=== PATIENT | female | born 1955 | race Caucasian/White ===

== ENCOUNTER → 2018-01-30 16:40 | Outpatient (CLI) | payer OTHER, SELFPAY ==
[2018-01-30 18:18] LABS: Microalbumin,Random Urine 17.8 mg/L (NO RANGE EST.)
[2018-01-30 18:21] LABS: AST(SGOT) 37 U/L (15-37); Alanine Aminotransfer ALT/SGPT 41 U/L (13-56); Albumin, Serum 3.1 g/dL (3.2-5.0); Alkaline Phosphatase 103 U/L (45-117); Anion Gap 7 (5-15); BUN 12 mg/dL (7-18); BUN/Creat Ratio 16.9 RATIO (10-20); Bilirubin, Direct 0.15 mg/dL (0.00-0.30); Calcium,Total 8.7 mg/dL (8.5-10.1); Chloride 99 mmol/L (98-107); Cholesterol 147 mg/dL (200); Creatinine, Serum 0.71 mg/dL (0.55-1.02); EST Glomerular Filtration Rate 88 mL/min (>60); Est Glom Filt Rate - Afr Amer 107 mL/min (>60); Globulin 4.1 g/dL (2.2-4.2); Glucose 160 mg/dL (74-106); High Density Lipoprotein 37 mg/dL; Potassium 3.6 mmol/L (3.5-5.1); Protein, Total 7.2 g/dL (6.4-8.2); Sodium Level 138 mmol/L (136-145); Triglycerides 258 mg/dL; Very Low Density Lipoprotein 52 mg/dL (5-40)
== END ==
PROVIDERS: Family Provider Family Medicine; PCP Family Medicine; Visit Provider Family Medicine
DX: I10 Essential (primary) hypertension (principal); E11.9 Type 2 diabetes mellitus without complications
CPT/HCPCS: 36415; 80048; 80061; 80076; 82043; 82570

== ENCOUNTER → 2018-08-03 10:53 | Outpatient (CLI) | payer OTHER, SELFPAY ==
[2018-08-03 12:44] LABS: Anion Gap 9 (5-15); BUN 11 mg/dL (7-18); BUN/Creat Ratio 15.7 RATIO (10-20); Chloride 97 mmol/L (98-107); EST Glomerular Filtration Rate 89 mL/min (>60); Est Glom Filt Rate - Afr Amer 108 mL/min (>60); Glucose 403 mg/dL (74-106); Potassium 3.9 mmol/L (3.5-5.1); Sodium Level 135 mmol/L (136-145)
== END ==
PROVIDERS: Family Provider Family Medicine; PCP Family Medicine; Visit Provider Family Medicine
DX: E11.9 Type 2 diabetes mellitus without complications (principal)
CPT/HCPCS: 36415; 80048

== ENCOUNTER → 2018-08-16 14:14 | Outpatient (CLI) | payer OTHER, SELFPAY | PROVIDERS: Family Provider Family Medicine; PCP Family Medicine; Referring Provider Family Medicine; Visit Provider Family Medicine | DX: L03.811 Cellulitis of head [any part, except face] (principal); L02.811 Cutaneous abscess of head [any part, except face] | CPT/HCPCS: 87070; 87077; 87186; 87205 ==

== ENCOUNTER → 2018-11-26 | Outpatient (CLI) | payer OTHER, SELFPAY ==
[2018-11-26 12:40] LABS: ALB/GLOB Ratio 0.8 RATIO (0.9-2.4); AST(SGOT) 20 U/L (15-37); Alanine Aminotransfer ALT/SGPT 32 U/L (13-56); Alkaline Phosphatase 100 U/L (45-117); Anion Gap 9 (5-15); BUN 12 mg/dL (7-18); BUN/Creat Ratio 19.2 RATIO (10-20); Calcium,Total 8.8 mg/dL (8.5-10.1); Chloride 100 mmol/L (98-107); Creatinine, Serum 0.62 mg/dL (0.55-1.02); EST Glomerular Filtration Rate 102 mL/min (>60); Est Glom Filt Rate - Afr Amer 123 mL/min (>60); Glucose 156 mg/dL (74-106); Potassium 3.5 mmol/L (3.5-5.1); Sodium Level 140 mmol/L (136-145)
[2018-11-27 16:33] LABS: C-Peptide 1.6 ng/mL (1.1-4.4)
== END | disposition home or self-care (01) ==
LOC: MFPLAB 11:06
PROVIDERS: Family Provider Family Medicine; PCP Family Medicine; Visit Provider Internal Medicine Endocrinology, Diabetes & Metabolism
DX: E11.9 Type 2 diabetes mellitus without complications (principal)
CPT/HCPCS: 36415; 80053; 84681

== ENCOUNTER → 2019-02-15 09:15 | Outpatient (CLI) | payer MEDICARE, BC, SELFPAY ==
[2019-02-15 10:55] LABS: Hemoglobin A1c 9.3 % (4.2-6.3)
[2019-02-15 11:15] LABS: ALB/GLOB Ratio 0.7 RATIO (0.9-2.4); AST(SGOT) 17 U/L (15-37); Alanine Aminotransfer ALT/SGPT 30 U/L (13-56); Alkaline Phosphatase 104 U/L (45-117); Anion Gap 7 (5-15); BUN 12 mg/dL (7-18); BUN/Creat Ratio 20.8 RATIO (10-20); Calcium,Total 8.6 mg/dL (8.5-10.1); Chloride 98 mmol/L (98-107); Cholesterol 146 mg/dL (200); Creatinine, Serum 0.58 mg/dL (0.55-1.02); EST Glomerular Filtration Rate 112 mL/min (>60); Est Glom Filt Rate - Afr Amer 135 mL/min (>60); Globulin 4.1 g/dL (2.2-4.2); Glucose 224 mg/dL (74-106); High Density Lipoprotein 44 mg/dL; Potassium 3.5 mmol/L (3.5-5.1); Protein, Total 7.1 g/dL (6.4-8.2); Sodium Level 138 mmol/L (136-145); Thyroid Stim Hormone (TSH) 1.15 uIU/mL (0.358-3.74); Triglycerides 119 mg/dL; Very Low Density Lipoprotein 24 mg/dL (5-40)
[2019-02-15 13:14] LABS: Microalbumin,Random Urine 98.7 mg/L (NO RANGE EST.); Microalbumin:Creatinine Ratio 135.4 mg/g CRE (<30 mg/g CRE)
== END ==
PROVIDERS: Family Provider Family Medicine; PCP Family Medicine; Referring Provider Family Medicine; Visit Provider Internal Medicine Endocrinology, Diabetes & Metabolism
DX: E11.9 Type 2 diabetes mellitus without complications (principal)
CPT/HCPCS: 36415; 80053; 80061; 82043; 82570; 83036; 84443

== ENCOUNTER → 2019-06-20 10:52 | Outpatient (CLI) | payer MEDICARE, BC, SELFPAY ==
[2019-06-20 12:48] LABS: Microalbumin,Random Urine 55.7 mg/L (NO RANGE EST.); Microalbumin:Creatinine Ratio 34.2 mg/g CRE (<30 mg/g CRE); Vitamin D,25 Hydroxy 30.6 ng/mL (29.95-100.01)
[2019-06-20 13:31] LABS: ALB/GLOB Ratio 0.7 RATIO (0.9-2.4); AST(SGOT) 24 U/L (15-37); Alanine Aminotransfer ALT/SGPT 31 U/L (13-56); Alkaline Phosphatase 86 U/L (45-117); Anion Gap 10 (5-15); BUN 12 mg/dL (7-18); BUN/Creat Ratio 17.4 RATIO (10-20); Calcium,Total 8.4 mg/dL (8.5-10.1); Chloride 99 mmol/L (98-107); Cholesterol 152 mg/dL (200); Creatinine, Serum 0.69 mg/dL (0.55-1.02); EST Glomerular Filtration Rate 91 mL/min (>60); Est Glom Filt Rate - Afr Amer 110 mL/min (>60); Globulin 4.1 g/dL (2.2-4.2); Glucose 191 mg/dL (74-106); High Density Lipoprotein 43 mg/dL; Potassium 3.1 mmol/L (3.5-5.1); Protein, Total 7.1 g/dL (6.4-8.2); Sodium Level 138 mmol/L (136-145); Triglycerides 130 mg/dL; Very Low Density Lipoprotein 26 mg/dL (5-40)
== END ==
PROVIDERS: Family Provider Family Medicine; PCP Family Medicine; Visit Provider Internal Medicine Endocrinology, Diabetes & Metabolism
DX: E11.9 Type 2 diabetes mellitus without complications (principal); E55.9 Vitamin D deficiency, unspecified; E06.9 Thyroiditis, unspecified; E78.1 Pure hyperglyceridemia; E66.01 Morbid (severe) obesity due to excess calories; Z68.43 Body mass index [BMI] 50.0-59.9, adult; Z87.891 Personal history of nicotine dependence; Z79.4 Long term (current) use of insulin
CPT/HCPCS: 36415; 80053; 80061; 82043; 82306; 82570; 84443

== ENCOUNTER → 2019-11-14 12:13 | Outpatient (CLI) | payer MEDICARE, BC, SELFPAY ==
--- NOTE | 2019-11-14 12:16 | BI_ITS ---
MAMMOGRAPHY - BILATERAL SCREENING REASON FOR EXAM: Female, 64 years old. Routine annual screening examination. PERTINENT HISTORY: Non-contributory. TECHNIQUE: Digital bilateral breast maria del carmen (3D mammographic acquisition) in the CC and MLO projections. 2-D mediolateral oblique (MLO) and craniocaudad (CC) views of both breasts were obtained. CAD: Full Field Digital Mammography with Computer Added Detection was performed. COMPARISON: Comparison is made with prior examination dated September 19, 2016 and March 18, 2014. FINDINGS: Breast Composition: The breasts are almost entirely fatty. There are no dominant masses or suspicious calcifications. Stable densely calcified right retroareolar nodule. No other significant abnormalities are identified. There has been no significant change since the prior study. BI/SCREEN MAMM (CAD) W/MARIA DELC ARMEN BILAT IMPRESSION: Stable bilateral screening mammogram. Yearly follow-up mammogram recommended. (A) ASSESSMENT CATEGORY: BIRADS Category 2: Benign. A letter regarding these results will be sent to the patient by the facility within 30 days. Approximately 10% of breast cancers are not detected by mammography. A normal mammogram should not delay biopsy of a clinically suspicious abnormality. [id number] Electronically Signed: Bharat Rodriguez, at 15:03 EDT , Service support ,
--- NOTE | 2019-11-14 12:50 | BD_ITS ---
STUDY: DUAL ENERGY X-RAY ABSORPTIOMETRY / DXA REASON FOR EXAM: Female, 64 years old. 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 COMPARISON: None. FINDINGS: Lumbar Spine (L1-L4): g/cm2 (1.082) / T-score (-0.7) / Z-score (0.9) Findings are suggestive of normal bone density with a low fracture risk. Left Femur Total: g/cm2 (0.976) / T-score (-0.3) / Z-score (1.0) Left Femoral Neck: g/cm2 (0.878) / T-score (-1.1) / Z-score (0.3) Right Femur Total: g/cm2 (0.942) / T-score (-0.5) / Z-score (0.7) Right Femoral Neck: g/cm2 (0.848) / T-score (-1.4) / Z-score (0.1) BD/Dexa Bone Density Study IMPRESSION: The patient is considered osteopenic as outlined below according to World Jay Organization (WHO) criteria with a low fracture risk. Reference Information: The T-score is the number of standard deviations above or below the standard which is normal for young adults at their peak bone mineral density. The World Health Organization (WHO) interprets the T-scores as follows: Above -1 Normal bone density Between -1 and -2.5 Osteopenia Equal to / or below -2.5 Osteoporosis As a practical clinical guideline, osteopenia may be graded as follows: Mild -1 through -1.5 Moderate -1.6 through -2.0 Severe -2.1 through -2.4 The Z-score is the number of standard deviations above or below age-matched controls. A Z-score of less than -1.5 would be considered abnormal. References: 1. NIH Osteoporosis and Related Bone Diseases http://www.osteo.org 2. International Society for Clinical Densitometry http://www.iscd.org 3. National Osteoporosis Foundation http://www.nof.org Electronically Signed: Bharat Rodriguez, at 10:47 EDT , Service support ,
== END ==
PROVIDERS: PCP Family Medicine; Referring Provider Family Medicine; Visit Provider Family Medicine
DX: Z12.31 Encounter for screening mammogram for malignant neoplasm of breast (principal); N95.9 Unspecified menopausal and perimenopausal disorder
CPT/HCPCS: 77063; 77067; 77080

== ENCOUNTER → 2019-11-25 07:37 | Outpatient (CLI) | payer MEDICARE, BC, SELFPAY ==
[2019-11-25 11:10] LABS: ALB/GLOB Ratio 0.7 RATIO (0.9-2.4); AST(SGOT) 23 U/L (15-37); Alanine Aminotransfer ALT/SGPT 33 U/L (13-56); Albumin, Serum 3.2 g/dL (3.2-5.0); Alkaline Phosphatase 101 U/L (45-117); Anion Gap 9 (5-15); BUN 18 mg/dL (7-18); Calcium,Total 9.9 mg/dL (8.5-10.1); Chloride 99 mmol/L (98-107); Cholesterol 168 mg/dL (200); Creatinine, Serum 0.78 mg/dL (0.55-1.02); EST Glomerular Filtration Rate 78 mL/min (>60); Est Glom Filt Rate - Afr Amer 95 mL/min (>60); Globulin 4.3 g/dL (2.2-4.2); Glucose 233 mg/dL (74-106); High Density Lipoprotein 41 mg/dL; Potassium 3.5 mmol/L (3.5-5.1); Protein, Total 7.5 g/dL (6.4-8.2); Sodium Level 137 mmol/L (136-145); Triglycerides 212 mg/dL; Very Low Density Lipoprotein 42 mg/dL (5-40)
[2019-11-25 13:25] LABS: Hemoglobin A1c 8.6 % (3.8-5.6)
== END ==
PROVIDERS: PCP Family Medicine; Referring Provider Internal Medicine Endocrinology, Diabetes & Metabolism; Visit Provider Internal Medicine Endocrinology, Diabetes & Metabolism
DX: E11.9 Type 2 diabetes mellitus without complications (principal); E78.5 Hyperlipidemia, unspecified; Z79.4 Long term (current) use of insulin; E55.9 Vitamin D deficiency, unspecified; Z59.8 Other problems related to housing and economic circumstances
CPT/HCPCS: 36415; 80053; 80061; 83036

== ENCOUNTER → 2020-04-24 08:07 | Outpatient (CLI) | payer MEDICARE, BC, SELFPAY ==
[2020-04-24 10:18] LABS: ALB/GLOB Ratio 0.8 RATIO (0.9-2.4); AST(SGOT) 17 U/L (15-37); Alanine Aminotransfer ALT/SGPT 23 U/L (13-56); Albumin, Serum 3.3 g/dL (3.2-5.0); Alkaline Phosphatase 90 U/L (45-117); Anion Gap 6 (5-15); BUN 22 mg/dL (7-18); BUN/Creat Ratio 30.9 RATIO (10-20); Calcium,Total 9.5 mg/dL (8.5-10.1); Chloride 103 mmol/L (98-107); Cholesterol 162 mg/dL (200); Creatinine, Serum 0.71 mg/dL (0.55-1.02); EST Glomerular Filtration Rate 87 mL/min (>60); Est Glom Filt Rate - Afr Amer 106 mL/min (>60); Globulin 4.1 g/dL (2.2-4.2); Glucose 101 mg/dL (74-106); High Density Lipoprotein 56 mg/dL; Potassium 3.6 mmol/L (3.5-5.1); Protein, Total 7.4 g/dL (6.4-8.2); Sodium Level 140 mmol/L (136-145); Triglycerides 135 mg/dL; Very Low Density Lipoprotein 27 mg/dL (5-40)
[2020-04-24 10:21] LABS: Hemoglobin A1c 6.9 % (3.8-5.6)
[2020-04-24 10:23] LABS: Microalbumin,Random Urine 12.4 mg/L (NO RANGE EST.)
[2020-04-24 10:42] LABS: Vitamin D,25 Hydroxy 32.9 ng/mL
== END ==
PROVIDERS: PCP Family Medicine; Referring Provider Family Medicine; Visit Provider Internal Medicine Endocrinology, Diabetes & Metabolism
DX: E11.9 Type 2 diabetes mellitus without complications (principal); I10 Essential (primary) hypertension; Z79.4 Long term (current) use of insulin; Z91.19 Patient's noncompliance with other medical treatment and regimen
CPT/HCPCS: 36415; 80053; 80061; 82043; 82306; 83036

== ENCOUNTER → 2020-11-10 11:32 | Outpatient (CLI) | payer MEDICARE, BC, SELFPAY ==
[2020-11-10 16:02] LABS: AST(SGOT) 20 U/L (15-37); Alanine Aminotransfer ALT/SGPT 27 U/L (13-56); Anion Gap 5 (5-15); BUN 13 mg/dL (7-18); BUN/Creat Ratio 23.2 RATIO (10-20); Calcium,Total 9.2 mg/dL (8.5-10.1); Chloride 99 mmol/L (98-107); Cholesterol 176 mg/dL (200); Creatinine, Serum 0.56 mg/dL (0.55-1.02); EST Glomerular Filtration Rate 115 mL/min (>60); Est Glom Filt Rate - Afr Amer 139 mL/min (>60); Glucose 145 mg/dL (74-106); High Density Lipoprotein 55 mg/dL; Potassium 3.8 mmol/L (3.5-5.1); Sodium Level 137 mmol/L (136-145); Triglycerides 152 mg/dL; Very Low Density Lipoprotein 30 mg/dL (5-40)
[2020-11-10 16:13] LABS: Microalbumin:Creatinine Ratio 30.7 mg/g CRE (<30 mg/g CRE)
== END ==
PROVIDERS: PCP Family Medicine; Referring Provider Family Medicine; Visit Provider Family Medicine
DX: E11.59 Type 2 diabetes mellitus with other circulatory complications (principal); E11.69 Type 2 diabetes mellitus with other specified complication; E78.5 Hyperlipidemia, unspecified
CPT/HCPCS: 36415; 80048; 80061; 82043; 82570; 84450; 84460

== ENCOUNTER → 2021-05-28 16:48 | Outpatient (CLI) | payer MEDICARE, BC, SELFPAY ==
[2021-05-28 17:53] LABS: Hemoglobin A1c 6.9 % (3.8-5.6)
[2021-05-28 18:04] LABS: Anion Gap 7 (5-15); BUN 11 mg/dL (7-18); BUN/Creat Ratio 19.2 RATIO (10-20); Calcium,Total 9.2 mg/dL (8.5-10.1); Chloride 98 mmol/L (98-107); Creatinine, Serum 0.57 mg/dL (0.55-1.02); EST Glomerular Filtration Rate 112 mL/min (>60); Est Glom Filt Rate - Afr Amer 135 mL/min (>60); Glucose 117 mg/dL (74-106); Potassium 3.9 mmol/L (3.5-5.1); Sodium Level 137 mmol/L (136-145)
== END ==
PROVIDERS: PCP Family Medicine; Referring Provider Family Medicine; Visit Provider Family Medicine
DX: E11.9 Type 2 diabetes mellitus without complications (principal)
CPT/HCPCS: 36415; 80048; 83036

== ENCOUNTER 2021-07-01 15:42 | Outpatient (CLI) | payer MEDICARE, BC, SELFPAY | END 2021-07-01 23:59 | disposition short-term general hospital (02) | PROVIDERS: PCP Family Medicine; Visit Provider Family Medicine | DX: U07.1 COVID-19 (principal) | CPT/HCPCS: 87635; U0003; U0005 ==

== ENCOUNTER 2021-07-14 14:51 | Inpatient (IN) | payer MEDICARE, BC, SELFPAY ==
[2021-07-14 14:52] VITALS: BP 137/84; PULSE 80; RESP 16; TEMP 36.7; O2SAT 94; BMI 64.0
--- NOTE | 2021-07-14 16:44 | CT_ITS ---
EXAM: CT NECK WITH INTRAVENOUS CONTRAST CLINICAL INDICATION: Edema Technologist Notes pt arrives to ed with difficulty swallowing since yesterday. pt was able to swallow applesauce with pill, but states water just runs out of my mouth. positive covid 07/03/21 TECHNIQUE: Helically acquired images were obtained of the neck with intravenous contrast. This CT exam was performed using one or more of the following dose reduction techniques: automated exposure control, adjustment of the mA and/or kV according to patient size, and/or use of iterative reconstruction technique. This report was created using Synovex report Paxata technology. CONTRAST: IV 100mL Isovue-370 COMPARISON: None. FINDINGS: NASOPHARYNX: Unremarkable. SUPRAHYOID NECK: Unremarkable. Oropharynx, oral cavity, parapharyngeal space and retropharyngeal space are unremarkable. INFRAHYOID NECK: Unremarkable. The larynx, hypopharynx and supraglottis are unremarkable. SUBMANDIBULAR/PAROTID GLANDS: Unremarkable. Glands are normal in size. THYROID: Unremarkable. No enlarged or calcified nodules. BONES/JOINTS: There are degenerative findings of the cervical spine. No acute fracture. SOFT TISSUES: Unremarkable. VASCULATURE: There is mild atherosclerotic plaque formation of the origin of the right and left internal carotid artery with less than 50% cross sectional diameter stenosis. There are thoracic aortic calcifications consistent for atherosclerotic disease. There is no dissection or hematoma noted in the thoracic aorta. LYMPH NODES: Unremarkable. No lymphadenopathy. LUNG APICES: Unremarkable as visualized. CT/Soft Tissue Neck WITH Contrast IMPRESSION: No acute findings in the neck. Electronically Signed: Enrique Webb MD at 18:03 EST , Service support ,
--- NOTE | 2021-07-14 16:56 | ED.RN ---
COUNTED PILLS BASED ON WHEN HE HAD TEM FILLED AND IF HES BEEN TAKING TEM HE IS SUPPOSED TO AND THERE ARE 9 NOT ACCOUNTED FOR.
--- NOTE | 2021-07-14 17:12 | EDS_ITS ---
HPI History of Present Illness Chief Complaint: Sore Throat Informant: patient Onset/Context/Timing Onset: Yesterday Context: Sudden Onset Timing: Continuous Quality: Swelling Location: Jaw Worsened by: Nothing Relieved by: Nothing Narrative Narrative: Patient presents with swelling to her jaw and throat that began yesterday. Patient states it began rather suddenly. Patient states it has been constant. Patient states she has some pain with swallowing. Patient denies any shortness of breath or difficulty breathing. Patient admits to nausea but denies any vomiting. Patient noted some redness under her jaw. Patient is concerned that she may be developing an infection from a tooth. [facility] Medical History Diabetes Hypertension Morbid obesity Home Medications chlorthalidone 2 mg PO DAILY 07/14/21 [History Last Taken Unknown] fluoxetine 20 mg PO DAILY 07/14/21 [History Last Taken Unknown] lisinopril 80 mg PO DAILY 07/14/21 [History Last Taken Unknown] metformin 850 mg PO TID 07/14/21 [History Last Taken Unknown] metoprolol succinate 50 mg PO DAILY 07/14/21 [History Last Taken Unknown] pioglitazone 30 mg PO DAILY 07/14/21 [History Last Taken Unknown] Allergy/AdvReac Type Severity Reaction Status Date / Time Sulfa (Sulfonamide Allergy NEEDS Verified 07/14/21 14:52 Antibiotics) FOLLOW-UP Family History (Updated 07/14/21 @ 21:[address] Jung Payton MD) Other Diabetes Heart disease Surgical History History of hysterectomy Hx of cholecystectomy Hx of tonsillectomy Hx of total knee replacement Hx of tubal ligation Social History Smoking Status: Never smoker ROS ROS ED Constitutional Constitutional ED: Denies chills or fever(s) Eyes Eyes: Denies blurry vision or change in vision ENT ENT ED: Reports sore throat; Denies rhinorrhea Cardiovascular Cardiovascular: Denies chest pain or palpitations Respiratory/Chest Respiratory/Chest: Denies cough or dyspnea Gastrointestinal Gastrointestinal: Reports nausea; Denies vomiting Genitourinary Genitourinary ED: Denies dysuria or hematuria Musculoskeletal Musculoskeletal: Reports neck pain; Denies back pain Integumentary Denies abscess or rash Neurologic Neurologic: Denies headache(s) or weakness Allergic/Immunologic Allergic/Immunologic ED: Denies mouth swelling or urticaria EXAM Physical Exam Const Vital Signs: 07/14/21 14:52 07/14/21 19:28 07/14/21 20:05 Temperature 98.0 F Temperature Source Temporal Pulse Rate 80 71 Respiratory Rate 16 15 Respiratory Effort Normal Non-Labored Respiratory Pattern Normal Blood Pressure 137/84 H 142/63 H Blood Pressure Mean 101 89 Pulse Ox 94 96 Oxygen Delivery Method Room Air Room Air 07/14/21 20:35 Temperature Temperature Source Pulse Rate 82 Respiratory Rate 16 Respiratory Effort Respiratory Pattern Blood Pressure 145/67 H Blood Pressure Mean 93 Pulse Ox 95 Oxygen Delivery Method Room Air Positive well nourished, well developed and obese General Appearance ED: well developed Nutritional Appearance: obese HEENT Reports moist mucous membranes HEENT Narrative: Oropharynx is clear. Airway is patent. There are no exudates noted. Neck supple and no JVD Neck Narrative: There is some mild erythema and tenderness over the sublingual area. There are some mild induration. There is no fluctuance. Resp normal respiratory effort and clear to auscultation bilaterally Cardio regular rate and regular rhythm GI normal to inspection, nondistended, normoactive bowel sounds and non-tender Palpation: soft Neuro oriented x3, CN's II-XII intact bilaterally and no sensory deficits noted Sensorium / Orientation: alert Motor Exam: strength 5/5 throughout Psych mental status grossly normal MDM MDM MDM Narrative Medical decision making narrative: Patient was given a dose of Unasyn here. Patient was also given a dose of Decadron. CBC shows a leukocytosis of 24.6. Comprehensive metabolic profile was obtained and was essentially within normal limits. CT scan of the soft tissue neck was obtained. There is no evidence of any abscess. There is no acute finding noted. This was interpreted by the radiologist and reviewed by myself. Patient was given a dose of morphine here. Case was discussed with the hospitalist. He will admit the patient to his service. Patient understood and was agreeable with the plan. All questions were answered. Lab Data Attestation: I reviewed the patient's lab results. Labs: Laboratory Results - last 24 hr 07/14/21 07/14/21 17:11 17:11 WBC 24.6 H RBC 4.65 Hgb 13.4 Hct 41.8 MCV 89.9 MCH 28.8 MCHC 32.1 RDW Std Deviation 47.9 H RDW Coeff of Graciela 14.6 Plt Count 332 MPV 10.5 Immature Gran % (Auto) 0.800 Neut % (Auto) 81.9 H Lymph % (Auto) 9.2 L [place] % (Auto) 7.8 Eos % (Auto) 0.1 Baso % (Auto) 0.2 Absolute Neuts (auto) 20.2 H Absolute Lymphs (auto) 2.25 Nucleated RBC % 0 Differential Comment SCANNED Diff Path Review May foll Sodium 133 L Potassium 4.0 Chloride 92 L Carbon Dioxide 35.0 H Anion Gap 6 BUN 24 H Creatinine 0.66 Estim Creat Clear Calc 43.18 Est GFR (MDRD) Af Amer 115 Est GFR (MDRD) Non-Af 95 BUN/Creatinine Ratio 36.3 H Glucose 199 H Calcium 8.4 L Total Bilirubin 0.80 AST 46 H ALT 87 H Alkaline Phosphatase 88 Total Protein 6.4 Albumin 2.6 L Globulin 3.8 Albumin/Globulin Ratio 0.7 L Radiography Diagnostic Testing: Clinical Impression(s) from Imaging Studies Soft Tissue Neck CT 07/14/21 16:44 IMPRESSION: No acute findings in the neck. Electronically Signed: Enrique Webb MD at 18:03 EST , Service support , Treatment and Re-Evaluation Vital Sign Attestation:: Vital signs were reviewed prior to admission. They are stable. Discharge Plan Dx/Rx/DC Orders Clinical Impression: Ludwigs angina, Morbid obesity Disposition Disposition: Acute Care Hospital [facility] Discharge Date/Time: 07/14/21 22:22
[2021-07-14 17:19] LABS: Absolute Lymphocyte Count 2.25 X10^3/uL (0.83-4.51); Absolute Neutrophil Count 20.2 X10^3/uL (2.0-7.7); Basophil# 0.04 X10^3/uL; Basophil% 0.2 % (0-1); Eosinophil# 0.02 X10^3/uL; Eosinophils% 0.1 % (0-5); Hematocrit 41.8 % (37-47); Hemoglobin 13.4 g/dL (12.0-15.0); Lymphocyte # 2.25 X10^3/ul (0.83-4.51); Lymphocyte % 9.2 % (19-41); Mean Corp Hgb Conc 32.1 g/dL (32-36); Mean Corpuscular Hgb 28.8 pg (27.0-32.0); Mean Corpuscular Volume 89.9 fL (81-99); Mean Platelet Vol. 10.5 fl (6.2-12.0); Monocyte# 1.91 X10^3/uL; Monocyte% 7.8 % (0-10); NRBC Flagged by Analyzer 0 % (0-5); Neutrophil # 20.17 X10^3/uL (2.7-7.7); Neutrophil % 81.9 % (47-70); POSITIVE DIFFERENTIAL YES; Platelet Count 332 K/mm3 (150-450); RBC Distribution Width CV 14.6 % (11.6-14.6); RBC Distribution Width SD 47.9 fl (35.1-43.9); Red Blood Count 4.65 M/mm3 (4.2-5.4); White Blood Count 24.6 K/mm3 (4.4-11.0)
[2021-07-14 17:39] LABS: ALB/GLOB Ratio 0.7 RATIO (0.9-2.4); AST(SGOT) 46 U/L (15-37); Alanine Aminotransfer ALT/SGPT 87 U/L (13-56); Albumin, Serum 2.6 g/dL (3.2-5.0); Alkaline Phosphatase 88 U/L (45-117); Anion Gap 6 (5-15); BUN 24 mg/dL (7-18); BUN/Creat Ratio 36.3 RATIO (10-20); Calcium,Total 8.4 mg/dL (8.5-10.1); Chloride 92 mmol/L (98-107); Creatinine, Serum 0.66 mg/dL (0.55-1.02); EST Glomerular Filtration Rate 95 mL/min (>60); Est Glom Filt Rate - Afr Amer 115 mL/min (>60); Estimated Creatinine Clearance 43.18 ml/min; Globulin 3.8 g/dL (2.2-4.2); Glucose 199 mg/dL (74-106); Protein, Total 6.4 g/dL (6.4-8.2); Sodium Level 133 mmol/L (136-145)
[2021-07-14 18:03] LABS: Differential Indicated SCAN CRITERIA MET
[2021-07-14 18:32] LABS: Differential Comment SCANNED
[2021-07-14 20:05] VITALS: BP 142/63; PULSE 71; RESP 15; O2SAT 96
[2021-07-14 20:35] VITALS: BP 145/67; PULSE 82; RESP 16; O2SAT 95
[2021-07-14] MEDS: dexAMETHasone 10 MG/ML Vial IV (20:41)
[2021-07-14] MEDS: Morphine 4 MG/ML Syringe IV (20:41)
[2021-07-14 20:44] VITALS: BP 145/67; PULSE 82; RESP 16; TEMP 36.7; O2SAT 95
--- NOTE | 2021-07-14 20:44 | PCM.HP.STD ---
HPI - General General Date of Admission: 07/14/21 HPI Narrative JOANNA SARAH, is a 66 F with a significant history of hypertension; obstructive sleep apnea on home CPAP and diabetes mellitus and who was recently diagnosed with COVID-19 infection presents emergency department with a 2-day history of progressively worsening right jaw pain. Associated with her symptoms is odynophagia and nausea. Because of odynophagia she can only drink liquid. She is unable to take any solid food at this time. Reportedly on 23 June 2021 she had a COVID-19 vaccination booster. On Monday, 24 June 2021 she began to feel sick and her symptoms progressively worsened. She had a drive-through COVID test on 07/01/2021 and that was positive. She was started on steroids. She completed her course of steroids on 07/12/2021 and her current symptoms of jaw swelling started the next day. She reported that with her COVID-like symptoms she was started on Tessalon Perles as she had rhinorrhea and a productive cough. She thinks that the rhinorrhea and productive cough brought about her current symptoms. She reports that on 07/13/2021 she had a large greenish phlegm from her nose. [facility] Medical History Diabetes Hypertension Morbid obesity Allergy/AdvReac Type Severity Reaction Status Date / Time Sulfa (Sulfonamide Allergy NEEDS Verified 07/14/21 14:52 Antibiotics) FOLLOW-UP Family History (Updated 07/14/21 @ 21:[address] Jung Payton MD) Other Diabetes Heart disease Surgical History History of hysterectomy Hx of cholecystectomy Hx of tonsillectomy Hx of total knee replacement Hx of tubal ligation Social History Smoking Status: Never smoker ROS ROS Narrative Constitutional: Reports fatigue. Denies fever, chills, and change in weight Eyes: Denies blurry vision, change in eye color, change in vision, discharge from eye(s), double vision, erythema, eye pain, loss of vision or other HEENT: Denies abnormal hearing, dysphagia, ear pain, epistaxis, headache(s), hearing loss, nasal congestion, nasal discharge, post nasal drip, sinus pressure, sore throat or other Cardiovascular: Denies chest pain or palpitations. Denies dyspnea on exertion, orthopnea and paroxysmal nocturnal dyspnea Respiratory/Chest: Denies cough, excessive phlegm production, shortness of breath with exertion and wheezing Gastrointestinal: Reports nausea. Denies abdominal pain, coffee ground emesis, constipation, diarrhea, dyspepsia, hematemesis, hematochezia, loose stools, melena, vomiting or other Genitourinary: Denies burning urination, difficulty urinating, dysuria, hematuria, nocturia, urinary frequency, urinary hesitancy, urinary incontinence, urinary urgency or other Musculoskeletal: Denies arthralgias, back pain, joint pain, joint stiffness, joint swelling, myalgias, neck pain or other Neurologic: Denies abnormal gait, abnormal speech, confusion, disequilibrium, dizziness, focal weakness, headache(s), numbness, paresthesias, seizure-like activity, seizures, syncope, tingling, tremor(s) or other Psychiatric: Denies anxiety, depression, homicidal ideation, suicidal ideation or other Endocrinology: Denies change in body appearance, cold intolerance, excessive sweating, heat intolerance, polydipsia, polyuria or other Hematologic/Lymphatic: Denies anemia, easy bleeding, easy bruising, lymphadenopathy or other Integumentary: Denies rashes Allergic/Immunologic: Denies rhinitis, hives, eczema, asthma or other Vital Signs Vital Signs Vital Signs: 07/14/21 14:52 07/14/21 19:28 07/14/21 20:05 Temperature 98.0 F Temperature Source Temporal Pulse Rate 80 71 Respiratory Rate 16 15 Respiratory Effort Normal Non-Labored Respiratory Pattern Normal Blood Pressure 137/84 H 142/63 H Blood Pressure Mean 101 89 Pulse Ox 94 96 Oxygen Delivery Method Room Air Room Air 07/14/21 20:35 Temperature Temperature Source Pulse Rate 82 Respiratory Rate 16 Respiratory Effort Respiratory Pattern Blood Pressure 145/67 H Blood Pressure Mean 93 Pulse Ox 95 Oxygen Delivery Method Room Air Weight Weight: 158.757 kg Body Mass Index (BMI) 64.0 Physical Exam Narrative Physical exam: General: Well-nourished, well-developed. Head: Tender right jaw. Normocephalic, atraumatic, no tenderness Eyes: PERRLA, EOMI ENT, no trauma, swelling and tenderness of submandibular area. Neck: Nontender, full range of motion, no spinal tenderness, deformities, step-off CVS: Regular rate and rhythm. S1-S2 present. No murmur, gallop or rub. Respiratory : clear to auscultation bilaterally, chest wall nontender, no wheezing Abdomen: Soft, nontender, nondistended, normal bowel sounds, no masses : Deferred Back: Nontender, no CVA tenderness, no midline spinal tenderness, deformities, step-offs Extremities: Nontender full range of motion, no trauma Skin: Normal color, no trauma, abrasions Neuro: Alert, oriented, cranial nerves II through XII grossly intact. Psychiatry: Normal mood. Normal affect. Not depressed. Not anxious. Results Lab / Micro Data Result Diagrams: 07/14/21 17:11 07/14/21 17:11 Labs: Laboratory Results - last 24 hr 07/14/21 17:11: WBC 24.6 H, RBC 4.65, Hgb 13.4, Hct 41.8, MCV 89.9, MCH 28.8, MCHC 32.1, RDW Std Deviation 47.9 H, RDW Coeff of Graciela 14.6, Plt Count 332, MPV 10.5, Immature Gran % (Auto) 0.800, Neut % (Auto) 81.9 H, Lymph % (Auto) 9.2 L, Coffee % (Auto) 7.8, Eos % (Auto) 0.1, Baso % (Auto) 0.2, Absolute Neuts (auto) 20.2 H, Absolute Lymphs (auto) 2.25, Nucleated RBC % 0, Differential Comment SCANNED, Diff Path Review October foll 07/14/21 17:11: Sodium 133 L, Potassium 4.0, Chloride 92 L, Carbon Dioxide 35.0 H, Anion Gap 6, BUN 24 H, Creatinine 0.66, Estim Creat Clear Calc 43.18, Est GFR (MDRD) Af Amer 115, Est GFR (MDRD) Non-Af 95, BUN/Creatinine Ratio 36.3 H, Glucose 199 H, Calcium 8.4 L, Total Bilirubin 0.80, AST 46 H, ALT 87 H, Alkaline Phosphatase 88, Total Protein 6.4, Albumin 2.6 L, Globulin 3.8, Albumin/Globulin Ratio 0.7 L Radiology Impression Soft Tissue Neck CT 07/14/21 16:44 IMPRESSION: No acute findings in the neck. 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 With neutrophilia and lymphopenia. Of note patient was recently on steroids with her last dose of steroids 2 days before presentation. Will trend CBC. Soft tissue neck CT was independently interpreted and I agree with radiologist interpretation above. Given Decadron 10 mg IV push x1 at the emergency department. We will continue Decadron about IV. Started on Unasyn in the emergency department and continued. We will put patient on clear liquid diets. Advance diet as tolerated Diabetes mellitus Patient with hyperglycemia on presentation Adjust home basal insulin Reportedly she is on Trulicity but has not filled because of sickness. Accu-Chek QA CHS with correction scale insulin ordered. Psuedo-hyponatremia Sodium of 133 and chloride of 92. Corrected for glucose sodium is 135. Trend BMP Hypertension Blood pressure is stable in regard to her age. Blood pressure medications. Trend blood pressure and adjust blood pressure medications. Morbid Obesity: BMI:64. Complicates care. Lifestyle modification recommended. DVT prophylaxis: Subcutaneous Lovenox ordered. Charges/Coding Visit Charges Inpatient E&M: 68835 Init Hosp L3
--- NOTE | 2021-07-14 21:16 | CM.ED ---
RN CM Assessment Introduced role of RN CM to patient. Patient is alert, oriented and able to participate in RN CM Assessment. Care providers, pharmacy, and demographics verified. Admit Dx: odontogenic infection Re-Admit: No Barriers/Issues: None. has good support from her sons PCP: Radha Wetzel Specialists: Diabetic doctor in [place] Preferred Pharmacy: [facility] Insurance: [employer] A/B, [place] Rx Benefit: Yes LNOK: Sister Vera Clifton LW/HPOA: None, refused offered information or completion on this admission. Aware to notify staff if she changes her mind. Living Arrangements: Lives alone in basement apartment. No steps to enter home. ADL?s: Independent with ambulation and ADLs Transportation: Patient drives DME: Straight cane, [place], [place], CPAP-[employer] (states that her machine is the one that was recalled and needs to exchange), Glucometer. HHC: None SNF: Past when she has a knee replacement Goal: Home and does not think will have any needs, issues or concerns with going home. Aware RNCM will continue to follow should any needs arise. DC PLAN: Home and no anticipated needs identified at this time. BRO Urena
[2021-07-14 21:33] VITALS: BP 145/67; PULSE 82; RESP 16; TEMP 36.7; O2SAT 95
[2021-07-14 22:50] VITALS: BMI 65.2
[2021-07-14 23:35] VITALS: BP 155/47; PULSE 72; RESP 18; TEMP 36.7; O2SAT 93
[2021-07-15] VITALS (7 sets, daily range): BP systolic 140–155; BP diastolic 62–73; PULSE 69–94; RESP 18–20; TEMP 35.6–37.2; O2SAT 92–98
[2021-07-15] MEDS: dexAMETHasone 4 MG/ML Vial IV ×5 (00:33→23:24)
[2021-07-15] MEDS: 0.9% Saline Lock 10 ML Syringe IV ×3 (00:33→21:45)
[2021-07-15] MEDS: Enoxaparin 40 MG/0.4 ML Syringe SC ×3 (00:35→21:40)
[2021-07-15] MEDS: Insulin Lispro 100 UNIT/ML INSULN.PEN SC ×5 (00:37→21:38)
[2021-07-15 01:11] LABS: Bedside Glucose 264 mg/dL (70-110)
--- NOTE | 2021-07-15 03:14 | PCS.PANDOC ---
PANDEMIC DOCUMENTATION INITIATED: Date: 02/08/2021 Time: 190
[2021-07-15 05:53] LABS: Absolute Lymphocyte Count 0.94 X10^3/uL (0.83-4.51); Absolute Neutrophil Count 13.3 X10^3/uL (2.0-7.7); Basophil# 0.02 X10^3/uL; Basophil% 0.1 % (0-1); Hematocrit 42.1 % (37-47); Hemoglobin 13.3 g/dL (12.0-15.0); Lymphocyte # 0.94 X10^3/ul (0.83-4.51); Lymphocyte % 6.4 % (19-41); Mean Corp Hgb Conc 31.6 g/dL (32-36); Mean Corpuscular Hgb 28.2 pg (27.0-32.0); Mean Corpuscular Volume 89.4 fL (81-99); Mean Platelet Vol. 10.7 fl (6.2-12.0); Monocyte# 0.24 X10^3/uL; Monocyte% 1.6 % (0-10); NRBC Flagged by Analyzer 0 % (0-5); Neutrophil # 13.25 X10^3/uL (2.7-7.7); Neutrophil % 90.7 % (47-70); Platelet Count 253 K/mm3 (150-450); RBC Distribution Width CV 14.4 % (11.6-14.6); RBC Distribution Width SD 46.9 fl (35.1-43.9); Red Blood Count 4.71 M/mm3 (4.2-5.4); White Blood Count 14.6 K/mm3 (4.4-11.0)
[2021-07-15 06:15] LABS: Anion Gap 5 (5-15); BUN 19 mg/dL (7-18); BUN/Creat Ratio 32.3 RATIO (10-20); Calcium,Total 8.3 mg/dL (8.5-10.1); Chloride 93 mmol/L (98-107); Creatinine, Serum 0.59 mg/dL (0.55-1.02); EST Glomerular Filtration Rate 108 mL/min (>60); Est Glom Filt Rate - Afr Amer 131 mL/min (>60); Estimated Creatinine Clearance 41.19 ml/min; Glucose 289 mg/dL (74-106); Potassium 3.8 mmol/L (3.5-5.1); Sodium Level 131 mmol/L (136-145)
--- NOTE | 2021-07-15 07:32 | PCS.PANDOC ---
PANDEMIC DOCUMENTATION INITIATED: Date: 02/08/2021 Time: 190
--- NOTE | 2021-07-15 12:42 | PCM.PN.HOSP ---
Subjective Subjective Able to drink warm liquids. Difficulty with cold liquids. Objective Data Objective Data Vital Signs: Vital Signs Temp Pulse Resp BP Pulse Ox 36.1 C L 69 18 155/62 H 95 07/15/21 09:19 07/15/21 09:19 07/15/21 09:19 07/15/21 09:19 07/15/21 09:19 Oxygen Flow Rate (L/min) 2 Oxygen Delivery Method Room Air Weight: 160.1 kg Body Mass Index (BMI) 65.2 Intake & Output: Intake and Output for Last 24 Hours 07/13/21 07/14/21 07/15/21 23:59 23:59 23:59 Intake Total 112 / 112 112 / 112 Balance 112 / 112 112 / 112 Lab / Micro Data Result Diagrams: 07/15/21 05:02 07/15/21 05:02 Labs: Laboratory Results - last 24 hr 07/14/21 17:11: WBC 24.6 H, RBC 4.65, Hgb 13.4, Hct 41.8, MCV 89.9, MCH 28.8, MCHC 32.1, RDW Std Deviation 47.9 H, RDW Coeff of Graciela 14.6, Plt Count 332, MPV 10.5, Immature Gran % (Auto) 0.800, Neut % (Auto) 81.9 H, Lymph % (Auto) 9.2 L, [place] % (Auto) 7.8, Eos % (Auto) 0.1, Baso % (Auto) 0.2, Absolute Neuts (auto) 20.2 H, Absolute Lymphs (auto) 2.25, Nucleated RBC % 0, Differential Comment SCANNED, Diff Path Review October07/14/21 17:11: Sodium 133 L, Potassium 4.0, Chloride 92 L, Carbon Dioxide 35.0 H, Anion Gap 6, BUN 24 H, Creatinine 0.66, Estim Creat Clear Calc 43.18, Est GFR (MDRD) Af Amer 115, Est GFR (MDRD) Non-Af 95, BUN/Creatinine Ratio 36.3 H, Glucose 199 H, Calcium 8.4 L, Total Bilirubin 0.80, AST 46 H, ALT 87 H, Alkaline Phosphatase 88, Total Protein 6.4, Albumin 2.6 L, Globulin 3.8, Albumin/Globulin Ratio 0.7 L 07/15/21 00:27: POC Glucose 264 H 07/15/21 05:02: WBC 14.6 H, RBC 4.71, Hgb 13.3, Hct 42.1, MCV 89.4, MCH 28.2, MCHC 31.6 L, RDW Std Deviation 46.9 H, RDW Coeff of Graciela 14.4, Plt Count 253, MPV 10.7, Immature Gran % (Auto) 1.200 H, Neut % (Auto) 90.7 H, Lymph % (Auto) 6.4 L, [place] % (Auto) 1.6, Eos % (Auto) 0.0, Baso % (Auto) 0.1, Absolute Neuts (auto) 13.3 H, Absolute Lymphs (auto) 0.94, Nucleated RBC % 0 07/15/21 05:02: Sodium 131 L, Potassium 3.8, Chloride 93 L, Carbon Dioxide 33.0 H, Anion Gap 5, BUN 19 H, Creatinine 0.59, Estim Creat Clear Calc 41.19, Est GFR (MDRD) Af Amer 131, Est GFR (MDRD) Non-Af 108, BUN/Creatinine Ratio 32.3 H, Glucose 289 H, Calcium 8.3 L Radiography Diagnostic Testing: Radiology Impression Soft Tissue Neck CT 07/14/21 16:44 IMPRESSION: No acute findings in the neck. Electronically Signed: Enrique Webb MD at 18:03 EST , Service support , Physical Exam Const alert Neck Neck Narrative: edema under jaw without rigidity Resp normal respiratory effort, no retractions, no use of accessory muscles and clear to auscultation bilaterally Cardio regular rate, regular rhythm, S1 normal heart sound and S2 normal heart sound GI normal to inspection, nondistended, normoactive bowel sounds, soft to palpation, non-tender and non-distended Assessment & Plan Assessment/Plan (1) Ludwigs angina: (2) Morbid obesity: (3) Diabetes: QUALIFIERS: Diabetes mellitus type: type 2 Diabetes mellitus [facility] insulin use: with ocean transportation intermediary use Diabetes mellitus complication status: without complication Qualified Code(s): E11.9 - Type 2 diabetes mellitus without complications; Z79.4 - [facility] (current) use of insulin PLAN: 1. Mendez's angina improving continue amp/SB and dexamethasone will need to follow up with DDS as outpt. 2. Diabetes mellitus on basal and SSI 3. hyponatremia mild monitor 4. DVT prophylaxis: Subcutaneous Lovenox ordered. Disposition: overall improved. Monitor another day with IV abx and steroids and reevaluate on 07/16 Charges/Coding Visit Charges Inpatient E&M: 45131 Subs Hosp L2
[2021-07-15] MEDS: Nystatin Powder 15gm Bottle 1 APPLIC TOPICAL ×2 (13:29→21:40)
[2021-07-15 13:30] LABS: Bedside Glucose 311 mg/dL (70-110)
[2021-07-15 13:56] LABS: Bedside Glucose 308 mg/dL (70-110)
--- NOTE | 2021-07-15 15:30 | CHAPLAIN ---
Type of Pastoral Visit _x__ Initial Visit ___ Follow-up Visit ___ On-call Visit ___ General Patient Visit ___ Spiritual Assessment ___ Family Conference ___ Bereavement ___ Rapid Response ___ Code Blue ___ Other (describe below) Pastoral Care Referral From _x__ Patient ___ Family ___ Nurse ___ Physician ___ Counseling Aide ___ Criminal Profiler ___ Other (describe below) Sacrament/Intervention _x__ Active listening ___ Anointing ___ Hinduism ___ Bereavement ___ Communion _x__ Marian[place] exploration ___ _x__ Life review _x__ Prayer ___ Reconciliation ___ Sacrament of Sick _x__ Supportive presence ___ Wedding ___ Other (describe below) Pastoral Comments
[2021-07-15 16:41] LABS: Bedside Glucose 284 mg/dL (70-110)
[2021-07-15 21:55] LABS: Bedside Glucose 361 mg/dL (70-110)
[2021-07-16] MEDS: 0.9% Saline Lock 10 ML Syringe IV (00:04)
[2021-07-16 00:33] VITALS: PULSE 74; O2SAT 98
[2021-07-16] MEDS: dexAMETHasone 4 MG/ML Vial IV (05:35)
[2021-07-16 05:40] VITALS: BP 174/70; PULSE 77; RESP 18; TEMP 36.6; O2SAT 96
[2021-07-16 07:48] LABS: Absolute Lymphocyte Count 1.16 X10^3/uL (0.83-4.51); Absolute Neutrophil Count 10.1 X10^3/uL (2.0-7.7); Basophil# 0.02 X10^3/uL; Basophil% 0.2 % (0-1); Hematocrit 40.6 % (37-47); Lymphocyte # 1.16 X10^3/ul (0.83-4.51); Lymphocyte % 9.7 % (19-41); Mean Corpuscular Hgb 28.5 pg (27.0-32.0); Mean Platelet Vol. 10.5 fl (6.2-12.0); Monocyte# 0.62 X10^3/uL; Monocyte% 5.2 % (0-10); NRBC Flagged by Analyzer 0 % (0-5); Neutrophil # 10.09 X10^3/uL (2.7-7.7); Neutrophil % 83.8 % (47-70); Platelet Count 258 K/mm3 (150-450); RBC Distribution Width CV 14.2 % (11.6-14.6); RBC Distribution Width SD 45.8 fl (35.1-43.9); Red Blood Count 4.56 M/mm3 (4.2-5.4)
[2021-07-16 08:15] LABS: Bedside Glucose 280 mg/dL (70-110)
--- NOTE | 2021-07-16 08:18 | PCM.DC ---
Discharge Instructions Diet Discharge Diet: 2000 Calorie Control Diet (mechanical soft diet, advance as tolerated. ) Activity Discharge Activity: Return to Normal Activity Dressing / Incision Call your doctor if you observe: Fever of 101 or Higher, Shortness of breath and - (worsening difficulty swallowing. ) Follow Up Care Please Follow Up With: Your Dentist When: 1 week Test Results: Test results from this visit will be discussed in further detail at your follow-up appointment, if applicable. Discharge Plan Admission Admit Date/Time: 07/14/21 20:36 Primary Reason for Your Visit: Lugwig's Angina (submandibular infection) Attending Provider: Shahram Chavez Primary Care Provider: Radha Wetzel Discharge Orders/Prescriptions Prescriptions: New acetaminophen [Tylenol] 325 mg Tablet 500 mg PO Q6H PRN PRN (Reason: Pain Score 1-10/Temp > 100.7 F) Qty: 0 RF: 0 amoxicillin-pot clavulanate 875-125 mg tablet 1 tab PO BID Qty: 25 RF: 0 prednisone 20 mg tablet 40 mg PO DAILY 4 Days Qty: 8 RF: 0 Continued metoprolol succinate 50 mg tablet extended release 24 hr 50 mg PO DAILY RF: 0 chlorthalidone 25 mg tablet 25 mg PO DAILY RF: 0 pioglitazone 30 mg tablet 30 mg PO DAILY RF: 0 lisinopril 40 mg tablet 80 mg PO DAILY RF: 0 fluoxetine 20 mg capsule 20 mg PO DAILY RF: 0 atorvastatin 10 mg tablet 10 mg PO QHS RF: 0 albuterol sulfate 90 mcg/actuation HFA aerosol inhaler 2 puff INHALATION Q6H PRN PRN (Reason: Dyspnea) RF: 0 Lantus U-100 Insulin 100 unit/mL Solution 40 unit SUBCUT QHS Qty: 0 RF: 0 Changed insulin lispro 100 unit/mL Insulin Pen 40 unit SUBCUT TIDCM Qty: 0 RF: 0 Held metformin 850 mg tablet 850 mg PO TID RF: 0 Hold Instructions: Resume on 07/18/21. Referrals / Follow Up: Radha Wetzle MD [Primary Care Provider] - Within 1 Week Disposition Disposition (needs filled in before D/C Order can be placed): Home, Self Care
[2021-07-16 08:25] VITALS: BP 162/103; PULSE 82; RESP 18; TEMP 36.6; O2SAT 93
[2021-07-16 08:25] LABS: Anion Gap 5 (5-15); BUN 24 mg/dL (7-18); BUN/Creat Ratio 43.9 RATIO (10-20); Calcium,Total 8.3 mg/dL (8.5-10.1); Chloride 97 mmol/L (98-107); Creatinine, Serum 0.55 mg/dL (0.55-1.02); EST Glomerular Filtration Rate 118 mL/min (>60); Est Glom Filt Rate - Afr Amer 143 mL/min (>60); Estimated Creatinine Clearance 41.19 ml/min; Glucose 281 mg/dL (74-106); Potassium 3.7 mmol/L (3.5-5.1); Sodium Level 134 mmol/L (136-145)
[2021-07-16] MEDS: Insulin Lispro 100 UNIT/ML INSULN.PEN SC (08:27)
[2021-07-16] MEDS: Enoxaparin 40 MG/0.4 ML Syringe SC (08:28)
[2021-07-16] MEDS: Nystatin Powder 15gm Bottle 1 APPLIC TOPICAL (08:32)
--- NOTE | 2021-07-16 08:33 | PCM.DC.SUM ---
Providers Date of Admission: 07/14/21 Primary Care Physician: Dr. Radha Wetzel MD Reason For Visit: ODONTOGENIC INFECTION Diagnosis Discharge Diagnosis (1) Ludwigs angina: Status: Acute Code(s): K12.2 - Cellulitis and abscess of mouth (2) Morbid obesity: Status: Acute Code(s): E66.01 - Morbid (severe) obesity due to excess calories (3) Diabetes: Status: Inactive Code(s): E11.9 - Type 2 diabetes mellitus without complications Qualifiers: Diabetes mellitus type: type 2 Diabetes mellitus manager long term care insulin use: with half-way use Diabetes mellitus complication status: without complication Qualified Code(s): E11.9 - Type 2 diabetes mellitus without complications; 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.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) use of insulin Medications at Discharge Home Medications albuterol sulfate 2 puff INHALATION Q6H PRN PRN 07/14/21 atorvastatin 10 mg PO QHS 07/14/21 chlorthalidone 25 mg PO DAILY 07/14/21 fluoxetine 20 mg PO DAILY 07/14/21 lisinopril 80 mg PO DAILY 07/14/21 metformin 850 mg PO TID 07/14/21 metoprolol succinate 50 mg PO DAILY 07/14/21 pioglitazone 30 mg PO DAILY 07/14/21 Lantus U-100 Insulin 40 unit SUBCUT QHS #0 ml 07/16/21 acetaminophen [Tylenol] 500 mg PO Q6H PRN PRN #0 tab 07/16/21 amoxicillin-pot clavulanate 1 tab PO BID #25 tab 07/16/21 insulin lispro 40 unit SUBCUT TIDCM #0 ml 07/16/21 prednisone 40 mg PO DAILY 4 Days #8 tab 07/16/21 Hospital Course Operations None Procedures None Summary of Care Provided Minutes Spent on Discharge: 32 Hospital Course: 66 year old female presents with submandibular swelling and trismus. CT did not show any abscess, but exam was consistent with Mendez's Angina. She was started on ampicillin/sulbactam and dexamethasone. Since then, her swallowing improved, but not at baseline. Pt has a bad molar that was likely the source of the infection. She will continue with steroids for 4 more days and 2 weeks more of antibiotics with Augmentin. Pt advised to return if she develops worsening of her swallowing or any dyspnea. Pt advised to increase her Lantus from 40 to 50 while on prednisone. Pt utilizes a sliding scale with her Humalog at home. Pt instructed to follow up with her dentist for evaluation of the culprit tooth. Physical Exam Const alert and no apparent distress Constitutional Narrative: slightly gravely voice. HEENT HEENT Narrative: still with submandibular edema, but less indurated today. Weight / BMI Weight Weight: 158.9 kg Body Mass Index (BMI) 65.2 ABG / Lab / Microbiology Data Result Diagrams: 07/16/21 07:35 07/16/21 07:35 Laboratory: Laboratory Results - last 24 hr 07/15/21 09:15: POC Glucose 311 H 07/15/21 13:33: POC Glucose 308 H 07/15/21 16:36: POC Glucose 284 H 07/15/21 21:22: POC Glucose 361 H 07/16/21 07:35: WBC 12.0 H, RBC 4.56, Hgb 13.0, Hct 40.6, MCV 89.0, MCH 28.5, MCHC 32.0, RDW Std Deviation 45.8 H, RDW Coeff of Graciela 14.2, Plt Count 258, MPV 10.5, Immature Gran % (Auto) 1.100 H, Neut % (Auto) 83.8 H, Lymph % (Auto) 9.7 L, [place] % (Auto) 5.2, Eos % (Auto) 0.0, Baso % (Auto) 0.2, Absolute Neuts (auto) 10.1 H, Absolute Lymphs (auto) 1.16, Nucleated RBC % 0 07/16/21 07:35: Sodium 134 L, Potassium 3.7, Chloride 97 L, Carbon Dioxide 32.0, Anion Gap 5, BUN 24 H, Creatinine 0.55, Estim Creat Clear Calc 41.19, Est GFR (MDRD) Af Amer 143, Est GFR (MDRD) Non-Af 118, BUN/Creatinine Ratio 43.9 H, Glucose 281 H, Calcium 8.3 L 07/16/21 08:09: POC Glucose 280 H D/C Instructions Discharge Diet: 2000 Calorie Control Diet (mechanical soft diet, advance as tolerated. ) Call your doctor if you observe: Fever of 101 or Higher, Shortness of breath and - (worsening difficulty swallowing. ) Please Follow Up With: Your Dentist When: 1 week Meaningful Use Info Meaningful Use Diagnoses (Choose all that apply): None applicable Discharge Plan Admission Admit Date/Time: 07/14/21 20:36 Primary Reason for Your Visit: Lugwig's Angina (submandibular infection) Attending Provider: Shahram Chavez Primary Care Provider: Radha Wetzel Discharge Orders/Prescriptions Prescriptions: New acetaminophen [Tylenol] 325 mg Tablet 500 mg PO Q6H PRN PRN (Reason: Pain Score 1-10/Temp > 100.7 F) Qty: 0 RF: 0 amoxicillin-pot clavulanate 875-125 mg tablet 1 tab PO BID Qty: 25 RF: 0 prednisone 20 mg tablet 40 mg PO DAILY 4 Days Qty: 8 RF: 0 Continued metoprolol succinate 50 mg tablet extended release 24 hr 50 mg PO DAILY RF: 0 chlorthalidone 25 mg tablet 25 mg PO DAILY RF: 0 pioglitazone 30 mg tablet 30 mg PO DAILY RF: 0 lisinopril 40 mg tablet 80 mg PO DAILY RF: 0 fluoxetine 20 mg capsule 20 mg PO DAILY RF: 0 atorvastatin 10 mg tablet 10 mg PO QHS RF: 0 albuterol sulfate 90 mcg/actuation HFA aerosol inhaler 2 puff INHALATION Q6H PRN PRN (Reason: Dyspnea) RF: 0 Lantus U-100 Insulin 100 unit/mL Solution 40 unit SUBCUT QHS Qty: 0 RF: 0 Changed insulin lispro 100 unit/mL Insulin Pen 40 unit SUBCUT TIDCM Qty: 0 RF: 0 Held metformin 850 mg tablet 850 mg PO TID RF: 0 Hold Instructions: Resume on 07/18/21. Referrals / Follow Up: Radha Wetzel MD [Primary Care Provider] - Within 1 Week Disposition Disposition (needs filled in before D/C Order can be placed): Home, Self Care Charges/Coding Visit Charges Inpatient E&M: 57575 Disch Hosp
[2021-07-16 11:15] VITALS: BP 150/70
[2021-07-19 09:10] LABS: Pathologist Review Reviewed
== END 2021-07-16 11:44 | disposition home or self-care (01) | DRG 158 ==
LOC: ED 20:32 → MS3 21:43
PROVIDERS: Admitting Provider Hospitalist; Emergency Provider Emergency Medicine; PCP Family Medicine
DX: K12.2 Cellulitis and abscess of mouth (principal); Z68.44 Body mass index [BMI] 60.0-69.9, adult; E87.1 Hypo-osmolality and hyponatremia; E11.65 Type 2 diabetes mellitus with hyperglycemia; E66.01 Morbid (severe) obesity due to excess calories; Z79.4 Long term (current) use of insulin; I10 Essential (primary) hypertension; G47.33 Obstructive sleep apnea (adult) (pediatric); Z79.899 Other long term (current) drug therapy; Z86.16 Personal history of COVID-19
CPT/HCPCS: 36415; 70491; 80048; 80053; 82962; 85025; 87040; 97802; 99285; J7050; Q9967; A4216; J0295

== ENCOUNTER → 2021-11-25 | Outpatient (CLI) | payer MEDICARE, BC, SELFPAY ==
[2021-11-25 13:03] LABS: Microalbumin,Random Urine 33.7 mg/L (NO RANGE EST.); Microalbumin:Creatinine Ratio 27.9 mg/g CRE (<30 mg/g CRE)
[2021-11-25 13:06] LABS: ALB/GLOB Ratio 0.7 RATIO (0.9-2.4); AST(SGOT) 22 U/L (15-37); Alanine Aminotransfer ALT/SGPT 32 U/L (13-56); Albumin, Serum 3.2 g/dL (3.2-5.0); Alkaline Phosphatase 93 U/L (45-117); Anion Gap 4 (5-15); BUN 13 mg/dL (7-18); BUN/Creat Ratio 21.5 RATIO (10-20); Calcium,Total 9.7 mg/dL (8.5-10.1); Chloride 100 mmol/L (98-107); Cholesterol 169 mg/dL (200); EST Glomerular Filtration Rate 105 mL/min (>60); Est Glom Filt Rate - Afr Amer 127 mL/min (>60); Globulin 4.5 g/dL (2.2-4.2); Glucose 128 mg/dL (74-106); High Density Lipoprotein 48 mg/dL; Potassium 3.7 mmol/L (3.5-5.1); Protein, Total 7.7 g/dL (6.4-8.2); Sodium Level 139 mmol/L (136-145); T4 Free Direct 1.01 ng/dL (0.76-1.46); Thyroid Stim Hormone (TSH) 1.18 uIU/mL (0.358-3.74); Triglycerides 141 mg/dL; Very Low Density Lipoprotein 28 mg/dL (5-40)
[2021-11-25 13:27] LABS: Vitamin B12 373 pg/mL (211-911); Vitamin D,25 Hydroxy 45.3 ng/mL
[2021-11-25 15:15] LABS: Hematocrit 42.3 % (37-47); Hemoglobin 13.1 g/dL (12.0-15.0); Mean Corpuscular Hgb 28.6 pg (27.0-32.0); Mean Corpuscular Volume 92.4 fL (81-99); Mean Platelet Vol. 10.5 fl (6.2-12.0); Platelet Count 389 K/mm3 (150-450); RBC Distribution Width CV 14.5 % (11.6-14.6); RBC Distribution Width SD 48.8 fl (35.1-43.9); Red Blood Count 4.58 M/mm3 (4.2-5.4); White Blood Count 13.5 K/mm3 (4.4-11.0)
== END | disposition home or self-care (01) ==
LOC: MFPLAB 10:37
PROVIDERS: PCP Family Medicine; Visit Provider Internal Medicine Endocrinology, Diabetes & Metabolism
DX: E11.9 Type 2 diabetes mellitus without complications (principal); E78.1 Pure hyperglyceridemia; E55.9 Vitamin D deficiency, unspecified; I10 Essential (primary) hypertension; Z59.89 Other problems related to housing and economic circumstances
CPT/HCPCS: 36415; 80053; 80061; 82043; 82306; 82570; 82607; 84439; 84443; 85027

== ENCOUNTER → 2021-12-13 | Outpatient (CLI) | payer MEDICARE, BC, SELFPAY ==
--- NOTE | 2021-12-13 13:37 | BI_ITS ---
MAMMOGRAPHY - BILATERAL SCREENING REASON FOR EXAM: Female, 66 years old. Routine annual screening examination. PERTINENT HISTORY: Non-contributory. TECHNIQUE: Digital bilateral breast [place] (3D mammographic acquisition) in the CC and MLO projections. 2-D mediolateral oblique (MLO) and craniocaudad (CC) views of both breasts were obtained. CAD: Full Field Digital Mammography with Computer Added Detection was performed. COMPARISON: 11/14/2019, 09/19/2016, 03/18/2014, 01/22/2013. FINDINGS: Breast Composition: There are scattered areas of fibroglandular density. There are no dominant masses or suspicious calcifications. Stable calcified right retroareolar nodule. No other significant abnormalities are identified. There has been no significant change since the prior study. BI/SCRN MAMM (CAD)W/[place] BILAT IMPRESSION: Stable bilateral screening mammogram. Yearly follow-up mammogram recommended. (A) ASSESSMENT CATEGORY: BIRADS Category 2: Benign. A letter regarding these results will be sent to the patient by the facility within 30 days. Approximately 10% of breast cancers are not detected by mammography. A normal mammogram should not delay biopsy of a clinically suspicious abnormality. [id number] Electronically Signed: Sai Mena, at 15:32 EDT ,
== END | disposition home or self-care (01) ==
LOC: OPBI 13:35
PROVIDERS: PCP Family Medicine; Visit Provider Family Medicine
DX: Z12.31 Encounter for screening mammogram for malignant neoplasm of breast (principal)
CPT/HCPCS: 77063; 77067

== ENCOUNTER → 2022-01-05 | Outpatient (CLI) | payer MEDICARE, BC, SELFPAY | END | disposition home or self-care (01) | PROVIDERS: PCP Family Medicine; Visit Provider Family Medicine | DX: Z20.822 Contact with and (suspected) exposure to COVID-19 (principal) | CPT/HCPCS: 87635; U0003; U0005 ==

== ENCOUNTER → 2022-05-13 | Outpatient (CLI) | payer MEDICARE, BC, SELFPAY ==
--- NOTE | 2022-05-13 17:00 | RAD_ITS ---
INDICATION: sob EXAMINATION/TECHNIQUE: X-RAY - XR Chest 2 Views COMPARISON: None. FINDINGS: Slight increase in interstitial markings. Tortuous and calcified thoracic aorta. The heart is not enlarged. No pleural effusion or pneumothorax. Degenerative changes of the thoracic spine. RAD/Chest PA and Lateral IMPRESSION: Slight increase in interstitial markings may represent edema and/or infection. Electronically Signed: Bruno Alvarado MD at 17:25 EST ,
[2022-05-13 17:48] LABS: Absolute Lymphocyte Count 2.19 X10^3/uL (0.83-4.51); Absolute Neutrophil Count 6.5 X10^3/uL (2.0-7.7); Basophil# 0.04 X10^3/uL; Basophil% 0.4 % (0-1); Eosinophil# 0.09 X10^3/uL; Eosinophils% 0.9 % (0-5); Hematocrit 37.7 % (37-47); Hemoglobin 11.7 g/dL (12.0-15.0); Lymphocyte # 2.19 X10^3/ul (0.83-4.51); Lymphocyte % 22.9 % (19-41); Mean Corpuscular Hgb 28.8 pg (27.0-32.0); Mean Corpuscular Volume 92.9 fL (81-99); Mean Platelet Vol. 10.9 fl (6.2-12.0); Monocyte# 0.67 X10^3/uL; NRBC Flagged by Analyzer 0 % (0-5); Neutrophil # 6.49 X10^3/uL (2.7-7.7); Neutrophil % 68.1 % (47-70); Platelet Count 343 K/mm3 (150-450); RBC Distribution Width CV 14.5 % (11.6-14.6); RBC Distribution Width SD 48.9 fl (35.1-43.9); Red Blood Count 4.06 M/mm3 (4.2-5.4); White Blood Count 9.6 K/mm3 (4.4-11.0)
[2022-05-13 18:12] LABS: BNP,B-Type NATRIURETIC PEPTIDE 82.9 pg/mL (0-100)
[2022-05-13 18:14] LABS: Vitamin B12 1873 pg/mL (211-911)
[2022-05-13 18:29] LABS: ALB/GLOB Ratio 0.7 RATIO (0.9-2.4); AST(SGOT) 19 U/L (15-37); Alanine Aminotransfer ALT/SGPT 26 U/L (13-56); Albumin, Serum 2.9 g/dL (3.2-5.0); Alkaline Phosphatase 97 U/L (45-117); Anion Gap 9 (5-15); BUN 15 mg/dL (7-18); BUN/Creat Ratio 21.2 RATIO (10-20); Calcium,Total 9.2 mg/dL (8.5-10.1); Chloride 99 mmol/L (98-107); Cholesterol 172 mg/dL (200); Creatinine, Serum 0.71 mg/dL (0.55-1.02); EST Glomerular Filtration Rate 87 mL/min (>60); Est Glom Filt Rate - Afr Amer 106 mL/min (>60); Glucose 226 mg/dL (74-106); High Density Lipoprotein 57 mg/dL; Potassium 3.8 mmol/L (3.5-5.1); Protein, Total 6.9 g/dL (6.4-8.2); Sodium Level 139 mmol/L (136-145); Triglycerides 184 mg/dL; Very Low Density Lipoprotein 37 mg/dL (5-40)
[2022-05-13 18:45] LABS: Hemoglobin A1c 7.2 % (3.8-5.6)
== END | disposition home or self-care (01) ==
LOC: MTLAB 17:00
PROVIDERS: PCP Family Medicine; Referring Provider Nurse Practitioner Family; Visit Provider Nurse Practitioner Family
DX: E11.69 Type 2 diabetes mellitus with other specified complication (principal); E11.42 Type 2 diabetes mellitus with diabetic polyneuropathy; R60.9 Edema, unspecified; R06.02 Shortness of breath
CPT/HCPCS: 71046; 80053; 80061; 82607; 83036; 83880; 85025

== ENCOUNTER → 2022-05-17 | Outpatient (CLI) | payer MEDICARE, BC, SELFPAY ==
--- NOTE | 2022-05-17 10:21 | ECHOD_ITS ---
Reason For Study: SOB Procedure This was a 2D Doppler, Color Flow transthoracic echocardiogram. The study was technically difficult. Exam performed in department. Left Ventricle Normal LV size. Left ventricular systolic function is normal. The estimated ejection fraction is 65 %. No regional wall motion abnormalities noted. Right Ventricle Normal RV size. Normal systolic function. Atria Normal left atrium. Normal right atrium. Mitral Valve Normal mitral valve. Tricuspid Valve Normal tricuspid valve. Aortic Valve Severe focal aortic valve calcification. Peak aortic valve gradient 90 mmHg. Mean aortic valve gradient 49 mmHg. Severe aortic stenosis. Pulmonic Valve Normal pulmonic valve. Great Vessels Normal aortic root. The pulmonary artery is normal size. Normal inferior vena cava. Pericardium/Pleural No pericardial effusion. MMode/2D Measurements & Calculations LVIDd: 5.2 cm IVSd: 1.1 cm LVOT diam: 2.0 cm LVIDs: 3.6 cm LVPWd: 1.0 cm LVOT area: 3.2 cm2 RVDd: 3.9 cm FS: 29.8 % ACS: 0.59 cm LAV(MOD-sp2): 75.4 ml LA dimension: 4.6 cm Time Measurements MV dec time: 0.23 sec Doppler Measurements & Calculations MV E max aki: 157.6 cm/sec Lat Peak E' Aki: 7.0 cm/sec Med Peak E' Aki: 7.0 cm/sec MV A max aki: 116.7 cm/sec E/E' lat: 22.4 E/E' med: 22.4 MV E/A: 1.4 MV V2 max: 172.2 cm/sec MV P1/2t max aki: 169.6 cm/sec Ao V2 max: 475.6 cm/sec MV max P.9 mmHg MV P1/2t: 77.7 msec Ao max P.5 mmHg MV V2 mean: 94.0 cm/sec Ao V2 mean: 326.5 cm/sec MV mean P.2 mmHg MV dec slope: 639.1 cm/sec2 Ao mean P.4 mmHg MV V2 VTI: 53.5 cm MVA(P1/2t): 2.8 cm2 Ao V2 VTI: 107.8 cm MVA(VTI): 2.0 cm2 NICO(I,D): 1.0 cm2 NICO(V,D): 0.93 cm2 LV V1 max: 137.6 cm/sec SV(LVOT): 109.2 ml PA V2 max: 91.9 cm/sec LV V1 max P.6 mmHg LV V1 mean P.6 mmHg LV V1 mean: 102.7 cm/sec LV V1 VTI: 34.1 cm ECHO/Echo Complete Interpretation Summary Normal LV size. Left ventricular systolic function is normal. The estimated ejection fraction is 65 %. Mean aortic valve gradient 49 mmHg. Severe aortic stenosis. Ordering Physician: Allyson Sharma Referring Physician: Radha Wetzel M.D. Performed By: Jesus Mcleod RCS
== END | disposition home or self-care (01) ==
LOC: CVS 10:21
PROVIDERS: PCP Family Medicine; Referring Provider Nurse Practitioner Family; Visit Provider Nurse Practitioner Family
DX: R06.02 Shortness of breath (principal)
CPT/HCPCS: 93306

== ENCOUNTER 2022-05-30 07:49 | Day surgery (SDC) | payer MEDICARE, BC, SELFPAY ==
[2022-05-27 08:09] VITALS: BMI 66.5
--- NOTE | 2022-05-30 10:04 | CL.D_ITS ---
Patient Name: JOANNA SARAH Study Date: 05/30/2022 Performing: Óscar Andre MD Ht: 62 inches 157.48 cm : 1955 Wt: 364.01 lbs 165.11 kg Age: 67 Gender: female BSA: 2.47 PROCEDURE(S) PERFORMED DC01-([id number])LHC/COR/LV CLINICAL PROFILE AND INDICATIONS Indications: Valvular Disease Heart Failure: None CONCLUSIONS Non obstructive coronary arteries Aortic Valve Stenosis- Moderate to Severe RECOMMENDATIONS ANGE then consider TAVR DESCRIPTION OF PROCEDURE The patient arrived to the procedure lab. The risks and benefits of the procedure as well as a full description of our services here and current unavailability of surgical backup were fully explained to the patient and/or their significant other prior to the catheterization. The Timeout was completed, verifying the correct patient and procedure. The patient's procedural site was prepped and draped in the usual fashion. Local anesthetic was given subcutaneously to right radial region with Lidocaine 2%. Using a modified Seldinger technique, arterial access was obtained via the right radial artery, a 6Fr sheath was inserted. Left Coronary Artery selective angiography was performed in multiple views using a 5 Fr. 4.0 Gilbert catheter. Right Coronary Artery selective angiography was then performed in multiple views using a 5 Fr. 4.0 Gilbert catheter. Right Coronary Artery selective angiography was then performed in multiple views using a 5 Fr. 3DRC (Elliot) catheter. LV to AO pullback pressures were then recorded.The arterial sheath was pulled and a TR Band was applied for hemostasis. 10cc of air CORONARY ANGIOGRAPHY DOMINANCE: Right Dominant LEFT HEART ASSESSMENT Left Ventricular Ejection Fraction: by LV Gram 65 % Normal LV wall motion Normal Left Ventricular systolic function LEFT MAIN: Angiographically normal LEFT ANTERIOR DESCENDING ARTERY: No significant disease noted CIRCUMFLEX ARTERY: No significant disease noted RIGHT CORONARY ARTERY: Mild luminal irregularities PROX RCA: Moderate calcification, Mild calcification VALVE FINDINGS: Aortic Valve Calcification - moderate peak to peak gradient of 40 mmhg COMPLICATIONS No Complications PROCEDURE MEDICATIONS Fentanyl 50 mcg IV Versed 1 mg IV Versed 1 mg IV Oxygen: 2 L/min via nasal cannula Heparin given IA 05/30/2022 09:25:50 SUMMARY OF HEMODYNAMIC DATA Time AIR REST ECG 08:08:07 ECG 08:56:41 Art 140/59 (88) 09:22:13 AO 134/53 (84) SA 09:37:29 LV 164/5, 19 09:54:18 LV 165/7, 17 09:54:47 LV 163/6, 17 09:54:57 LV 166/9, 19 09:55:35 LVp 174/10, 26 09:55:42 AOp 132/63 (89) 09:55:49 Signed By Óscar Andre MD On 05/30/2022 10:04:07 Óscar Andre MD
== END 2022-05-30 12:00 | disposition home or self-care (01) ==
LOC: CLSP 07:50
PROVIDERS: PCP Family Medicine; Visit Provider Internal Medicine Cardiovascular Disease
DX: I35.0 Nonrheumatic aortic (valve) stenosis (principal); Z79.4 Long term (current) use of insulin; E11.9 Type 2 diabetes mellitus without complications; I10 Essential (primary) hypertension; E78.5 Hyperlipidemia, unspecified; G47.33 Obstructive sleep apnea (adult) (pediatric); Z79.899 Other long term (current) drug therapy; Z87.891 Personal history of nicotine dependence
CPT/HCPCS: 93458; 99152; 99153; C1769; C1894; Q9967

== ENCOUNTER 2022-06-06 09:19 | Outpatient (CLI) | payer MEDICARE, BC, SELFPAY ==
--- NOTE | 2022-06-06 09:32 | ECHOTEE_ITS ---
Reason For Study: Valve Replacement Eval Medication ANGE probe 6VT-D (SN [id number]) passed without difficulty. No complications were noted. Cetacaine Topical [place] given X3 orally. Versed 2 mg given slow IVP. Fentanyl 75 mcg given slow IVP. Performed a rapid injection of agitated mix of 9 cc saline and 1cc air to assess for atrial septal defect. Left Ventricle Normal LV size. Left ventricular systolic function is normal. The estimated ejection fraction is 60 %. No regional wall motion abnormalities noted. Right Ventricle Normal RV size. Normal systolic function. Atria Bubble contrast study negative for right to left interatrial shunt. Normal left atrium. No thrombus is detected in the left atrial appendage. Normal right atrium. Mitral Valve There is mild mitral annular calcification. Mild (1+) eccentric mitral valve insufficiency. Tricuspid Valve Normal tricuspid valve. Aortic Valve Trisinus/trileaflet aortic valve. Moderate focal aortic valve calcification. Moderate restriction of the aortic valve. Pulmonic Valve Normal pulmonic valve. Vessels Normal aortic root. Pericardium No pericardial effusion. ECHO/Echo Transesophageal (ANGE) Interpretation Summary Normal LV size. Left ventricular systolic function is normal. The estimated ejection fraction is 60 %. Moderate focal aortic valve calcification. Moderate restriction of the aortic valve. From the above the aortic valve appears to be trileaflet and NOT severely steno tic. Ordering Physician: Óscar Andre Referring Physician: Radha Wetzel Performed By: Lalitha Julio, RDJANELL, RVT
== END 2022-06-06 13:09 | disposition home or self-care (01) ==
PROVIDERS: PCP Family Medicine; Visit Provider Internal Medicine Cardiovascular Disease
DX: I35.0 Nonrheumatic aortic (valve) stenosis (principal); Z20.822 Contact with and (suspected) exposure to COVID-19
CPT/HCPCS: 87426; 93312; 93320; 93325; C9803; J7040; A4216

== ENCOUNTER → 2022-08-29 | Outpatient (CLI) | payer MEDICARE, BC, SELFPAY ==
[2022-08-29 13:46] LABS: Anion Gap 6 (5-15); BUN 18 mg/dL (7-18); BUN/Creat Ratio 29.7 RATIO (10-20); Calcium,Total 9.3 mg/dL (8.5-10.1); Chloride 100 mmol/L (98-107); Creatinine, Serum 0.61 mg/dL (0.55-1.02); EST Glomerular Filtration Rate 104 mL/min (>60); Est Glom Filt Rate - Afr Amer 126 mL/min (>60); Glucose 133 mg/dL (74-106); Potassium 3.9 mmol/L (3.5-5.1); Sodium Level 137 mmol/L (136-145)
== END | disposition home or self-care (01) ==
PROVIDERS: PCP Family Medicine; Referring Provider Nurse Practitioner Adult Health; Visit Provider Nurse Practitioner Adult Health
DX: I35.0 Nonrheumatic aortic (valve) stenosis (principal)
CPT/HCPCS: 36415; 80048

== ENCOUNTER 2022-09-17 13:45 | Emergency (ER) | payer MEDICARE, BC, SELFPAY ==
[2022-09-17 13:46] VITALS: BP 132/77; PULSE 68; RESP 16; TEMP 36.6; O2SAT 96; BMI 62.0
--- NOTE | 2022-09-17 14:03 | CT_ITS ---
INDICATION: dizziness EXAMINATION: CT BRAIN - CT Head or Brain W/O Contrast Injection TECHNIQUE: Multiple axial images were obtained of the head without intravenous contrast. A radiation dose optimization technique was used for this scan. IV Contrast dosage and agent: None. COMPARISON: FINDINGS: BRAIN PARENCHYMA: No intra- or extra-axial hemorrhage. No evidence of acute infarct. No intracranial mass or mass effect. There is preservation of the fagan/white matter interface. Posterior fossa structures are unremarkable. CSF SPACES: Appropriate for age. No hydrocephalus. Basal cisterns are patent. CALVARIUM, SKULL BASE, PARANASAL SINUSES AND MASTOID AIR CELLS: Clear. No discrete lytic or blastic abnormalities. ORBITS: Both globes, extraocular muscles, optic nerves and retrobulbar fat appear unremarkable. ASPECTS Score for Acute Strokes: 10 CT/Brain/Head without Contrast IMPRESSION: Negative Brain CT without contrast. Electronically Signed: Marquis Taylor MD, ANMOL at 14:44 EDT ,
--- NOTE | 2022-09-17 14:05 | EX.ED.DYSGE1 ---
HPI <MADI Quan - Last Filed: 09/17/22 18:41> History of Present Illness Chief Complaint: Dizziness Narrative Narrative: Patient presenting today with dizziness that she first noted this morning upon getting out of bed. She states that it feels like the room is spinning around her. She did go to urgent care this morning for the dizziness and when she arrived she was feeling short of breath on exertion which she states is normal for her, but because of this they sent her to the emergency department. She denies a history of vertigo and states that her symptoms are worse when she moves her head from side to side. She denies a history of any strokes, shortness of breath at rest, and chest pain. Patient is currently on blood thinners. PMH includes diabetes mellitus, asthma, hypertension, and aortic valve replacement. PFSH <MADI Quan - Last Filed: 09/17/22 18:41> PFSH Medical History Asthma CPAP (continuous positive airway pressure) dependence Essential hypertension Former smoker History of transcatheter aortic valve replacement (TAVR) (07/11/22) Hyperlipidemia Morbid obesity Nonrheumatic aortic (valve) stenosis LINWOOD on CPAP Type 2 diabetes mellitus Home Medications atorvastatin 10 mg tablet 10 mg PO QHS cholesterol 07/14/21 [History Last Taken Unknown] chlorthalidone 25 mg tablet 25 mg PO DAILY diuretic 07/14/21 [History Last Taken 06/06/22] fluoxetine 20 mg capsule 20 mg PO DAILY anxiety 07/14/21 [History Last Taken 06/06/22] metoprolol succinate 50 mg tablet,extended release 24 hr 50 mg PO DAILY . 07/14/21 [History Last Taken 06/06/22] pioglitazone 30 mg tablet 30 mg PO DAILY diabetic 07/14/21 [History Last Taken 06/06/22] insulin lispro 100 unit/mL subcutaneous pen 40 unit (0.4 mL) subcut TIDCM diabetes #0 mL 07/16/21 [Rx Last Taken 06/06/22] albuterol sulfate 90 mcg/actuation aerosol inhaler 2 puff inhalation Q4H PRN Dyspnea 05/25/22 [History Last Taken 06/06/22] albuterol sulfate 2.5 mg/3 mL (0.083 %) solution for nebulization 2.5 mg inhalation Q4H PRN sob 05/26/22 [History Last Taken 06/06/22] amoxicillin 500 mg capsule 2,000 mg PO ONCE PRN 05/26/22 [History Last Taken Unknown] cholecalciferol (vitamin D3) 125 mcg (5,000 unit) tablet 125 mcg PO DAILY 05/26/22 [History Last Taken 06/06/22] insulin glargine 100 unit/mL subcutaneous solution (Lantus U-100 Insulin) 25 unit subcut QHS diabetes 05/26/22 [History Last Taken Unknown] loratadine 10 mg tablet (Allergy Relief (loratadine)) 10 mg PO DAILY 05/26/22 [History Last Taken 06/06/22] metformin 850 mg tablet 850 mg PO DAILY dibetic 05/26/22 [History Last Taken 06/06/22] aspirin 81 mg tablet,delayed release (Adult Low Dose Aspirin) 81 mg PO DAILY 08/26/22 [History Last Taken Unknown] lisinopril 40 mg tablet 40 mg PO DAILY htn 08/26/22 [History Last Taken Unknown] multivitamin 1 tab PO DAILY 08/26/22 [History Last Taken Unknown] meclizine 25 mg tablet 25 mg PO TID #15 tabs 09/17/22 [Rx Last Taken Unknown] Allergy/AdvReac Type Severity Reaction Status Date / Time glimepiride Allergy Unknown pruritus Verified 09/17/22 13:48 rosiglitazone [From Avandia] Allergy Unknown Rash Verified 09/17/22 13:48 sitagliptin [From Januvia] Allergy Unknown Rash Verified 09/17/22 13:48 Sulfa (Sulfonamide Allergy NEEDS Verified 09/17/22 13:48 Antibiotics) FOLLOW-UP acetaminophen [From Tylenol] AdvReac Unknown Enlarged Verified 09/17/22 13:48 liver pravastatin AdvReac Unknown elevated Verified 09/17/22 13:48 liver enzymes Family History Other Diabetes Heart disease Surgical History History of hysterectomy History of left heart catheterization (05/30/22) History of rhinoplasty Hx of cholecystectomy Hx of tonsillectomy Hx of total knee replacement Hx of tubal ligation Social History Smoking Status: Former smoker how long ago did patient quit smokin years ago alcohol intake: current alcohol intake frequency: holidays/special occasions only substance use type: does not use caffeine: Yes Type: coffee Number of servings: 1 ROS <MADI Quan - Last Filed: 09/17/22 18:41> ROS ED Constitutional Constitutional ED: Denies chills, fever(s) or sweats Eyes Eyes: Denies blurry vision or diplopia Cardiovascular Cardiovascular: Denies chest pain or palpitations Respiratory/Chest Respiratory/Chest: Denies cough, dyspnea, tachypnea or wheezing Gastrointestinal Gastrointestinal: Denies abdominal pain, constipation, diarrhea, nausea or vomiting Musculoskeletal Musculoskeletal: Denies arthralgias, back pain, myalgias or neck pain Integumentary Denies abscess, Abrasions or rash Neurologic Neurologic: Reports dizziness; Denies confusion, paresthesias or weakness Psychiatric Psychiatric: Denies anxiety, depression, suicidal ideation or suicidal thoughts EXAM <MADI Quan - Last Filed: 09/17/22 18:41> Physical Exam Const Vital Signs: 09/17/22 13:46 09/17/22 13:49 09/17/22 16:25 Temperature 98 F Temperature Source Temporal Pulse Rate 68 Respiratory Rate 16 Respiratory Effort Normal Non-Labored Respiratory Pattern Normal Blood Pressure 132/77 H Blood Pressure Mean 95 Pulse Ox 96 97 Oxygen Delivery Method Room Air Room Air Positive well nourished, well developed and no apparent distress General Appearance ED: well developed HEENT Reports normocephalic, head/scalp atraumatic and TM's clear Tympanic Membrane ED: Yes TM's clear Mouth ED: Yes moist mucous membranes normal Eyes PERRL and EOMs intact bilaterally Neck full ROM and supple Chest Wall inspection of chest normal Resp normal respiratory effort and clear to auscultation bilaterally Cardio regular rate and regular rhythm GI soft to palpation, non-tender, non-distended and no masses Back/Spine normal ROM and normal to inspection Extremity normal to inspection and full ROM Neuro oriented x3, CN's II-XII intact bilaterally, moves all extremities, no focal motor deficits and no sensory deficits noted Sensorium / Orientation: awake and alert Motor Exam: strength 5/5 throughout Psych mental status grossly normal and thought process normal Skin no rashes or lesions noted and no wounds <Dr. Jovany Dai MD - Last Filed: 09/17/22 14:16> Physical Exam Const Vital Signs: 09/17/22 13:46 09/17/22 13:49 09/17/22 16:25 Temperature 98 F Temperature Source Temporal Pulse Rate 68 Respiratory Rate 16 Respiratory Effort Normal Non-Labored Respiratory Pattern Normal Blood Pressure 132/77 H Blood Pressure Mean 95 Pulse Ox 96 97 Oxygen Delivery Method Room Air Room Air MDM <MADI Quan - Last Filed: 09/17/22 18:41> [facility] Narrative Medical decision making narrative: Patient presenting today with dizziness that is worsened with positional changes that started this morning when she tried to get out of bed. She was sent in by the urgent care clinic this morning because when she arrived she was short of breath which she states is normal when she exerts herself. She is not short of breath here. She is well-appearing and in no acute distress. Patient's dizziness is triggered by positional changes on examination. Head CT will be obtained to rule out any intracranial abnormality, labs will be obtained. Head CT negative for any intracranial abnormality. Patient was given Antivert here and on reexamination she stated that her symptoms have improved but not completely resolved. Symptoms consistent with BPPV. She has been given a prescription for Antivert and was told to follow-up with her PCP early next week. She will be discharged home in stable condition and is comfortable with plan. She will be given return instructions. I have personally performed a face to face assessment of the patient and have reviewed the SANDRA Note. I performed a substantive portion of the visit including all aspects of the following. My carver findings include: History is [67-year-old female extensive past medical history on the blood thinner EliQinging Weekly Flower Deliveryis for prior blood clots and mechanical aortic valve. States she started having room spinning dizziness last night. No headache. No chest pain. No vomiting or diarrhea. Otherwise has not been ill. Evaluated the patient with our PA.] Exam is [59-year-old female no acute distress. Vital signs stable afebrile. H EENT exam unremarkable. Pupils round reactive light. Extra motions are intact. No facial droop. Normal speech. No trauma. Nontender. Lungs clear to auscultation bilaterally. Heart regular rhythm rate about 70 no murmur. Chest wall nontender. Abdomen soft nontender. Moving all 4 extremities. 5-5 platform loader strength. Dorsi plantarflexion intact. Neurologically she is awake and alert with no focal motor deficits. Hallpike does not show any significant changes in her dizziness. NIH score 0. TMs are visualized bilaterally no wax impaction.] Medical Decision Making [67-year-old with dizziness. Consider vertigo versus other etiologies. CAT scan and labs pending. Treated with Antivert p.o.] Other additions or changes: [None] Lab Data Lab results narrative: H&H 11.9 and 36.1, and iron gap 4, BUN 21, glucose 131 Labs: Laboratory Results - last 24 hr 09/17/22 09/17/22 14:20 14:20 WBC 9.1 RBC 3.92 L Hgb 11.9 L Hct 36.1 L MCV 92.1 MCH 30.4 MCHC 33.0 RDW Std Deviation 48.4 H RDW Coeff of Graciela 14.5 Plt Count 279 MPV 11.0 Immature Gran % (Auto) 0.500 Neut % (Auto) 69.5 Lymph % (Auto) 19.6 Greer % (Auto) 9.1 Eos % (Auto) 0.9 Baso % (Auto) 0.4 Absolute Neuts (auto) 6.4 Absolute Lymphs (auto) 1.79 Nucleated RBC % 0 Sodium 137 Potassium 4.0 Chloride 103 Carbon Dioxide 30.0 Anion Gap 4 L BUN 21 H Creatinine 0.60 Estim Creat Clear Calc 42.59 Est GFR (MDRD) Af Amer 127 Est GFR (MDRD) Non-Af 105 BUN/Creatinine Ratio 34.9 H Glucose 131 H Calcium 9.2 Radiography Diagnostic Testing: Clinical Impression(s) from Imaging Studies Brain CT 09/17/22 14:03 IMPRESSION: Negative Brain CT without contrast. Electronically Signed: Marquis Taylor MD, ANMOL at 14:44 EDT , Head CT also reviewed and interpreted by attending ED physician. <Dr. Jovany Dai MD - Last Filed: 09/17/22 14:16> [facility] Narrative Medical decision making narrative: Patient presenting today with dizziness that is worsened with positional changes that started this morning when she tried to get out of bed. She was sent in by the urgent care clinic this morning because when she arrived she was short of breath which she states is normal when she exerts herself. She is well-appearing and in no acute distress. Head CT will be obtained to rule out any intracranial abnormality, labs will be obtained. I have personally performed a face to face assessment of the patient and have reviewed the SANDRA Note. I performed a substantive portion of the visit including all aspects of the following. My carver findings include: History is [67-year-old female extensive past medical history on the blood thinner Eliquis for prior blood clots and mechanical aortic valve. States she started having room spinning dizziness last night. No headache. No chest pain. No vomiting or diarrhea. Otherwise has not been ill. Evaluated the patient with our PA.] Exam is [59-year-old female no acute distress. Vital signs stable afebrile. H EENT exam unremarkable. Pupils round reactive light. Extra motions are intact. No facial droop. Normal speech. No trauma. Nontender. Lungs clear to auscultation bilaterally. Heart regular rhythm rate about 70 no murmur. Chest wall nontender. Abdomen soft nontender. Moving all 4 extremities. 5-5 platform loader strength. Dorsi plantarflexion intact. Neurologically she is awake and alert with no focal motor deficits. Hallpike does not show any significant changes in her dizziness. NIH score 0. TMs are visualized bilaterally no wax impaction.] Medical Decision Making [67-year-old with dizziness. Consider vertigo versus other etiologies. CAT scan and labs pending. Treated with Antivert p.o.] Other additions or changes: [None] Lab Data Attestation: I reviewed the patient's lab results. Labs: Laboratory Results - last 24 hr 09/17/22 09/17/22 14:20 14:20 WBC 9.1 RBC 3.92 L Hgb 11.9 L Hct 36.1 L MCV 92.1 MCH 30.4 MCHC 33.0 RDW Std Deviation 48.4 H RDW Coeff of Graciela 14.5 Plt Count 279 MPV 11.0 Immature Gran % (Auto) 0.500 Neut % (Auto) 69.5 Lymph % (Auto) 19.6 Greer % (Auto) 9.1 Eos % (Auto) 0.9 Baso % (Auto) 0.4 Absolute Neuts (auto) 6.4 Absolute Lymphs (auto) 1.79 Nucleated RBC % 0 Sodium 137 Potassium 4.0 Chloride 103 Carbon Dioxide 30.0 Anion Gap 4 L BUN 21 H Creatinine 0.60 Estim Creat Clear Calc 42.59 Est GFR (MDRD) Af Amer 127 Est GFR (MDRD) Non-Af 105 BUN/Creatinine Ratio 34.9 H Glucose 131 H Calcium 9.2 Radiography Diagnostic Testing: Clinical Impression(s) from Imaging Studies Brain CT 09/17/22 14:03 IMPRESSION: Negative Brain CT without contrast. Electronically Signed: Marquis Taylor MD, ANMOL at 14:44 EDT , Discharge Plan Triage Chief Complaint: Dizziness ED Midlevel Provider: Lizzie Pa ED Provider: Jovany Dai Dx/Rx/DC Orders Clinical Impression: Benign paroxysmal positional vertigo Instructions: ED BPV Vertigo Prescriptions: New meclizine 25 mg tablet 25 mg PO TID Qty: 15 0RF No Action cholecalciferol (vitamin D3) 125 mcg (5,000 unit) tablet 125 mcg PO DAILY loratadine [Allergy Relief (loratadine)] 10 mg tablet 10 mg PO DAILY Lantus U-100 Insulin 100 unit/mL solution 25 unit SUBCUT QHS amoxicillin 500 mg capsule 2,000 mg PO ONCE PRN Rx Instructions: take 1 hour prior to dental visit albuterol sulfate 2.5 mg /3 mL (0.083 %) solution for nebulization 2.5 mg inhalation Q4H PRN (Reason: sob) aspirin [Adult Low Dose Aspirin] 81 mg tablet,delayed release (DR/EC) 81 mg PO DAILY multivitamin Tablet 1 tab PO DAILY metoprolol succinate 50 mg tablet extended release 24 hr 50 mg PO DAILY chlorthalidone 25 mg tablet 25 mg PO DAILY pioglitazone 30 mg tablet 30 mg PO DAILY fluoxetine 20 mg capsule 20 mg PO DAILY atorvastatin 10 mg tablet 10 mg PO QHS insulin lispro 100 unit/mL Insulin Pen 40 unit SUBCUT TIDCM Qty: 0 0RF Rx Instructions: use your previously prescribed insulin sliding scale albuterol sulfate 90 mcg/actuation HFA aerosol inhaler 2 puff INHALATION Q4H PRN (Reason: Dyspnea) metformin 850 mg tablet 850 mg PO DAILY Hold Instructions: Resume on 07/18/21. lisinopril 40 mg tablet 40 mg PO DAILY Primary Care Provider: Radha Wetzel Referrals: Radha Wetzel MD [Primary Care Provider] - 3-5 Days Activity Restrictions/Additional Instructions: Please follow-up with your PCP. Return for any worsening of symptoms. Disposition Disposition: Home, Self Care Discharge Date/Time: 09/17/22 16:26
[2022-09-17 14:28] LABS: Absolute Lymphocyte Count 1.79 X10^3/uL (0.83-4.51); Absolute Neutrophil Count 6.4 X10^3/uL (2.0-7.7); Basophil# 0.04 X10^3/uL; Basophil% 0.4 % (0-1); Eosinophil# 0.08 X10^3/uL; Eosinophils% 0.9 % (0-5); Hematocrit 36.1 % (37-47); Hemoglobin 11.9 g/dL (12.0-15.0); Lymphocyte # 1.79 X10^3/ul (0.83-4.51); Lymphocyte % 19.6 % (19-41); Mean Corpuscular Hgb 30.4 pg (27.0-32.0); Mean Corpuscular Volume 92.1 fL (81-99); Monocyte# 0.83 X10^3/uL; Monocyte% 9.1 % (0-10); NRBC Flagged by Analyzer 0 % (0-5); Neutrophil # 6.35 X10^3/uL (2.7-7.7); Neutrophil % 69.5 % (47-70); Platelet Count 279 K/mm3 (150-450); RBC Distribution Width CV 14.5 % (11.6-14.6); RBC Distribution Width SD 48.4 fl (35.1-43.9); Red Blood Count 3.92 M/mm3 (4.2-5.4); White Blood Count 9.1 K/mm3 (4.4-11.0)
[2022-09-17] MEDS: Meclizine HCl 25 MG Tablet PO (14:42)
[2022-09-17 15:03] LABS: Anion Gap 4 (5-15); BUN 21 mg/dL (7-18); BUN/Creat Ratio 34.9 RATIO (10-20); Calcium,Total 9.2 mg/dL (8.5-10.1); Chloride 103 mmol/L (98-107); EST Glomerular Filtration Rate 105 mL/min (>60); Est Glom Filt Rate - Afr Amer 127 mL/min (>60); Estimated Creatinine Clearance 42.59 ml/min; Glucose 131 mg/dL (74-106); Sodium Level 137 mmol/L (136-145)
[2022-09-17 16:25] VITALS: O2SAT 97
== END 2022-09-17 16:26 | disposition home or self-care (01) ==
PROVIDERS: Physician Assistant; Emergency Provider Emergency Medicine; PCP Family Medicine; Visit Provider Emergency Medicine
DX: H81.10 Benign paroxysmal vertigo, unspecified ear (principal); E66.01 Morbid (severe) obesity due to excess calories; Z68.44 Body mass index [BMI] 60.0-69.9, adult; E11.9 Type 2 diabetes mellitus without complications; Z79.4 Long term (current) use of insulin; E78.5 Hyperlipidemia, unspecified; I10 Essential (primary) hypertension; Z95.2 Presence of prosthetic heart valve; Z79.01 Long term (current) use of anticoagulants; Z79.82 Long term (current) use of aspirin; Z79.84 Long term (current) use of oral hypoglycemic drugs; Z79.899 Other long term (current) drug therapy; Z87.891 Personal history of nicotine dependence
CPT/HCPCS: 70450; 80048; 85025; 99285; A4216

== ENCOUNTER 2022-09-20 18:03 | Emergency (ER) | payer MEDICARE, BC, SELFPAY ==
[2022-09-20 18:05] VITALS: BP 129/64; PULSE 69; RESP 20; TEMP 37.1; O2SAT 96
--- NOTE | 2022-09-20 18:32 | RAD_ITS ---
EXAM: XR RIGHT ANKLE COMPLETE, 3 OR MORE VIEWS CLINICAL INDICATION: INJURY TECHNIQUE: Frontal, lateral and oblique views of the right ankle. This report was created using [employer] report generation technology. COMPARISON: None. FINDINGS: BONES/JOINTS: Unremarkable. No acute fracture. No subluxation. Normal alignment. Preservation of the joint space. No sclerotic or destructive changes observed. SOFT TISSUES: There is soft tissue swelling over the medial and lateral malleoli. No radiopaque foreign body. RAD/Ankle min 3 Views IMPRESSION: Soft tissue swelling with no osseous abnormality. Electronically Signed: Dhiraj Jasso MD at 19:26 EDT ,
[2022-09-20 20:00] VITALS: RESP 15
--- NOTE | 2022-09-20 20:30 | ED.VIS.LOWEX ---
HPI History of Present Illness Chief Complaint: Lower Extremity Injury Detail of Chief Complaint: Right ankle pain Onset/Context/Timing Onset: Days Context: Gradual Onset Current Severity: Mild Maximum Severity: Moderate Worsened by: Weightbearing Narrative Narrative: Patient presents secondary to right ankle pain. She was recently seen for vertigo and states when she was stumbling around with her vertigo she believes she rolled her right ankle. She is complaining of pain primarily to the medial right ankle. [facility] Medical History Asthma CPAP (continuous positive airway pressure) dependence Essential hypertension Former smoker History of transcatheter aortic valve replacement (TAVR) (07/11/22) Hyperlipidemia Morbid obesity Nonrheumatic aortic (valve) stenosis LINWOOD on CPAP Type 2 diabetes mellitus Home Medications atorvastatin 10 mg tablet 10 mg PO QHS cholesterol 07/14/21 [History Last Taken Unknown] chlorthalidone 25 mg tablet 25 mg PO DAILY diuretic 07/14/21 [History Last Taken 06/06/22] fluoxetine 20 mg capsule 20 mg PO DAILY anxiety 07/14/21 [History Last Taken 06/06/22] metoprolol succinate 50 mg tablet,extended release 24 hr 50 mg PO DAILY . 07/14/21 [History Last Taken 06/06/22] pioglitazone 30 mg tablet 30 mg PO DAILY diabetic 07/14/21 [History Last Taken 06/06/22] insulin lispro 100 unit/mL subcutaneous pen 40 unit (0.4 mL) subcut TIDCM diabetes #0 mL 07/16/21 [Rx Last Taken 06/06/22] albuterol sulfate 90 mcg/actuation aerosol inhaler 2 puff inhalation Q4H PRN Dyspnea 05/25/22 [History Last Taken 06/06/22] albuterol sulfate 2.5 mg/3 mL (0.083 %) solution for nebulization 2.5 mg inhalation Q4H PRN sob 05/26/22 [History Last Taken 06/06/22] amoxicillin 500 mg capsule 2,000 mg PO ONCE PRN 05/26/22 [History Last Taken Unknown] cholecalciferol (vitamin D3) 125 mcg (5,000 unit) tablet 125 mcg PO DAILY 05/26/22 [History Last Taken 06/06/22] insulin glargine 100 unit/mL subcutaneous solution (Lantus U-100 Insulin) 25 unit subcut QHS diabetes 05/26/22 [History Last Taken Unknown] loratadine 10 mg tablet (Allergy Relief (loratadine)) 10 mg PO DAILY 05/26/22 [History Last Taken 06/06/22] metformin 850 mg tablet 850 mg PO DAILY dibetic 05/26/22 [History Last Taken 06/06/22] aspirin 81 mg tablet,delayed release (Adult Low Dose Aspirin) 81 mg PO DAILY 08/26/22 [History Last Taken Unknown] lisinopril 40 mg tablet 40 mg PO DAILY htn 08/26/22 [History Last Taken Unknown] multivitamin 1 tab PO DAILY 08/26/22 [History Last Taken Unknown] meclizine 25 mg tablet 25 mg PO TID #15 tabs 09/17/22 [Rx Last Taken Unknown] Allergy/AdvReac Type Severity Reaction Status Date / Time glimepiride Allergy Unknown pruritus Verified 09/20/22 18:07 rosiglitazone [From Avandia] Allergy Unknown Rash Verified 09/20/22 18:07 sitagliptin [From Januvia] Allergy Unknown Rash Verified 09/20/22 18:07 Sulfa (Sulfonamide Allergy NEEDS Verified 09/20/22 18:07 Antibiotics) FOLLOW-UP acetaminophen [From Tylenol] AdvReac Unknown Enlarged Verified 09/20/22 18:07 liver pravastatin AdvReac Unknown elevated Verified 09/20/22 18:07 liver enzymes Family History Other Diabetes Heart disease Surgical History History of hysterectomy History of left heart catheterization (05/30/22) History of rhinoplasty Hx of cholecystectomy Hx of tonsillectomy Hx of total knee replacement Hx of tubal ligation Social History Smoking Status: Former smoker how long ago did patient quit smokin years ago alcohol intake: current alcohol intake frequency: holidays/special occasions only substance use type: does not use caffeine: Yes Type: coffee Number of servings: 1 ROS ROS ED Constitutional Constitutional ED: Denies chills or fever(s) Eyes Eyes: Denies discharge from eye(s) ENT ENT ED: Denies discharge from eye(s), rhinorrhea or sore throat Cardiovascular Cardiovascular: Denies chest pain Respiratory/Chest Respiratory/Chest: Denies dyspnea Gastrointestinal Gastrointestinal: Denies abdominal pain, nausea or vomiting Genitourinary Genitourinary ED: Denies dysuria Musculoskeletal Musculoskeletal: Reports extremity pain; Denies back pain Integumentary Denies Abrasions or rash Neurologic Neurologic: Reports other Details: Some remaining vertigo when she lies flat. ; Denies headache(s) or weakness Psychiatric Psychiatric: Denies anxiety or depression Allergic/Immunologic Allergic/Immunologic ED: Denies lip swelling or urticaria EXAM Physical Exam Const Vital Signs: 09/20/22 18:05 09/20/22 20:54 09/20/22 20:00 Temperature 98.8 F Temperature Source Temporal Pulse Rate 69 64 Respiratory Rate 20 H 15 15 Blood Pressure 129/64 H 129/64 H Blood Pressure Mean 85 Pulse Ox 96 Oxygen Delivery Method Room Air Room Air Positive well nourished and well developed General Appearance ED: well developed HEENT Reports moist mucous membranes normocephalic Eyes PERRL Neck full ROM Chest Wall inspection of chest normal and palpation of chest normal Resp normal respiratory effort and clear to auscultation bilaterally Cardio regular rate and regular rhythm GI non-tender Extremity Extremity Narrative: Mild tenderness all patient along the medial malleolus of the right ankle. No significant edema. No tenderness at the proximal fibula. Good distal pulses. Neuro oriented x3 and moves all extremities Psych mental status grossly normal MDM MDM MDM Narrative Medical decision making narrative: Right ankle x-rays obtained per nursing protocol. Per my interpretation there is no evidence of acute fracture. Radiology interpretation is reviewed and agrees. Test results discussed with patient and water ski assembler at bedside. She will be given an air stirrup splint and will continue supportive care at home. Radiography Diagnostic Testing: Clinical Impression(s) from Imaging Studies Ankle X-Ray 09/20/22 18:32 IMPRESSION: Soft tissue swelling with no osseous abnormality. Electronically Signed: Dhiraj Jasso MD at 19:26 EDT , Discharge Plan Triage Chief Complaint: Lower Extremity Injury ED Provider: Pura Cavanaugh Dx/Rx/DC Orders Clinical Impression: Ankle sprain Instructions: ED Ankle Sprain (Adult) Prescriptions: No Action cholecalciferol (vitamin D3) 125 mcg (5,000 unit) tablet 125 mcg PO DAILY loratadine [Allergy Relief (loratadine)] 10 mg tablet 10 mg PO DAILY Lantus U-100 Insulin 100 unit/mL solution 25 unit SUBCUT QHS amoxicillin 500 mg capsule 2,000 mg PO ONCE PRN Rx Instructions: take 1 hour prior to dental visit albuterol sulfate 2.5 mg /3 mL (0.083 %) solution for nebulization 2.5 mg inhalation Q4H PRN (Reason: sob) aspirin [Adult Low Dose Aspirin] 81 mg tablet,delayed release (DR/EC) 81 mg PO DAILY multivitamin Tablet 1 tab PO DAILY metoprolol succinate 50 mg tablet extended release 24 hr 50 mg PO DAILY chlorthalidone 25 mg tablet 25 mg PO DAILY pioglitazone 30 mg tablet 30 mg PO DAILY fluoxetine 20 mg capsule 20 mg PO DAILY atorvastatin 10 mg tablet 10 mg PO QHS insulin lispro 100 unit/mL Insulin Pen 40 unit SUBCUT TIDCM Qty: 0 0RF Rx Instructions: use your previously prescribed insulin sliding scale albuterol sulfate 90 mcg/actuation HFA aerosol inhaler 2 puff INHALATION Q4H PRN (Reason: Dyspnea) metformin 850 mg tablet 850 mg PO DAILY Hold Instructions: Resume on 07/18/21. lisinopril 40 mg tablet 40 mg PO DAILY meclizine 25 mg tablet 25 mg PO TID Qty: 15 0RF Primary Care Provider: Radha Wetzel Referrals: Radha Wetzel MD [Primary Care Provider] - 10-14 Days if not better Disposition Disposition: Home, Self Care Discharge Date/Time: 09/20/22 20:57
[2022-09-20 20:54] VITALS: BP 129/64; PULSE 64; RESP 15
== END 2022-09-20 20:57 | disposition home or self-care (01) ==
PROVIDERS: Emergency Provider Emergency Medicine; PCP Family Medicine; Visit Provider Emergency Medicine
DX: S93.401A Sprain of unspecified ligament of right ankle, initial encounter (principal); G47.33 Obstructive sleep apnea (adult) (pediatric); X58.XXXA Exposure to other specified factors, initial encounter; Z87.891 Personal history of nicotine dependence
CPT/HCPCS: 73610; 99282

== ENCOUNTER 2022-12-29 04:45 | Emergency (ER) | payer MEDICARE, BC, SELFPAY ==
[2022-12-29 04:46] VITALS: BP 184/62; PULSE 74; RESP 20; TEMP 36.8; O2SAT 93; BMI 63.8
--- NOTE | 2022-12-29 04:58 | RAD_ITS ---
INDICATION: Fall with right shoulder pain EXAMINATION/TECHNIQUE: X-RAY - RIGHT XR Shoulder Min 2 Views: AP neutral, internal rotation, external rotation and scapular Y views COMPARISON: None. FINDINGS: SOFT TISSUES: No significant soft tissue swelling. No radiopaque foreign body detected. BONES/JOINTS: No acute fracture or subluxation. Adequate alignment. Preservation of the joint space(s). Mild degenerative osteophytes at right shoulder. RAD/Shoulder min 2 Views IMPRESSION: Mild degenerative changes with no acute osseous injury Electronically Signed: Marquis Lyons MD at 6:06 EDT ,
--- NOTE | 2022-12-29 04:58 | RAD_ITS ---
INDICATION: Fall with right shoulder and clavicle pain EXAMINATION/TECHNIQUE: X-RAY - RIGHT XR Clavicle Unilateral: 2 views COMPARISON: None. FINDINGS: SOFT TISSUES: No significant soft tissue swelling. No radiopaque foreign body detected. BONES/JOINTS: No acute fracture or subluxation. Adequate alignment. Preservation of the joint space(s). Mild degenerative osteophytosis at right shoulder. RAD/Clavicle IMPRESSION: No acute injury Electronically Signed: Marquis Lyons MD at 6:05 EDT ,
[2022-12-29] MEDS: Ketorolac 15 MG/ML Vial IM (05:08)
--- NOTE | 2022-12-29 05:09 | ED.VIS.FALL ---
HPI HPI - Fall History of Present Illness Chief Complaint: Fall Narrative Narrative: Female presenting with right shoulder pain. Patient had mechanical fall at home a couple of hours ago but was unable to get up. She states that typically she would have trouble getting up but today she injured her shoulder and she could not use it to help get herself off the ground. She states she was going from her bedroom to the living room to get her cane when this occurred. She states on her way back she slipped on something on the tile floor and fell to her right. She states she did not hit her head but did grazed her nose on the ground. Patient is not on any blood thinners anymore. Patient denies dizziness, lightheadedness, shortness of breath. She denies chest pain. She states she was otherwise well prior to the fall. She does not have any hip or back pain. [facility] Medical History Asthma CPAP (continuous positive airway pressure) dependence Essential hypertension Former smoker History of transcatheter aortic valve replacement (TAVR) (07/11/22) Hyperlipidemia Morbid obesity Nonrheumatic aortic (valve) stenosis [place] on CPAP Type 2 diabetes mellitus Home Medications atorvastatin 10 mg tablet 10 mg PO QHS cholesterol 07/14/21 [History Last Taken Unknown] chlorthalidone 25 mg tablet 25 mg PO DAILY diuretic 07/14/21 [History Last Taken 06/06/22] fluoxetine 20 mg capsule 20 mg PO DAILY anxiety 07/14/21 [History Last Taken 06/06/22] metoprolol succinate 50 mg tablet,extended release 24 hr 50 mg PO DAILY . 07/14/21 [History Last Taken 06/06/22] pioglitazone 30 mg tablet 30 mg PO DAILY diabetic 07/14/21 [History Last Taken 06/06/22] albuterol sulfate 90 mcg/actuation aerosol inhaler 2 puff inhalation Q4H PRN Dyspnea 05/25/22 [History Last Taken 06/06/22] albuterol sulfate 2.5 mg/3 mL (0.083 %) solution for nebulization 2.5 mg inhalation Q4H PRN sob 05/26/22 [History Last Taken 06/06/22] amoxicillin 500 mg capsule 2,000 mg PO ONCE PRN 05/26/22 [History Last Taken Unknown] cholecalciferol (vitamin D3) 125 mcg (5,000 unit) tablet 125 mcg PO DAILY 05/26/22 [History Last Taken 06/06/22] loratadine 10 mg tablet (Allergy Relief (loratadine)) 10 mg PO DAILY 05/26/22 [History Last Taken 06/06/22] lisinopril 40 mg tablet 40 mg PO DAILY htn 08/26/22 [History Last Taken Unknown] multivitamin 1 tab PO DAILY 08/26/22 [History Last Taken Unknown] apixaban 5 mg tablet (Eliquis) 5 mg PO BID 10/14/22 [History Last Taken Unknown] dulaglutide 4.5 mg/0.5 mL subcutaneous pen injector (Trulicity) 4.5 mg subcut QWEEK 10/14/22 [History Last Taken Unknown] insulin lispro protamine-lispro 100 unit/mL (75-25) subcutaneous susp (Humalog Mix 75-25(U-100)Insuln) 40 unit subcut QAM 10/14/22 [History Last Taken Unknown] metformin 850 mg tablet 750 mg PO DAILY dibetic 10/14/22 [History Last Taken Unknown] Allergy/AdvReac Type Severity Reaction Status Date / Time glimepiride Allergy Unknown pruritus Verified 12/29/22 04:50 rosiglitazone [From Avandia] Allergy Unknown Rash Verified 12/29/22 04:50 sitagliptin [From Januvia] Allergy Unknown Rash Verified 12/29/22 04:50 Sulfa (Sulfonamide Allergy NEEDS Verified 12/29/22 04:50 Antibiotics) FOLLOW-UP acetaminophen [From Tylenol] AdvReac Unknown Enlarged Verified 12/29/22 04:50 liver pravastatin AdvReac Unknown elevated Verified 12/29/22 04:50 liver enzymes Family History Other Diabetes Heart disease Surgical History History of hysterectomy History of left heart catheterization (05/30/22) History of rhinoplasty Hx of cholecystectomy Hx of tonsillectomy Hx of total knee replacement Hx of tubal ligation Social History Smoking Status: Former smoker how long ago did patient quit smokin years ago alcohol intake: current alcohol intake frequency: holidays/special occasions only substance use type: does not use caffeine: Yes Type: coffee Number of servings: 1 ROS ROS ED Constitutional Constitutional ED: Denies chills, fever(s) or sweats Eyes Eyes: Denies blurry vision or change in vision ENT ENT ED: Denies ear pain or sore throat Cardiovascular Cardiovascular: Denies chest pain, palpitations or racing heartbeat Respiratory/Chest Respiratory/Chest: Denies cough, dyspnea or sputum Gastrointestinal Gastrointestinal: Denies abdominal pain, constipation, diarrhea, nausea or vomiting Genitourinary Genitourinary ED: Denies dysuria, hematuria or urinary frequency Musculoskeletal Musculoskeletal: Reports other Details: Right shoulder pain ; Denies arthralgias, myalgias or neck pain Integumentary Denies abscess, Abrasions or rash Neurologic Neurologic: Denies headache(s), paresthesias or weakness Psychiatric Psychiatric: Denies anxiety, depression, suicidal ideation or suicidal thoughts Endocrine Endocrinology: Denies polydipsia or polyuria EXAM Physical Exam Const Vital Signs: 12/29/22 04:46 Temperature 98.3 F Temperature Source Temporal Pulse Rate 74 Respiratory Rate 20 H Blood Pressure 184/62 H Blood Pressure Mean 102 Pulse Ox 93 Oxygen Delivery Method Room Air Positive well nourished and obese General Appearance ED: NAD Nutritional Appearance: obese HEENT Reports normocephalic atraumatic Eyes PERRL and EOMs intact bilaterally Neck full ROM Chest Wall inspection of chest normal Resp normal respiratory effort and no retractions Auscultation: Negative for rales, rhonchi or wheezes Cardio regular rate and regular rhythm GI non-tender Back/Spine Cervical Spine: Negative for cervical spine tenderness Lumbar Spine / Lower Back: Negative for lumbar spinal tenderness Extremity Extremity Narrative: Tenderness to palpation right shoulder. There is limited range of motion in any direction. There is no obvious deformity. There is tenderness over the right clavicle as well. No obvious deformity or bruising. No skin tenting Neuro oriented x3 and CN's II-XII intact bilaterally Teague Coma Scale: document GCS findings Spontaneous Obeys Commands Oriented 15 Sensorium / Orientation: alert Psych mental status grossly normal and thought process normal MDM MDM MDM Narrative Medical decision making narrative: Patient presenting with right shoulder and clavicle pain. Had a mechanical fall and has been able to get up and on her own. She was able to call EMS. On exam she does have some tenderness of the right shoulder and right clavicle region. No obvious deformities. Patient declined anything more than anti-inflammatory so she was given a shot of Toradol. She does states she is no longer on anticoagulation and denies hitting her head significantly. She has no neurologic symptoms. X-rays of the right clavicle and right shoulder on my interpretation show no acute fracture or subluxation. The radiologist interprets this and agrees. The patient has been up and ambulated to the bedside commode and also was able to ambulate and x-ray. This point I feel she stable for discharge. I recommend she use her cane at home when ambulating. Return precautions discussed. Impression: 1. Mechanical fall 2. Right shoulder contusion Lab Data Attestation: I reviewed the patient's lab results. Radiography Diagnostic Testing: Clinical Impression(s) from Imaging Studies Clavicle X-Ray 12/29/22 04:58 IMPRESSION: No acute injury Electronically Signed: Marquis Lyons MD at 6:05 EDT , Shoulder X-Ray 12/29/22 04:58 IMPRESSION: Mild degenerative changes with no acute osseous injury Electronically Signed: Marquis Lyons MD at 6:06 EDT , Discharge Plan Triage Chief Complaint: Fall ED Provider: Buddy Cavazos Dx/Rx/DC Orders Instructions: ED Contusion, Upper Extremity, ED Fall Prevention Prescriptions: No Action cholecalciferol (vitamin D3) 125 mcg (5,000 unit) tablet 125 mcg PO DAILY loratadine [Allergy Relief (loratadine)] 10 mg tablet 10 mg PO DAILY amoxicillin 500 mg capsule 2,000 mg PO ONCE PRN Rx Instructions: take 1 hour prior to dental visit albuterol sulfate 2.5 mg /3 mL (0.083 %) solution for nebulization 2.5 mg inhalation Q4H PRN (Reason: sob) Eliquis 5 mg tablet 5 mg PO BID Humalog Mix 75-25(U-100)Insuln 100 unit/mL (75-25) suspension 40 unit subcut QAM Rx Instructions: 20 units qpm Trulicity 4.5 mg/0.5 mL pen injector 4.5 mg subcut QWEEK multivitamin Tablet 1 tab PO DAILY metoprolol succinate 50 mg tablet extended release 24 hr 50 mg PO DAILY chlorthalidone 25 mg tablet 25 mg PO DAILY pioglitazone 30 mg tablet 30 mg PO DAILY fluoxetine 20 mg capsule 20 mg PO DAILY atorvastatin 10 mg tablet 10 mg PO QHS albuterol sulfate 90 mcg/actuation HFA aerosol inhaler 2 puff INHALATION Q4H PRN (Reason: Dyspnea) lisinopril 40 mg tablet 40 mg PO DAILY metformin 850 mg tablet 750 mg PO DAILY Hold Instructions: Resume on 07/18/21. Primary Care Provider: Radha Wetzel Referrals: Radha Wetzel MD [Primary Care Provider] - Disposition Disposition: Home, Self Care
[2022-12-29 07:20] VITALS: BP 145/71; PULSE 76; RESP 18; O2SAT 94
== END 2022-12-29 07:21 | disposition home or self-care (01) ==
PROVIDERS: Emergency Provider Student in an Organized Health Care Education/Training Program; PCP Family Medicine; Visit Provider Student in an Organized Health Care Education/Training Program
DX: S40.011A Contusion of right shoulder, initial encounter (principal); E66.01 Morbid (severe) obesity due to excess calories; G47.33 Obstructive sleep apnea (adult) (pediatric); Z87.891 Personal history of nicotine dependence; W19.XXXA Unspecified fall, initial encounter
CPT/HCPCS: 73000; 73030; 96372; 99283

== ENCOUNTER → 2023-01-23 | Outpatient (CLI) | payer MEDICARE, BC, SELFPAY ==
--- NOTE | 2023-01-23 16:45 | RAD_ITS ---
EXAM: XR RIGHT SHOULDER COMPLETE, 2 OR MORE VIEWS CLINICAL INDICATION: pain, injury TECHNIQUE: Two or more views of the right shoulder. COMPARISON: No relevant prior studies available. FINDINGS: BONES/JOINTS: There is questionable irregularity of the humeral head that may represent a nondisplaced fracture. Preservation of the joint space. No sclerotic or destructive changes observed. SOFT TISSUES: Unremarkable. No soft tissue swelling or gas. No radiopaque foreign body. RAD/Shoulder min 2 Views IMPRESSION: Questionable nondisplaced fracture of the humeral head. Further evaluation with CT scan may be beneficial. Electronically Signed: Dhiraj Jasso MD at 20:03 EDT ,
== END | disposition home or self-care (01) ==
PROVIDERS: PCP Family Medicine; Referring Provider Family Medicine; Visit Provider Family Medicine
DX: M25.511 Pain in right shoulder (principal)
CPT/HCPCS: 73030

== ENCOUNTER → 2023-02-01 | Outpatient (CLI) | payer MEDICARE, BC, SELFPAY ==
--- NOTE | 2023-02-01 08:30 | MRI_ITS ---
STUDY: MRI RIGHT SHOULDER REASON FOR EXAM: Female, 68 years old. Shoulder fracture. Evaluate for rotator cuff tear. TECHNIQUE: Standardized fat and water weighted pulse sequences were obtained in all 3 orthogonal planes. Patient''s size compromises the study. COMPARISON: Right shoulder images dated January 23, 2023 showing comminuted impacted fracture of the proximal humerus. FINDINGS: Full thickness full width retracted supraspinatus and infraspinatus tendon tears with the supraspinatus tendon retracted 4.1 cm from its insertion site and the infraspinatus tendon retracted approximately 4 cm from its insertion site (coronal series 6 images 10-18). Full thickness full width retracted subscapularis tendon tear with tendon retracted approximately 2.3 cm from its insertion site (axial series 3 images 13-17). Normal teres minor tendon. Moderate atrophy of the supraspinatus and infraspinatus muscles (sagittal series 8 images 16-25). Mild atrophy of the subscapularis muscle (sagittal series 8 image 17). Normal teres minor muscle. Moderate thinning of the articular cartilage of the glenohumeral joint with a moderate to large glenohumeral joint effusion (axial series 3 images 9-17). Bone marrow edema in the area of the impacted humeral head fracture (coronal series 6 images 8-15). Normal biceps labral complex. Torn, retracted long head of the biceps tendon (axial series 3 images 8-17). Normal labrum. Normal capsulo- ligamentous complex. Normal rotator interval. AC joint hypertrophy with narrowing of the subacromial space (coronal series 5 images 9-15). There is a Type II morphology (curved), with a neutral orientation. Fluid in the subacromial-subdeltoid bursa (coronal series 6 image 15). Normal visualized coracohumeral and coracoacromial ligaments. Normal quadrilateral space. Normal axillary space. Normal deltoid muscle. Normal trapezius muscle. MRI/Upper Ext Joint Only(Routine) IMPRESSION: Full-thickness full width retracted supraspinatus and infraspinatus tendon tears as described. Moderate atrophy of the supraspinatus and infraspinatus muscles. Full thickness full width retracted subscapularis tendon tear with mild atrophy of the subscapularis muscle. Moderate thinning of the articular cartilage of the glenohumeral joint. Proximal humeral fracture with bone marrow edema. Torn, retracted long head of the biceps tendon. AC joint hypertrophy with narrowing of the subacromial space. Moderate to large glenohumeral joint effusion with fluid in the subacromial-subdeltoid bursa. Electronically Signed: Ryan Ulloa MD at 15:23 EDT ,
== END | disposition home or self-care (01) ==
LOC: MRI 07:36
PROVIDERS: PCP Family Medicine; Referring Provider Orthopaedic Surgery Sports Medicine; Visit Provider Orthopaedic Surgery Sports Medicine
DX: S49.91XA Unspecified injury of right shoulder and upper arm, initial encounter (principal); X58.XXXA Exposure to other specified factors, initial encounter
CPT/HCPCS: 73221

== ENCOUNTER 2023-04-04 12:30 | Outpatient (RCR) | payer MEDICARE, BC, SELFPAY ==
--- NOTE | 2023-01-31 10:40 | HP.PTEVAL_ITS ---
Patient's Visit Information Visit Information Visit Information: JOANNA SARAH is a 68 year old F referred to Physical Therapy by Dr. Glenn Corrales MD with a diagnosis of R fx proximal humerus. Date of Evaluation: 01/31/23 Physical Therapist: DEBBIE Ulloa Visit Plan Frequency: 2x /Week Duration: 2 Months Plan: 2-3X/ week for 8 weeks for R shoulder PROM, AAROM, postural strength, and then pt will get her MRI tomm. October due some strengthening but will be determined by MRI results given on Monday HEP: supine and seated AAROM wand flexion Subjective Subjective: She fell and fell face forward and hit her head and R shoulder. She laid there for 3 hours before they got anyone to come and they called the squad and they got her up and went to the hospital. In the hospital they said it was not broken. After 3 weeks she still was hurting and went back to the Dr and she still can not drive cause she can not turn the carver. It is her R arm. Her granddaughter. They x-rayed it again and it was broken. Her MRI of the R shoulder is tom morning. She is R handed. She is using her cane in the L hand mostly but can sometimes can use it in her R arm. She is SOB walking back to the treatment room. She has been trying to walk the shoulder up the wall but it just shoots pain. The pain does wake her up at night especially if she rolls over on it. Pain R shoulder: Pain Intensity (Out of 10): 6 Objective Objective: R handed [employer] strength R 40# and L 50# AROM: R shoulder AROM: R flex 35 degrees, R abd 70#, R ER 10, IR Greater trochanter L Flex 155, ABD 157, ER 30, IR L1 MMT: R flex 4, abd 1, ER 4.6 and IR 7.6 L flex 11.6, abd 7, ER 11.3 and IR 12.4 R shoulder PROM: scaption with pain to approx 100 degrees, ER to approx 20 degrees Balance/Special Test Scores Quick DASH Score: 84.0900 Goals Goal 1:: I HEP Goal Time Frame: 6-8 Weeks Goal 2:: Increase R shoulder AROM (at time of the eval: AROM: R shoulder AROM: R flex 35 degrees, R abd 70#, R ER 10, IR Greater trochanter L Flex 155, ABD 157, ER 30, IR L1) Goal Time Frame: 6-8 Weeks Goal 3:: Increase R shoulder strength (at time of the eval: MMT: R flex 4, abd 1, ER 4.6 and IR 7.6 L flex 11.6, abd 7, ER 11.3 and IR 12.4). Rehabilitation Potential Rehabilitation Potential: Good Anticipated Interventions Patient/Client Instruction: Educate patient on: Condition and Plan of Care For the Purpose of:: To decrease pain, To increase ROM, To improve nutrient delivery to tissue, To improve muscle performance and motor function, To improve ability to perform ADL's, To increase tolerance to activity/condition/position, To improve performance and independence with ADL's, To decrease level of supervision to perform tasks, To improve ability of physical actions for home/community/work/leisure, To improve health of tissue, To decrease soft tissue restriction and To increase flexibility/ROM Therapeutic Exercise to Include: Strength training, Postural training, Flexibilty training, Passive ROM, Active ROM and Scapular Strength/Stabilization For the Purpose of:: To decrease pain, To increase ROM, To improve nutrient delivery to tissue, To improve muscle performance and motor function, To improve ability to perform ADL's, To increase tolerance to activity/condition/position, To improve performance and independence with ADL's, To decrease level of supervision to perform tasks, To improve ability of physical actions for home/community/work/leisure, To improve health of tissue, To decrease soft tissue restriction and To increase flexibility/ROM Manual Therapy Techniques to Include: Passive ROM For the Purpose of:: To increase ROM and To improve nutrient delivery to tissue Text: Thank you for the opportunity to evaluate your patient. For Medicare and Medicare HMO plans, please review the plan of care and approve it. It will need to be FAXED BACK to us at [phone] for Medicare purposes. For Medicare only, by signing this I certify the plan of care. Please let me know if there are questions or concerns regarding this plan of care. Physician Signature: Date:
--- NOTE | 2023-03-07 12:07 | HP.PTREVAL ---
Re-Evaluation Intro: Dr. Glenn Corrales MD, It has been my pleasure to treat JOANNA SARAH over the last 8 visits for R fx proximal humerus. Please see the progress note below for an update on the physical therapy plan of care! Subjective Subjective: Pt reports that she still can not use her R arm to wipe her butt. She can now get her socks on now with no difficulty. She still can lift heavy roaster or anything heavy. They carry her groceries in and out for her. When she gets pain it goes up into the R side of her neck. She notices that her vertigo is stirred up again. She still feels that she has weakness.. She does have a HEP. She still can not do somethings at home. Objective Objective/Function: R shoulder AROM: R flex 142 degrees, R abd 140#, R ER 60, IR Greater trochanter MMT: R flex 6.2, abd 5.8, ER 5.7 and IR 9.5 Plan Plan Plan: Add IR stretching per pain tolerance and ie wand/ towel stretch etc. continue with strengthening 2-3X/ week for 8 weeks for R shoulder PROM, AAROM, postural strength. May do some strengthening but will be determined by MRI. Balance/Gait/Functional tests Balance/Special Test Scores Quick DASH Score: 50.0000 Goals Goals Goal 1:: I HEP Goal Time Frame: 6-8 Weeks Goal Progress: Goal Met Goal 2:: Increase R shoulder AROM (at time of the eval: AROM: R shoulder AROM: R flex 35 degrees, R abd 70#, R ER 10, IR Greater trochanter L Flex 155, ABD 157, ER 30, IR L1) Goal Time Frame: 6-8 Weeks Goal 3:: Increase R shoulder strength (at time of the eval: MMT: R flex 4, abd 1, ER 4.6 and IR 7.6 L flex 11.6, abd 7, ER 11.3 and IR 12.4). Anticipated Interventions Anticipated Interventions Patient/Client Instruction: Educate patient on: Condition and Plan of Care For the Purpose of:: To decrease pain, To increase ROM, To improve nutrient delivery to tissue, To improve muscle performance and motor function, To improve ability to perform ADL's, To increase tolerance to activity/condition/position, To improve performance and independence with ADL's, To decrease level of supervision to perform tasks, To improve ability of physical actions for home/community/work/leisure, To improve health of tissue, To decrease soft tissue restriction and To increase flexibility/ROM Therapeutic Exercise to Include: Strength training, Postural training, Flexibilty training, Passive ROM, Active ROM and Scapular Strength/Stabilization For the Purpose of:: To decrease pain, To increase ROM, To improve nutrient delivery to tissue, To improve muscle performance and motor function, To improve ability to perform ADL's, To increase tolerance to activity/condition/position, To improve performance and independence with ADL's, To decrease level of supervision to perform tasks, To improve ability of physical actions for home/community/work/leisure, To improve health of tissue, To decrease soft tissue restriction and To increase flexibility/ROM Manual Therapy Techniques to Include: Passive ROM For the Purpose of:: To increase ROM and To improve nutrient delivery to tissue Re-Evaluation Ending Re-evaluation ending: Please do not hesitate to contact me at [phone] by phone or if you have questions or concerns regarding this new plan of care! Sincerely, Melissa Thomas, MPT
--- NOTE | 2023-04-04 12:55 | HP.PTDCSUM ---
Discharge Summary D/C summary: It has been my pleasure to treat JOANNA SARAH referred by Dr. lGenn Corrales MD, with the diagnosis of R fx proximal humerus for a total of 14 visit(s). Discharge Date: 04/04/23 Please see the following information for a summary of their discharge status. Subjective Subjective: Pt reports that she is not having pain. She reports that she has not done her HEP much since she has been really busy lately. She can not lift her 40 bottle water but she has her grandkids help. Pain R shoulder: Pain Intensity (Out of 10): 0 Overall Improvement % Improvement: 90 Objective Objective/Function: MMT: R flex 8.5, abd 7.9, ER 10.2 and IR 12.5 L flex 11.6, abd 7, ER 11.3 and IR 12.4). R shoulder AROM: R flex 165 degrees, R abd 165, R ER 49, IR L4 Goals Goal 1:: I HEP Goal Progress: Goal Met Goal 2:: Increase R shoulder AROM (at time of the eval: AROM: R shoulder AROM: R flex 35 degrees, R abd 70#, R ER 10, IR Greater trochanter L Flex 155, ABD 157, ER 30, IR L1) Goal Progress: Goal Met Goal 3:: Increase R shoulder strength (at time of the eval: MMT: R flex 4, abd 1, ER 4.6 and IR 7.6 L flex 11.6, abd 7, ER 11.3 and IR 12.4). Goal Progress: Goal Met Plan Plan: DC PT to HEP D/C Information Discharge Comments: DC PT to HEP d/c sentence: If there are questions or concerns regarding this patient's physical therapy, please feel free to call me at [phone]. Thank you for the referral of this patient. Sincerely, Melissa Thomas, MPT Balance/Gait/Functional tests Balance/Special Test Scores Quick DASH Score: 13.6350 Improvement % Improvement: 90
== END 2023-04-04 19:00 | disposition home or self-care (01) ==
LOC: PT 12:30
PROVIDERS: PCP Family Medicine; Referring Provider Orthopaedic Surgery Sports Medicine; Visit Provider Orthopaedic Surgery Sports Medicine
DX: S42.201D Unspecified fracture of upper end of right humerus, subsequent encounter for fracture with routine healing (principal)
CPT/HCPCS: 97110; 97161; 97530

== ENCOUNTER → 2023-04-17 | Outpatient (CLI) | payer MEDICARE, BC, SELFPAY ==
[2023-04-17 11:31] LABS: AST(SGOT) 25 U/L (15-37); Alanine Aminotransfer ALT/SGPT 25 U/L (13-56); Albumin, Serum 3.3 g/dL (3.2-5.0); Alkaline Phosphatase 101 U/L (45-117); Bilirubin, Direct 0.21 mg/dL (0.00-0.30); Cholesterol 187 mg/dL (200); Globulin 4.2 g/dL (2.2-4.2); High Density Lipoprotein 56 mg/dL; Protein, Total 7.5 g/dL (6.4-8.2); Triglycerides 187 mg/dL; Very Low Density Lipoprotein 37 mg/dL (5-40)
== END | disposition home or self-care (01) ==
PROVIDERS: PCP Family Medicine; Referring Provider Nurse Practitioner Gerontology; Visit Provider Nurse Practitioner Gerontology
DX: E78.5 Hyperlipidemia, unspecified (principal)
CPT/HCPCS: 36415; 80061; 80076

== ENCOUNTER → 2023-07-05 | Outpatient (CLI) | payer MEDICARE, BC, SELFPAY ==
--- NOTE | 2023-07-05 08:24 | BI_ITS ---
MAMMOGRAPHY - BILATERAL SCREENING REASON FOR EXAM: Female, 68 years old. Routine annual screening examination. PERTINENT HISTORY: Non-contributory. TECHNIQUE: Digital bilateral breast maria [place] carmen (3D mammographic acquisition) in the CC and MLO projections. 2-D mediolateral oblique (MLO) and craniocaudad (CC) views of both breasts were obtained. CAD: Full Field Digital Mammography with Computer Added Detection was performed. COMPARISON: Comparison is made with prior study dated December 13, 2021 and November 14, 2019. FINDINGS: Breast Composition: There are scattered areas of fibroglandular density. There are no dominant masses or suspicious calcifications. Stable calcified right retroareolar nodular density. No other significant abnormalities are identified. There has been no significant change since the prior study. BI/SCRN MAMM (CAD)W/[place] BILAT IMPRESSION: Stable bilateral screening mammogram. Yearly follow-up mammogram recommended. (A) ASSESSMENT CATEGORY: BIRADS Category 2: Benign. A letter regarding these results will be sent to the patient by the facility within 30 days. Approximately 10% of breast cancers are not detected by mammography. A normal mammogram should not delay biopsy of a clinically suspicious abnormality. [id number] Electronically Signed: Bharat Rodriguez MD at 9:44 EST ,
== END | disposition home or self-care (01) ==
LOC: OPBI 08:24
PROVIDERS: PCP Family Medicine; Referring Provider Family Medicine; Visit Provider Family Medicine
DX: Z12.31 Encounter for screening mammogram for malignant neoplasm of breast (principal)
CPT/HCPCS: 77063; 77067

== ENCOUNTER → 2023-07-10 | Outpatient (CLI) | payer MEDICARE, BC, SELFPAY ==
--- NOTE | 2023-07-10 13:57 | US_ITS ---
STUDY: ULTRASOUND BREAST - RIGHT REASON FOR EXAM: Female, 68 years old. Abnormal screening mammogram. TECHNIQUE: Axial and longitudinal images of the RIGHT breast were performed with a high resolution ultrasound transducer. # OF IMAGES: 58 COMPARISON: Comparison is made with prior mammogram dated July 05, 2023. FINDINGS: RIGHT Breast: The upper-outer quadrant of the right breast was examined with ultrasound. The mammographic abnormality corresponds to 1.5 cm x 1.4 cm x 0.8 cm hypoechoic solid nodule at the 10:00 position of the breast at 6 cm from the nipple. Biopsy is recommended. Incidental note is made of a calcified right retroareolar breast nodule US/Breast Limited Unilateral IMPRESSION: 1.5 cm x 1.4 cm x 0.8 cm hypoechoic solid nodule at the 10:00 position of the breast at 6 cm from nipple. Biopsy recommended. ASSESSMENT CATEGORY: BIRADS Category 4: Suspicious - Biopsy Should Be Considered. A letter regarding these results will be sent to the patient by the facility within 30 days. Electronically Signed: Bharat Rodriguez MD at 9:35 EST ,
--- OUTSIDE RECORDS SUMMARY | 2023-07-10 14:54 | XMS RPT_ITS | CCD ---
Author Name Unknown Address [address] [place] [address] Organization [facility] Care Team Providers Care Outcomes Analyst Name Role Phone Radha Briseno Primary Care Provider FINN PARR, DR DUMONT Primary Care Physician Radha Briseno Primary Care Provider KYLE LUA MD Attending Trent BRISENO MD, DR DUMONT Primary Care Unavailable KYLE LUA MD Attending Unavaillaura BRISENO MD, DR DUMONT Primary Care Unavailable MARIAM ROTHMAN Attending Unavailable MORENO ROTHMANGAN Referring Unavailable RADHA BRISENO Primary Care Unavailable MARIAM ROTHMAN Attending Unavailable STEPHAN, MARIAM Referring Unavailable RADHA BRISENO Primary Care Unavailable ANTOLIN AGUIRRE Admitting Unavailable ANTOLIN AGUIRRE Attending Unavailable NIKOLE, JEREMY Referring Unavailable MARIAM ROTHMAN Attending Unavailable RADHA BRISENO Primary Care Unavailable ANGIE ROCHE Attending Unavailable RADHA BRISENO Primary Care Unavailable STEPHAN MARIAM Attending Unavailable STEPHAN MARIAM Referring Unavailable RADHA BRISENO Primary Care Unavailable Allergies Allergy Classification Reported Allergen(s) Allergy Type Date of Onset Reaction(s) Facility (4 sources) Acetaminophen Drug Allergy 2 [facility] (4 sources) glimepiride Drug Allergy 2 Itching [facility] (7 sources) Pravastatin; Translations: [pravastatin] Drug Allergy 2 [facility] (7 sources) rosiglitazone; Translations: [rosiglitazone] Drug Allergy 2 Rash [facility] (7 sources) SITagliptin; Translations: [sitagliptin] Drug Allergy 2 Rash [facility] (7 sources) Sulfonamides (Antibiotic); Translations: [sulfa drugs] Propensity to adverse reactions 2 [facility] (3 sources) Acetaminophen; Translations: [acetaminophen] Drug Allergy [facility] (3 sources) glimepiride; Translations: [glimepiride] Drug Allergy [facility] Medications Current Medications Medication Drug Class(es) Dates Sig (Normalized) Sig (Original) albuterol 0.83 mg/ml inhalation solution (8 sources) beta2-Adrenergic Agonist albuterol (2.5 MG/3M L) 0.083% nebulizer solution Take 2.5 mg by nebulization every 4 hours as needed for wheezing. 0 Active Problems Problem Classification Problem Date Documented Da te Episodic/Chronic Administrative/social admission (3 sources) Financial problem 09-05-2019 Episodic Asthma (3 sources) Asthma 08-07-2017 Chronic Diabetes mellitus without complication (7 sources) Diabetes mellitus; Translations: [Type 2 diabetes mellitus without complications] 07-21-2022 Chronic Disorders of lipid metabolism (7 sources) Hyperlipidemia; Translations: [Hyperlipidemia, unspecified] Chronic Essential hypertension (10 sources) Essential hypertension; Translations: [Essential (primary) hypertension] Onset: 07-21-2022 07-21-2022 Chronic Heart valve disorders (8 sources) Aortic stenosis, non-rheumatic ; Translations: [Nonrheumatic aortic (valve) stenosis] Onset: 06-16-2022 Chronic Nutritional deficiencies (4 sources) Vitamin D deficiency; Translations: [Vitamin D deficiency, unspecified] Chronic Other and unspecified benign neoplasm (3 sources) Polyp of colon 08-04-2017 Episodic Results Test Name Value Interpretation Reference Range Facil ity Vital Signs Date Time Vital Sign Value Performing Clinician Sarahi tessie 12-12-2022 09:49-0400 Body height 157.5 cm Mariam Tompkins PEDIATRIC PHYSICAL THERAPIST Work Phone: [employer] 12-12-2022 09:49-0400 Body mass index (BMI) [Ratio] 62.55 kg/m2 Mariam Rothman APRN - [employer] Work Phone: [facility] 12-12-2022 09:49-0400 Body weight 155.13 kg Mariam Rothman CRIMINAL JUSTICE INSTRUCTOR - C PEDIATRIC PHYSICAL THERAPIST Work Phone: [facility] Encounters Encounter Date Encounter Type Care Provider Facility Start: 02-16-2023 End: 02-16-2023 Patient encounter procedure KYLE LUA MD [facility] Start: 12-21-2022 Telephone encounter Mariam [email or web address] CRIMINAL JUSTICE INSTRUCTOR - [employer] Work Phone: [facility] Cardiology Procedures Date Procedure Procedure Detail Performing Clinician Start: 12-12-2022 Echo tthrc r-t 2d w/wom-mode compl spec&colr d Mariam Rothman CRIMINAL JUSTICE INSTRUCTOR - [employer] Work Phone: Start: 05-13-2022 Lipid 1996 panel - S inessa or Plasma Mariam Rothman CRIMINAL JUSTICE INSTRUCTOR - [employer] Work Phone: Start: 12-13-2021 Mammography Mariam [email or web address] CRIMINAL JUSTICE INSTRUCTOR - [employer] Work Phone: Abdominal hysterectomy LANDY LUA MD Ambulatory surgery KYLE KC MD Plan of Treatment Date Care Activity Detail Author Start: 05-13-2023 Lipid panel Lipid Panel [facility] Start: 02-24-2023 Influenza vaccination Influenza Vaccine (Season Ended) [facility] Start: 12-13-2022 Screening for malignant neoplasm of breast Mammogram [facility] Start: 12-12-2022 End: 12-12-2022 Patient encounter procedure 12/12/2022 Appointment Cardiology [facility] [address] [facility]-Invasive [facility] Start: 02-24-2022 Influenza vaccination Influenza Vaccine (#1) [facility] Start: 08-18-2021 COVID-19 Vaccine (4 - Booster for Moderna series) COVID-19 Vaccine (4 - Booster for Moderna series) [facility] Start: 01-21-2004 Zoster Vaccines (1 of 2) Zoster Vaccines (1 of 2) [facility] Start: 1973 DTaP/Tdap/Td Vaccines (1 - Tdap) DTaP/Tdap/Td Vaccines (1 - Tdap) [facility] Start: 1973 Urine screening for protein Diabetes: Urine Protein Screening [facility] Start: 01-21-1972 Hepatitis C screening Hepatitis C Screening [facility] Start: 1966 Depression Screening Depression Screening [facility] Start: 01-21-1964 Diabetic foot examination Diabetes: Foot Exam [facility] Start: 01-21-1964 Glaucoma screening Diabetes: Retinopathy Screening [facility] Start: 01-21-1964 Preventive dental service Diabetes: Dental Exam [facility] Start: 01-21-1960 Pneumococcal Vaccine: 65+ Years (1 - PCV) Pneumococcal Vaccine: 65+ Years (1 - PCV) [facility] Start: 1954 Hemoglobin A1c measurement Diabetes: Hemoglobin A1C [facility] Start: 1954 Hepatitis B Vaccines (1 of 3 - 3-dose series) Hepatitis B Vaccines (1 of 3 - 3-dose series) [facility] Start: 1955 Medicare Annual Wellness (AWV) Medicare Annual Wellness (AWV) [facility] Start: 1954 Screening for malignant neoplasm of colon [facility] Start: 1954 Screening for osteoporosis Bone Density Scan [facility] Immunizations Immunization Date Immunization Notes Care Provider Maye michelle 05-28-2021 influenza virus vacc ine, unspecified formulation Mariam Rothman CRIMINAL JUSTICE INSTRUCTOR - [employer] Work Phone: [facility] Payers Date Payer Category Payer Unknown [employer] S [employer] MEDICARE SUPPLEMENT [id number] 2021-Present [address] [place] [address] Supplement [id number] 2021 Unknown [id number] 2018 Medicare MEDICARE MEDICAR E PART A AND B [id number] 2018-Present [address] [place] [address] Medicare [id number] 2018 Medicare [id number] 1955 Unknown [id number] 1955 Unknown [id number] Social History Date Type Detail Facility Start: 06-16-2022 Tobacco smoking status NHIS Ex-smoke r [facility] End: 06-26-1991 History of tobacco use Current smoker [facility] End: 06-26-1991 History of tobacco use Cigarette Smoker [facility] Start: 06-16-2022 Tobacco use and exposure Smoke less tobacco non-user [facility] Start: 06-21-2022 End: 08-25-2022 Alcohol intake Current drinker of alcohol (finding) [facility] Start: 07-11-2022 History SDOH Alcohol Frequency 1 [facility] Start: 07-11-2022 History SDOH Alcohol Std Drinks 0 [facility] Start: 06-16-2022 Alcohol Comment holidays [facility] Start: 1955 Sex Assigned At Not on file S [facility] Start: 08-15-2022 End: 12-12-2022 Exposure to SARS-CoV-2 (event) Not sure [facility] Start: 09-05-2019 Tobacco smoking status Never s moked tobacco (finding) [facility] Sex Assigned At Female [facility] Start: 07-11-2022 End: 08-25-2022 History of Social function [facility] Start: 07-11-2022 End: 08-25-2022 Alcohol Use Disorder Identification Test - Consumption [AUDIT-C] [facility] How often to you hav e a drink containing alcohol? Never [facility] How many standard dr inks containing alcohol do you have on a typical day? Patient does not drink [facility] Medical Equipment Procedure Code Equipment Code Equipment Origin al Text Equipment Identifier Dates Valve Aor 26mm S apien 3 Comm - [id number] Start: 07-11-2022 See Instructions , ONE TOUCH ULTRA TEST STRIPS 1 STRIP 3 TIMES DAILY AND NEEDED #100 FOR 30 DAYS AND 12 REFILLS., # 1 EA, 0 Refill(s), Pharmacy: [id number], Uncontrolled type 2 diabetes mellitus, 157.5, cm, 12/30/21 9:19:00 EDT, Height, 159,... Start: 05-23-2022 USE 1 NEEDLE 3 T IMES A DAY Start: 12-05-2019 See Instructions , ONE TOUCH ULTRA TEST STRIPS 1 STRIP 3 TIMES DAILY AND NEEDED #100 FOR 30 DAYS AND 12 REFILLS., # 1 EA, 0 Refill(s), [id number], Uncontrolled type 2 diabetes mellitus, 157.5, cm, 12/30/21 9:19:00 EDT, Height, 159,... Start: 05-23-2022 USE 1 NEEDLE 3 T IMES A DAY Start: 12-05-2019 See Instructions , ONE TOUCH ULTRA TEST STRIPS 1 STRIP 3 TIMES DAILY AND NEEDED #100 FOR 30 DAYS AND 12 REFILLS., # 1 EA, 0 Refill(s), [id number], Uncontrolled type 2 diabetes mellitus, 157.5, cm, 12/30/21 9:19:00 EDT, Height, 159, kg, 12/30/21 9:19:00 EDT, Dosing Weight Start: 05-23-2022 USE 1 NEEDLE 3 T IMES A DAY Start: 12-05-2019 Clinical Notes 07-11-2022 to 12-23-2022 Telephone Encounter - MARLYS Burkett CNP - 12/23/2022 1:59 PM EDTTelephone Encounter - MARLYS Burkett CNP - 12/23/2022 1:59 PM EDTTelephone Encounter - Jazzmine Foreman - 12/21/2022 3:48 PM EDT Note Date & Type Note Facility 12-23-2022 Telephone encount er Note Reviewed echo with Dr. Aguirre. Plan to continue ASA 81 mg daily. [facility] 12-23-2022 Miscellaneous Notes Formattin g of this note might be different from the original. Reviewed echo with Dr. Aguirre. Plan to continue ASA 81 mg daily. PC to patient. Advised her that I will review echo with Dr. Aguirre and call her back. She is feeling well with no concerns. She ran out of Eliquis ~2 weeks ago and resumed her ASA 81 mg daily. Patient was calling and was asking about her results from tests patient had on the patient had not heard anything yet and just wanted to make sure everything was fine please advise documented in this encounter [facility] 12-22-2022 Telephone encount er Note PC to patient. Advised her that I will review echo with Dr. Aguirre and call her back. She is feeling well with no concerns. She ran out of Eliquis ~2 weeks ago and resumed her ASA 81 mg daily. [facility] 12-21-2022 Telephone encount er Note Patient was calling and was asking about her results from tests patient had on the patient had not heard anything yet and just wanted to make sure everything was fine please advise [facility] 11-25-2022 Telephone encount er Note ALBERTINA Rothman [employer] 08/25/22. CBC ordered but not completed. Last echo results discussed with Dr. Aguirre to start Eliquis for 3 months. Pt had repeat echo scheduled for 12/12 and will have CBC done same day. [facility] 11-25-2022 Miscellaneous Notes Formattin g of this note might be different from the original. ALBERTINA Rothman [employer] 08/25/22. CBC ordered but not completed. Last echo results discussed with Dr. Aguirre to start Eliquis for 3 months. Pt had repeat echo scheduled for 12/12 and will have CBC done same day. documented in this encounter [facility] 07-12-2022 Note Received referral an d reviewed chart. Phase II Cardiac Rehab Referral discussed with Syeda Lassiter. Patient prefers cardiac rehab at [facility]. Given information on cardiac rehab at preferred location. [facility] 07-12-2022 Note Attestation signed by Antolin Aguirre MD at 07/16/2022 9:06 PM I, Dr. Aguirre, saw and evaluated the patient on 07/12/2022. I personally obtained the carver and critical portions of the history and physical exam. I reviewed the chart and discussed the patient with the Nurse Practitioner. I agree with the Nurse Practitioner's medical decision making. Hospital Summary: Patient was admitted for elective transcatheter aortic valve replacement. she did well with this procedure. she is now POD1 s/p TF TAVR. she is back to her baseline activity with no symptoms. she will be discharged today on her current medication list. she will follow up in valve clinic in 1-2 weeks. Name: Syeda Lassiter Date of : 1955 Date of Admission: 07/11/2022 Date of Discharge: 07/12/2022 Admitting physician: Antolin Aguirre MD Discharge Attending: MARLYS Burkett CNP Primary Care Physician: RADHA BRISENO Reason for Admission: Severe Symptomatic Aortic Stenosis Consultants: HOSPITAL ADMISSION PROBLEM LIST: Patient Active Problem List Diagnosis Nonrheumatic aortic valve stenosis Review of Systems Review of Systems Constitutional: Negative for chills and fever. Eyes: Negative for visual disturbance. Respiratory: Negative for cough and shortness of breath. Cardiovascular: Negative for chest pain, palpitations and leg swelling. Gastrointestinal: Negative for abdominal pain, blood in stool and vomiting. Genitourinary: Negative for difficulty urinating and hematuria. Musculoskeletal: Positive for gait problem (walks with cane). Neurological: Negative for dizziness and syncope. Psychiatric/Behavioral: Positive for confusion. Physical Exam Physical Exam Constitutional: Appearance: Normal appearance. HENT: Head: Normocephalic. Eyes: General: No scleral icterus. Right eye: No discharge. Left eye: No discharge. Cardiovascular: Rate and Rhythm: Normal rate and regular rhythm. Pulses: Normal pulses. Radial pulses are 2+ on the right side and 2+ on the left side. Dorsalis pedis pulses are 2+ on the right side and 2+ on the left side. Posterior tibial pulses are 2+ on the right side and 2+ on the left side. Heart sounds: Normal heart sounds. No murmur heard. Comments: R radial cath site without hematoma, ecchymosis or oozing. R hand with brisk capillary refill Left femoral cath site without hematoma, ecchymosis, oozing or bruit Pulmonary: Effort: Pulmonary effort is normal. Breath sounds: Normal breath sounds. Abdominal: General: Abdomen is flat. Palpations: Abdomen is soft. Musculoskeletal: General: Normal range of motion. Cervical back: Normal range of motion. Right lower leg: Edema present. Left lower leg: Edema present. Skin: General: Skin is warm and dry. Capillary Refill: Capillary refill takes less than 2 seconds. Neurological: Mental Status: She is alert and oriented to person, place, and time. Psychiatric: Mood and Affect: Mood normal. Procedures: Transfemoral transcatheter AVR with 26 mm Ana S3 valve under moderate sedation Transthoracic echocardiogram HOSPITAL COURSE : The patient was admitted to the hospital for elective TAVR on 07/11/22 . A 26 Ana S3 valve was implanted. The patient returned to [facility] for recovery. Vital signs and labs were stable. There were no groin complications. The patient was ambulatory the evening of the procedure. Post procedure echocardiogram demonstrated : Left Ventricle: Left ventricle size is normal. Normal wall thickness. Normal left ventricular systolic function. EF by 2D Simpsons Biplane is 60%. Normal wall motion. Right Ventricle: Not well visualized. Right ventricle size is normal. Normal systolic function. Aortic Valve: Guzman Ana 3 Ultra [id number] transcatheter bioprosthetic aortic valve with a size of 26 mm. Trace paravalvular regurgitation. No stenosis. AV mean gradient is 16 mmHg. AV peak velocity is 2.8 m/s. LVOT:AV VTI Index is 0.50. Mitral Valve: MV mean gradient is 4 mmHg. Mildly calcified leaflets. Moderate annular calcification. Mild (1+) regurgitation. Mild stenosis noted. MV mean gradient is 4 mmHg. Left Atrium: Left atrium is moderately dilated. LA Vol Index A/L is 59 mL/m2. Technically difficult study. Patient education including SBE prophylaxis, activity, access site care, follow up appointments, and medications was provided. The patient verbalized understanding, questions were answered. The patient was discharged home in good condition. Referral to cardiac rehabilitation has been recommended and discussed with the patient prior to discharge. Referral has been made to the [facility] Outpatient Cardiac Rehabilitation Program. Last Labs: Lab Results Component V (more content not included)... [facility] 07-11-2022 Note Patient: Syeda zepeda Procedure Summary Date: 07/11/22 Room / Location: [facility] Operating Room Anesthesia Start: 0734 Anesthesia Stop: 939 Procedures: Transcatheter aortic valve replacement (TAVR) TRANSCATHETER AORTIC VALVE REPLACEMENT (TAVR) - OR (Chest) Diagnosis: Nonrheumatic aortic valve stenosis (Nonrheumatic aortic valve stenosis [I35.0]) Surgeons: Antolin Aguirre MD; Vinh Richardson MD Responsible Provider: Jeff Sanchez DO Anesthesia Type: TIVA ASA Status: 4 Anesthesia Type: TIVA Vitals Value Taken Time BP 94/65 07/11/22 0943 Temp 36.7 ?C (98 ?F) 07/11/22 0943 Pulse 62 07/11/22 0943 Resp 20 07/11/22 0943 SpO2 95 % 07/11/22 0943 Anesthesia Post Evaluation Patient location during evaluation: ICU Patient participation: complete - patient participated Level of consciousness: awake and alert Pain management: satisfactory to patient Airway patency: patent Dental Injury: no Cardiovascular status: acceptable and hemodynamically stable Respiratory status: acceptable, room air and spontaneous ventilation Hydration status: acceptable Nausea/Vomiting: controlled No notable events documented. Patient can be discharged once all PACU criteria has been met. [facility] 07-11-2022 Note Patient: Syeda zepeda Procedure Summary Date: 07/11/22 Room / Location: [facility] Operating Room Anesthesia Start: 34 Anesthesia Stop: 939 Procedures: Transcatheter aortic valve replacement (TAVR) TRANSCATHETER AORTIC VALVE REPLACEMENT (TAVR) - OR (Chest) Diagnosis: Nonrheumatic aortic valve stenosis (Nonrheumatic aortic valve stenosis [I35.0]) Surgeons: Antolin Aguirre MD; Vinh Richardson MD Responsible Provider: Jeff Sanchez DO Anesthesia Type: TIVA ASA Status: 4 Anesthesia Type: TIVA Vitals Value Taken Time BP 94/65 07/11/22 0943 Temp 36.7 ?C (98 ?F) 07/11/22 0943 Pulse 62 07/11/22 0943 Resp 20 07/11/22 0943 SpO2 95 % 07/11/22 0943 Anesthesia Post Evaluation Patient participation: complete - patient participated Level of consciousness: awake and alert (sedated/intubated) Pain score: 0 Pain management: adequate There was medical reason for not using a multimodal analgesia pain management approach.Airway patency: patent Two or more strategies used to mitigate risk of obstructive sleep apnea Cardiovascular status: hemodynamically stable Respiratory status: acceptable, room air and spontaneous ventilation Hydration status: acceptable No notable events documented. MIPS #[id number] PONV Patient did not receive an inhalational anesthetic ([id number] MIPS # 424 Perioperative Temperature Management Anesthesia time was 60 minutes or longer (4255F) Anesthesai administered was Genearl (inhalational or TIVA) or Neuraxial block Patient received MAC At least one body temperature greater than 95.8F/35.5C achieved within the 30 mins immediately prior to or the 15 minutes immediately following anesthesia end time ([id number]) MIPS #477 Multimodal Pain Management Not emergent case Patient was not administered multimodal pain management Patient reports no pain in PACU MIPS #404 Anesthesiology Smoking Abstinence The patient is not a current smoker (e.g. cigarette, cigar, pipe, e-cigarette/vaping/marijuana) I completed my handoff to the receiving clinician during which we: 1. Identified the patient 2. Identified the responsible provider 3. Reviewed the pertinent medical history 4. Discussed the surgical course 5. Reviewed intra-op anesthesia management and issues during anesthesia 6. Set expectations for post-procedure period 7. Allowed opportunity for questions and acknowledgement of understanding. [facility] Evaluation + Plan note Future Appointments Appointment Date:11/17/2022 10:15:00 AM Scheduled Provider:KYLE LUA MD Location:[facility] Appointment Type:ENDO OV [facility] Evaluation + Plan note Future Appointments Appointment Date:02/21/2023 09:45:00 AM Scheduled Provider:KYLE LUA MD Location:[facility] Appointment Type:ENDO OV Future Scheduled TestsThyroid Stimulating Hormone 02/17/23A1C Hemoglobin 02/17/23Lipid Profile 02/17/23Albumin/Creatinine Ratio, Random Urine 02/17/23Vitamin D Level 02/17/23Complete Metabolic Panel 02/17/23 [facility] Evaluation + Plan note Future Appointments Appointment Date:02/23/2023 02:00:00 PM Scheduled Provider:KYLE LUA MD Location:[facility] Appointment Type:ENDO OV Future Scheduled TestsAlbumin/Creatinine Ratio, Random Urine 02/17/23 [facility] documented [facility] Diagnosis Nonrheumatic aortic valve stenosis documented in this encounter [facility] course Narrative No data available for this section [facility] Hospital Discharge instructions No data available for this section [facility] Progress note No data available for this section [facility] Reason for Referral Specialty Diagnoses / Procedures Referred By Contac t Referred To Contact Cardiology Diagnoses Nonrheumatic aortic (valve) stenosis Procedures Transthoracic echocardiogram (TTE) complete with contrast, bubble, strain, and 3D PRN MI ECHO TTHRC R-T 2D W/WOM-MODE COMPL SPEC&COLR D MI TTE W OR WO FOL WCON,DOPPLER Mariam Rothman, CRIMINAL JUSTICE INSTRUCTOR - [employer]EMAN [address] [place] [address] [facility] [address] Non-Invasive Cardiology [address] [place] [address] Referral ID Status Reason Start Date Expiration Date V isits Requested Visits Authorized [id number] Closed Perform Procedure 06/23/2022 12/20/2022 1 1 Specialty Diagnoses / Procedures Referred By Contac t Referred To Contact Cardiology Diagnoses Nonrheumatic aortic valve stenosis Procedures Transthoracic echocardiogram (TTE) complete with contrast, bubble, strain, and 3D PRN MI ECHO TTHRC R-T 2D W/WOM-MODE COMPL SPEC&COLR D MI TTE W OR WO FOL WCON,DOPPLER Mariam Rothman, CRIMINAL JUSTICE INSTRUCTOR - BROODMARE FOREMAN [address] [place] [address] Referral ID Status Reason Start Date Expiration Date V isits Requested Visits Authorized [id number] Closed Perform Procedure 09/05/2022 03/04/2023 1 1 Advance Directives No Advanced Directives Records FoundLatest Code Status on File Code Status Date Activated Date Inactivated Comments Full Code 07/11/2022 5:52 AM 07/12/2022 5:25 PM Latest Code Status on File Code Status Date Activated Date Inactivated Comments Full Code 07/11/2022 5:52 AM 07/12/2022 5:25 PM Summary Purpose Family History No Family History Records Found No data available for this section No Family History Records Found Additional Source Comments Care Teams (unrecognized sec tion and content) Outcomes Analyst Relationship Specialty Start Date End Date Radha Briseno [address] [facility] [address] [place] [phone] PCP - General Family Medicine 06/21/22 Outcomes Analyst Relationship Specialty Start Date End Date Radha Briseno [address] [facility] [address] [place] [phone] PCP - General Family Medicine 06/21/22 Outcomes Analyst Relationship Specialty Start Date End Date Radha Briseno [address] [place] [address] PCP - General Family Medicine 06/21/22 Reason for Visit (unrecogniz ed section and content) Specialty Diagnoses / Procedures Referred By Contac t Referred To Contact Cardiology Diagnoses Nonrheumatic aortic valve stenosis Procedures Transthoracic echocardiogram (TTE) complete with contrast, bubble, strain, and 3D PRN MI ECHO TTHRC R-T 2D W/WOM-MODE COMPL SPEC&COLR D MI TTE W OR WO FOL WCON,DOPPLER Mariam Rothman, CRIMINAL JUSTICE INSTRUCTOR - BROODMARE FOREMAN [address] [place] [address] Referral ID Status Reason Start Date Expiration Date V isits Requested Visits Authorized [id number] Closed Perform Procedure 09/05/2022 03/04/2023 1 1 Reason Onset Date Comments OTHER 12/21/2022 INFORMATION SOURCE (unrecogn ized section and content) DATE CREATED AUTHOR AUTHOR'S ORGANIZ ATION 07/09/2023 [facility] FOR RECORDS PERTAINING TO PATIENTS WHO ARE OR HAVE BEEN ENROLLED IN A CHEMICAL DEPENDENCY/SUBSTANCEABUSE PROGRAM, SOME INFORMATION MAY BE OMITTED. This clinical summary was aggregated from multiple sources. Caution should be exercised in using it in the provision of clinical care. This summary normalizes information from multiple sources, and as a consequence, information in this document may materially change the coding, format and clinical context of patient data. In addition, data may be omitted in some cases. CLINICAL DECISIONS SHOULD BE BASED ON THE PRIMARY CLINICAL RECORDS. [email or web address] provides no warranty or guarantee of the accuracy or completeness of information in this document.
== END | disposition home or self-care (01) ==
LOC: OPUS 13:55
PROVIDERS: PCP Family Medicine; Referring Provider Family Medicine; Visit Provider Family Medicine
DX: N63.10 Unspecified lump in the right breast, unspecified quadrant (principal); R92.8 Other abnormal and inconclusive findings on diagnostic imaging of breast
CPT/HCPCS: 76642

== ENCOUNTER 2023-07-19 15:32 | Outpatient (CLI) | payer MEDICARE, BC, SELFPAY ==
--- NOTE | 2023-07-19 | BRBX_PTH ---
PATHOLOGY RESULTS PATIENT: JOANNA SARAH LOC: [facility] U#:[id number] AGE/SX: 68/F ROOM: RE07/19/[address]: Dr. Cris Faustin MD : 1955 BED: DIS: 07/19/2023 SPEC #: [id number] RECD: 07/19/23 15:28 STATUS: SARA REIris #: [id number] NIKOS: 07/19/23 00:[address]: Cris Faustin DEPT: SURGICAL PATHOLOGY RECD BY: Rony Moser ENTERED: 07/20/23 08:44 SP TYPE: BREAST BX OTHR DR: Dr. Radha Wetzel MD Tissues: Right breast, NOS Procedures: Surgery Specimen Level IV HEADER OPERATION: Biopsy of right breast nodule PRE-OP DIAGNOSIS: Right breast nodule TISSUE SUBMITTED: Right breast nodule 10 o'clock 6.0 cm from nipple MICROSCOPIC DIAGNOSIS Right breast nodule, core biopsy: Atypical intraductal hyperplasia with focal calcifications. Negative for malignancy. See comment. SJ:bernabe 07/21/2023 COMMENT Focal vascular calcification is also noted. Immunohistochemistry ([id number]) supports the above diagnosis. Solid papillary intraductal carcinoma (variant of DCIS) cannot be entirely excluded. Complete excision of lesion is necessary for definite classification. Correlation with clinical, radiologic findings and appropriate follow up are necessary. Case has been reviewed in consultation with Dr. Hartman who concurs with the above diagnosis. IDC:AM MICROSCOPIC DESCRIPTION Slides are reviewed. GROSS DESCRIPTION Received in fixative is one container labeled with the patient's name and designated right breast. The specimen consists of multiple elongated fragments of milian-yellow fibroadipose tissue that in aggregate measure 1.0 x 0.3 x 0.1 cm. The entire specimen is submitted in one cassette. / SJ:bernabe 07/20/2023 TC:5 Ischemic Time: 1 minute Fixation Time: 28 hours CPT: 44826
--- NOTE | 2023-07-19 | IMM_PTH ---
PATHOLOGY RESULTS PATIENT: JOANNA SARAH LOC: [facility] U#:[id number] AGE/SX: 68/F ROOM: RE07/19/[address]: Dr. Cris Faustin MD : 1955 BED: DIS: 07/19/2023 SPEC #: [id number] RECD: 07/21/23 12:08 STATUS: SARA REQ #: [id number] NIKOS: 07/19/23 00:[address]: Cris Faustin DEPT: IMMUNOHISTOCHEMISTRY RECD BY: Ashlie Fonseca ENTERED: 07/21/23 12:09 SP TYPE: IMMUNO OTHR DR: Dr. Radha Wetzel MD Tissues: Right breast, NOS Procedures: E-CAD (initial) CALPONIN-1 (add) CK8 (add) P40 (add) PHYSICIAN & INSTITUTION [place] [id number] SPECIMEN INFORMATION: Tissue Source: Right breast nodule Clinical Info: Right breast nodule Specimen Number: [id number] CPT code: 16790, 92661 x3 METHODOLOGY: Deparaffinized sections of prefer/formalin-fixed tissue or PAP/DQ stained slides are incubated with monoclonal/polyclonal antibodies/oligonucleotide probes. Localization is made via biotin free immunoperoxidase method. Appropriate controls are performed and reacted as expected. Results on target cell population are indicated in the following table: RESULTS: ANTIBODY / CLONE RESULT E-Cad (ECH-6) positive CK8 (68kdvdN27) positive Calponin-1 (TI027K) positive, focal P40 (BC28) negative, focal These tests were developed and their performance characteristics determined by [facility]. They may not have been cleared or approved by the U.S. Food and Drug Administration. The FDA has determined that such clearance or approval is not necessary. The above immunohistochemical/dualISH markers are ordered and reviewed by the Pathologist. INTERPRETATION: Right breast nodule, core biopsy: Atypical intraductal hyperplasia. See comment. Comment: Solid papillary intraductal carcinoma (variant of DCIS) cannot be entirely excluded Case has been reviewed in consultation with Dr. Hartman who concurs with the above diagnosis. IDC:[email or web address] SJ:bernabe 07/24/2023
--- OUTSIDE RECORDS SUMMARY | 2023-07-19 17:03 | XMS RPT_ITS | CCD ---
Author Name Unknown Address [address] [place] [address] Organization [facility] Care Team Providers Care Deputy Sheriff Generalist/Bailiff Name Role Phone Radha Briseno Primary Care Provider FINN PARR, DR DUMONT Primary Care Physician [phone] Radha Briseno Primary Care Provider [phone] KYLE LUA MD Attending Trent BRISENO MD, [...] Facility (4 sources) Acetaminophen Drug Allergy 2 [facility] (4 sources) glimepiride Drug Allergy 2 Itching [facility] (7 sources) Pravastatin; Translations: [pravastatin] Drug Allergy 2 [facility] (7 sources) rosiglitazone; Translations: [rosiglitazone] Drug Allergy 2 Rash [facility] (7 sources) SITagliptin; Translations: [sitagliptin] Drug Allergy 2 Rash [facility] (7 sources) Sulfonamides (Antibiotic); Translations: [sulfa drugs] Propensity to adverse reactions 2 [facility] (3 sources) Acetaminophen; Translations: [acetaminophen] Drug Allergy [place] (3 sources) glimepiride; Translations: [glimepiride] Drug Allergy [place] Medications Current Medications Medication Drug Class(es) Dates [...] 09:49-0400 Body height 157.5 cm Mariam Tompkins SUPERVISOR FURNACE ROOM Work Phone: [employer] 12-12-2022 09:49-0400 Body mass index (BMI) [Ratio] 62.55 kg/m2 Mariam Rothman APRN - WEIGHT CALCULATOR Work Phone: [facility] 12-12-2022 09:49-0400 Body weight 155.13 kg Mariam Rothman CLINICAL NURSE SPECIALIST - C SUPERVISOR FURNACE ROOM Work Phone: [facility] Encounters Encounter Date Encounter Type Care Provider Facility Start: 02-16-2023 End: 02-16-2023 Patient encounter procedure KYLE LUA MD [facility] Start: 12-21-2022 Telephone encounter Mariam [email or web address] CLINICAL NURSE SPECIALIST - WEIGHT CALCULATOR Work Phone: [facility] Cardiology Procedures Date Procedure Procedure Detail Performing Clinician Start: 12-12-2022 Echo tthrc r-t 2d w/wom-mode compl spec&colr d Mariam Rothman CLINICAL NURSE SPECIALIST - WEIGHT CALCULATOR Work Phone: Start: 05-13-2022 Lipid 1996 panel - S inessa or Plasma Mariam Rothman CLINICAL NURSE SPECIALIST - WEIGHT CALCULATOR Work Phone: Start: 12-13-2021 Mammography Mariam mcwilliams CLINICAL NURSE SPECIALIST - WEIGHT CALCULATOR Work Phone: Abdominal hysterectomy LANDY LUA MD Ambulatory surgery KYLE KC MD Plan of Treatment Date Care Activity Detail Author Start: 05-13-2023 Lipid panel Lipid Panel [facility] Start: 02-24-2023 Influenza vaccination Influenza Vaccine (Season Ended) [facility] Start: 12-13-2022 Screening for malignant neoplasm of breast Mammogram [facility] Start: 12-12-2022 End: 12-12-2022 Patient encounter procedure 12/12/2022 Appointment Cardiology [facility] [address] Non-Invasive Cardiology Start: 02-24-2022 Influenza vaccination Influenza Vaccine (#1) [facility] Start: 08-18-2021 COVID-19 Vaccine (4 - Booster for Moderna series) COVID-19 Vaccine (4 - Booster for Moderna series) [facility] Start: 01-21-2004 Zoster Vaccines (1 of 2) Zoster Vaccines (1 of 2) [facility] Start: 1973 DTaP/Tdap/Td Vaccines (1 - Tdap) DTaP/Tdap/Td Vaccines (1 - Tdap) [facility] Start: 1973 Urine screening for protein Diabetes: Urine Protein Screening [facility] Start: 01-21-1972 Hepatitis C screening Hepatitis C Screening [facility] Start: 1966 Depression Screening Depression Screening [facility] Start: 01-21-1964 Diabetic foot examination Diabetes: Foot Exam [facility] Start: 01-21-1964 Glaucoma screening Diabetes: Retinopathy Screening [facility] Start: 01-21-1964 Preventive dental service Diabetes: Dental Exam [facility] Start: 01-21-1960 Pneumococcal Vaccine: 65+ Years (1 - PCV) Pneumococcal Vaccine: 65+ Years (1 - PCV) [facility] Start: 1955 Hemoglobin A1c measurement Diabetes: Hemoglobin A1C [facility] Start: 1955 Hepatitis B Vaccines (1 of 3 - 3-dose series) Hepatitis B Vaccines (1 of 3 - 3-dose series) [facility] Start: 1955 Medicare Annual Wellness (AWV) Medicare Annual Wellness (AWV) [facility] Start: 1955 Screening for malignant neoplasm of colon [facility] Start: 1955 Screening for osteoporosis Bone Density Scan [facility] Immunizations Immunization Date Immunization Notes Care Provider Maye michelle 05-28-2021 influenza virus vacc ine, unspecified formulation Mariam Rothman CLINICAL NURSE SPECIALIST - WEIGHT CALCULATOR Work Phone: [facility] Payers Date Payer Category Payer Unknown [employer] MEDICARE SUPPLEMENT [id number] 2021-Present [address] [place] [address] Supplement [id number] 2021 Unknown [id number] 2018 Medicare MEDICARE MEDICAR E PART A AND B [id number] 2018-Present [address] [place] [address] Medicare [id number] 2018 Medicare [id number] 1955 Unknown [id number] 1955 Unknown [id number] Social History Date Type Detail Facility Start: 06-16-2022 Tobacco smoking status NHIS Ex-smoke r [facility] End: 06-26-1991 History of tobacco use Current smoker [facility] End: 06-26-1991 History of tobacco use Cigarette Smoker [facility] Start: 06-16-2022 Tobacco use and exposure Smoke less tobacco non-user [facility] Start: 06-21-2022 End: 08-25-2022 Alcohol intake Current drinker of alcohol (finding) [facility] Start: 07-11-2022 History SDOH Alcohol Frequency 1 [facility] Start: 07-11-2022 History SDOH Alcohol Std Drinks 0 [facility] Start: 06-16-2022 Alcohol Comment holidays [facility] Start: 1955 Sex Assigned At Not on file S [facility] Start: 08-15-2022 End: 12-12-2022 Exposure to SARS-CoV-2 (event) Not sure [facility] Start: 09-05-2019 Tobacco smoking status Never s moked tobacco (finding) [facility] Sex Assigned At Female [facility] Start: 07-11-2022 End: 08-25-2022 History of Social function [facility] Start: 07-11-2022 End: 08-25-2022 Alcohol Use Disorder Identification Test - Consumption [AUDIT-C] [facility] How often to you hav e a drink containing alcohol? Never [facility] How many standard dr inks containing alcohol do you have on a typical day? Patient does not drink [facility] Medical Equipment Procedure Code Equipment Code Equipment Origin al Text Equipment Identifier Dates Valve Aor 26mm S apien 3 Comm - [id number] Start: 07-11-2022 See Instructions , ONE TOUCH ULTRA TEST STRIPS 1 STRIP 3 TIMES DAILY AND NEEDED #100 FOR 30 DAYS AND 12 REFILLS., # 1 EA, 0 Refill(s), Pharmacy: [id number], Uncontrolled type 2 diabetes mellitus, 157.5, cm, 12/30/21 9:19:00 EDT, Height, 159,... Start: 05-23-2022 USE 1 NEEDLE 3 T IMES A DAY Start: 12-05-2019 See Instructions , ONE TOUCH ULTRA TEST STRIPS 1 STRIP 3 TIMES DAILY AND NEEDED #100 FOR 30 DAYS AND 12 REFILLS., # 1 EA, 0 Refill(s), [id number], Uncontrolled type 2 diabetes mellitus, 157.5, cm, 12/30/21 9:19:00 EDT, Height, 159,... Start: 05-23-2022 USE 1 NEEDLE 3 T IMES A DAY Start: 12-05-2019 See Instructions , ONE TOUCH ULTRA TEST STRIPS 1 STRIP 3 TIMES DAILY AND NEEDED #100 FOR 30 DAYS AND 12 REFILLS., # 1 EA, 0 Refill(s), [id number], Uncontrolled type 2 diabetes mellitus, [...] Plan to continue ASA 81 mg daily. [facility] 12-23-2022 Miscellaneous Notes Formattin g of this [...] fine please advise documented in this encounter [facility] 12-22-2022 Telephone encount er Note PC to patient. Advised her that I will review echo with Dr. Aguirre and call her back. She is feeling well with no concerns. She ran out of Eliquis ~2 weeks ago and resumed her ASA 81 mg daily. [facility] 12-21-2022 Telephone encount er Note Patient was calling and was asking about her results from tests patient had on the patient had not heard anything yet and just wanted to make sure everything was fine please advise [facility] 11-25-2022 Telephone encount er Note ALBERTINA Rothman WEIGHT CALCULATOR 08/25/22. CBC ordered but not completed. Last echo results discussed with Dr. Aguirre to start Eliquis for 3 months. Pt had repeat echo scheduled for 12/12 and will have CBC done same day. [facility] 11-25-2022 Miscellaneous Notes Formattin g of this note might be different from the original. ALBERTINA Rothman WEIGHT CALCULATOR 08/25/22. CBC ordered but not completed. Last echo results discussed with Dr. Aguirre to start Eliquis for 3 months. Pt had repeat echo scheduled for 12/12 and will have CBC done same day. documented in this encounter [facility] 07-12-2022 Note Received referral an d reviewed chart. Phase II Cardiac Rehab Referral discussed with Syeda Lassiter. Patient prefers cardiac rehab at [facility]. Given information on cardiac rehab at preferred location. [facility] 07-12-2022 Note Attestation signed by Antolin Agurire MD at 07/16/2022 9:06 PM I, Dr. [...] function. Aortic Valve: Guzman Ana 3 Ultra [id number] transcatheter bioprosthetic aortic valve with a size [...] discharge. Referral has been made to the [facility] Outpatient [facility]iac Rehabilitation Program. Last Labs: Lab Results Component V (more content not included)... [facility] 07-11-2022 Note Patient: Syeda zepeda Procedure Summary Date: 07/11/22 Room / Location: [facility] [place] Operating Room Anesthesia Start: [...] once all PACU criteria has been met. [facility] 07-11-2022 Note Patient: Syeda zepeda Procedure Summary Date: 07/11/22 Room / Location: [facility] [place] Operating Room Anesthesia Start: [...] opportunity for questions and acknowledgement of understanding. [facility] Evaluation + Plan note Future Appointments Appointment Date:11/17/2022 10:15:00 AM Scheduled Provider:KYLE LUA MD Location:[facility] Appointment Type:ENDO [facility] [place] Evaluation + Plan note Future Appointments Appointment Date:02/21/2023 09:45:00 AM Scheduled Provider:KYLE LUA MD Location:[facility] Appointment Type:[facility] Future Scheduled TestsThyroid Stimulating Hormone 02/17/23A1C Hemoglobin 02/17/23Lipid Profile 02/17/23Albumin/Creatinine Ratio, Random Urine 02/17/23Vitamin D Level 02/17/23Complete Metabolic Panel 02/17/23 [place] Evaluation + Plan note Future Appointments Appointment Date:02/23/2023 02:00:00 PM Scheduled Provider:KYLE LUA MD Location:[facility] Appointment Type:[facility] Future Scheduled TestsAlbumin/Creatinine Ratio, Random Urine 02/17/23 [place] [facility] Nonrheumatic aortic valve stenosis documented in this encounter [facility] course Narrative No data available for this section [facility] Discharge instructions No data available for this section [place] Progress note No data available for this section [place] Reason for Referral Specialty Diagnoses / Procedures Referred By Contac t Referred To Contact Cardiology Diagnoses Nonrheumatic aortic (valve) stenosis Procedures Transthoracic echocardiogram (TTE) complete with contrast, bubble, strain, and 3D PRN DE ECHO TTHRC R-T 2D W/WOM-MODE COMPL SPEC&COLR D DE TTE W OR WO FOL WCON,DOPPLER Mariam Rothman, CLINICAL NURSE SPECIALIST - WEIGHT CALCULATOR [address] [place] [address] [facility] [address] Non-Invasive Cardiology [address] [place] [address] Referral ID Status Reason Start Date Expiration Date V isits Requested Visits Authorized [id number] Closed Perform Procedure 06/23/2022 12/20/2022 1 1 Specialty Diagnoses / Procedures Referred By Contac t Referred To Contact Cardiology Diagnoses Nonrheumatic aortic valve stenosis Procedures Transthoracic echocardiogram (TTE) complete with contrast, bubble, strain, and 3D PRN DE ECHO TTHRC R-T 2D W/WOM-MODE COMPL SPEC&COLR D DE TTE W OR WO FOL WCON,DOPPLER Mariam Rothman, CLINICAL NURSE SPECIALIST - WEIGHT CALCULATOR [address] [place] [address] Referral ID Status Reason Start Date Expiration Date V isits Requested Visits Authorized [id number] Closed Perform Procedure 09/05/2022 03/04/2023 1 1 [...] Care Teams (unrecognized sec tion and content) Deputy Sheriff Generalist/Bailiff Relationship Specialty Start Date End Date Radha Briseno [address] [facility] [address] [place] [phone] PCP - General Family Medicine 06/21/22 Deputy Sheriff Generalist/Bailiff Relationship Specialty Start Date End Date Radha Briseno [address] [facility] [address] [place] [phone] PCP - General Family Medicine 06/21/22 Deputy Sheriff Generalist/Bailiff Relationship Specialty Start Date End Date Radha Briseno [address] [place] [address] PCP - General Family Medicine 06/21/22 Reason for Visit (unrecogniz ed section and content) Specialty Diagnoses / Procedures Referred By Contac t Referred To Contact Cardiology Diagnoses Nonrheumatic aortic valve stenosis Procedures Transthoracic echocardiogram (TTE) complete with contrast, bubble, strain, and 3D PRN DE ECHO TTHRC R-T 2D W/WOM-MODE COMPL SPEC&COLR D DE TTE W OR WO FOL WCON,DOPPLER Mariam Rothman, CLINICAL NURSE SPECIALIST - WEIGHT CALCULATOR [address] [place] [address] Referral ID Status Reason Start Date Expiration Date V isits Requested Visits Authorized [id number] Closed Perform Procedure 09/05/2022 03/04/2023 1 1 Reason Onset Date Comments OTHER 12/21/2022 INFORMATION SOURCE (unrecogn ized section and content) DATE CREATED AUTHOR AUTHOR'S ORGANIZ ATION 07/09/2023 [facility] FOR RECORDS PERTAINING TO PATIENTS WHO ARE [...] BE BASED ON THE PRIMARY CLINICAL RECORDS. [employer] provides no warranty or guarantee of the accuracy or completeness of information in this document.
== END 2023-07-19 23:59 | disposition home or self-care (01) ==
LOC: LABSPEC 15:33
PROVIDERS: PCP Family Medicine; Referring Provider Surgery; Visit Provider Surgery
DX: N60.81 Other benign mammary dysplasias of right breast (principal)
CPT/HCPCS: 88305; 88341; 88342

== ENCOUNTER 2023-08-25 10:05 | Day surgery (SDC) | payer MEDICARE, BC, SELFPAY ==
--- OUTSIDE RECORDS SUMMARY | 2023-08-25 10:29 | XMS RPT_ITS | CCD ---
Author Name Unknown Address [address] [place] [address] Organization [facility] Care Team Providers Care Cocktail Server Name Role Phone Radha Briseno Primary Care Provider FINN PARR, DR DUMONT Primary Care Physician Radha Briseno Primary Care Provider CHANELL PARR, KYLE Attending Unavaillaura BRISENO MD, DR DUMONT Primary Care Unavailable CHANELL PARR, KYLE Attending Unavaillaura BRISENO MD, DR DUMONT Primary Care Unavailable STEPHAN MARIAM Attending Unavailable ROTHMAN, MARIAM Referring Unavailable JOLLIFF, RADHA Primary Care Unavailable ROTHMAN, MARIAM Attending Unavailable ROTHMAN, MARIAM Referring Unavailable JOLLIFF, RADHA Primary Care Unavailable ANTOLIN AGUIRRE Admitting Unavailable ANTOLIN AGUIRRE Attending Unavailable NIKOLE, JEREMY Referring Unavailable ROTHMAN, MARIAM Attending Unavailable JOLLIFF, RADHA Primary Care Unavailable ANGIE ROCHE Attending Unavailable JOLLIFF, RADHA Primary Care Unavailable ROTHMAN, MARIAM Attending Unavailable ROTHMAN, MARIAM Referring Unavailable JOLLIFF, RADHA Primary Care Unavailable Allergies Allergy Classification Reported Allergen(s) Allergy Type Date of Onset Reaction(s) Facility (9 sources) Acetaminophen Drug Allergy 2 [facility] (9 sources) glimepiride Drug Allergy 2 Itching [facility] (12 sources) Pravastatin; Translations: [pravastatin] Drug Allergy 2 [facility] (12 sources) rosiglitazone; Translations: [rosiglitazone] Drug Allergy 2 Rash [facility] (12 sources) SITagliptin; Translations: [sitagliptin] Drug Allergy 2 [facility] (12 sources) Sulfonamides (Antibiotic); Translations: [sulfa drugs] Propensity to adverse reactions 2 [facility] (3 sources) Acetaminophen; Translations: [acetaminophen] Drug Allergy [facility] (3 sources) glimepiride; Translations: [glimepiride] Drug Allergy [facility] Medications Current Medications Medication Drug Class(es) Dates Sig (Normalized) Sig (Original) albuterol 0.83 mg/ml inhalation solution (18 sources) beta2-Adrenergic Agonist albuterol (2.5 MG/3M L) 0.083% nebulizer solution Take 2.5 mg by nebulization every 4 hours as needed for wheezing. 0 Active Completed/Discontinued Medications Medication Drug Class(es) Dates Sig (Normalized) Sig (Original) apixaban 5 mg oral tablet (11 sources) Factor Xa Inhibitor Start: 11-28-2022 End: 08-17-2023 take 1 tablet by mouth twice daily apixaban (Eliquis) 5 MG tablet Take 1 tablet (5 mg) by mouth 2 times daily. 60 tablet 2 11/28/2022 08/17/2023 Discontinued (Therapy completed) Problems Problem Classification Problem Date Documented Da te Episodic/Chronic Administrative/social admission (3 sources) Financial problem 09-05-2019 Episodic Asthma (3 sources) Asthma 08-07-2017 Chronic Diabetes mellitus without complication (12 sources) Diabetes mellitus; Translations: [Type 2 diabetes mellitus without complications] 07-21-2022 Chronic Disorders of lipid metabolism (12 sources) Hyperlipidemia; Translations: [Hyperlipidemia, unspecified] Onset: 08-16-2023 Chronic Essential hypertension (17 sources) Essential hypertension; Translations: [Essential (primary) hypertension] Onset: 07-21-2022 07-21-2022 Chronic Heart valve disorders (17 sources) Aortic stenosis, non-rheumatic ; Translations: [Nonrheumatic aortic (valve) stenosis] Onset: 06-16-2022 Chronic Nutritional deficiencies (4 sources) Vitamin D deficiency; Translations: [Vitamin D deficiency, unspecified] Chronic Other and unspecified benign neoplasm (3 sources) Polyp of colon 08-04-2017 Episodic Results Test Name Value Interpretation Reference Range Facil ity Vital Signs Date Time Vital Sign Value Performing Clinician Faci lity 08-17-2023 15:06-0500 Body height 157.5 cm Mariam Rothman AREA SAFETY MANAGER - C SILK SNAPPER Work Phone: [facility] 08-17-2023 15:06-0500 Body mass index (BMI) [Ratio] 61.46 kg/m2 Mariam Rothman AREA SAFETY MANAGER - MANAGER PROCESS EXCELLENCE Work Phone: [facility] 08-17-2023 15:06-0500 Body weight 152.41 kg Mariam Rothman AREA SAFETY MANAGER - C SILK SNAPPER Work Phone: [facility] 08-17-2023 15:06-0500 Diastolic blood pressure 68 mm[Hg] Mariam Rothman AREA SAFETY MANAGER - MANAGER PROCESS EXCELLENCE Work Phone: [facility] 08-17-2023 15:06-0500 Heart rate 70 /min Mariam Rothman AREA SAFETY MANAGER - C SILK SNAPPER Work Phone: [facility] 08-17-2023 15:06-0500 SaO2% (BldA) [Mass fraction] 95 % Mariam Rothman AREA SAFETY MANAGER - MANAGER PROCESS EXCELLENCE Work Phone: [facility] 08-17-2023 15:06-0500 Systolic blood pressure 128 mm[Hg] Mariam Rothman AREA SAFETY MANAGER - MANAGER PROCESS EXCELLENCE Work Phone: [facility] 08-17-2023 13:57-0500 Body height 157.5 cm Mariam Rothman AREA SAFETY MANAGER - C SILK SNAPPER Work Phone: [facility] 08-17-2023 13:57-0500 Body mass index (BMI) [Ratio] 62.55 kg/m2 Mariam Rothman AREA SAFETY MANAGER - MANAGER PROCESS EXCELLENCE Work Phone: [facility] 08-17-2023 13:57-0500 Body weight 155.13 kg Mariam Rothman AREA SAFETY MANAGER - C SILK SNAPPER Work Phone: [facility] 12-12-2022 09:49-0400 Body height 157.5 cm Mariam Rothman AREA SAFETY MANAGER - C SILK SNAPPER Work Phone: [facility] 12-12-2022 09:49-0400 Body mass index (BMI) [Ratio] 62.55 kg/m2 Mariam Rothman AREA SAFETY MANAGER - MANAGER PROCESS EXCELLENCE Work Phone: [facility] 12-12-2022 09:49-0400 Body weight 155.13 kg Mariam Stephan AREA SAFETY MANAGER - C SILK SNAPPER Work Phone: [facility] Encounters Encounter Date Encounter Type Care Provider Facility Start: 08-18-2023 Telephone encounter Mariam Soria oj AREA SAFETY MANAGER - MANAGER PROCESS EXCELLENCE Work Phone: [facility] Procedures Date Procedure Procedure Detail Performing Clinician Start: 08-17-2023 Ecg routine ecg w/le ast 12 lds trcg only w/o i&r Antolin Aguirre MD Work Phone: Start: 08-17-2023 Echo tthrc r-t 2d w/wom-mode compl spec&colr d Mariam Rothman AREA SAFETY MANAGER - MANAGER PROCESS EXCELLENCE Work Phone: Start: 07-05-2023 Mammography Mariam Soria oj AREA SAFETY MANAGER - MANAGER PROCESS EXCELLENCE Work Phone: Start: 12-12-2022 Echo tthrc r-t 2d w/wom-mode compl spec&colr d Mariam Stephan AREA SAFETY MANAGER - MANAGER PROCESS EXCELLENCE Work Phone: Start: 05-13-2022 Lipid 1996 panel - S inessa or Plasma Mariam Stephan AREA SAFETY MANAGER - MANAGER PROCESS EXCELLENCE Work Phone: Start: 12-13-2021 Mammography Mariam Soria oj AREA SAFETY MANAGER - MANAGER PROCESS EXCELLENCE Work Phone: Abdominal hysterectomy LANDY LUA MD Ambulatory surgery KYLE KC MD Plan of Treatment Date Care Activity Detail Author Start: 07-05-2024 Screening for malignant neoplasm of breast Mammogram [facility] Start: 05-13-2023 Lipid panel Lipid Panel [facility] Start: 02-24-2023 COVID-19 Vaccine ( season) COVID-19 Vaccine () [facility] Start: 02-24-2023 Influenza vaccination [facility] Start: 12-13-2022 Screening for malignant neoplasm of breast Mammogram [facility] Start: 12-12-2022 End: 12-12-2022 Patient encounter procedure 12/12/2022 Appointment Cardiology [facility] [address] [facility] Start: 02-24-2022 Influenza vaccination Influenza Vaccine (#1) [facility] Start: 08-18-2021 COVID-19 Vaccine (4 - Booster for Moderna series) COVID-19 Vaccine (4 - Booster for Moderna series) [facility] Start: 2014 RSV Immunization aged 60 or older (1 - 1-dose 60+ series) RSV Immunization aged 60 or older (1 - 1-dose 60+ series) [facility] Start: 01-21-2004 Zoster Vaccines (1 of 2) Zoster Vaccines (1 of 2) [facility] Start: 1973 DTaP/Tdap/Td Vaccines (1 - Tdap) DTaP/Tdap/Td Vaccines (1 - Tdap) [facility] Start: 1973 Urine screening for protein Diabetes: Urine Protein Screening [facility] Start: 01-21-1972 Hepatitis C screening Hepatitis C Screening [facility] Start: 1966 Depression Screening Depression Screening [facility] Start: 01-21-1964 Diabetic foot examination Diabetes: Foot Exam [facility] Start: 01-21-1964 Glaucoma screening Diabetes: Retinopathy Screening [facility] Start: 01-21-1964 Preventive dental service Diabetes: Dental Exam [facility] Start: 01-21-1960 Pneumococcal Vaccine: 65+ Years (1 - PCV) Pneumococcal Vaccine: 65+ Years (1 - PCV) [facility] Start: 01-21-1960 Pneumococcal Vaccine: 65+ Years (1 of 2 - PCV) Pneumococcal Vaccine: 65+ Years (1 of 2 - PCV) [facility] Start: 1954 Hemoglobin A1c measurement Diabetes: Hemoglobin A1C [facility] Start: 1954 Hepatitis B Vaccines (1 of 3 - 3-dose series) Hepatitis B Vaccines (1 of 3 - 3-dose series) [facility] Start: 1954 Medicare Annual Wellness (AWV) Medicare Annual Wellness (AWV) [facility] Start: 1954 Screening for malignant neoplasm of colon [facility] Start: 1954 Screening for osteoporosis Bone Density Scan [facility] ECG 12 lead - CLINIC PERFORMED ECG 12 lead - CLINIC PERFORMED CV ECG Routine Nonrheumatic aortic valve stenosis 08/17/2023 3:09 PM EST [facility] Work Phone: Immunizations Immunization Date Immunization Notes Care Provider Fa cility 05-28-2021 influenza virus vacc ine, unspecified formulation Mariam Rothman AREA SAFETY MANAGER - MANAGER PROCESS EXCELLENCE Work Phone: [facility] Payers Date Payer Category Payer Unknown [employer]ERIS MICHELL [employer] S [employer] MEDICARE SUPPLEMENT [id number] 2021-Present [address] [place] [address] Supplement [id number] 2021 Unknown [id number] 2018 Medicare MEDICARE MEDICAR E PART A AND B [id number] 2018-Present [address] [place] [address] Medicare [id number] 2018 Medicare [id number] 1955 Unknown [id number] 1954 Unknown [id number] Social History Date Type Detail Facility Start: 06-16-2022 Tobacco smoking status FLIS Ex-smoke r [facility] End: 06-26-1991 History of tobacco use Current smoker [facility] End: 06-26-1991 History of tobacco use Cigarette Smoker [facility] Start: 06-16-2022 Tobacco use and exposure Smoke less tobacco non-user [facility] Start: 06-21-2022 End: 08-17-2023 Alcohol intake Current drinker of alcohol (finding) [facility] Start: 07-11-2022 History SDOH Alcohol Frequency 1 [facility] Start: 07-11-2022 History SDOH Alcohol Std Drinks 0 [facility] Start: 06-16-2022 Alcohol Comment holidays [facility] Start: 1955 Sex Assigned At [facility] Start: 08-15-2022 End: 12-12-2022 Exposure to SARS-CoV-2 (event) Not sure [facility] Start: 09-05-2019 Tobacco smoking status Never s moked tobacco (finding) [facility] Sex Assigned At Female [facility] Start: 07-11-2022 End: 08-17-2023 History of Social function [facility] Start: 07-11-2022 End: 08-17-2023 Alcohol Use Disorder Identification Test - Consumption [AUDIT-C] [facility] How often to you hav e a drink containing alcohol? Never [facility] How many standard dr inks containing alcohol do you have on a typical day? Patient does not drink [facility] Medical Equipment Procedure Code Equipment Code Equipment Origin al Text Equipment Identifier Dates Valve Aor 26mm S apien 3 Comm - [id number] Start: 07-11-2022 See Instructions , ONE TOUCH ULTRA TEST STRIPS 1 STRIP 3 TIMES DAILY AND NEEDED #100 FOR 30 DAYS AND 12 REFILLS., # 1 EA, 0 Refill(s), Pharmacy: [facility]/pharmacy #[id number], Uncontrolled type 2 diabetes mellitus, 157.5, cm, 12/30/21 9:19:00 EDT, Height, 159,... Start: 05-23-2022 USE 1 NEEDLE 3 T IMES A DAY Start: 12-05-2019 See Instructions , ONE TOUCH ULTRA TEST STRIPS 1 STRIP 3 TIMES DAILY AND NEEDED #100 FOR 30 DAYS AND 12 REFILLS., # 1 EA, 0 Refill(s), Pharmacy: [facility]/pharmacy #[id number], Uncontrolled type 2 diabetes mellitus, 157.5, cm, 12/30/21 9:19:00 EDT, Height, 159,... Start: 05-23-2022 USE 1 NEEDLE 3 T IMES A DAY Start: 12-05-2019 See Instructions , ONE TOUCH ULTRA TEST STRIPS 1 STRIP 3 TIMES DAILY AND NEEDED #100 FOR 30 DAYS AND 12 REFILLS., # 1 EA, 0 Refill(s), Pharmacy: [facility]/pharmacy #[id number], Uncontrolled type 2 diabetes mellitus, 157.5, cm, 12/30/21 9:19:00 EDT, Height, 159, kg, 12/30/21 9:19:00 EDT, Dosing Weight Start: 05-23-2022 USE 1 NEEDLE 3 T IMES A DAY Start: 12-05-2019 Clinical Notes 07-11-2022 to 08-18-2023 Assessment & Plan Note - Mariam Rothman APRN - MARTHA - 08/18/2023 11:40 AM ESTAssessment & Plan Note - MARLYS Burkett CNP - 08/18/2023 11:40 AM ESTLaboratoryLaboratory Note Date & Type Note [facility] 08-18-2023 Evaluation + Plan note Associated Problem(s): Nonrheumatic aortic valve stenosis S/p TAVR on 07/11/22 with 26 mm Ana S3 valve -NYHA Class II -Continue ASA indefinitely. Hold for upcoming surgery as noted below. -lifelong SBE prophylaxis reviewed, she has amoxicillin prescription -one year echo done today. [facility] 08-18-2023 Miscellaneous Notes Associate d Problem(s): Nonrheumatic aortic valve stenosis S/p TAVR on 07/11/22 with 26 mm Ana S3 valve -NYHA Class II -Continue ASA indefinitely. Hold for upcoming surgery as noted below. -lifelong SBE prophylaxis reviewed, she has amoxicillin prescription -one year echo done today. Associated Problem(s): Essential hypertension Controlled on chlorthalidone, metoprolol succinate and lisinopril Associated Problem(s): LINWOOD (obstructive sleep apnea) Compliant with CPAP documented in this encounter [facility] 08-18-2023 Evaluation + Plan note Associated Problem(s): Essential hypertension Controlled on chlorthalidone, metoprolol succinate and lisinopril [facility] 08-18-2023 Evaluation + Plan note Associated Problem(s): LINWOOD (obstructive sleep apnea) Compliant with CPAP [facility] 08-17-2023 History of Presen t illness Narrative Images from the original note were not included. [facility] [address] [facility] [address] Dept: [phone] Dept Loc: [phone] Reason for Visit: 1 Year Follow-up (S/p TAVR) Assessment and Plan 1. Nonrheumatic aortic valve stenosis Assessment & Plan: S/p TAVR on 07/11/22 with 26 mm Ana S3 valve -NYHA Class II -Continue ASA indefinitely. Hold for upcoming surgery as noted below. -lifelong SBE prophylaxis reviewed, she has amoxicillin prescription -one year echo done today. Orders: - ECG 12 lead - CLINIC PERFORMED 2. Essential hypertension Assessment & Plan: Controlled on chlorthalidone, metoprolol succinate and lisinopril 3. LINWOOD (obstructive sleep apnea) Assessment & Plan: Compliant with CPAP Follow up for Dr. Andre as scheduled. Subjective HPI Syeda Lassiter is a [address] Andre with a history of asthma, LINWOOD, HTN, obesity, DM, HPL, PAD and aortic valve disease. Previous echo showed a mean gradient of 49 mmHg, peak gradient 90 mmHg. She had a heart catheterization that showed non obstructive coronary disease. She underwent femoral TAVR with 26 mm Ana S3 on 07/11/2022. One month echo showed increased gradients across valve. She was given Eliquis for 3 months with improvement in her mean gradient to 25 mmHg. She is now back on ASA. She presents today for a one year s/p TAVR follow up. She reports SOB with moderate to strenuous exertion or when out in cold weather. Denies angina, orthopnea, PND, edema or bleeding. Compliant with CPAP every night. She has chronic, intermittent vertigo. She is scheduled for surgery on her breast for atypical ductal hyperplasia per breast biopsy. Advised patient that since she has non obstructive CAD and no history of coronary stents, ok to hold her ASA prior to her surgery and resume afterwards when felt safe to do so. Review of Systems Constitutional: Negative for chills and fever. Respiratory: Positive for shortness of breath (with cold air or strenuous exertion). Negative for cough. Cardiovascular: Negative for chest pain, palpitations and leg swelling. Gastrointestinal: Negative for abdominal pain, blood in stool and vomiting. Genitourinary: Negative for hematuria. Musculoskeletal: Positive for gait problem (uses cane). Neurological: Positive for dizziness (occasional vertigo) and numbness (bilateral feet, chronic at baseline). Negative for syncope. Allergies Allergen Reactions Acetaminophen Enlarged liver Glimepiride Itching Pravastatin Elevated liver enzymes Sulfa Antibiotics Rosiglitazone Rash Sitagliptin Rash Outpatient Medications Prior to Visit Medication Sig Dispense Refill albuterol (2.5 MG/3ML) 0.083% nebulizer solution Take 2.5 mg by nebulization every 4 hours as needed for wheezing. Albuterol Sulfate 108 (90 Base) MCG/ACT aerosol powder Inhale every 4 hours as needed. amoxicillin (Amoxil) 500 MG capsule Take 4 capsules by mouth as needed. 30 to 60 minutes prior to dental procedure aspirin 81 MG EC tablet Take 81 mg by mouth daily. atorvastatin (Lipitor) 10 MG tablet Take 10 mg by mouth daily. chlorthalidone (Hygroton) 25 MG tablet Take 25 mg by mouth daily. cholecalciferol (Vitamin D-3) 125 MCG (5000 UT) tablet Take 5,000 Units by mouth daily. dulaglutide (Trulicity) 4.5 MG/0.5ML solution pen-injector Inject 4.5 mg under the skin 1 (one) time per week. FLUoxetine (PROzac) 20 MG capsule Take 20 mg by mouth daily. insulin lispro (HumaLOG) 100 UNIT/ML injection Inject 20 Units under the skin in the morning and 20 Units at noon and 20 Units in the evening. Inject with meals. lisinopril 40 MG tablet Take 1 tablet (40 mg) by mouth daily. loratadine (Claritin) 10 MG tablet Take 10 mg by mouth daily. metFORMIN (Glucophage) 850 MG tablet Take 1 tablet (850 mg) by mouth every morning. Do not start before July 14, 2022. (Patient taking differently: Take 750 mg by mouth every morning.) metoprolol succinate XL (Toprol-XL) 50 MG 24 hr tablet Take 50 mg by mouth daily. Multiple Vitamin (MULTIVITAMIN ADULT PO) Take by mouth. pioglitazone (Actos) 30 MG tablet Take 15 mg by mouth daily. insulin glargine (Lantus) 100 UNIT/ML injection Inject 25 Units under the skin Nightly. apixaban (Eliquis) 5 MG tablet Take 1 tablet (5 mg) by mouth 2 times daily. (Patient not taking: Reported on 08/17/2023) 60 tablet 2 No facility-administered medications prior to visit. Past Medical History: Diagnosis Date Asthma Diabetes mellitus (HCC) Hyperlipidemia Hypertension Nonrheumatic aortic valve stenosis 06/16/2022 LINWOOD (obstructive sleep apnea) Social History Tobacco Use Smoking status: Former Types: Cigarettes Quit date: 1991 Years since quittin.1 Smokeless tobacco: Never Substance Use Topics Alcohol use: Yes Comment: holidays Past Surgical History: Procedure Laterality Date CARDIAC CATHETERIZATION 05/30/2022 minimal CAD CARDIAC CATHETERIZATION N/A 07/11/2022 Performed by Antolin Aguirre MD at [facility] OR CT CORONARY CTA WITH PROV FFR-CT 07/05/2022 CT ANGIOGRAM TAVR 07/05/[address] [facility] [address] IMAGING HYSTERECTOMY RHINOPLASTY TONSILLECTOMY TOTAL KNEE ARTHROPLASTY TUBAL LIGATION No family history on file. Objective Vitals: 08/17/23 1506 BP: 128/68 BP Location: Left arm Patient Position: Sitting BP Cuff Size: Large adult Pulse: 70 SpO2: 95% Weight: (!) 336 lb (152 kg) Height: 5' 2 (1.575 m) Body mass index is 61.46 kg/m . Physical Exam Constitutional: Appearance: Normal appearance. HENT: Head: Normocephalic. Eyes: General: No scleral icterus. Right eye: No discharge. Left eye: No discharge. Cardiovascular: Rate and Rhythm: Normal rate and regular rhythm. Pulses: Normal pulses. Dorsalis pedis pulses are 2+ on the right side and 2+ on the left side. Posterior tibial pulses are 2+ on the right side and 2+ on the left side. Heart sounds: Normal heart sounds. No murmur heard. Pulmonary: Effort: Pulmonary effort is normal. Breath sounds: Normal breath sounds. Abdominal: General: Abdomen is flat. Palpations: Abdomen is soft. Musculoskeletal: General: Normal range of motion. Cervical back: Normal range of motion. Right lower leg: No edema. Left lower leg: No edema. Skin: General: Skin is warm and dry. Capillary Refill: Capillary refill takes less than 2 seconds. Neurological: Mental Status: She is alert and oriented to person, place, and time. Psychiatric: Mood and Affect: Mood normal. Data Reviewed and Summarized Lab Results Component Value Date WBC 8.6 12/12/2022 HGB 12.2 12/12/2022 HCT 36.3 12/12/2022 MCV 91.6 12/12/2022 PLT 257 12/12/2022 Lab Results Component Value Date GLUCOSE 151 (H) 12/12/2022 CALCIUM 9.2 12/12/2022 NA 134 (L) 12/12/2022 K 3.5 12/12/2022 CO2 31 (H) 12/12/2022 CL 95 (L) 12/12/2022 BUN 18 (H) 12/12/2022 CREATININE 0.47 (L) 12/12/2022 EF BP Date Value Ref Range Status 08/17/2023 66 55 - 100 % Final MARLYS Burkett CNP documented in this encounter [facility] 12-23-2022 Telephone encount er Note Reviewed echo with Dr. Aguirre. Plan to continue ASA 81 mg daily. [facility] 12-23-2022 Miscellaneous Notes Formattin g of [...] fine please advise documented in this encounter [facility] 12-22-2022 Telephone encount er Note PC to patient. Advised her that I will review echo with Dr. Aguirre and call her back. She is feeling well with no concerns. She ran out of Eliquis ~2 weeks ago and resumed her ASA 81 mg daily. [facility] 12-21-2022 Telephone encount er Note Patient was calling and was asking about her results from tests patient had on the patient had not heard anything yet and just wanted to make sure everything was fine please advise [facility] 11-25-2022 Telephone encount er Note ALBERTINA Rothman CNP 08/25/22. CBC ordered but not completed. Last echo results discussed with Dr. Aguirre to start Eliquis for 3 months. Pt had repeat echo scheduled for 12/12 and will have CBC done same day. [facility] 11-25-2022 Miscellaneous Notes Formattin g of this note might be different from the original. ALBERTINA Rothman CNP 08/25/22. CBC ordered but not completed. Last echo results discussed with Dr. Aguirre to start Eliquis for 3 months. Pt had repeat echo scheduled for 12/12 and will have CBC done same day. documented in this encounter [facility] 07-12-2022 Note Received referral an d reviewed chart. Phase II Cardiac Rehab Referral discussed with Syeda Lassiter. Patient prefers cardiac rehab at [facility]. Given information on cardiac rehab at preferred location. [facility] 07-12-2022 Note Attestation signed by Antolin Aguirre [...] function. Aortic Valve: Guzman Ana 3 Ultra [id number] transcatheter bioprosthetic aortic valve with a size [...] discharge. Referral has been made to the [facility] Outpatient Cardiac Rehabilitation Program. Last Labs: Lab Results Component V (more content not included)... [facility] 07-11-2022 Note Patient: Syeda zepeda Procedure Summary Date: 07/11/22 Room / Location: [facility] Operating Room Anesthesia Start: 733 Anesthesia Stop: 939 Procedures: Transcatheter aortic valve [...] once all PACU criteria has been met. [facility] 07-11-2022 Note Patient: Syeda zepeda Procedure Summary Date: 07/11/22 Room / Location: [facility] Operating Room Anesthesia Start: 733 Anesthesia Stop: 939 Procedures: Transcatheter aortic valve replacement (TAVR) TRANSCATHETER AORTIC VALVE REPLACEMENT (TAVR) - OR (Chest) Diagnosis: Nonrheumatic aortic valve stenosis (Nonrheumatic aortic valve stenosis [I35.0]) Surgeons: Antolin Aguirre MD; Vinh Richardson MD Responsible Provider: Jeff Sanchez DO Anesthesia Type: TIVA ASA Status: 4 Anesthesia Type: TIVA Vitals Value Taken Time BP 94/65 07/11/22 0943 Temp 36.7 ?C (98 ?F) 07/11/22942 Pulse 62 07/11/2243 Resp 20 07/11/22 09 SpO2 95 % 07/11/22942 Anesthesia Post Evaluation Patient participation: complete - [...] opportunity for questions and acknowledgement of understanding. [facility] Evaluation + Plan note Future Appointments Appointment Date:11/17/2022 10:15:00 AM Scheduled Provider:KYLE LUA MD Location:[facility] Appointment Type:ENDO OV [facility] Evaluation + Plan note Future Appointments Appointment Date:02/21/2023 09:45:00 AM Scheduled Provider:KYLE LUA MD Location:[facility] Appointment Type:ENDO OV Future Scheduled TestsThyroid Stimulating Hormone 02/17/23A1C Hemoglobin 02/17/23Lipid Profile 02/17/23Albumin/Creatinine Ratio, Random Urine 02/17/23Vitamin D Level 02/17/23Complete Metabolic Panel 02/17/23 [facility] Evaluation + Plan note Future Appointments Appointment Date:02/23/2023 02:00:00 PM Scheduled Provider:KYLE LUA MD Location:[facility] Appointment Type:ENDO OV Future Scheduled TestsAlbumin/Creatinine Ratio, Random Urine 02/17/23 [facility] Diagnosis Nonrheumatic aortic valve stenosis [facility] Diagnosis S/P TAVR (transcatheter aortic valve replacement) [facility]* Diagnosis Nonrheumatic aortic valve stenosis- Primary Essential hypertension Unspecified essential hypertension LINWOOD (obstructive sleep apnea) Obstructive sleep apnea (adult) (pediatric) documented [facility]* Diagnosis ERRONEOUS ENCOUNTER--DISREGARD- Primary documented in [facility] encounter [facility] course Narrative No data available for this section [facility] Hospital Discharge instructions No data available for this section [facility] Progress note No data available for this section [facility] Reason for Referral Specialty Diagnoses / Procedures Referred By Contace t Referred To Contact Cardiology Diagnoses Nonrheumatic aortic (valve) stenosis Procedures Transthoracic echocardiogram (TTE) complete with contrast, bubble, strain, and 3D PRN AL ECHO TTHRC R-T 2D W/WOM-MODE COMPL SPEC&COLR D AL TTE W OR WO YEE ERICKSON Meggan, APRN - MAR[address] [place] [address] [facility] [address] Non-Invasive Cardiology [address] [place] [address] Referral ID Status Reason Start Date Expiration Date V isits Requested Visits Authorized [id number] Closed Perform Procedure 06/23/2022 12/20/2022 1 1 Specialty Diagnoses / Procedures Referred By Tracee nina Referred To Contact Cardiology Diagnoses Nonrheumatic aortic valve stenosis Procedures Transthoracic echocardiogram (TTE) complete with contrast, bubble, strain, and 3D PRN AL ECHO TTHRC R-T 2D W/WOM-MODE COMPL SPEC&COLR D AL TTE W OR WO YEE ERICKSON Meggan, APRN - MANAGER [employer]ESS EXCELLENCE [address] [place] [address] Referral ID Status Reason Start Date Expiration Date V isits Requested Visits Authorized [id number] Closed Perform Procedure 09/05/2022 03/04/2023 1 1 Specialty Diagnoses / Procedures Referred By Tracee nina Referred To Contact Cardiology Diagnoses S/P TAVR (transcatheter aortic valve replacement) Procedures Transthoracic echocardiogram (TTE) complete with contrast, bubble, strain, and 3D PRN AL ECHO TTHRC R-T 2D W/WOM-MODE COMPL SPEC&COLR D AL TTE W OR WO YEE ERICKSON Meggan, APRN - MANAGER PROCESS EXCELLENCE [address] [place] [address] [facility] [address] Non-Invasive Cardiology [address] [place] [address] Referral ID Status Reason Start Date Expiration Date Visits Re quested Visits Authorized [id number] Closed 07/07/2023 07/06/2024 1 1 Advance Directives Latest Code Status on File Code Status [...] Care Teams (unrecognized sec tion and content) Cocktail Server Relationship Specialty Start Date End Date Radha Briseno [address] [place] [address] PCP - General Family Medicine 06/21/22 Cocktail Server Relationship Specialty Start Date End Date Radha Briseno [address] [place] [address] PCP - General Family Medicine 06/21/22 Cocktail Server Relationship Specialty Start Date End Date Radha Briseno [address] [place] [address] PCP - General Family Medicine 06/21/22 Cocktail Server Relationship Specialty Start Date End Date Radha Briseno [address] [place] [address] PCP - General Family Medicine 06/21/22 Cocktail Server Relationship Specialty Start Date End Date Radha Briseno [address] [place] [address] PCP - General Family Medicine 06/21/22 Cocktail Server Relationship Specialty Start Date End Date Radha Briseno [address] [place] [address] PCP - General Family Medicine 06/21/22 Reason for Visit (unrecogniz ed section and content) Specialty Diagnoses / Procedures Referred By Tracee t Referred To Contact Cardiology Diagnoses Nonrheumatic aortic valve stenosis Procedures Transthoracic echocardiogram (TTE) complete with contrast, bubble, strain, and 3D PRN AL ECHO TTHRC R-T 2D W/WOM-MODE COMPL SPEC&COLR D AL TTE W OR WO YEE ERICKSON Meggan, APRN - MARTHA [address] [place] [address] Referral ID Status Reason Start Date Expiration Date V isits Requested Visits Authorized [id number] Closed Perform Procedure 09/05/2022 03/04/2023 1 1 Reason Onset Date Comments OTHER 12/21/2022 Specialty Diagnoses / Procedures Referred By Contac t Referred To Contact Cardiology Diagnoses S/P TAVR (transcatheter aortic valve replacement) Procedures Transthoracic echocardiogram (TTE) complete with contrast, bubble, strain, and 3D PRN AL ECHO TTHRC R-T 2D W/WOM-MODE COMPL SPEC&COLR D AL TTE W OR WO YEE ERICKSON Meggan, MARLYS - MARTHA [address] [place] [address] [address] Non-Invasive Cardiology [address] [place] [address] Referral ID Status Reason Start Date Expiration Date Visits Re quested Visits Authorized [id number] Closed 07/07/2023 07/06/2024 1 1 Reason Comments 1 Year Follow-up S/p TAVR Reason Onset Date Comments Error (VOID this visit) 08/18/2023 INFORMATION SOURCE (unrecogn ized section and content) DATE CREATED AUTHOR AUTHOR'S ORGANIZ ATION 07/09/2023 [facility] FOR RECORDS PERTAINING TO PATIENTS WHO ARE [...] BE BASED ON THE PRIMARY CLINICAL RECORDS. [employer] provides no warranty or guarantee of the accuracy or completeness of information in this document.
[2023-08-25] MEDS: Lactated Ringers 1,000 ML 15 ML IV (10:50)
[2023-08-25 10:51] VITALS: BP 168/59; PULSE 66; RESP 18; TEMP 37.1; O2SAT 96; BMI 61.4
--- NOTE | 2023-08-25 11:07 | PCM.HP.BLA ---
History and Physical Date of Admission: 08/25/23 Date of Service: 08/10/23 MR#: [id number] Acct: [id number] Name: JOANNA SARAH Rep #: [id number] : 1955 Provider: Dr. Cris Faustin MD Age/Sex: 68/F Location: [facility] Status: Signed Intake Vital Signs 07/19/2412:44 08/10/2413:01 Height 5 ft 2 in 5 ft 2 in Weight: 333 lb BMI 60.9 BP 108/68 107/57 L Blood Pressure Location Rt radial Rt brachial Position Sitting Sitting Respiration 17 24 H Pulse 67 77 Pulse Source Monitor Monitor Temp 97.2 F L 97.4 F L Temp Source Temporal Temporal Pulse Oximetry (%) 95 92 Oxygen Delivery Method room air room air Intake Visit Reasons: DISCUSS OPTIONS FOR BREAST Chief Complaint: Discuss pathology and surgical options Technical Support Consultant Required: No Is patient in pain?: No Allergies glimepiride Allergy (Unknown, Verified 08/10/23 14:06) pruritusrosiglitazone [From Avandia] Allergy (Unknown, Verified 08/10/23 14:06) Rashsitagliptin [From Januvia] Allergy (Unknown, Verified 08/10/23 14:06) RashSulfa (Sulfonamide Antibiotics) Allergy (Verified 08/10/23 14:06) NEEDS FOLLOW-UPacetaminophen [From Tylenol] Adverse Reaction (Unknown, Verified 08/10/23 14:06) Enlarged liverpravastatin Adverse Reaction (Unknown, Verified 08/10/23 14:06) elevated liver enzymes Medications atorvastatin 10 mg tablet 10 mg PO QHS cholesterol 07/14/21 [History Confirmed 08/10/23] chlorthalidone 25 mg tablet 25 mg PO DAILY diuretic 07/14/21 [History Confirmed 08/10/23] fluoxetine 20 mg capsule 20 mg PO DAILY anxiety 07/14/21 [History Confirmed 08/10/23] metoprolol succinate 50 mg tablet,extended release 24 hr 50 mg PO DAILY . 07/14/21 [History Confirmed 08/10/23] pioglitazone 30 mg tablet 30 mg PO DAILY diabetic 07/14/21 [History Confirmed 08/10/23] albuterol sulfate 90 mcg/actuation aerosol inhaler 2 puff inhalation Q4H PRN Dyspnea 05/25/22 [History Confirmed 08/10/23] albuterol sulfate 2.5 mg/3 mL (0.083 %) solution for nebulization 2.5 mg inhalation Q4H PRN sob 05/26/22 [History Confirmed 08/10/23] amoxicillin 500 mg capsule 2,000 mg PO ONCE PRN 05/26/22 [History Confirmed 08/10/23] cholecalciferol (vitamin D3) 125 mcg (5,000 unit) tablet 125 mcg PO DAILY 05/26/22 [History Confirmed 08/10/23] loratadine 10 mg tablet (Allergy Relief (loratadine)) 10 mg PO DAILY 05/26/22 [History Confirmed 08/10/23] lisinopril 40 mg tablet 40 mg PO DAILY htn 08/26/22 [History Confirmed 08/10/23] multivitamin 1 tab PO DAILY 08/26/22 [History Confirmed 08/10/23] dulaglutide 4.5 mg/0.5 mL subcutaneous pen injector (Trulicity) 4.5 mg subcut QWEEK 10/14/22 [History Confirmed 08/10/23] metformin 850 mg tablet 750 mg PO DAILY dibetic 10/14/22 [History Confirmed 08/10/23] aspirin 81 mg tablet,delayed release 81 mg PO DAILY 01/26/23 [History Confirmed 08/10/23] Bacillus coagulans 400 million cell chewable tablet (Digestive Advantage Probiotics-Prebiotic) cell PO 02/03/23 [History Confirmed 08/10/23] blood pressure monitor #1 ea 04/13/23 [Rx Confirmed 08/10/23] insulin lispro protamine-lispro 100 unit/mL (75-25) subcutaneous susp (Humalog Mix 75-25(U-100)Insuln) 20 unit subcut BID 04/13/23 [History Confirmed 08/10/23] PFSH Medical History (Updated 08/11/23 @ 15:[address] 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 Mass of right breast Morbid obesity Nonrheumatic aortic (valve) stenosis LINWOOD on CPAP Right rotator cuff tear Type 2 diabetes mellitus Surgical History (Updated 08/10/23 @ 14:06 by Tracee Vanegas) History of hysterectomy History of left heart catheterization (05/30/22) History of rhinoplasty History of right breast biopsy Hx of cholecystectomy Hx of tonsillectomy Hx of total knee replacement Hx of tubal ligation Family History Mother Diabetes Heart disease Hypertension CVA (cerebral vascular accident)Father Diabetes Heart disease Hypertension Social History Smoking Status: Former smoker how long ago did patient quit smokin years ago alcohol intake: current alcohol intake frequency: holidays/special occasions only substance use type: does not use caffeine: Yes Type: coffee Number of servings: 1 HPI HPI HPI: 68-year-old female presents for follow-up status post right breast biopsy for discussion of pathology. Pathology showed atypical ductal hyperplasia with focal calcifications negative for malignancy however solid papillary intraductal carcinoma variant of DCIS cannot be entirely excluded per pathology report. Patient currently only on 81 mg of aspirin patient last year had an aortic valve replaced and on the this year goes back to her surgeon for follow-up. ROS General General: No weight change, appetite, fatigue, colon cancer, breast cancer or weakness HEENT HEENT: No difficulty swallowing, eye injury, eye surgery, swollen glands or hoarseness Endo Endocrine: Yes diabetes mellitus; No thyroid disease, thyroid cancer, Hair loss, heat intolerance or cold intolerance Skin Skin: No rash or changing moles Breast Breast: Yes abnormal mammogram and abnormal US; No left breast lump, right breast lump, nipple discharge, breast pain or breast enlargement Musc Musculoskeletal: Yes arthritis; No back problems, rheumatoid arthritis, gout or joint pain Cardio Cardiovascular: Yes murmur, heart disease and high blood pressure; No pacemaker, atrial fibrillation, heart attack, heart stent, palpitations, shortness of breat with exertion or chest pain Psych Psychiatric: Yes depression; No anxiety or hearing voices Resp Respiratory: Yes shortness of breath, Yes sleep apnea, No cough, No COPD, Yes asthma, No emphysema and No wheezing Gastro Gastrointestinal: No abdominal pain, No nausea or vomiting, Yes diarrhea, No constipation, No blood in stool, Yes acid reflux, No hemorrhoids, No ulcers, No gallbladder problem and No black,tarry stools Jarett Hematologic: No blood thinners, No blood disorders, No bleeding, No anemia and No blood clots Neuro Neurologic: No system reviewed and no additional complaints, except as documented, No as per HPI, No abnormal gait, No abnormal hearing, No abnormal movements, No abnormal speech, No behavioral changes, No burning sensations, No confusion, No convulsions, No disequilibrium, No dizziness, No localized weakness, No frequent falls, No headache(s), No lack of coordination, No loss of vision, No memory loss, Yes numbness, No other visual disturbances, No radicular pain, No restless legs, No sensory deficit, No syncope, Yes tingling, No tremor(s), No weakness and No other Exam Const General: cooperative, healthy appearing, comfortable and no acute distress Neck Neck: normal visual inspection Chest Other: Right breast biopsy site well-healed. Bedside ultrasound she was able to identify the lesion and clip allowing for ultrasound guided wire localization in the OR-as due to body habitus patient would not be amendable to a prone stereotactic wire localization. Resp Effort & Inspection: normal respiratory effort Cardio Rate: regular rate GI Palpation: soft Skin General: no rashes or lesions noted Neuro General: patient oriented x3 Psych Affect: normal affect Assessment and Plan Assessment and Plan (1) Atypical ductal hyperplasia of right breast: Status: Acute Plan Discussed with patient would plan for an excisional right breast biopsy with ultrasound wire localization in the OR to obtain a bigger sample of the tissue for better evaluation. Discussed with patient risks including but not limited to bleeding, infection, need for further surgery etc. Patient no further questions this time. Cris Faustin M.D. Pager: [phone] [facility] [address] [place] [address], [facility], [address] [place] [address] Office: [phone] Coding Level of Care Code Off vis,est,level 3 Diagnoses Atypical ductal hyperplasia of right breast N60.91 08/11/23 1511 <Electronically signed by Cris Faustin MD> Date Cris Faustin MD
[2023-08-25 11:26] LABS: Bedside Glucose 215 mg/dL (74-106)
--- NOTE | 2023-08-25 12:00 | BREAST_PTH ---
PATHOLOGY RESULTS PATIENT: JOANNA SARAH [place] [facility] [place][id number] AGE/SX: 68/F ROOM: RE08/25/[address]: Dr. Cris Faustin MD : 1955 BED: DIS: 08/25/2023 SPEC #: [id number] RECD: 08/28/23 08:12 STATUS: SARA SALGADO #: [id number] NIKOS: 08/25/23 12:[address]: Cris Faustin DEPT: SURGICAL PATHOLOGY RECD BY: Katie Brown ENTERED: 08/28/23 08:14 SP TYPE: BREAST OTHR DR: Dr. 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 See cancer summary in the comment section. SJ:rg 08/30/2023 COMMENT DUCTAL CARCINOMA IN SITU SUMMARY: Procedure - lumpectomy with needle localization Specimen laterality - right Tumor site - 10 o'clock Size DCIS - 1.8 x 1.7 x 1.2 cm Histologic type - solid papillary carcinoma without invasive carcinoma. Architectural pattern - solid, papillary Nuclear grade - grade 1 Necrosis - present, central (expansive comedo necrosis) Margin - Margins uninvolved by DCIS. DCIS is 0.2 cm away from the anterior, posterior and medial margins. Regional lymph nodes - No lymph nodes submitted or found. Distant metastasis - not applicable Additional Pathologic Findings - - Intraductal hyperplasia without atypia. - Extensive vascular calcifications. Ancillary Studies ([id number]) ER - positive (>95%, strong intensity). IN - positive (>95%, strong intensity). Her2 ale (IHC) - negative (0) Microcalcifications - present in ductal carcinoma in situ. Clinical history - Please make reference to previous specimen ([id number]), right breast nodule, core biopsy with diagnosis of intraductal hyperplasia with focal calcifications. PATHOLOGIC STAGE: pTis(DCIS) pNx pMx The above summary is in compliance with [employer] (CAP) Cancer Protocols Checklist and [place] [employer] Committee on Cancer (AJCC), Staging Manual, 8th Ed. Case has been reviewed in consultation with Dr. Hartman who concurs with the above diagnosis. IDC:AM MICROSCOPIC DESCRIPTION Slides are reviewed. GROSS DESCRIPTION Received is one container labeled with the patient's name and not further designated. The specimen consists of a piece of fibroadipose tissue with needle localization measuring 4.0 x 4.0 x 2.0 cm. The specimen is oriented as follows: long stitch - lateral, short stitch - superior. The specimen is inked as follows: anterior - yellow, posterior - black, superior - blue, inferior - green, medial - red and lateral - orange. Sections reveal a milian-white solid mass measuring 1.8 x 1.7 x 1.2 cm. This mass is close to anterior, posterior and inferior margins and also medial margin. The entire specimen is submitted in ten cassettes as follows: 1 - perpendicular lateral and superior margins, 2-5 - nodular mass with closest margin, 6-10 - rest of the specimen. Sections are submitted after additional fixation. / MORIAH:bernabe 08/28/2023 TC:0 Ischemic Time: 1 minute Fixation Time: 77.5 hours CPT: 62060
[2023-08-25] MEDS: Cefazolin 3 GM in 0.9% Normal Saline (100mL Bag) 100 ML IV (13:18)
--- NOTE | 2023-08-25 13:56 | PCM.OPRPT ---
Report of Operation Date of Procedure: 08/25/23 Pre-Operative Diagnosis: Right breast mass?atypical ductal hyperplasia Post-Operative Diagnosis: Same Surgery/Procedure Performed:: Excisional needle localization ultrasound-guided right breast biopsy Surgeon: Cris Faustin Type of Anesthesia: General/Supplemental Anesthesiologist: Carlos Soriano Special Medications: Ancef 3 g IV x 1 Specimen's removed: Right breast lumpectomy?previous biopsy site with atypical ductal hyperplasia Estimated Blood Loss (mL): < 10 cc Description of Procedure: The patient was taken to the operating room and general anesthesia was induced. The right breast and axilla were prepped and draped in usual sterile fashion. A timeout was completed verifying correct patient, procedure, site, positioning, special equipment prior to beginning procedure. Ultrasound was use for localization of the breast mass using the Kopan's needle. The wire was placed just inferiorly to the mass. A curvilinear incision was planned in such a way as to minimize the amount of dissection to reach the mass. Flaps were raised in the location of the wire confirmed. The wire was delivered into the wound. 2 silk [id number] stay suture was placed around the wire and used for traction. Dissection was then taken down circumferentially, taking care to include the entire localization needle and margin of grossly normal tissue. The specimen and entire localizing wire were removed. The specimen was oriented and sent to radiology. Confirmation was received that the entire target lesion had been resected. The cavity was irrigated. Hemostasis was checked. The breast incision was closed with interrupted sutures of 3-0 Vicryl and subcuticular sutures of 4-0 Monocryl. No attempt was made to close the space. Steri-Strips and OpSite were placed. The patient tolerated procedure well was taken to the postanesthesia care in stable condition Complications none
--- NOTE | 2023-08-25 13:57 | BI_ITS ---
SURGICAL BREAST SPECIMEN RADIOGRAPH CLINICAL: Document presence of calcifications in biopsy specimen. FINDINGS: Specimen shows presence of calcifications. Electronically Signed: Bharat Rodriguez MD at 14:16 EST , BI/Breast Biopsy Specimen IMPRESSION: undefined
[2023-08-25] MEDS: Bupivacaine 0.25% 30 ML Vial (14:00)
--- NOTE | 2023-08-25 14:00 | DCINST_ITS ---
Discharge Instructions Diet Discharge Diet: No restrictions Activity Discharge Activity: May Not Drive (for 2-3 days or while taking narcotic pain meds.) May shower in (days): 1 Lifting Restrictions: 10 pounds for 1 week with the right arm Dressing / Incision Call your doctor if your incision/area has: Continuous Slow Oozing, Sudden Increased Bleeding, Increased Pain/ Swelling and Increased Redness Call your doctor if you observe: Fever of 101 or Higher Suture Line Care: Avoid Pulling/Pushing and Avoid Pinching/Bending Remove Dressing in: 1 day Additional Dressing/Incision Instructions:: Remove bulky dressing tomorrow. May leave op-site dressing for 3-4 days. Okay to remove Steri-Strips from the breast incision in 7 to 10 days. Follow Up Care Please Follow Up With: Cris Faustin MD When: Please call [phone] for an appointment to be seen in 2 week. Test Results: Test results from this visit will be discussed in further detail at your follow- up appointment, if applicable. Discharge Plan Admission Attending Provider: Cris Faustin Primary Care Provider: Radha Wetzel Discharge Orders/Prescriptions Prescriptions: New tramadol 50 mg tablet 50 mg PO Q6H PRN (Reason: pain) Qty: 5 0RF Continued cholecalciferol (vitamin D3) 125 mcg (5,000 unit) tablet 125 mcg PO DAILY loratadine [Allergy Relief (loratadine)] 10 mg tablet 10 mg PO DAILY amoxicillin 500 mg capsule 2,000 mg PO ONCE PRN (Reason: PRIOR TO DENTAL VISIT) Rx Instructions: take 1 hour prior to dental visit albuterol sulfate 2.5 mg /3 mL (0.083 %) solution for nebulization 2.5 mg inhalation Q4H PRN (Reason: sob) Trulicity 4.5 mg/0.5 mL pen injector 4.5 mg subcut QWEEK Humalog Mix 75-25(U-100)Insuln 100 unit/mL (75-25) suspension 20 unit subcut BID Rx Instructions: 20 units qpm multivitamin Tablet 1 tab PO DAILY (DME) blood pressure monitor Kit See Rx Instructions .Route Qty: 1 0RF Rx Instructions: As directed metoprolol succinate 50 mg tablet extended release 24 hr 50 mg PO DAILY chlorthalidone 25 mg tablet 25 mg PO DAILY pioglitazone 30 mg tablet 15 mg PO DAILY fluoxetine 20 mg capsule 20 mg PO DAILY atorvastatin 10 mg tablet 10 mg PO QHS albuterol sulfate 90 mcg/actuation HFA aerosol inhaler 2 puff INHALATION Q4H PRN (Reason: Dyspnea) lisinopril 40 mg tablet 40 mg PO DAILY metformin 850 mg tablet 750 mg PO DAILY Hold Instructions: Resume on 07/18/21. Probiotic 15 billion cell capsule, sprinkle 1 cap PO DAILY Rx Instructions: do not crush/chew/cut; swallow whole OR may open and sprinkle in cold drink/food Held aspirin 81 mg tablet,delayed release (DR/EC) 81 mg PO DAILY Hold Instructions: Resume on 08/26/23. Patient Comments: hold 5 days prior to OR Referrals / Follow Up: aRdha Wetzel MD [Primary Care Provider] - Disposition Disposition (needs filled in before D/C Order can be placed): Home, Self Care
[2023-08-25 14:21] VITALS: BP 162/66; BP 168/59; PULSE 70; RESP 18; TEMP 37.1; O2SAT 88
[2023-08-25 14:25] VITALS: BP 163/67; BP 168/59; PULSE 70; RESP 18; O2SAT 91
[2023-08-25 14:30] VITALS: BP 164/67; BP 168/59; PULSE 67; RESP 18; O2SAT 95
[2023-08-25 14:55] VITALS: BP 157/64; BP 168/59; PULSE 70; RESP 18; TEMP 36.6; O2SAT 94
[2023-08-25 15:30] VITALS: BP 168/59
[2023-08-25 15:36] LABS: Bedside Glucose 198 mg/dL (74-106)
--- NOTE | 2023-08-30 | IMM_PTH ---
PATHOLOGY RESULTS PATIENT: JOANNA SARAH [place] [facility] [id number] AGE/SX: 68/F ROOM: RE08/25/[address]: Dr. Cris Faustin MD : [id number] BED: DIS: 08/25/2023 SPEC #: [id number] RECD: 08/30/23 14:21 STATUS: SARA REQ #: [id number] NIKOS: 08/30/23 00:[address]: Cris Faustin DEPT: IMMUNOHISTOCHEMISTRY RECD BY: Ashlie Fonseca ENTERED: 08/30/23 14:22 SP TYPE: IMMUNO OTHR DR: Dr. Radha Wetzel MD Tissues: Right breast, NOS Procedures: CALPONIN-1 (add) CK8 (add) E-CAD (add) HER2 CAITLYN (add) MT (add) P40 (add) ER (initial) PHYSICIAN & INSTITUTION [place] [id number] SPECIMEN INFORMATION: Tissue Source: Right breast Clinical Info: Atypical ductal hyperplasia Specimen Number: [id number] #4 CPT code: 37912, 55066 x3, 82010 x3 METHODOLOGY: Deparaffinized sections of prefer/formalin-fixed tissue or PAP/DQ stained slides are incubated with monoclonal/polyclonal antibodies/oligonucleotide probes. Localization is made via biotin free immunoperoxidase method. Appropriate controls are performed and reacted as expected. Results on target cell population are indicated in the following table: RESULTS: ANTIBODY / CLONE RESULT Block 4 E-Cad (ECH-6) positive CK8 ([id number]) positive Calponin-1 (KP814Q) positive, focal P40 (BC28) negative MORPHOMETRIC ANALYSIS ER (clone 6F11) positive (>95%, strong intensity) MT (clone 16/1E2) positive (>95%, strong intensity) Her-2Neu (clone CB11) negative (0) The prognostic test for HER2 is performed on formalin-fixed paraffin embedded tissue. A 3+ (positive) staining pattern is defined as intense, homogeneous, complete, circumferential membranous staining in >10% of contiguous tumor cells. A similar weak (2+) staining pattern is interpreted as equivocal. ILIA follow-up testing is recommended for all equivocal cases. Positivity/negativity for ER/MT is reported if > or < 1% of the tumor cells are immuno- reactive, respectively. The ASCO/CAP criteria is used for scoring. Reference: Journal of Clinical Oncology, 2013; 31:8646-3261 & 2010; 16:6980-7254. Ischemic time: Less than one hour. Duration of fixation: 77.5 Hrs; Sample Adequate: Yes. These assays have not been validated on decalcified tissues. Results should be interpreted with caution given the likelihood of false negativity on decalcified specimens or fixation greater than 72 hours. Alternative testing methods (FISH/dualISH for Her2; gene expression for ER) are recommended, if applicable. Please notify the laboratory if additional testing is required. These tests were developed and their performance characteristics determined by [facility]. They may not have been cleared or approved by the U.S. Food and Drug Administration. The FDA has determined that such clearance or approval is not necessary. The above immunohistochemical/dualISH markers are ordered and reviewed by the Pathologist. 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 This case has been reviewed in consultation with Dr. Hartman who concurs with the above diagnosis. SJ:bernabe 08/31/2023
== END 2023-08-25 15:30 | disposition home or self-care (01) ==
LOC: SDC 10:07 → AC 10:08
PROVIDERS: PCP Family Medicine; Referring Provider Surgery; Visit Provider Surgery
PROC: (CPT 19125; principal; 2023-08-25 11:45)
DX: D05.11 Intraductal carcinoma in situ of right breast (principal); E66.01 Morbid (severe) obesity due to excess calories; Z68.44 Body mass index [BMI] 60.0-69.9, adult; E11.9 Type 2 diabetes mellitus without complications; Z79.4 Long term (current) use of insulin; E78.00 Pure hypercholesterolemia, unspecified; I35.0 Nonrheumatic aortic (valve) stenosis; I10 Essential (primary) hypertension; G47.33 Obstructive sleep apnea (adult) (pediatric); Z95.2 Presence of prosthetic heart valve; Z79.51 Long term (current) use of inhaled steroids; Z79.82 Long term (current) use of aspirin; Z79.84 Long term (current) use of oral hypoglycemic drugs; Z79.85 Long-term (current) use of injectable non-insulin antidiabetic drugs; Z79.899 Other long term (current) drug therapy; Z87.891 Personal history of nicotine dependence
CPT/HCPCS: 19125; 19285; 00400; 76098; 82962; 88307; 88341; 88342; A4648; J7120; J2405

== ENCOUNTER → 2024-08-15 | Outpatient (CLI) | payer MEDICARE, BC, SELFPAY ==
--- NOTE | 2024-08-15 10:18 | BI_ITS ---
PROCEDURE: SCRN MAMM (CAD)W/MARIA DEL CARMEN BILAT REASON FOR EXAM: F, Age 69 y/o, presents for annual screening mammogram. Patient has history of right breast cancer status post lumpectomy 08/25/2023. No chemotherapy or radiation. TECHNIQUE: Bilateral screening digital breast tomosynthesis with 2D and 3D images. Computer aided detection. COMPARISON: 07/05/2023, 07/10/2023 FINDINGS: There are scattered areas of fibroglandular density. There are new postsurgical changes in the upper-outer right breast at posterior depth. Otherwise, no suspicious masses, areas of developing architectural distortion, or suspicious calcification in either breast s. BI/SCRN MAMM (CAD)W/MARIA DEL CARMEN BILAT IMPRESSION: The postsurgical changes in the upper-outer right breast at posterior depth are benign. There is no mammographic evidence of malignancy in either breast. BI-RADS 2: BENIGN. RECOMMEND ANNUAL MAMMOGRAPHIC SCREENING. Follow-up code: Routine Follow-up The patient will be notified of the results by letter. Reading Location: [id number]
--- NOTE | 2024-08-15 10:18 | BD_ITS ---
PROCEDURE: Bone densitometry scan. REASON FOR EXAM: Postmenopausal. Osteoporosis screening. TECHNIQUE: DEXA scan of the lumbar spine, left forearm, and both hips. COMPARISON: 11/14/2019 FINDINGS: T-SCORES Lumbar spine: Bone mineral density 1.077 g per cm2. T-score of 0.2. Prior T- score 0.7. 10.1% increased bone mineral density from the prior study, although this could be artifactual due to degenerative changes in the spine. Left hip: Bone mineral density 0.667 g per sq cm and T-score of -1.6. Prior T- score -0.3. 5.9% increased bone mineral density from the previous study. Right hip: Bone mineral density 0.688 g per sq cm and T-score of -1.5. Prior T- score -0.5. 7.3% increased bone mineral density from the previous study. Left forearm: Bone mineral density 0.571 g per cm2 and T-score of -2.1. The forearm was not scanned on the prior study. FRAX* Results: 10 Year Probability of Fracture: Hip Fracture(1): 2.0% Major Osteoporotic Fracture(2): 13% *FRAX is a trademark of the [employer]'s [place] for Metabolic Bone Disease, World Health Organization (WHO) Collaborating [place]. 1-The 10-year probability of fracture may be lower than reported if the patient has received treatment. 2-Major Osteoporotic Fracture: Clinical Spine, Forearm, Hip or Shoulder. The T-scores are also available for review on the [facility] PACS or by accessing the [facility] electronic medical record. BD/Dexa Bone Density/Append Skel IMPRESSION: Osteopenia. Reading Location: [id number]
== END | disposition home or self-care (01) ==
LOC: OPBD 10:17
PROVIDERS: PCP Family Medicine
DX: Z12.31 Encounter for screening mammogram for malignant neoplasm of breast (principal); M81.0 Age-related osteoporosis without current pathological fracture
CPT/HCPCS: 77063; 77067; 77081

== ENCOUNTER 2024-10-21 06:50 | Inpatient (IN) | payer MEDICARE, BC, SELFPAY ==
[2024-10-21] VITALS (27 sets, daily range): BP systolic 46–143; BP diastolic 22–93; PULSE 77–105; RESP 18–28; TEMP 36.6–37.8; O2SAT 92–100; BMI 60.2; BMI 58.5
--- NOTE | 2024-10-21 07:08 | EKG12_ITS ---
Test Reason : Blood Pressure : */* mmHG Vent. Rate : 78 BPM Atrial Rate : 78 BPM P-R Int : 116 ms QRS Dur : 104 ms QT Int : 390 ms P-R-T Axes : 29 25 56 degrees QTcB Int : 444 ms Sinus rhythm with Premature atrial complexes Otherwise normal ECG Confirmed by GIRISH PARR, EVELIO ([id number]), greeting card editor DEMIAN AMAYA ([id number]) on 10/23/2024 11:45:08 AM Referred By: Nicholas Roa Confirmed By: EVELIO STOUT MD
--- NOTE | 2024-10-21 07:08 | CT_ITS ---
PROCEDURE: BRAIN/HEAD WITHOUT CONTRAST 10/21/2024 REASON FOR EXAM: FREQUENT FALLS TECHNIQUE: Head CT without intravenous contrast. Coronal and Sagittal reconstruction series were provided. One or more dose reduction techniques were used (e.g., Automated exposure control, adjustment of the mA and/or kV according to patient size, use of iterative reconstruction technique. RADIATION DOSE SUMMARY: CTDlvol: 44.99 mGy DLP: 812.98 mGycm COMPARISON: None FINDINGS: Cerebrum: No visible mass or acute intracranial hemorrhage. Mild patchy age- indeterminate supratentorial white matter hypodensities, nonspecific but compatible with chronic microvascular ischemic changes. Cerebellum/brainstem: Unremarkable. Note slight limitation due to beam hardening artifact. Ventricles/extra-axial spaces: Unremarkable. Paranasal sinuses/mastoid air cells: Unremarkable. Scalp/calvarium: Unremarkable. Other: Degenerative changes of the minimally imaged upper cervical spine. CT/Brain/Head without Contrast IMPRESSION: 1. Mild patchy age-indeterminate supratentorial hypodensities, nonspecific but compatible with chronic microvascular ischemic changes although this could obscure small acute infarct in the absence of prior exams to establish long-term stability. If there is persistent concern, recommend MRI. 2. Additional description as above. Reading Location: [id number]
--- NOTE | 2024-10-21 08:19 | ED.VIS.FALL ---
HPI HPI - Fall History of Present Illness Chief Complaint: Fall Informant: patient, family and EMS Narrative Narrative: 69-year-old female presenting to the emergency room with a chief complaint of frequent falls. Patient states over the past week she has been falling almost daily. Family has been coming and helping her up off the ground. Patient states that today she fell and was able to get up. She notes pain in the left hip and right shoulder. She denies hitting her head. She does not really have any indication as to why she fell. She states that she wonders if her legs just simply give out and that perhaps her 40-year-old knee replacements are too old. She saw orthopedics and physical therapy within the past year for right shoulder fracture. She denies any fever. She notes she is a diabetic and her blood sugar was around 300 this morning. [facility] Medical History Wears partial dentures Wears glasses Post-menopausal History of steroid therapy Insulin dependent diabetes mellitus Arthritis High cholesterol History of IBS History of Crohn's disease History of diverticulitis Gastric reflux Sleep apnea Shortness of breath on exertion History of transesophageal echocardiography (ANGE) History of echocardiogram Cardiology follow-up encounter History of irregular heartbeat Intraductal papilloma with atypical ductal hyperplasia of breast Mass of right breast Right rotator cuff tear Closed fracture of right proximal humerus History of transcatheter aortic valve replacement (TAVR) (07/11/22) Hyperlipidemia [place] on CPAP Dyspnea Type 2 diabetes mellitus Essential hypertension Nonrheumatic aortic (valve) stenosis Former smoker CPAP (continuous positive airway pressure) dependence Asthma Ludwigs angina Morbid obesity Home Medications ?Medication ?Instructions ?Recorded ?Last Taken ?Type atorvastatin 10 mg tablet 10 mg PO QHS cholesterol 07/14/21 10/20/24 History chlorthalidone 25 mg tablet 25 mg PO DAILY diuretic 07/14/21 10/20/24 History fluoxetine 20 mg capsule 20 mg PO DAILY anxiety 07/14/21 10/20/24 History metoprolol succinate 50 mg 50 mg PO DAILY . 07/14/21 10/20/24 History tablet,extended release 24 hr albuterol sulfate 90 mcg/actuation 2 puff inhalation Q4H PRN Dyspnea 05/25/22 08/21/23 History aerosol inhaler albuterol sulfate 2.5 mg/3 mL 2.5 mg inhalation Q4H PRN sob 05/26/22 07/26/23 History (0.083 %) solution for nebulization cholecalciferol (vitamin D3) 125 125 mcg PO DAILY 05/26/22 10/20/24 History mcg (5,000 unit) tablet lisinopril 40 mg tablet 40 mg PO DAILY htn 08/26/22 10/20/24 History multivitamin 1 tab PO DAILY 08/26/22 10/20/24 History dulaglutide 4.5 mg/0.5 mL 4.5 mg subcut QWEEK 10/14/22 10/20/24 History subcutaneous pen injector (Trulicity) aspirin 81 mg tablet,delayed 81 mg PO DAILY 01/26/23 10/20/24 History release blood pressure monitor #1 ea 04/13/23 Unknown Rx lactobacillus combo no.11 15 1 cap PO DAILY 08/18/23 10/20/24 History billion cell sprinkle capsule (Probiotic) insulin lispro 100 unit/mL 10 unit subcut TID 01/24/24 10/20/24 History subcutaneous pen (Humalog KwikPen (U-100) Insulin) metformin 750 mg tablet,extended 750 mg PO QDAY 01/24/24 10/20/24 History release 24 hr handicap placard #1 ea 09/25/24 Unknown Rx cetirizine 10 mg tablet (24Hour 10 mg PO DAILY allergies 10/21/24 10/20/24 History Allergy) empagliflozin 25 mg tablet 25 mg PO DAILY 10/21/24 10/20/24 History (Jardiance) Allergy/AdvReac Type Severity Reaction Status Date / Time glimepiride Allergy Unknown pruritus Verified 10/21/24 06:51 rosiglitazone (From Avandia) Allergy Unknown Rash Verified 10/21/24 06:51 sitagliptin (From Januvia) Allergy Unknown Rash Verified 10/21/24 06:51 Sulfa (Sulfonamide Allergy NEEDS Verified 10/21/24 06:51 Antibiotics) FOLLOW-UP acetaminophen (From Tylenol) AdvReac Unknown Enlarged Verified 10/21/24 06:51 liver pravastatin AdvReac Unknown elevated Verified 10/21/24 06:51 liver enzymes Family History Mother Diabetes Heart disease Hypertension CVA (cerebral vascular accident) Father Diabetes Heart disease Hypertension Surgical History History of cardiac catheterization History of right breast biopsy History of left heart catheterization (05/30/22) History of rhinoplasty Hx of total knee replacement Hx of tubal ligation Hx of tonsillectomy History of hysterectomy Hx of cholecystectomy Social History Smoking Status: Former smoker how long ago did patient quit smokin years ago alcohol intake: current alcohol intake frequency: holidays/special occasions only substance use type: does not use caffeine: Yes Type: coffee Number of servings: 1 ROS ROS ED ROS Narrative Frequent falls Constitutional Constitutional ED: Denies chills, fever(s) or weight loss Eyes Eyes: Denies change in vision or diplopia ENT ENT ED: Denies ear pain, rhinorrhea or sore throat Cardiovascular Cardiovascular: Denies chest pain, orthopnea, palpitations or racing heartbeat Respiratory/Chest Respiratory/Chest: Denies cough, dyspnea or orthopnea Gastrointestinal Gastrointestinal: Denies abdominal pain, diarrhea, nausea or vomiting Genitourinary Genitourinary ED: Denies dysuria, hematuria or urinary frequency Musculoskeletal Musculoskeletal: Denies arthralgias or myalgias Integumentary Denies abscess or rash Neurologic Neurologic: Denies headache(s), paresthesias or weakness Psychiatric Psychiatric: Denies anxiety, depression, suicidal ideation or suicidal thoughts Endocrine Endocrinology: Denies polydipsia, polyphagia or polyuria Allergic/Immunologic Allergic/Immunologic ED: Denies mouth swelling, tongue swelling or urticaria EXAM Physical Exam Const Vital Signs: 10/21/24 06:52 10/21/24 06:52 10/21/24 08:54 Temperature 98.5 F Temperature Source Oral Pulse Rate 81 77 Respiratory Rate 18 18 Respiratory Effort Normal Respiratory Depth Normal Respiratory Pattern Normal Blood Pressure 114/50 L 127/44 H Blood Pressure Mean 71 71 Pulse Ox 94 94 94 Oxygen Delivery Method Room Air Room Air Room Air 10/21/24 10:00 10/21/24 12:07 10/21/24 12:08 Temperature Temperature Source Pulse Rate 82 93 92 Respiratory Rate 23 H 18 20 H Respiratory Effort Respiratory Depth Respiratory Pattern Blood Pressure 103/64 143/52 H 143/52 H Blood Pressure Mean 77 82 82 Pulse Ox 95 92 94 Oxygen Delivery Method Room Air Room Air Room Air Positive well nourished, well developed and obese General Appearance ED: well developed and NAD Nutritional Appearance: obese HEENT Reports normocephalic, head/scalp atraumatic and moist mucous membranes Eyes PERRL and EOMs intact bilaterally Neck no lymphadenopathy, supple and no JVD Resp normal respiratory effort and clear to auscultation bilaterally Cardio regular rate, regular rhythm and no murmurs GI normal to inspection, nondistended, normoactive bowel sounds and non-tender Palpation: soft Back/Spine no CVA tenderness and normal ROM Back/Spine Narrative: I do not appreciate any tenderness to palpation as I palpate along the thoracic or lumbar spine and the paraspinal musculature Extremity Extremity Narrative: Painful range of motion of the right shoulder. Tender to palpation of the left hip and the greater trochanter region. General Extremety ED: Negative for edema General Extremity: Negative for edema Neuro oriented x3 and CN's II-XII intact bilaterally Sensorium / Orientation: alert Motor Exam: strength 5/5 throughout Psych mental status grossly normal Mood & Affect: Negative for depressed or tearful Skin no rashes or lesions noted and no wounds MDM MDM MDM Narrative Medical decision making narrative: Differential diagnosis includes but not limited to hip fracture shoulder fracture hip contusion shoulder contusion intracranial hemorrhage UTI stroke White count is significant elevated at 20.3 hemoglobin 12.1 platelet count 252. Creatinine is elevated off baseline at 1.53 with a BUN of 44. Glucose 312 total bilirubin 1.52 direct bilirubin 0.87 AST of 78 ALT of 49 these are also elevated from her priors. Urinalysis with no overt infection. CT of the brain showed no acute hemorrhage please see radiologist read. My independent interpretation plain films of the right shoulder is no acute fracture. My independent interpretation of the plain films of the left hip and pelvis is no acute fracture. Because of the leukocytosis and elevated liver enzymes CT abdomen pelvis was obtained which is read by radiology reviewed by myself. I do not see a obvious cause for the patient's frequent falls. I think because she is unable to ambulate given how frequent she is following with the above findings we bring her into the hospital for further management. History & Record Review Discussion w/independent historian: Patient and Family Lab Data Attestation: I reviewed the patient's lab results. Labs: Laboratory Results - last 24 hr 10/21/24 10/21/24 10/21/24 08:11 09:17 11:33 WBC 20.3 H RBC 4.03 L Hgb 12.1 Hct 36.2 L MCV 89.8 MCH 30.0 MCHC 33.4 RDW Std Deviation 49.7 H RDW Coeff of Graciela 15.1 H Plt Count 252 MPV 11.5 Immature Gran % (Auto) 0.700 Neut % (Auto) 92.3 H Lymph % (Auto) 3.0 L [place] % (Auto) 3.2 Eos % (Auto) 0.3 Baso % (Auto) 0.5 Absolute Neuts (auto) 18.7 H Absolute Lymphs (auto) 0.61 L Nucleated RBC % 0 Differential Comment SCANNED PT 15.7 H INR 1.2 APTT 25.2 Sodium 128 L Potassium 3.9 Chloride 90 L Carbon Dioxide 19.2 L Anion Gap 19 H BUN 44 H Creatinine 1.53 H Estim Creat Clear Calc 48.56 L Est GFR (MDRD) Non-Af 36 L BUN/Creatinine Ratio 28.4 H Glucose 312 H Calcium 8.9 Total Bilirubin 1.52 H Direct Bilirubin 0.87 H AST 78 H ALT 49 H Alkaline Phosphatase 86 Troponin T High Sens 57 H* Total Protein 6.7 Albumin 3.0 L Globulin 3.8 Urine Color Yellow Urine Clarity Sl. Cloudy Urine pH 6.0 Ur Specific [place] 1.010 Urine Protein 30 H Urine Glucose (UA) 1000 H Urine Ketones Negative Urine Occult Blood 50 H Urine Nitrite Negative Urine Bilirubin Negative Urine Urobilinogen Normal Ur Leukocyte Esterase 100 H Urine RBC 0-5 SEEN Urine WBC 0-5 SEEN Ur Squamous Epith Cells 0-5 SEEN Urine Bacteria 1+ Urine Mucus 0 SEEN POC Glucose 296 H Radiography Diagnostic Testing: Clinical Impression(s) from Imaging Studies Brain CT 10/21/24 07:08 IMPRESSION: 1. Mild patchy age-indeterminate supratentorial hypodensities, nonspecific but compatible with chronic microvascular ischemic changes although this could obscure small acute infarct in the absence of prior exams to establish long-term stability. If there is persistent concern, recommend MRI. 2. Additional description as above. Reading Location: [id number] Chest X-Ray 10/21/24 08:30 IMPRESSION: No evidence of acute disease. Reading Location: [facility] Hip/Pelvis X-Ray 10/21/24 08:30 IMPRESSION: No fracture or dislocation identified. Reading Location: [facility] Shoulder X-Ray 10/21/24 08:30 IMPRESSION: 1. Suspected demineralization without visible acute displaced fracture. If there is persistent concern, consider CT. 2. Grossly similar suspected chronic posttraumatic deformity of the humeral head/neck. 3. Additional description as above. Reading Location: [facility] Abdomen/Pelvis CT 10/21/24 09:30 IMPRESSION: 1. Somewhat limited exam as above. No acute findings. 2. Hepatic morphology which is nonspecific but can be seen in the setting of chronic liver disease such as fibrosis/early cirrhosis. Correlate with clinical and laboratory evaluation. Outpatient ultrasound elastography could be performed as indicated to detect/quantify fibrosis. 3. Indeterminate 1.7 cm LEFT adrenal nodule. Given a reported history of malignancy, recommend outpatient adrenal protocol CT, unless outside imaging can establish long-term stability. 4. Likely 2.5 cm RIGHT ovarian cyst, incompletely characterized by CT. Given that the patient is postmenopausal, recommend outpatient pelvic ultrasound. 5. High-density or hyperenhancing bilateral iliac nodes are not enlarged by CT criteria. This is nonspecific and could conceivably be related to previous lymphangiography given an appropriate history. Given reported history of malignancy, recommend clinical follow-up. 6. Mild splenomegaly. 7. Additional description as above. Reading Location: [facility] EKG Initial EKG: Attestation: I personally reviewed and interpreted this EKG as follows: Comments: Sinus rhythm ventricular rate 78 bpm. PAC noted. Management Discussion w/another healthcare provider: Hospitalist (Dr Roa) Discharge Plan Dx/Rx/DC Orders Clinical Impression: Frequent falls, Leukocytosis, Contusion of hip, left, Elevated LFTs, Hyperglycemia, GEO (acute kidney injury) Disposition Disposition: Acute Care Hospital [facility] Discharge Date/Time: 10/21/24 12:51
[2024-10-21 08:22] LABS: Absolute Lymphocyte Count 0.61 X10^3/uL (0.83-4.51); Absolute Neutrophil Count 18.7 X10^3/uL (2.0-7.7); Basophil# 0.11 X10^3/uL; Basophil% 0.5 % (0-1); Eosinophil# 0.07 X10^3/uL; Eosinophils% 0.3 % (0-5); Hematocrit 36.2 % (37-47); Hemoglobin 12.1 g/dL (12.0-15.0); Lymphocyte # 0.61 X10^3/ul (0.83-4.51); Mean Corp Hgb Conc 33.4 g/dL (32-36); Mean Corpuscular Volume 89.8 fL (81-99); Mean Platelet Vol. 11.5 fl (6.2-12.0); Monocyte# 0.64 X10^3/uL; Monocyte% 3.2 % (0-10); NRBC Flagged by Analyzer 0 % (0-5); Neutrophil # 18.68 X10^3/uL (2.7-7.7); Neutrophil % 92.3 % (47-70); POSITIVE MORPHOLOGY YES; Platelet Count 252 K/mm3 (150-450); RBC Distribution Width CV 15.1 % (11.6-14.6); RBC Distribution Width SD 49.7 fl (35.1-43.9); Red Blood Count 4.03 M/mm3 (4.2-5.4); White Blood Count 20.3 K/mm3 (4.4-11.0)
[2024-10-21 08:24] LABS: Differential Indicated SCAN CRITERIA MET
--- NOTE | 2024-10-21 08:30 | RAD_ITS ---
PROCEDURE: HIP, UNI W/ PELVIS 2-3 VIEWS 10/21/2024 REASON FOR EXAM: INJURY TECHNIQUE: AP view of the pelvis and two views left hip, 3 total images COMPARISON: None available FINDINGS: Patient is rotated to the right. Limits the evaluation of the right femoral neck. No fracture or dislocation identified. Asymmetric sclerosis at the left SI joint. The pubic symphysis appears within limits. RAD/HIP, UNI W/ Pelvis 2-3 Views IMPRESSION: No fracture or dislocation identified. Reading Location: [id number]
--- NOTE | 2024-10-21 08:30 | RAD_ITS ---
PROCEDURE: SHOULDER MIN 2 VIEWS 10/21/2024 REASON FOR EXAM: INJURY TECHNIQUE: AP, Grashey, scapular Y, and axillary views of the RIGHT shoulder were obtained. COMPARISON: 01/23/2023 FINDINGS: Axillary view limited by underpenetration. Fracture/dislocation: No visible acute displaced fracture. Grossly similar irregularity along the humeral neck/head which may reflect a chronic posttraumatic deformity. Joint space(s): Advanced AC joint space loss has increased. Mild glenohumeral joint space loss. Soft tissues: Unremarkable. Foreign bodies: None visible. Bone mineralization: Suspect demineralization. Other: None. RAD/Shoulder min 2 Views IMPRESSION: 1. Suspected demineralization without visible acute displaced fracture. If the re is persistent concern, consider CT. 2. Grossly similar suspected chronic posttraumatic deformity of the humeral hea d/neck. 3. Additional description as above. Reading Location: [id number]
--- NOTE | 2024-10-21 08:30 | RAD_ITS ---
PROCEDURE: CHEST 1 VIEW 10/21/2024 REASON FOR EXAM: HYPERTENSION TECHNIQUE: Frontal view of the chest. COMPARISON: None available FINDINGS: The lungs appear clear. Cardiac size appears upper limits for technique. Atherosclerotic changes seen at the aortic arch. Right shoulder degenerative changes. RAD/Chest 1 View IMPRESSION: No evidence of acute disease. Reading Location: [id number]
[2024-10-21 08:34] LABS: International Normalized Ratio 1.2; Prothrombin Time (Protime)PT. 15.7 SECONDS (11.7-14.9)
[2024-10-21 08:35] LABS: Partial Thromboplast Time 25.2 Seconds (24.1-36.2)
[2024-10-21 08:56] LABS: Differential Comment SCANNED
[2024-10-21 09:09] LABS: AST(SGOT) 78 U/L (<=31); Alanine Aminotransfer ALT/SGPT 49 U/L (<=34); Alkaline Phosphatase 86 U/L (35-104); Anion Gap 19 (5-15); BUN 44 mg/dL (4-19); BUN/Creat Ratio 28.4 RATIO (10-20); Bilirubin, Direct 0.87 mg/dL (0.00-0.30); Calcium,Total 8.9 mg/dL (7.6-11.0); Carbon Dioxide 19.2 mmol/L (21.0-32.0); Chloride 90 mmol/L (98-108); Creatinine, Serum 1.53 mg/dL (0.70-1.20); EST Glomerular Filtration Rate 36 (>60); Estimated Creatinine Clearance 48.56 ml/min (50-250); Globulin 3.8 g/dL (2.2-4.2); Glucose 312 mg/dL (70-99); Potassium 3.9 mmol/L (3.3-5.1); Protein, Total 6.7 g/dL (5.9-8.4); Sodium Level 128 mmol/L (133-145); Total Bilirubin 1.52 mg/dL (0.00-1.30)
--- NOTE | 2024-10-21 09:30 | CT_ITS ---
PROCEDURE: ABDOMEN/PELVIS W IV CONT ONLY 10/21/2024 REASON FOR EXAM: ELEVATED LIVER ENZYMES LEUKOCYTOSIS TECHNIQUE: Abdomen and pelvis CT with intravenous contrast. Coronal and Sagittal reconstruction series were provided. PATIENT PREPARATION: Per protocol ORAL CONTRAST TYPE: None. CONTRAST: Isovue-300 VOLUME: 94 mL One or more dose reduction techniques were used (e.g., Automated exposure control, adjustment of the mA and/or kV according to patient size, use of iterative reconstruction technique. RADIATION DOSE SUMMARY: CTDlvol: 24.18+ 34.45 mGy DLP: 3416.92 mGycm COMPARISON: None FINDINGS: Exam limited by generalized photon starvation. Exam additionally slightly limited by beam hardening artifact related to the LEFT arm which was positioned at the side rather than above the head. Mild motion artifact through the lung bases and upper abdomen. Note portions of the RIGHT lateral body wall and minimally also including a portion of the peritoneal cavity are excluded from the field of view and cannot be evaluated. Additionally, there is probably a minute portion of the ascending colon which extends beyond the [id number]. Slightly limited Lung bases: Partially imaged suspected TAVR. Dense mitral annular calcification versus a prosthesis. Coronary atherosclerosis and/or stents. Tiny hiatal hernia. Slightly elevated RIGHT hemidiaphragm. Mild atelectasis/scarring. Liver: Lobulated contours.. Spleen: Mild splenomegaly, 14.9 cm. Gallbladder: Cholecystectomy. Pancreas: Unremarkable. Adrenals: 1.7 cm indeterminate LEFT adrenal nodule. Kidneys: Tiny hypodensity in the RIGHT too small to characterize, likely cyst. Mild symmetric nonspecific perinephric stranding. Bowel: Unremarkable. Normal caliber appendix. Lymph nodes: High-density or hyperenhancing subcentimeter bilateral iliac nodes, uncertain etiology. Vasculature: Atherosclerosis.. Likely at least sybnrgfl-ya-xfkqel stenosis at the origin of the celiac artery and likely at least mild stenosis at the origin of the SMA, suboptimally evaluated. Stenosis of the RIGHT KENPH-cllpztw-oirk-LEFT common iliac arteries also suboptimally evaluated. Peritoneum: Unremarkable. Bladder: Suspected broad-based diverticulum anteriorly on the RIGHT. Reproductive Organs: Hysterectomy. Likely 2.5 cm RIGHT ovarian cyst, incompletely characterized by CT. Body Wall: Operative changes.. Bones: Suspect demineralization. Multilevel spondylosis. Mild thoracolumbar dextroscoliosis. Presumed degenerative sclerosis along the LXVF-brbaoos-nhvi-RIGHT SI joints. Degenerative changes of the pubic symphysis.. CT/Abdomen/Pelvis W IV Cont ONLY IMPRESSION: 1. Somewhat limited exam as above. No acute findings. 2. Hepatic morphology which is nonspecific but can be seen in the setting of ch ronic liver disease such as fibrosis/early cirrhosis. Correlate with clinical and laboratory evaluation. Outpatient ultr asound elastography could be performed as indicated to detect/quantify fibrosis. 3. Indeterminate 1.7 cm LEFT adrenal nodule. Given a reported history of malig jade, recommend outpatient adrenal protocol CT, unless outside imaging can establish long-term stability. 4. Likely 2.5 cm RIGHT ovarian cyst, incompletely characterized by CT. Given t hat the patient is postmenopausal, recommend outpatient pelvic ultrasound. 5. High-density or hyperenhancing bilateral iliac nodes are not enlarged by CT criteria. This is nonspecific and could conceivably be related to previous lymphangiography given an appropriate histor y. Given reported history of malignancy, recommend clinical follow-up. 6. Mild splenomegaly. 7. Additional description as above. Reading Location: [id number]
[2024-10-21 09:36] LABS: Bedside Glucose 296 mg/dL (74-106)
[2024-10-21] MEDS: traMADol 50 MG Tablet PO (09:38)
[2024-10-21] MEDS: Insulin Lispro 100 UNIT/ML INSULN.PEN 10 UNIT SC ×2 (09:38→16:29)
[2024-10-21] MEDS: Empagliflozin 25 MG Tablet PO (10:30)
[2024-10-21] MEDS: METFORMIN HCL 750 MG TAB.ER.24H PO (10:30)
[2024-10-21 11:38] LABS: Mucous, Urine 0 SEEN /hpf (<or=2+)
[2024-10-21 11:39] LABS: Color, Urine Yellow (Yellow); Glucose, Dipstick 1000 mg/dl (Normal); Ketone-Dipstick Negative (Negative); Leukocyte Esterase-Dipstick 100 /ul (Negative); Nitrite-Dipstick Negative (Negative); Occult Blood-Urine 50 /ul (Negative); Protein-Dipstick 30 mg/dl (Negative); Urine Bilirubin Dipstick Negative (Negative); Urine Clarity Sl. Cloudy (Clear); Urine Urobilinogen Normal (Normal)
[2024-10-21 11:46] LABS: Bacteria 1+ /hpf (None Seen); Red Blood Cells-Urine 0-5 SEEN /hpf (0-5); Squamous Epithelial Cells - UA 0-5 SEEN /hpf (5-10); White Blood Cells 0-5 SEEN /hpf (0-5)
--- NOTE | 2024-10-21 12:13 | PCM.HP.STD ---
HPI - General General Date of Admission: 10/21/24 Date of Service: 10/21/24 Chief Complaint: Multiple falls HPI Narrative JOANNA SARAH, is a 69 F with multiple comorbidities including hypertension, class III obesity with BMI of 60, diabetes mellitus type 2 who presented to the emergency department with multiple falls. Per patient she was on her way to the bathroom felt lightheaded and fell hitting her head EMS squad was notified patient transferred to the ED. Head CT obtained in the ED was unremarkable patient was however found to have elevated WBC count. Workup did reveal acute cystitis with elevated leukocyte Estrace. 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 Mass of right breast Right rotator cuff tear Closed fracture of right proximal humerus History of transcatheter aortic valve replacement (TAVR) (07/11/22) Hyperlipidemia [place] on CPAP Dyspnea Type 2 diabetes mellitus Essential hypertension Nonrheumatic aortic (valve) stenosis Former smoker CPAP (continuous positive airway pressure) dependence Asthma Ludwigs angina Morbid obesity Home Medications ?Medication ?Instructions ?Recorded ?Last Taken ?Type atorvastatin 10 mg tablet 10 mg PO QHS cholesterol 07/14/21 10/20/24 History chlorthalidone 25 mg tablet 25 mg PO DAILY diuretic 07/14/21 10/20/24 History fluoxetine 20 mg capsule 20 mg PO DAILY anxiety 07/14/21 10/20/24 History metoprolol succinate 50 mg 50 mg PO DAILY . 07/14/21 10/20/24 History tablet,extended release 24 hr albuterol sulfate 90 mcg/actuation 2 puff inhalation Q4H PRN Dyspnea 05/25/22 08/21/23 History aerosol inhaler albuterol sulfate 2.5 mg/3 mL 2.5 mg inhalation Q4H PRN sob 05/26/22 07/26/23 History (0.083 %) solution for nebulization cholecalciferol (vitamin D3) 125 125 mcg PO DAILY 05/26/22 10/20/24 History mcg (5,000 unit) tablet lisinopril 40 mg tablet 40 mg PO DAILY htn 08/26/22 10/20/24 History multivitamin 1 tab PO DAILY 08/26/22 10/20/24 History dulaglutide 4.5 mg/0.5 mL 4.5 mg subcut QWEEK 10/14/22 10/20/24 History subcutaneous pen injector (Trulicity) aspirin 81 mg tablet,delayed 81 mg PO DAILY 01/26/23 10/20/24 History release blood pressure monitor #1 ea 04/13/23 Unknown Rx lactobacillus combo no.11 15 1 cap PO DAILY 08/18/23 10/20/24 History billion cell sprinkle capsule (Probiotic) insulin lispro 100 unit/mL 10 unit subcut TID 01/24/24 10/20/24 History subcutaneous pen (Humalog KwikPen (U-100) Insulin) metformin 750 mg tablet,extended 750 mg PO QDAY 01/24/24 10/20/24 History release 24 hr handicap placard #1 ea 09/25/24 Unknown Rx cetirizine 10 mg tablet (24Hour 10 mg PO DAILY allergies 10/21/24 10/20/24 History Allergy) empagliflozin 25 mg tablet 25 mg PO DAILY 10/21/24 10/20/24 History (Jardiance) Allergy/AdvReac Type Severity Reaction Status Date / Time glimepiride Allergy Unknown pruritus Verified 10/21/24 06:51 rosiglitazone (From Avandia) Allergy Unknown Rash Verified 10/21/24 06:51 sitagliptin (From Januvia) Allergy Unknown Rash Verified 10/21/24 06:51 Sulfa (Sulfonamide Allergy NEEDS Verified 10/21/24 06:51 Antibiotics) FOLLOW-UP acetaminophen (From Tylenol) AdvReac Unknown Enlarged Verified 10/21/24 06:51 liver pravastatin AdvReac Unknown elevated Verified 10/21/24 06:51 liver enzymes Family History Mother Diabetes Heart disease Hypertension CVA (cerebral vascular accident) Father Diabetes Heart disease Hypertension Surgical History History of cardiac catheterization History of right breast biopsy History of left heart catheterization (05/30/22) History of rhinoplasty Hx of total knee replacement Hx of tubal ligation Hx of tonsillectomy History of hysterectomy Hx of cholecystectomy Social History Smoking Status: Former smoker how long ago did patient quit smokin years ago alcohol intake: current alcohol intake frequency: holidays/special occasions only substance use type: does not use caffeine: Yes Type: coffee Number of servings: 1 ROS ROS Narrative GENERAL: denies fever, chills, HEENT: denies headache, sinus congestion, RESPIRATORY: denies cough, sputum production, CARDIAC: denies chest pain, palpitations, orthopnea, GASTROINTESTINAL: denies abdominal pain, GENITOURINARY: denies dysuria, urgency, frequency, EXTREMITY: denies swelling MUSCULOSKELETAL: Multiple falls with bruising of left upper extremity NEUROLOGIC: denies focal numbness, weakness, tingling HEMATOLOGIC: denies easy bruising and/or hemorrhage INTEGUMENT: denies rashes PSYCHIATRIC: denies suicidal or homicidal ideation Vital Signs Vital Signs Vital Signs: 10/21/24 06:52 10/21/24 06:52 10/21/24 08:54 Temperature 98.5 F Temperature Source Oral Pulse Rate 81 77 Respiratory Rate 18 18 Respiratory Effort Normal Respiratory Depth Normal Respiratory Pattern Normal Blood Pressure 114/50 L 127/44 H Blood Pressure Mean 71 71 Pulse Ox 94 94 94 Oxygen Delivery Method Room Air Room Air Room Air 10/21/24 10:00 10/21/24 12:07 10/21/24 12:08 Temperature Temperature Source Pulse Rate 82 93 92 Respiratory Rate 23 H 18 20 H Respiratory Effort Respiratory Depth Respiratory Pattern Blood Pressure 103/64 143/52 H 143/52 H Blood Pressure Mean 77 82 82 Pulse Ox 95 92 94 Oxygen Delivery Method Room Air Room Air Room Air Weight Weight: 149.6 kg Body Mass Index (BMI) 60.2 Physical Exam Narrative GENERAL: In no apparent distress but slow to respond HEENT: Atraumatic; normocephalic EYES; Anicteric, Normal Conjunctiva NECK; supple, normal thyroid, RESPIRATORY: Diminished to auscultation CARDIOVASCULAR: Regular S1 S2, GI: soft, normoactive bowel sounds, : No Renal angle tenderness; EXTREMITIES: No edema, no clubbing, MUSCULOSKELETAL: no muscle wasting NEURO: Awake; no lateralizing signs. SKIN: Bruising involving the lateral aspect of the left upper extremity PSYCH; Flat affect Results Lab / Micro Data 10/21/24 08:11 10/21/24 08:11 Labs: Laboratory Results - last 24 hr 10/21/24 08:11: WBC 20.3 H, RBC 4.03 L, Hgb 12.1, Hct 36.2 L, MCV 89.8, MCH 30.0, MCHC 33.4, RDW Std Deviation 49.7 H, RDW Coeff of Graciela 15.1 H, Plt Count 252, MPV 11.5, Immature Gran % (Auto) 0.700, Neut % (Auto) 92.3 H, Lymph % (Auto) 3.0 L, Holt % (Auto) 3.2, Eos % (Auto) 0.3, Baso % (Auto) 0.5, Absolute Neuts (auto) 18.7 H, Absolute Lymphs (auto) 0.61 L, Nucleated RBC % 0, Differential Comment SCANNED, PT 15.7 H, INR 1.2, APTT 25.2, Sodium 128 L, Potassium 3.9, Chloride 90 L, Carbon Dioxide 19.2 L, Anion Gap 19 H, BUN 44 H, Creatinine 1.53 H, Estim Creat Clear Calc 48.56 L, Est GFR (MDRD) Non-Af 36 L, BUN/Creatinine Ratio 28.4 H, Glucose 312 H, Calcium 8.9, Total Bilirubin 1.52 H, Direct Bilirubin 0.87 H, AST 78 H, ALT 49 H, Alkaline Phosphatase 86, Total Protein 6.7, Albumin 3.0 L, Globulin 3.8 10/21/24 09:17: POC Glucose 296 H 10/21/24 11:33: Urine Color Yellow, Urine Clarity Sl. Cloudy, Urine pH 6.0, Ur Specific [place] 1.010, Urine Protein 30 H, Urine Glucose (UA) 1000 H, Urine Ketones Negative, Urine Occult Blood 50 H, Urine Nitrite Negative, Urine Bilirubin Negative, Urine Urobilinogen Normal, Ur Leukocyte Esterase 100 H, Urine RBC 0-5 SEEN, Urine WBC 0-5 SEEN, Ur Squamous Epith Cells 0-5 SEEN, Urine Bacteria 1+, Urine Mucus 0 SEEN Imaging Radiology Impression Brain CT 10/21/24 07:08 IMPRESSION: 1. Mild patchy age-indeterminate supratentorial hypodensities, nonspecific but compatible with chronic microvascular ischemic changes although this could obscure small acute infarct in the absence of prior exams to establish long-term stability. If there is persistent concern, recommend MRI. 2. Additional description as above. Reading Location: [facility] Chest X-Ray 10/21/24 08:30 IMPRESSION: No evidence of acute disease. Reading Location: [facility] Hip/Pelvis X-Ray 10/21/24 08:30 IMPRESSION: No fracture or dislocation identified. Reading Location: [facility] Shoulder X-Ray 10/21/24 08:30 IMPRESSION: 1. Suspected demineralization without visible acute displaced fracture. If there is persistent concern, consider CT. 2. Grossly similar suspected chronic posttraumatic deformity of the humeral head/neck. 3. Additional description as above. Reading Location: [facility] Abdomen/Pelvis CT 10/21/24 09:30 IMPRESSION: 1. Somewhat limited exam as above. No acute findings. 2. Hepatic morphology which is nonspecific but can be seen in the setting of chronic liver disease such as fibrosis/early cirrhosis. Correlate with clinical and laboratory evaluation. Outpatient ultrasound elastography could be performed as indicated to detect/quantify fibrosis. 3. Indeterminate 1.7 cm LEFT adrenal nodule. Given a reported history of malignancy, recommend outpatient adrenal protocol CT, unless outside imaging can establish long-term stability. 4. Likely 2.5 cm RIGHT ovarian cyst, incompletely characterized by CT. Given that the patient is postmenopausal, recommend outpatient pelvic ultrasound. 5. High-density or hyperenhancing bilateral iliac nodes are not enlarged by CT criteria. This is nonspecific and could conceivably be related to previous lymphangiography given an appropriate history. Given reported history of malignancy, recommend clinical follow-up. 6. Mild splenomegaly. 7. Additional description as above. Reading Location: [facility] Assessment & Plan Assessment/Plan (1) GEO (acute kidney injury): (2) Elevated LFTs: (3) UTI (urinary tract infection): PLAN: Plan Patient is a 69-year-old female admitted with multiple falls. Found to have abnormal urinalysis and elevated WBC count and glucose levels admitted to monitored bed for further management 1. Multiple falls ? Etiology not clear patient was found to be quite lethargic. Ordered ABG to rule out hypercapnia 2. Acute kidney injury ? Possibly contributing to above potential nephrotoxic medications held started on IV fluid ordered renal ultrasound and repeat BMP ordered for a.m. 3. Leukocytosis ? Patient was found to have abnormal urinalysis with positive leukocyte Estrace. Patient started on ceftriaxone urine and blood cultures ordered 4. Diabetes mellitus type 2 ? Presented with hyperglycemia. Patient apparently had a recent adjustment made to her diabetic management regimen. Patient not clear on the details. In any case held oral hypoglycemic agent started patient on long-acting insulin with sliding scale coverage 5. Essential hypertension ? Patient is on lisinopril which is currently being held given her worsening kidney function 6. Dyslipidemia ?Patient is on statin therapy, continued at home dose 7. Valvular heart disease with history of TAVR 8. Class III obesity with BMI of 60 ? Complicating care weight loss advised 9. Obstructive sleep apnea ? Patient is on PAP therapy consistent use encouraged 10. 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 DVT prophylaxis ? Subcu heparin Advance planning; did discuss with the patient and family (patient's sister) regarding advanced directives as well as CODE STATUS. Did explain the various scenarios involved ( FULL CODE, DNR CCA, DNR CCA with no intubation, and DNR CC and what each meant) patient elected to remain full code with CPR intubation if needed. Order was placed. Time spent on discussion 18 minutes. Charges/Coding Multi Select Codes Visit Charges Visit Charges: 82112 Init Hosp [facility] Hospitalists' Procedures Procedures: 77863 Advncd Care Plan 30 Min
[2024-10-21] MEDS: Ondansetron 4 MG/2 ML Vial IV (12:31)
--- NOTE | 2024-10-21 12:35 | ED.RN ---
2ND TROPONIN LATE D/T DIFFICULT BLOOD DRAW. LAB CALLED TO DRAW AT 1230
[2024-10-21] MEDS: 0.9% Normal Saline (1000mL) 1,000 ML 125 ML IV (13:29)
[2024-10-21 13:34] LABS: Bedside Glucose 221 mg/dL (74-106)
[2024-10-21 13:35] LABS: Troponin T High Sens 2 HR 59 ng/L (<=14)
--- NOTE | 2024-10-21 13:39 | ED.RN ---
LAB JUST CALLED WITH A CRITICAL LAB, IT WAS 2 HR TROP =59. CALLED TO THE FLOOR SINCE PT WAS ADMITTED AND GONE TO THE FLOOR BY TIME THEY CALLED
[2024-10-21 14:03] LABS: Troponin T High Sensitivity 57 ng/L (<=14)
[2024-10-21] MEDS: Heparin Injection (Vial) 5,000 UNIT/ML VIAL 5000 UNIT SC ×2 (14:04→23:43)
[2024-10-21] MEDS: Ceftriaxone 1 GM/50 ML BAG IV (14:04)
[2024-10-21 14:12] LABS: Base Excess 2 mmol/L (-2 to +2); Bicarbonate 25.6 mmol/L (22-26); Blood Gas Specimen Type ART; Mode Not entered; O2 Delivery Device Cannula; PO2 110 mmHG (75-100); SITE L Brach; SO2 99 % (95-99); Total Carbon Dioxide 27 mmol/L
[2024-10-21 15:51] LABS: Lactic Acid 2.1 mmol/L (0.0-2.0)
--- NOTE | 2024-10-21 16:23 | SEPSISATNOTE ---
Sepsis Attestation Sepsis Attestation: Agree w/Sepsis Date exam was performed: 10/21/24 Time exam was performed: 12:50 Possible Source of Sepsis: Genitourinary Sepsis Organ Dysfunction Criteria Present: Lactic Acid > 2 mmol/L and New/Unexplained change in mental status Fluid Resuscitation Fluid Resuscitation ordered: 30 ml/kg fluid bolus ordered Sepsis Note Date exam was performed: 10/21/24 Time exam was performed: 17:00 Sepsis Attestation: Sepsis re-evaluation was performed Response to fluids: Non Fluid responsive hypotension and Vasopressors started (Blood pressure did not improve with IV fluid resuscitation patient was transferred to the ICU, pressors started)
[2024-10-21] MEDS: 0.9% Normal Saline (1000mL) 1,000 ML 999 ML IV ×5 (16:34→21:52)
[2024-10-21] MEDS: Insulin Lispro 100 UNIT/ML INSULN.PEN SC ×2 (16:34→23:44)
[2024-10-21 16:54] LABS: Bedside Glucose 267 mg/dL (74-106)
[2024-10-21 19:11] LABS: Reflex Lactate? Y
[2024-10-21 20:16] LABS: Lactic Acid 3.5 mmol/L (0.0-2.0)
--- NOTE | 2024-10-21 21:32 | EKG12_ITS ---
Test Reason : O Blood Pressure : */* mmHG Vent. Rate : 82 BPM Atrial Rate : 82 BPM P-R Int : 110 ms QRS Dur : 102 ms QT Int : 368 ms P-R-T Axes : 31 26 66 degrees QTcB Int : 429 ms Critical Test Result: STEMI Sinus rhythm When compared with ECG of 21-Oct-2024 07:20, MANUAL COMPARISON REQUIRED DATA IS UNCONFIRMED Confirmed by NIKOLE PARR, JEREMY ([id number]), editor greeting card CAROLIN MOORE ([id number]) on 10/24/2024 1:38:49 PM Referred By: Nicholas Roa Confirmed By: JEREMY AGUSTIN MD
[2024-10-21] MEDS: Norepinephrine 8 MG in 0.9% Normal Saline (250mL Bag) 242 ML 9.4 MG CONT INF (21:40)
--- NOTE | 2024-10-21 21:59 | NURSING ---
Pt arrived from [facility] d/t worsening hypotension. Order given by Dr. Benitez for levophed. EKG obtained after arrival d/t ST elevation noticed on telemetry. EKG showed acute [place]/STEMI. Picture of EKG and admission EKG sent to Dr. Benitez, who recommended consulting with cardiology. Dr. Bailey paged and sent pictures of current and old EKGs. Dr. Bailey did not think a STEMI alert was necessary since the ST elevation was so minute. Dr. Benitez updated and agrees with the plan as well.
--- NOTE | 2024-10-21 22:43 | RAD_ITS ---
EXAM: Portable chest CLINICAL HISTORY: Central line placement COMPARISON: Earlier today TECHNIQUE: Portable AP view FINDINGS: Interval placement of a right subclavian central line with tip of the catheter overlying the distal superior vena cava and no pneumothorax. No bony abnormality. No cardiomegaly. Calcified plaque in the aortic arch. No opacity within the lungs to suggest active pulmonary disease. RAD/CXR for Line Placement IMPRESSION: Interval placement of right subclavian central line with tip of the catheter ov erlying the distal superior vena cava no pneumothorax. No active disease. Reading Location: [id number]
[2024-10-21 22:55] LABS: Reflex Lactate? Y
--- NOTE | 2024-10-21 23:06 | EX.ED.CRITCA ---
HPI History of Present Illness Chief Complaint: Fall Detail of Chief Complaint: Sepsis, hypotension Informant: other (Commercial Installer and primary care nurse) Narrative Narrative: Patient was admitted earlier today. She was seen by Dr. Retana. She was admitted for sepsis. Commercial Installer asked if I would place a central line since she is presently on Levophed at 15 mics through a peripheral line. Patient is encephalopathic. Sister signed consent. They were made aware of risks and benefits and potential complications. 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 Mass of right breast Right rotator cuff tear Closed fracture of right proximal humerus History of transcatheter aortic valve replacement (TAVR) (07/11/22) Hyperlipidemia [place] on CPAP Dyspnea Type 2 diabetes mellitus Essential hypertension Nonrheumatic aortic (valve) stenosis Former smoker CPAP (continuous positive airway pressure) dependence Asthma [place]igs angina Morbid obesity Home Medications ?Medication ?Instructions ?Recorded ?Last Taken ?Type atorvastatin 10 mg tablet 10 mg PO QHS cholesterol 07/14/21 10/20/24 History chlorthalidone 25 mg tablet 25 mg PO DAILY diuretic 07/14/21 10/20/24 History fluoxetine 20 mg capsule 20 mg PO DAILY anxiety 07/14/21 10/20/24 History metoprolol succinate 50 mg 50 mg PO DAILY . 07/14/21 10/20/24 History tablet,extended release 24 hr albuterol sulfate 90 mcg/actuation 2 puff inhalation Q4H PRN Dyspnea 05/25/22 08/21/23 History aerosol inhaler albuterol sulfate 2.5 mg/3 mL 2.5 mg inhalation Q4H PRN sob 05/26/22 07/26/23 History (0.083 %) solution for nebulization cholecalciferol (vitamin D3) 125 125 mcg PO DAILY 05/26/22 10/20/24 History mcg (5,000 unit) tablet lisinopril 40 mg tablet 40 mg PO DAILY htn 08/26/22 10/20/24 History multivitamin 1 tab PO DAILY 08/26/22 10/20/24 History dulaglutide 4.5 mg/0.5 mL 4.5 mg subcut QWEEK 10/14/22 10/20/24 History subcutaneous pen injector (Trulicity) aspirin 81 mg tablet,delayed 81 mg PO DAILY 01/26/23 10/20/24 History release blood pressure monitor #1 ea 04/13/23 Unknown Rx lactobacillus combo no.11 15 1 cap PO DAILY 08/18/23 10/20/24 History billion cell sprinkle capsule (Probiotic) insulin lispro 100 unit/mL 10 unit subcut TID 01/24/24 10/20/24 History subcutaneous pen (Humalog KwikPen (U-100) Insulin) metformin 750 mg tablet,extended 750 mg PO QDAY 01/24/24 10/20/24 History release 24 hr handicap placard #1 ea 09/25/24 Unknown Rx cetirizine 10 mg tablet (24Hour 10 mg PO DAILY allergies 10/21/24 10/20/24 History Allergy) empagliflozin 25 mg tablet 25 mg PO DAILY 10/21/24 10/20/24 History (Jardiance) Allergy/AdvReac Type Severity Reaction Status Date / Time glimepiride Allergy Unknown pruritus Verified 10/21/24 06:51 rosiglitazone (From Avandia) Allergy Unknown Rash Verified 10/21/24 06:51 sitagliptin (From Januvia) Allergy Unknown Rash Verified 10/21/24 06:51 Sulfa (Sulfonamide Allergy NEEDS Verified 10/21/24 06:51 Antibiotics) FOLLOW-UP acetaminophen (From Tylenol) AdvReac Unknown Enlarged Verified 10/21/24 06:51 liver pravastatin AdvReac Unknown elevated Verified 10/21/24 06:51 liver enzymes Family History Mother Diabetes Heart disease Hypertension CVA (cerebral vascular accident) Father Diabetes Heart disease Hypertension Surgical History History of cardiac catheterization History of right breast biopsy History of left heart catheterization (05/30/22) History of rhinoplasty Hx of total knee replacement Hx of tubal ligation Hx of tonsillectomy History of hysterectomy Hx of cholecystectomy Social History Smoking Status: Former smoker how long ago did patient quit smokin years ago alcohol intake: current alcohol intake frequency: holidays/special occasions only substance use type: does not use caffeine: Yes Type: coffee Number of servings: 1 EXAM Physical Exam Const Vital Signs: 10/21/24 06:52 10/21/24 06:52 10/21/24 08:54 Temperature 98.5 F Temperature Source Oral Pulse Rate 81 77 Respiratory Rate 18 18 Respiratory Effort Normal Respiratory Depth Normal Respiratory Pattern Normal Blood Pressure 114/50 L 127/44 H Blood Pressure Mean 71 71 Pulse Ox 94 94 94 Oxygen Delivery Method Room Air Room Air Room Air 10/21/24 10:00 10/21/24 12:07 10/21/24 12:08 Temperature Temperature Source Pulse Rate 82 93 92 Respiratory Rate 23 H 18 20 H Respiratory Effort Respiratory Depth Respiratory Pattern Blood Pressure 103/64 143/52 H 143/52 H Blood Pressure Mean 77 82 82 Pulse Ox 95 92 94 Oxygen Delivery Method Room Air Room Air Room Air Patient's blood pressure was 62 systolic. She is not oriented and does not have capacity. HEENT normocephalic and atraumatic Eyes PERRL Resp Resp Narrative: Lungs are clear to auscultation. Breath sounds are diminished. Cardio regular rate, regular rhythm, S1 normal heart sound, S2 normal heart sound and no murmurs Skin Skin Narrative: Patient's skin is flushed. MDM MDM MDM Narrative Medical decision making narrative: Patient needs a central line. Lab Data Labs: Laboratory Results - last 24 hr 10/21/24 10/21/24 10/21/24 08:11 09:17 11:33 WBC 20.3 H RBC 4.03 L Hgb 12.1 Hct 36.2 L MCV 89.8 MCH 30.0 MCHC 33.4 RDW Std Deviation 49.7 H RDW Coeff of Graciela 15.1 H Plt Count 252 MPV 11.5 Immature Gran % (Auto) 0.700 Neut % (Auto) 92.3 H Lymph % (Auto) 3.0 L [place] % (Auto) 3.2 Eos % (Auto) 0.3 Baso % (Auto) 0.5 Absolute Neuts (auto) 18.7 H Absolute Lymphs (auto) 0.61 L Nucleated RBC % 0 Differential Comment SCANNED PT 15.7 H INR 1.2 APTT 25.2 Sodium 128 L Potassium 3.9 Chloride 90 L Carbon Dioxide 19.2 L Anion Gap 19 H BUN 44 H Creatinine 1.53 H Estim Creat Clear Calc 48.56 L Est GFR (MDRD) Non-Af 36 L BUN/Creatinine Ratio 28.4 H Glucose 312 H Calcium 8.9 Total Bilirubin 1.52 H Direct Bilirubin 0.87 H AST 78 H ALT 49 H Alkaline Phosphatase 86 Troponin T High Sens 57 H* Total Protein 6.7 Albumin 3.0 L Globulin 3.8 Urine Color Yellow Urine Clarity Sl. Cloudy Urine pH 6.0 Ur Specific [place] 1.010 Urine Protein 30 H Urine Glucose (UA) 1000 H Urine Ketones Negative Urine Occult Blood 50 H Urine Nitrite Negative Urine Bilirubin Negative Urine Urobilinogen Normal Ur Leukocyte Esterase 100 H Urine RBC 0-5 SEEN Urine WBC 0-5 SEEN Ur Squamous Epith Cells 0-5 SEEN Urine Bacteria 1+ Urine Mucus 0 SEEN POC Glucose 296 H Radiography Diagnostic Testing: Clinical Impression(s) from Imaging Studies Brain CT 10/21/24 07:08 IMPRESSION: 1. Mild patchy age-indeterminate supratentorial hypodensities, nonspecific but compatible with chronic microvascular ischemic changes although this could obscure small acute infarct in the absence of prior exams to establish long-term stability. If there is persistent concern, recommend MRI. 2. Additional description as above. Reading Location: [facility] Chest X-Ray 10/21/24 08:30 IMPRESSION: No evidence of acute disease. Reading Location: [facility] Hip/Pelvis X-Ray 10/21/24 08:30 IMPRESSION: No fracture or dislocation identified. Reading Location: [facility] Shoulder X-Ray 10/21/24 08:30 IMPRESSION: 1. Suspected demineralization without visible acute displaced fracture. If there is persistent concern, consider CT. 2. Grossly similar suspected chronic posttraumatic deformity of the humeral head/neck. 3. Additional description as above. Reading Location: [facility] Abdomen/Pelvis CT 10/21/24 09:30 IMPRESSION: 1. Somewhat limited exam as above. No acute findings. 2. Hepatic morphology which is nonspecific but can be seen in the setting of chronic liver disease such as fibrosis/early cirrhosis. Correlate with clinical and laboratory evaluation. Outpatient ultrasound elastography could be performed as indicated to detect/quantify fibrosis. 3. Indeterminate 1.7 cm LEFT adrenal nodule. Given a reported history of malignancy, recommend outpatient adrenal protocol CT, unless outside imaging can establish long-term stability. 4. Likely 2.5 cm RIGHT ovarian cyst, incompletely characterized by CT. Given that the patient is postmenopausal, recommend outpatient pelvic ultrasound. 5. High-density or hyperenhancing bilateral iliac nodes are not enlarged by CT criteria. This is nonspecific and could conceivably be related to previous lymphangiography given an appropriate history. Given reported history of malignancy, recommend clinical follow-up. 6. Mild splenomegaly. 7. Additional description as above. Reading Location: [facility] Procedures Other Procedures Procedure(s): Central line placement: Using the ultrasound machine. The right internal jugular vein was visualized. Over most of the path the vein was overriding the internal carotid artery and for part of the path that was seen it overlapped 50%. Where there was no overlap was down near the clavicle. Concerned this may result in pneumothorax or vascular injury. This was a legitimate concern since he could not follow simple commands. Patient was prepped for both an IJ and subclavian. 3 nurses were needed to hold her head and extremities. Patient was prepped draped sterile manner. Landmarks were palpated. Everyone in the room wore a And mask. I was properly gowned. The area was anesthetized by local titration 1% lidocaine. The right subclavian line was cannulated successfully in the first attempt on the way in. Difficulty passing the wire because the needle came out of the vessel. The needle was reinserted into the vessel and using Seldinger technique a 7.5 Irish triple-lumen was placed without complication. Blood was aspirated from all 3 ports. Chest x-ray was obtained to confirm placement. Placement was confirmed. Furthermore there was no evidence of pneumothorax. Discharge Plan Dx/Rx/DC Orders Clinical Impression: Frequent falls, Leukocytosis, Contusion of hip, left, Elevated LFTs, Hyperglycemia, GEO (acute kidney injury) Disposition Disposition: Acute Care Hospital [facility] Discharge Date/Time: 10/21/24 12:51
--- NOTE | 2024-10-21 23:13 | NURSING ---
Called patient's sister Karlee to obtain consent for central line placement. Dr. Zambrano at bedside to place central line. R subclavian triple lumen placed, chest X-ray obtained and verbal order from Dr. Zambrano at bedside given to use the line.
[2024-10-21] MEDS: Insulin Glargine-YFGN 100 UNIT/ML Pen 10 UNIT SC (23:44)
[2024-10-21] MEDS: Nystatin Powder 15gm Bottle 1 APPLIC TOPICAL (23:45)
[2024-10-21] MEDS: Acetaminophen 650 MG Suppository RC (23:55)
[2024-10-22] VITALS (65 sets, daily range): BP systolic 56–178; BP diastolic 38–80; PULSE 77–140; RESP 15–94; TEMP 36.9–39.3; O2SAT 4–100; BMI 61.5
[2024-10-22 00:16] LABS: Bedside Glucose 206 mg/dL (74-106)
[2024-10-22] MEDS: Vasopressin 20 UNITS in 0.9% Normal Saline (50mL Bag) 24 ML 3 UNITS CONT INF (02:16)
[2024-10-22] MEDS: LACTATED RINGERS 250 ML 999 ML IV (02:59)
--- NOTE | 2024-10-22 03:00 | CON.PCM.CC_ITS ---
HPI Consult Data Date of Consult: 10/22/24 HPI Narrative HPI Narrative: 69 F with multiple comorbidities including hypertension, class III obesity with BMI of 60, diabetes mellitus type 2 who presented to the emergency department with multiple falls In the ED, she was found to be confused and dx with a UTi and admitted to the floor. Overnight, she became significantly hypotensive requiring dual vasopressors and is now admitted to the ICU. 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 Mass of right breast Right rotator cuff tear Closed fracture of right proximal humerus History of transcatheter aortic valve replacement (TAVR) (07/11/22) Hyperlipidemia LIN[place]OD on CPAP Dyspnea Type 2 diabetes mellitus Essential hypertension Nonrheumatic aortic (valve) stenosis Former smoker CPAP (continuous positive airway pressure) dependence Asthma Ludwigs angina Morbid obesity Home Medications ?Medication ?Instructions ?Recorded ?Last Taken ?Type atorvastatin 10 mg tablet 10 mg PO QHS cholesterol 10/20/24 History chlorthalidone 25 mg tablet 25 mg PO DAILY diuretic 10/20/24 History fluoxetine 20 mg capsule 20 mg PO DAILY anxiety 07/1410/20/24 History metoprolol succinate 50 mg 50 mg PO DAILY . 07/14/21 0 10/20/24 History tablet,extended release 24 hr albuterol sulfate 90 mcg/actuation 2 puff inhalation Q 4H PRN Dyspnea 05/25/22 08/21/23 History aerosol inhaler albuterol sulfate 2.5 mg/3 mL 2.5 mg inhalation Q4H CO N sob 05/26/22 07/26/23 History (0.083 %) solution for nebulization cholecalciferol (vitamin D3) 125 125 mcg PO DAILY 12/0 07/1710/20/24 History mcg (5,000 unit) tablet lisinopril 40 mg tablet 40 mg PO DAILY htn 08/26/22 10/20/24 History multivitamin 1 tab PO DAILY 08/26/2209/25 7/25 History dulaglutide 4.5 mg/0.5 mL 4.5 mg subcut QWEEK 10/14/22 10/20/24 History subcutaneous pen injector (Trulicity) aspirin 81 mg tablet,delayed 81 mg PO DAILY 01/26/23 0 10/20/24 History release blood pressure monitor #1 ea 04/13/23 Unknown Rx lactobacillus combo no.11 15 1 cap PO DAILY 08/18/23 0 10/20/24 History billion cell sprinkle capsule (Probiotic) insulin lispro 100 unit/mL 10 unit subcut TID 01/24/24 10/20/24 History subcutaneous pen (Humalog KwikPen (U-100) Insulin) metformin 750 mg tablet,extended 750 mg PO QDAY 10/20/24 History release 24 hr handicap placard #1 ea 09/25/24 Unknown Rx cetirizine 10 mg tablet (24Hour 10 mg PO DAILY allergi es 10/21/24 10/20/24 History Allergy) empagliflozin 25 mg tablet 25 mg PO DAILY 10/21/24 History (Jardiance) Allergy/AdvReac Type Severity Reaction Status Date / Time glimepiride Allergy Unknown pruritus Verified 10/21/24 06:51 rosiglitazone (From Avandia) Allergy Unknown Rash Verified 10/21/24 06:51 sitagliptin (From Januvia) Allergy Unknown Rash Verified 10/21/24 06:51 Sulfa (Sulfonamide Allergy NEEDS Verified 10/21/24 06:51 Antibiotics) FOLLOW-UP acetaminophen (From Tylenol) AdvReac Unknown Enlarged Verified 10/21/24 06:51 liver pravastatin AdvReac Unknown elevated Verified 10/21/24 06:51 liver enzymes Family History Mother Diabetes Heart disease Hypertension CVA (cerebral vascular accident) Father Diabetes Heart disease Hypertension Surgical History History of cardiac catheterization History of right breast biopsy History of left heart catheterization (05/30/22) History of rhinoplasty Hx of total knee replacement Hx of tubal ligation Hx of tonsillectomy History of hysterectomy Hx of cholecystectomy Social History Smoking Status: Former smoker how long ago did patient quit smokin years ago alcohol intake: current alcohol intake frequency: holidays/special occasions only substance use type: does not use caffeine: Yes Type: coffee Number of servings: 1 ROS ROS Narrative As per HPI Objective Data Objective Data Vital Signs: Vital Signs Last response 3 Temperature 39.3 C H 10/22/24 01:00 Temperature Source Core 10/22/24 01:00 Pulse Rate 99 10/22/24 01:35 Respiratory Rate 26 H 10/22/24 01:35 Respiratory Effort Short of Breath, Accessory Muscle Use 10/21/24 22:00 Respiratory Depth Shallow 10/21/24 22:00 Respiratory Pattern Tachypnea 10/22/24 01:35 Blood Pressure 56/46 L 10/22/24 01:00 Blood Pressure Mean 49 10/22/24 01:00 Blood Pressure Source Monitor 10/22/24 01:00 Blood Pressure Position Semi-Fowlers 10/21/24 21:40 Blood Pressure Location Right Forearm 10/21/24 21:50 Pulse Ox 99 10/22/24 01:35 Oxygen Delivery Method Bi-pap 10/22/24 01:00 Oxygen Flow Rate (L/min) 4 10/21/24 22:00 Fraction of Inspired Oxygen (FIO2) 40 10/22/24 01:35 I&O: I&O Last 24 Hours 3 10/21/24 10/21/24 10/22/24 11:59 23:59 11:59 Intake Total 6335.69 / 6345.07 51.60 / 51.60 Output Total 200 / 700 500 / 500 Balance 6135.69 / 5645.07 -448.40 / -448.40 I&O: Total Stay 3 10/21/24 06:50 thru 10/22/24 01:00 Intake Total 6387.29 Output Total 700 Balance 5687.29 Current Meds Ordered / Administered: Current meds ordered / Administered 3 Generic Name Dose Route Start Last Admin Trade Name Freq PRN Reason Stop Dose Admin Acetaminophen 650 mg 10/21/24 23:22 10/21/24 23:55 Acetaminophen 650 Mg Suppository RC 650 mg Q6H PRN PRN Administration FEVER Albuterol Sulfate 2.5 mg 10/21/24 13:21 Albuterol 2.5 Mg/3 Ml Vial.Neb. INHALATION Q2H PRN PRN SOB &/OR WHEEZING Aspirin 81 mg 10/22/24 08:00 Aspirin E.C. 81 Mg Tablet PO BREAKFAST [facility] Atorvastatin Calcium 10 mg 10/21/24 22:00 10/21/24 23:21 Atorvastatin Calcium 10 Mg Tablet PO Not Given QHS [facility] Calamine/Phenol 1 applic 10/21/24 22:00 10/21/24 23:45 Menthol/Lanolin/Calamine/Znox 113 Gm Tube TOPICAL Not Given TID [facility] Protocol Cholecalciferol 125 mcg 10/22/24 10:00 Cholecalciferol (Vit D3) 125 Mcg Capsule (5,000 Units) PO DAILY [facility] Docusate Sodium 100 mg 10/21/24 13:21 Docusate Sodium 100 Mg Capsule PO BID PRN PRN Constipation Fluoxetine HCl 20 mg 10/22/24 10:00 Fluoxetine 20 Mg Capsule PO DAILY [facility] Glucagon 1 mg 10/21/24 13:21 Glucagon 1 Mg/Ml Syringe IM X1 PRN HYPOGLYCEMIA Protocol Heparin Sodium (Porcine) 5,000 unit 10/21/24 14:00 10/21/24 23:43 Heparin Injection (Vial) 5,000 Unit/Ml Vial SC 5,000 unit Q8 MARGARITA Administration Dextrose 250 mls @ 0 mls/hr 10/21/24 13:21 Dextrose 10%-Water IV .Q0M PRN HYPOGLYCEMIA Protocol As Directed Sodium Chloride 1,000 mls @ 125 mls/hr 10/21/24 13:21 10/21/24 23:18 IV Not Given .Q8H MARGARITA Ceftriaxone Sodium 1 gm in 50 mls @ 100 mls/hr 10/21/24 13:21 10/21/24 14:35 Rocephin IV 10/28/24 13:22 Infused Q24 MARGARITA Infusion Norepinephrine Bitartrate 8 mg 250 mls @ 9.375 mls/hr 10/21/24 21:05 10/22/24 01:00 / Sodium Chloride CONT INF 30 mcg/min .[id number] MARGARITA 56.3 mls/hr Titration Protocol 5 MCG/MIN Vasopressin 20 units/ Sodium 25 mls @ 3 mls/hr 10/22/24 02:00 10/22/24 02:16 Chloride CONT INF 0.04 units/min .[id number] MARGARITA 3 mls/hr Administration 0.04 UNITS/MIN Lactated Ringer's 250 mls @ 999 mls/hr 10/22/24 03:00 Lactated Ringers IV 10/22/24 03:15 .Q16M [facility] Insulin Glargine 10 unit 10/21/24 22:00 10/21/24 23:44 Insulin Glargine-Yfgn 100 Unit/Ml Pen SC 10 unit BID [facility] Administration Protocol Insulin Human Lispro 10 unit 10/21/24 17:00 10/21/24 16:29 Insulin Lispro 100 Unit/Ml Insuln.Pen SC 10 units TIDCM [facility] Administration Insulin Human Lispro 0 unit 10/21/24 16:00 10/21/24 23:44 Insulin Lispro 100 Unit/Ml Insuln.Pen SC 4 units ACHS [facility] Administration Protocol Loratadine 10 mg 10/22/24 10:00 Loratadine 10 Mg Tablet PO DAILY [facility] Melatonin 3 mg 10/21/24 13:21 Melatonin 3 Mg Tablet PO QHS PRN PRN INSOMNIA Metoprolol Succinate 50 mg 10/22/24 10:00 Metoprolol(Xl)Succ 50 Mg Tablet PO DAILY [facility] Protocol Multivitamins 1 tablet 10/22/24 08:00 [facility] Nystatin 1 applic 10/21/24 22:00 10/21/24 23:45 Nystatin Powder 15gm Bottle TOPICAL 1 applic BID [facility] Administration Protocol Ondansetron HCl 4 mg 10/21/24 13:21 Ondansetron 4 Mg/2 Ml Vial IV Q8H PRN PRN NAUSEA/VOMITING Sodium Chloride 10 - 40 ml 10/21/24 13:45 0.9% Saline Lock 10 Ml Syringe IV UD PRN SALINE FLUSH Physical Exam Const Constitutional Narrative: Distiress, AMS HEENT normocephalic Eyes EOMs intact bilaterally Neck full ROM Chest inspection of chest normal Chest: symmetrical chest wall rise Resp normal respiratory effort and normal air movement Cardio Cardio Narrative: Sinus tachycardia GI non-tender and non-distended Lab / Micro Data 10/21/24 08:11 10/21/24 08:11 Labs: Laboratory Results - last 24 hr 10/21/24 08:11: WBC 20.3 H, RBC 4.03 L, Hgb 12.1, Hct 36.2 L, MCV 89.8, MCH 30.0, MCHC 33.4, RDW Std Deviation 49.7 H, RDW Coeff of Graciela 15.1 H, Plt Count 252, MPV 11.5, Immature Gran % (Auto) 0.700, Neut % (Auto) 92.3 H, Lymph % (Auto) 3.0 L, Bill[place] % (Auto) 3.2, Eos % (Auto) 0.3, Baso % (Auto) 0.5, Absolute Neuts (auto) 18.7 H, Absolute Lymphs (auto) 0.61 L, Nucleated RBC % 0, Differential Comment SCANNED, PT 15.7 H, INR 1.2, APTT 25.2, Sodium 128 L, Potassium 3.9, Chloride 90 L, Carbon Dioxide 19.2 L, Anion Gap 19 H, BUN 44 H, C reatinine 1.53 H, Estim Creat Clear Calc 48.56 L, Est GFR (MDRD) Non-Af 36 L, B UN/Creatinine Ratio 28.4 H, Glucose 312 H, Calcium 8.9, Total Bilirubin 1.52 H, Direct Bilirubin 0.87 H, AST 78 H, ALT 49 H, Alkaline Phosphatase 86, Troponin T High Sens 57 H*, Total Protein 6.7, Albumin 3.0 L, Globulin 3.8 10/21/24 09:17: POC Glucose 296 H 10/21/24 11:33: Urine Color Yellow, Urine Clarity Sl. Cloudy, Urine pH 6.0, Ur Specific Debary 1.010, Urine Protein 30 H, Urine Glucose (UA) 1000 H, Urine Ketones Negative, Urine Occult Blood 50 H, Urine Nitrite Negative, Urine Bilirubin Negative, Urine Urobilinogen Normal, Ur Leukocyte Esterase 100 H, Urine RBC 0-5 SEEN, Urine WBC 0-5 SEEN, Ur Squamous Epith Cells 0-5 SEEN, Urine Bacteria 1+, Urine Mucus 0 SEEN 10/21/24 12:39: Troponin T Hi Sens 2 Hr 59 H* 10/21/24 13:16: POC Glucose 221 H 10/21/24 15:10: Lactic Acid 2.1 H* 10/21/24 16:27: POC Glucose 267 H 10/21/24 18:50: Lactic Acid 3.5 H* 10/21/24 23:40: POC Glucose 206 H ABG Data ABG results: ABG 10/21/24 14:08 Specimen Type ART Sample Site L Brach pH 7.50 H Bicarbonate Actual 25.6 Total CO2 27 Base Excess 2 O2 Saturation 99 O2 % 4.0 ABG pCO2 33.0 L ABG pO2 110 H O2 Delivery Device Cannula Vent Mode Not entered Imaging Radiology Impression Brain CT 10/21/24 07:08 IMPRESSION: 1. Mild patchy age-indeterminate supratentorial hypodensities, nonspecific but compatible with chronic microvascular ischemic changes although this could obscure small acute infarct in the absence of prior exams to establish long-term stability. If there is persistent concern, recommend MRI. 2. Additional description as above. Reading Location: [facility] Chest X-Ray 10/21/24 08:30 IMPRESSION: No evidence of acute disease. Reading Location: [facility] Hip/Pelvis X-Ray 10/21/24 08:30 IMPRESSION: No fracture or dislocation identified. Reading Location: [facility] Shoulder X-Ray 10/21/24 08:30 IMPRESSION: 1. Suspected demineralization without visible acute displaced fracture. If there is persistent concern, consider CT. 2. Grossly similar suspected chronic posttraumatic deformity of the humeral head/neck. 3. Additional description as above. Reading Location: [facility] Abdomen/Pelvis CT 10/21/24 09:30 IMPRESSION: 1. Somewhat limited exam as above. No acute findings. 2. Hepatic morphology which is nonspecific but can be seen in the setting of chronic liver disease such as fibrosis/early cirrhosis. Correlate with clinical and laboratory evaluation. Outpatient ultrasound elastography could be performed as indicated to detect/quantify fibrosis. 3. Indeterminate 1.7 cm LEFT adrenal nodule. Given a reported history of malignancy, recommend outpatient adrenal protocol CT, unless outside imaging can establish long-term stability. 4. Likely 2.5 cm RIGHT ovarian cyst, incompletely characterized by CT. Given that the patient is postmenopausal, recommend outpatient pelvic ultrasound. 5. High-density or hyperenhancing bilateral iliac nodes are not enlarged by CT criteria. This is nonspecific and could conceivably be related to previous lymphangiography given an appropriate history. Given reported history of malignancy, recommend clinical follow-up. 6. Mild splenomegaly. 7. Additional description as above. Reading Location: [id number] Chest X-Ray 10/21/24 22:43 IMPRESSION: Interval placement of right subclavian central line with tip of the catheter overlying the distal superior vena cava no pneumothorax. No active disease. Reading Location: [id number] Assessment and Plan . Assessment and plan: Septic Shock GEO AMS Hyponatremia Hyperglycemia Plan - Transfer to ICu - Stress Steroids - Vanc/Zosyn - ECHO - Give additional fluids - Heparin for DVT ppx - Protonix of GI ppx Critical Care Time: 60 minutes The entirety of this encounter was done via Telemedicine
[2024-10-22 03:24] LABS: Base Excess -7 mmol/L (-2 to +2); Bicarbonate 19.1 mmol/L (22-26); Blood Gas Specimen Type ART; Mode Not entered; O2 Delivery Device Cannula; PO2 102 mmHG (75-100); SITE Art Line; SO2 98 % (95-99); Total Carbon Dioxide 20 mmol/L; pH 7.33 (7.35-7.45)
[2024-10-22] MEDS: Norepinephrine 8 MG in 0.9% Normal Saline (250mL Bag) 242 ML 56.3 MG CONT INF (03:26)
--- NOTE | 2024-10-22 03:29 | ECHOCS_ITS ---
Reason For Study Reason For Study: Arrhythmia Procedure This was a 2D Doppler, Color Flow transthoracic echocardiogram. The study was technically difficult. Contrast injection was performed. Exam performed portable in ICU/CCU. Left Ventricle Normal LV size. The estimated ejection fraction is 65 %. Unable to assess diastolic dysfunction. No regional wall motion abnormalities noted. Right Ventricle Normal RV size. Normal systolic function. Atria The left atrium is mildly enlarged. Normal right atrium. No doppler evidence for ASD. Mitral Valve Moderate to severe mitral annular calcification or mitral annular ring. Please correlate clinically. Moderate mitral valve stenosis. No mitral valve insufficiency. Tricuspid Valve There is no tricuspid stenosis. Trivial tricuspid valve insufficiency. Pulmonary artery systolic pressure is 30-35 mmHg. Aortic Valve The aortic valve is not well visualized. There is no aortic stenosis. No aortic valve insufficiency. Normally seated prosthetic aortic valve annulus. Pulmonic Valve There is no pulmonic valvular stenosis. No pulmonic valve insufficiency. Great Vessels Normal sized aortic root. Pericardium/Pleural No pericardial effusion. Medication Diluted definity 5ml given slow IV push to enhance endocardial definition. MMode/2D Measurements & Calculations LVOT diam: 1.9 cm LAV(MOD-bp): 75.6 ml LVAd ap4: 39.7 cm2 LVOT area: 3.0 cm2 LAV(MOD-bp) Indexed: 32.4 ml/m2 LVLd ap4: 8.0 cm LAV(MOD-sp2): 78.3 ml EDV(MOD-sp4): 164.1 ml LAV(MOD-sp4): 73.4 ml EDV(sp4-el): 167.2 ml LVAs ap4: 29.4 cm2 LVLs ap4: 7.9 cm ESV(MOD-sp4): 91.9 ml ESV(sp4-el): 93.4 ml EF(MOD-sp4): 44.0 % EF(sp4-el): 44.1 % SV(MOD-sp4): 72.2 ml SV(sp4-el): 73.8 ml LA A4 area: 25.5 cm2 SI(MOD-sp4): 30.9 ml/m2 RA A4 area: 16.7 cm2 Time Measurements MV dec time: 0.35 sec Doppler Measurements & Calculations MV E max aki: 142.0 cm/sec Lat Peak E' Aki: 7.2 cm/sec Med Peak E' Aki: 4.9 cm/sec MV A max aki: 118.5 cm/sec E/E' lat: 19.7 E/E' med: 28.7 MV E/A: 1.2 MV V2 max: 192.9 cm/sec MV P1/2t max aki: 194.8 cm/sec Ao V2 max: 250.5 cm/sec MV max P.0 mmHg MV P1/2t: 122.9 msec Ao max P.2 mmHg MV V2 mean: 112.7 cm/sec MV dec slope: 464.2 cm/sec2 Ao V2 mean: 152.6 cm/sec MV mean P.0 mmHg Ao mean P.1 mmHg MV V2 VTI: 58.7 cm MVA(P1/2t): 1.8 cm2 Ao V2 VTI: 45.3 cm MVA(VTI): 1.4 cm2 AV (velocity ratio): 0.62 NICO(I,D): 1.8 cm2 NICO(V,D): 1.7 cm2 LV V1 max: 141.1 cm/sec SV(LVOT): 83.5 ml TR max aki: 289.2 cm/sec LV V1 max P.0 mmHg TR max P.5 mmHg LV V1 mean P.8 mmHg LV V1 mean: 89.1 cm/sec LV V1 VTI: 28.3 cm ECHO/Echo Complete W/ Contrast Interpretation Summary The estimated ejection fraction is 65 %. Unable to assess diastolic dysfunction. The left atrium is mildly enlarged. Moderate mitral valve stenosis. Ordering Physician: Nando Serrano Referring Physician: Nicholas Roa Performed By: Jesus Mcleod RCS
[2024-10-22 03:36] LABS: Absolute Neutrophil Count 25.9 X10^3/uL (2.0-7.7); Basophil# 0.08 X10^3/uL; Basophil% 0.3 % (0-1); Hematocrit 33.5 % (37-47); Hemoglobin 11.4 g/dL (12.0-15.0); Lymphocyte % 3.6 % (19-41); Mean Corpuscular Hgb 30.6 pg (27.0-32.0); Mean Corpuscular Volume 90.1 fL (81-99); Mean Platelet Vol. 11.6 fl (6.2-12.0); Monocyte# 3.16 X10^3/uL; Monocyte% 10.3 % (0-10); NRBC Flagged by Analyzer 0 % (0-5); Neutrophil # 25.85 X10^3/uL (2.7-7.7); Neutrophil % 84.6 % (47-70); POSITIVE COUNT YES; POSITIVE DIFFERENTIAL YES; POSITIVE MORPHOLOGY YES; Platelet Count 262 K/mm3 (150-450); RBC Distribution Width CV 15.2 % (11.6-14.6); Red Blood Count 3.72 M/mm3 (4.2-5.4)
[2024-10-22 03:42] LABS: White Blood Count 30.6 K/mm3 (4.4-11.0)
[2024-10-22 03:43] LABS: Differential Indicated SCAN CRITERIA MET
[2024-10-22] MEDS: Vancomycin HCl 2,000 MG in 0.9% Normal Saline (500mL Bag) 500 ML 250 MG IV (03:51)
[2024-10-22] MEDS: Sodium Bicarbonate 8.4% 50 ML Syringe 150 MEQ IV (03:57)
[2024-10-22 04:05] LABS: ALB/GLOB Ratio 0.8 RATIO (0.9-2.4); AST(SGOT) 104 U/L (<=31); Alanine Aminotransfer ALT/SGPT 55 U/L (<=34); Albumin, Serum 2.8 g/dL (3.4-4.8); Alkaline Phosphatase 107 U/L (35-104); Anion Gap 19 (5-15); BUN 47 mg/dL (4-19); BUN/Creat Ratio 39.1 RATIO (10-20); Calcium,Total 8.1 mg/dL (7.6-11.0); Carbon Dioxide 17.5 mmol/L (21.0-32.0); Chloride 96 mmol/L (98-108); Creatinine, Serum 1.19 mg/dL (0.70-1.20); EST Glomerular Filtration Rate 49 (>60); Estimated Creatinine Clearance 61.19 ml/min (50-250); Globulin 3.3 g/dL (2.2-4.2); Glucose 237 mg/dL (70-99); Magnesium 1.8 mg/dL (1.5-2.2); Phosphorus 3.2 mg/dL (2.7-4.5); Potassium 3.3 mmol/L (3.3-5.1); Protein, Total 6.1 g/dL (5.9-8.4); Sodium Level 132 mmol/L (133-145); Total Bilirubin 1.49 mg/dL (0.00-1.30)
[2024-10-22 04:09] LABS: Pathologist Review May foll
[2024-10-22 04:12] LABS: Dohle Bodies 1+; Toxic Granulation 1+; Vacuolated Cells 1+
--- NOTE | 2024-10-22 04:12 | PCM.RX.CS ---
Consult Antibiotic Management Pharmacy has been consulted to manage selected antibiotic: Vancomycin Type of Intervention Type of Consult: New start Suspected Infection Suspected Infection: Sepsis Labs Labs: Sodium 132 mmol/L (133-145) L 10/22/24 03:20 Sodium Cancelled 10/22/24 03:20 Potassium 3.3 mmol/L (3.3-5.1) 10/22/24 03:20 Potassium Cancelled 10/22/24 03:20 Chloride 96 mmol/L (98-108) L 10/22/24 03:20 Chloride Cancelled 10/22/24 03:20 Carbon Dioxide 17.5 mmol/L (21.0-32.0) L 10/22/24 03:20 Carbon Dioxide Cancelled 10/22/24 03:20 Anion Gap 19 (5-15) H 10/22/24 03:20 Anion Gap Cancelled 10/22/24 03:20 BUN 47 mg/dL (4-19) H 10/22/24 03:20 BUN Cancelled 10/22/24 03:20 Creatinine 1.19 mg/dL (0.70-1.20) 10/22/24 03:20 Creatinine Cancelled 10/22/24 03:20 Est GFR (MDRD) Non-Af 49 (>60) L 10/22/24 03:20 Est GFR (MDRD) Non-Af Cancelled 10/22/24 03:20 BUN/Creatinine Ratio 39.1 RATIO (10-20) H 10/22/24 03:20 BUN/Creatinine Ratio Cancelled 10/22/24 03:20 Glucose 237 mg/dL (70-99) H 10/22/24 03:20 Glucose Cancelled 10/22/24 03:20 Dosing Weight Weight used for dosin kg Estimated Creatinine Clearance Estimated Creatinine Clearance: 61 Goal Trough Goal Trough: 15-20 mcg/mL Pharmacy Plan for Drug Dosing Pharmacy Plan for Drug Dosing: Pharmacy Service will continue to monitor and adjust dosing as required. Follow-Up Labs Follow-Up Labs: Trough: Vancomycin Date/Time Labs Ordered Labs to be done on [date and time ordered]: 10/23/24 @0077
[2024-10-22 04:13] LABS: Platelet Estimate ADEQUATE (ADEQ); Red Cell Morphology NORM C+C NORMAL (NORM C&C)
[2024-10-22] MEDS: Piperacil/Tazobactam 3.375 GM in 0.9% Normal Saline (50mL MB+) 50 ML IV ×3 (06:19→20:21)
[2024-10-22] MEDS: Heparin Injection (Vial) 5,000 UNIT/ML VIAL 5000 UNIT SC ×2 (06:20→13:02)
[2024-10-22] MEDS: TITRATION PARAMETER CHANGE 1 EACH IV (06:20)
[2024-10-22] MEDS: Menthol/Lanolin/Calamine/Znox 113 GM Tube 1 APPLIC TOPICAL ×2 (06:20→20:17)
[2024-10-22] MEDS: Hydrocortisone Sod Succinate 100 MG/2 ML Vial 50 MG IV ×4 (06:20→23:46)
--- NOTE | 2024-10-22 06:46 | PCM.PN.HOSP ---
Reason for Visit Reason for Visit: Diagnoses Acute kidney failure, unspecified (10/21/24) Urinary tract infection, site not specified (10/21/24) Other specified abnormal findings of blood chemistry (10/21/24) Subjective Subjective pt transferred to ICU due to low blood pressures and urinary sepsis. She had received 4liters of fluid and BP was in 60/30s. Levofed was initiated, however, higher dose was required than could safely administer thru midline therefore, Central line was placed by Dr Zambrano. further pressures were required including vasopressin and ICU consult obtained ICU doctor spoke with me and requested CBC,CMP, Hydrocortisone and change antibiotics to vanc and zosyn. I learned pt had PCN allergy so I delayed the zosyn and started Vanc and continued rocephin with verbal order while in patient room at 3:00 am. An arterial line was placed and showed improved blood pressure over her cuff. Patient anatomy of large arms to distally thin arms may account for some inaccuracy of peripheral blood pressure cuff. Pt was alert and denied pain. She was fatigued and agreed to resume BIPAP therapy. The plan was then to notify ICU computer consultant of improved BP so that pressors could be de-escalated carefully and monitor for more urine output. Objective Data Objective Data Vital Signs: Vital Signs Temp Pulse Resp BP Pulse Ox O2 Del Method O2 Flow Rate 100.1 F H 94 20 H 123/58 H 96 Nasal Cannula 4 10/22/24 06:00 10/22/24 06:00 10/22/24 06:00 10/22/24 06:30 10/22/24 06:00 10/22/24 06:00 10/22/24 06:00 FiO2 40 10/22/24 03:15 Oxygen Flow Rate (L/min) 4 Oxygen Delivery Method Nasal Cannula Weight: 334 lb 10.587 oz Body Mass Index (BMI) 61.5 Intake & Output: Intake and Output for Last 24 Hours 10/20/24 10/21/24 10/22/24 23:59 23:59 23:59 Intake Total 6335.69 / 6345.07 1254.67 / 1254.67 Output Total 200 / 700 1400 / 1400 Balance 6135.69 / 5645.07 -145.33 / -145.33 Lab / Micro Data 10/22/24 03:20 10/22/24 03:20 Labs: Laboratory Results - last 24 hr 10/21/24 08:11: WBC 20.3 H, RBC 4.03 L, Hgb 12.1, Hct 36.2 L, MCV 89.8, MCH 30.0, MCHC 33.4, RDW Std Deviation 49.7 H, RDW Coeff of Graciela 15.1 H, Plt Count 252, MPV 11.5, Immature Gran % (Auto) 0.700, Neut % (Auto) 92.3 H, Lymph % (Auto) 3.0 L, [place] % (Auto) 3.2, Eos % (Auto) 0.3, Baso % (Auto) 0.5, Absolute Neuts (auto) 18.7 H, Absolute Lymphs (auto) 0.61 L, Nucleated RBC % 0, Differential Comment SCANNED, PT 15.7 H, INR 1.2, APTT 25.2, Sodium 128 L, Potassium 3.9, Chloride 90 L, Carbon Dioxide 19.2 L, Anion Gap 19 H, BUN 44 H, Creatinine 1.53 H, Estim Creat Clear Calc 48.56 L, Est GFR (MDRD) Non-Af 36 L, BUN/Creatinine Ratio 28.4 H, Glucose 312 H, Calcium 8.9, Total Bilirubin 1.52 H, Direct Bilirubin 0.87 H, AST 78 H, ALT 49 H, Alkaline Phosphatase 86, Troponin T High Sens 57 H*, Total Protein 6.7, Albumin 3.0 L, Globulin 3.8 10/21/24 09:17: POC Glucose 296 H 10/21/24 11:33: Urine Color Yellow, Urine Clarity Sl. Cloudy, Urine pH 6.0, Ur Specific [place] 1.010, Urine Protein 30 H, Urine Glucose (UA) 1000 H, Urine Ketones Negative, Urine Occult Blood 50 H, Urine Nitrite Negative, Urine Bilirubin Negative, Urine Urobilinogen Normal, Ur Leukocyte Esterase 100 H, Urine RBC 0-5 SEEN, Urine WBC 0-5 SEEN, Ur Squamous Epith Cells 0-5 SEEN, Urine Bacteria 1+, Urine Mucus 0 SEEN 10/21/24 12:39: Troponin T Hi Sens 2 Hr 59 H* 10/21/24 13:16: POC Glucose 221 H 10/21/24 15:10: Lactic Acid 2.1 H* 10/21/24 16:27: POC Glucose 267 H 10/21/24 18:50: Lactic Acid 3.5 H* 10/21/24 23:40: POC Glucose 206 H 10/22/24 03:20: WBC 30.6 H*, RBC 3.72 L, Hgb 11.4 L, Hct 33.5 L, MCV 90.1, MCH 30.6, MCHC 34.0, RDW Std Deviation 50.0 H, RDW Coeff of Graciela 15.2 H, Plt Count 262, MPV 11.6, Immature Gran % (Auto) 1.200 H, Neut % (Auto) 84.6 H, Lymph % (Auto) 3.6 L, [place] % (Auto) 10.3 H, Eos % (Auto) 0.0, Baso % (Auto) 0.3, Absolute Neuts (auto) 25.9 H, Absolute Lymphs (auto) 1.10, Nucleated RBC % 0, Differential Comment , Diff Path Review May foll, Toxic Granulation 1+, Toxic Vacuolation 1+, Dohle Bodies 1+, Platelet Estimate ADEQUATE, RBC Morphology NORM C+C, Sodium Cancelled 10/22/24 03:20: Sodium 132 L, Potassium Cancelled 10/22/24 03:20: Potassium 3.3, Chloride Cancelled 10/22/24 03:20: Chloride 96 L, Carbon Dioxide Cancelled 10/22/24 03:20: Carbon Dioxide 17.5 L, Anion Gap Cancelled 10/22/24 03:20: Anion Gap 19 H, BUN Cancelled 10/22/24 03:20: BUN 47 H, Creatinine Cancelled 10/22/24 03:20: Creatinine 1.19, Estim Creat Clear Calc 61.19, Est GFR (MDRD) Non-Af Cancelled 10/22/24 03:20: Est GFR (MDRD) Non-Af 49 L, BUN/Creatinine Ratio Cancelled 10/22/24 03:20: BUN/Creatinine Ratio 39.1 H, Glucose Cancelled 10/22/24 03:20: Glucose 237 H, Calcium Cancelled 10/22/24 03:20: Calcium 8.1, Phosphorus 3.2, Magnesium 1.8, Total Bilirubin 1.49 H, AST 104 H, ALT 55 H, Alkaline Phosphatase 107 H, Total Protein 6.1, Albumin 2.8 L, Globulin 3.3, Albumin/Globulin Ratio 0.8 L ABG Data ABG results: ABG 10/21/24 10/22/24 14:08 03:20 Specimen Type ART ART Sample Site L Brach Art Line pH 7.50 H 7.33 L Bicarbonate Actual 25.6 19.1 L Total CO2 27 20 Base Excess 2 -7 L O2 Saturation 99 98 O2 % 4.0 4.0 ABG pCO2 33.0 L 36.0 ABG pO2 110 H 102 H O2 Delivery Device Cannula Cannula Vent Mode Not entered Not entered Radiography Diagnostic Testing: Radiology Impression Brain CT 10/21/24 07:08 IMPRESSION: 1. Mild patchy age-indeterminate supratentorial hypodensities, nonspecific but compatible with chronic microvascular ischemic changes although this could obscure small acute infarct in the absence of prior exams to establish long-term stability. If there is persistent concern, recommend MRI. 2. Additional description as above. Reading Location: [facility] Chest X-Ray 10/21/24 08:30 IMPRESSION: No evidence of acute disease. Reading Location: [facility] Hip/Pelvis X-Ray 10/21/24 08:30 IMPRESSION: No fracture or dislocation identified. Reading Location: [facility] Shoulder X-Ray 10/21/24 08:30 IMPRESSION: 1. Suspected demineralization without visible acute displaced fracture. If there is persistent concern, consider CT. 2. Grossly similar suspected chronic posttraumatic deformity of the humeral head/neck. 3. Additional description as above. Reading Location: [facility] Abdomen/Pelvis CT 10/21/24 09:30 IMPRESSION: 1. Somewhat limited exam as above. No acute findings. 2. Hepatic morphology which is nonspecific but can be seen in the setting of chronic liver disease such as fibrosis/early cirrhosis. Correlate with clinical and laboratory evaluation. Outpatient ultrasound elastography could be performed as indicated to detect/quantify fibrosis. 3. Indeterminate 1.7 cm LEFT adrenal nodule. Given a reported history of malignancy, recommend outpatient adrenal protocol CT, unless outside imaging can establish long-term stability. 4. Likely 2.5 cm RIGHT ovarian cyst, incompletely characterized by CT. Given that the patient is postmenopausal, recommend outpatient pelvic ultrasound. 5. High-density or hyperenhancing bilateral iliac nodes are not enlarged by CT criteria. This is nonspecific and could conceivably be related to previous lymphangiography given an appropriate history. Given reported history of malignancy, recommend clinical follow-up. 6. Mild splenomegaly. 7. Additional description as above. Reading Location: [id number] Chest X-Ray 10/21/24 22:43 IMPRESSION: Interval placement of right subclavian central line with tip of the catheter overlying the distal superior vena cava no pneumothorax. No active disease. Reading Location: [id number]
--- NOTE | 2024-10-22 07:06 | PCM.PN.HOSP ---
Reason for Visit Reason for Visit: Diagnoses Acute kidney failure, unspecified (10/21/24) Urinary tract infection, site not specified (10/21/24) Other specified abnormal findings of blood chemistry (10/21/24) Subjective Subjective Patient is a 69-year-old female admitted with multiple falls. She was later diagnosed with sepsis secondary to UTI treatment with IV fluid resuscitation. Protocol initiated patient however did not respond resulting in patient being transferred to the intensive care unit where central line and art line was placed. Objective Data Objective Data Vital Signs: Vital Signs Temp Pulse Resp BP Pulse Ox O2 Del Method O2 Flow Rate 100.1 F H 100 23 H 118/48 L 96 Nasal Cannula 4 10/22/24 06:00 10/22/24 07:00 10/22/24 07:00 10/22/24 07:00 10/22/24 07:00 10/22/24 07:00 10/22/24 07:00 FiO2 40 10/22/24 03:15 Oxygen Flow Rate (L/min) 4 Oxygen Delivery Method Nasal Cannula Weight: 151.8 kg Body Mass Index (BMI) 61.5 Intake & Output: Intake and Output for Last 24 Hours 10/20/24 10/21/24 10/22/24 23:59 23:59 23:59 Intake Total 6335.69 / 6345.07 1278.13 / 1278.13 Output Total 200 / 700 1400 / 1400 Balance 6135.69 / 5645.07 -121.87 / -121.87 Lab / Micro Data 10/22/24 03:20 10/22/24 03:20 Labs: Laboratory Results - last 24 hr 10/21/24 08:11: WBC 20.3 H, RBC 4.03 L, Hgb 12.1, Hct 36.2 L, MCV 89.8, MCH 30.0, MCHC 33.4, RDW Std Deviation 49.7 H, RDW Coeff of Graciela 15.1 H, Plt Count 252, MPV 11.5, Immature Gran % (Auto) 0.700, Neut % (Auto) 92.3 H, Lymph % (Auto) 3.0 L, [place] % (Auto) 3.2, Eos % (Auto) 0.3, Baso % (Auto) 0.5, Absolute Neuts (auto) 18.7 H, Absolute Lymphs (auto) 0.61 L, Nucleated RBC % 0, Differential Comment SCANNED, PT 15.7 H, INR 1.2, APTT 25.2, Sodium 128 L, Potassium 3.9, Chloride 90 L, Carbon Dioxide 19.2 L, Anion Gap 19 H, BUN 44 H, Creatinine 1.53 H, Estim Creat Clear Calc 48.56 L, Est GFR (MDRD) Non-Af 36 L, BUN/Creatinine Ratio 28.4 H, Glucose 312 H, Calcium 8.9, Total Bilirubin 1.52 H, Direct Bilirubin 0.87 H, AST 78 H, ALT 49 H, Alkaline Phosphatase 86, Troponin T High Sens 57 H*, Total Protein 6.7, Albumin 3.0 L, Globulin 3.8 10/21/24 09:17: POC Glucose 296 H 10/21/24 11:33: Urine Color Yellow, Urine Clarity Sl. Cloudy, Urine pH 6.0, Ur Specific [place] 1.010, Urine Protein 30 H, Urine Glucose (UA) 1000 H, Urine Ketones Negative, Urine Occult Blood 50 H, Urine Nitrite Negative, Urine Bilirubin Negative, Urine Urobilinogen Normal, Ur Leukocyte Esterase 100 H, Urine RBC 0-5 SEEN, Urine WBC 0-5 SEEN, Ur Squamous Epith Cells 0-5 SEEN, Urine Bacteria 1+, Urine Mucus 0 SEEN 10/21/24 12:39: Troponin T Hi Sens 2 Hr 59 H* 10/21/24 13:16: POC Glucose 221 H 10/21/24 15:10: Lactic Acid 2.1 H* 10/21/24 16:27: POC Glucose 267 H 10/21/24 18:50: Lactic Acid 3.5 H* 10/21/24 23:40: POC Glucose 206 H 10/22/24 03:20: WBC 30.6 H*, RBC 3.72 L, Hgb 11.4 L, Hct 33.5 L, MCV 90.1, MCH 30.6, MCHC 34.0, RDW Std Deviation 50.0 H, RDW Coeff of Graciela 15.2 H, Plt Count 262, MPV 11.6, Immature Gran % (Auto) 1.200 H, Neut % (Auto) 84.6 H, Lymph % (Auto) 3.6 L, [place] % (Auto) 10.3 H, Eos % (Auto) 0.0, Baso % (Auto) 0.3, Absolute Neuts (auto) 25.9 H, Absolute Lymphs (auto) 1.10, Nucleated RBC % 0, Differential Comment , Diff Path Review May foll, Toxic Granulation 1+, Toxic Vacuolation 1+, Dohle Bodies 1+, Platelet Estimate ADEQUATE, RBC Morphology NORM C+C, Sodium Cancelled 10/22/24 03:20: Sodium 132 L, Potassium Cancelled 10/22/24 03:20: Potassium 3.3, Chloride Cancelled 10/22/24 03:20: Chloride 96 L, Carbon Dioxide Cancelled 10/22/24 03:20: Carbon Dioxide 17.5 L, Anion Gap Cancelled 10/22/24 03:20: Anion Gap 19 H, BUN Cancelled 10/22/24 03:20: BUN 47 H, Creatinine Cancelled 10/22/24 03:20: Creatinine 1.19, Estim Creat Clear Calc 61.19, Est GFR (MDRD) Non-Af Cancelled 10/22/24 03:20: Est GFR (MDRD) Non-Af 49 L, BUN/Creatinine Ratio Cancelled 10/22/24 03:20: BUN/Creatinine Ratio 39.1 H, Glucose Cancelled 10/22/24 03:20: Glucose 237 H, Calcium Cancelled 10/22/24 03:20: Calcium 8.1, Phosphorus 3.2, Magnesium 1.8, Total Bilirubin 1.49 H, AST 104 H, ALT 55 H, Alkaline Phosphatase 107 H, Total Protein 6.1, Albumin 2.8 L, Globulin 3.3, Albumin/Globulin Ratio 0.8 L ABG Data ABG results: ABG 10/21/24 10/22/24 14:08 03:20 Specimen Type ART ART Sample Site L Brach Art Line pH 7.50 H 7.33 L Bicarbonate Actual 25.6 19.1 L Total CO2 27 20 Base Excess 2 -7 L O2 Saturation 99 98 O2 % 4.0 4.0 ABG pCO2 33.0 L 36.0 ABG pO2 110 H 102 H O2 Delivery Device Cannula Cannula Vent Mode Not entered Not entered Radiography Diagnostic Testing: Radiology Impression Brain CT 10/21/24 07:08 IMPRESSION: 1. Mild patchy age-indeterminate supratentorial hypodensities, nonspecific but compatible with chronic microvascular ischemic changes although this could obscure small acute infarct in the absence of prior exams to establish long-term stability. If there is persistent concern, recommend MRI. 2. Additional description as above. Reading Location: [facility] Chest X-Ray 10/21/24 08:30 IMPRESSION: No evidence of acute disease. Reading Location: [facility] Hip/Pelvis X-Ray 10/21/24 08:30 IMPRESSION: No fracture or dislocation identified. Reading Location: [facility] Shoulder X-Ray 10/21/24 08:30 IMPRESSION: 1. Suspected demineralization without visible acute displaced fracture. If there is persistent concern, consider CT. 2. Grossly similar suspected chronic posttraumatic deformity of the humeral head/neck. 3. Additional description as above. Reading Location: [facility] Abdomen/Pelvis CT 10/21/24 09:30 IMPRESSION: 1. Somewhat limited exam as above. No acute findings. 2. Hepatic morphology which is nonspecific but can be seen in the setting of chronic liver disease such as fibrosis/early cirrhosis. Correlate with clinical and laboratory evaluation. Outpatient ultrasound elastography could be performed as indicated to detect/quantify fibrosis. 3. Indeterminate 1.7 cm LEFT adrenal nodule. Given a reported history of malignancy, recommend outpatient adrenal protocol CT, unless outside imaging can establish long-term stability. 4. Likely 2.5 cm RIGHT ovarian cyst, incompletely characterized by CT. Given that the patient is postmenopausal, recommend outpatient pelvic ultrasound. 5. High-density or hyperenhancing bilateral iliac nodes are not enlarged by CT criteria. This is nonspecific and could conceivably be related to previous lymphangiography given an appropriate history. Given reported history of malignancy, recommend clinical follow-up. 6. Mild splenomegaly. 7. Additional description as above. Reading Location: [facility] Chest X-Ray 10/21/24 22:43 IMPRESSION: Interval placement of right subclavian central line with tip of the catheter overlying the distal superior vena cava no pneumothorax. No active disease. Reading Location: [facility] Physical Exam Narrative GENERAL: Much more interactive HEENT: Atraumatic; normocephalic EYES; Anicteric, Normal Conjunctiva NECK; supple, normal thyroid, RESPIRATORY: Diminished to auscultation CARDIOVASCULAR: Regular S1 S2, GI: soft, normoactive bowel sounds, : No Renal angle tenderness; EXTREMITIES: No edema, no clubbing, MUSCULOSKELETAL: no muscle wasting NEURO: Awake; no lateralizing signs. SKIN: Bruising involving the lateral aspect of the left upper extremity PSYCH; Flat affect Assessment & Plan Assessment/Plan (1) GEO (acute kidney injury): (2) Elevated LFTs: (3) UTI (urinary tract infection): PLAN: Plan Patient is a 69-year-old female admitted with multiple falls. Found to have abnormal urinalysis and elevated WBC count and glucose levels admitted to monitored bed for further management 1. Septic shock secondary to UTI Resuscitation with IV fluid initiated once patient lactic acid came back elevated. Patient had been started on ceftriaxone and cultures including urine and blood have been obtained prior to patient lactic acid coming back positive.. Patient however did not respond resulting in patient being transferred to the intensive care unit where central line and art line was placed. Patient had been started on ceftriaxone discontinued Zosyn started instead. 2. Multiple falls ? Secondary to acute metabolic encephalopathy from sepsis as well as acute kidney injury 3. Acute kidney injury ? Possibly contributing to above potential nephrotoxic medications held started on IV fluid ordered renal ultrasound and repeat BMP ordered for a.m. ? 10/22/2024; creatinine down to 1.19 4. Diabetes mellitus type 2 ? Presented with hyperglycemia. Patient apparently had a recent adjustment made to her diabetic management regimen. Patient not clear on the details. In any case held oral hypoglycemic agent started patient on long-acting insulin with sliding scale coverage 5. Essential hypertension ? Patient is on lisinopril which is currently being held given her worsening kidney function ? 10/22/2024; patient antihypertensives held given her low blood pressure 6. Dyslipidemia ?Patient is on statin therapy, continued at home dose 7. 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 Class III obesity with BMI of 60 ? Complicating care weight loss advised 9. Obstructive sleep apnea ? Patient is on PAP therapy consistent use encouraged 10. 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 DVT prophylaxis ? Subcu heparin Time spent in the patient's overall evaluation,decision-making process, review of diagnostic data, adjustment of management, discussion with other providers, nursing nursing and ancillary staff involved in patient's care documentation, 52 Minutes Charges/Coding Visit Charges Inpatient E&M: 02899 Subs Hosp L3
[2024-10-22 07:14] LABS: Lactic Acid 1.6 mmol/L (0.0-2.0)
[2024-10-22] MEDS: Insulin Lispro 100 UNIT/ML INSULN.PEN SC ×4 (07:22→20:23)
[2024-10-22] MEDS: Insulin Lispro 100 UNIT/ML INSULN.PEN 10 UNIT SC ×3 (07:22→15:44)
[2024-10-22] MEDS: Aspirin E.C. 81 MG Tablet PO (07:23)
[2024-10-22] MEDS: Cholecalciferol (Vit D3) 125 MCG CAPSULE (5,000 UNITS) PO (07:24)
[2024-10-22] MEDS: FLUoxetine 20 MG Capsule PO (07:24)
[2024-10-22] MEDS: Multivitamins,Therapeutic Tablet 1 TABLET PO (07:24)
[2024-10-22] MEDS: Lactobacillis Acidophilus 1 CAP PO (07:24)
[2024-10-22] MEDS: Insulin Glargine-YFGN 100 UNIT/ML Pen 10 UNIT SC ×2 (07:25→20:23)
[2024-10-22] MEDS: Nystatin Powder 15gm Bottle 1 APPLIC TOPICAL ×2 (07:25→20:17)
--- NOTE | 2024-10-22 08:10 | US_ITS ---
PROCEDURE: KIDNEY AND BLADDER (USKI), 10/22/2024 REASON FOR EXAM: GEO TECHNIQUE: Grayscale and color/spectral doppler ultrasound of the kidneys and bladder was performed. COMPARISON: 10/21/2024 FINDINGS: Exam is slightly limited by soft tissue attenuation. Right kidney: 10.1 cm in length. No visualized mass, calculus, or hydronephrosis. Left kidney: 12.2 cm in length. No visualized mass, calculus, or hydronephrosis. Bladder: Nonvisualized, reportedly decompressed by a catheter. Other: None. US/Kidney and Bladder IMPRESSION: 1. No hydronephrosis. 2. Additional description as above. Reading Location: [id number]
--- NOTE | 2024-10-22 10:35 | CASEMGMT ---
RN TAWNYA Assessment Pt is currently disoriented and unable to answer all of this RN TAWNYA questions accordingly for assessment. Pt family (Sons Quinton & Oziel) in the ICU waiting room at this time and agreeable to helping. Pt's other son, Dick, recently left the building. YASH BOWLING introduced self and role at [facility], pt family voices understanding. Care providers, pharmacy, and demographics verified. Admitting dx: GEO MCMILLAN Strata: 2 PCP: Rivas Benitez Specialists: Pt family states that they believe that the pt sees an Refinery [employer] [facility]er but are not 100% sure. Preferred [facility]acy: [facility] Insurance: [employer], [employer] Prescription Benefit: Yes LNOK: Dick Álvarez (Son), Quinton Álvarez (Son), Oziel Álvarez (Son), Karlee Eckert (Sister) Living Arrangements: Pt lives alone in a ground level apartment with a flat entrance and 2 steps to get into her master bedroom. ADLs/IADLs: Pt family states that the pt was independent prior to arrival but is currently requiring assistance. See PT evaluation. Transportation: Self, family DME: BiPAP through [employer] with no additional oxygen bleed through. Nebulizer. BGM and supplies. Cane. Shower chair. HHC/SNF: Pt family denies history Plan: Anticipate SNF @ the time of DC. See PT notes. Pt family is requesting skilled rehab at the time of DC to help the pt return to her prior level of function before returning home alone. Pt family is requesting a SNF list between [facility] and [facility] to help with visiting family. Pt family declines further questions or concerns at this time. SW notified. CM to follow. Alexis Almanzar RN, CM
[2024-10-22] MEDS: Pantoprazole Sodium 40 MG in 0.9% Normal Saline (100mL MB+) 100 ML 330 MG IV (10:37)
[2024-10-22] MEDS: Norepinephrine 8 MG in 0.9% Normal Saline (250mL Bag) 242 ML 9.4 MG CONT INF (11:16)
[2024-10-22 11:37] LABS: Bedside Glucose 204 mg/dL (74-106)
[2024-10-22] MEDS: 0.9% Normal Saline (1000mL) 1,000 ML 125 ML IV ×2 (13:02→22:11)
--- NOTE | 2024-10-22 13:21 | CASEMGMT ---
Addendum entered by Vita Farrar 10/22/24 14:52: [facility] accepted referral for pt. SW remains available to follow for discharge planning. FAIZAN Stinson Original Note: Social Work- SW met with pt sons Quinton Quiroga, and Oziel. Son, Dick, not present at this time. Pt sons report that pt has a spacious 2 bedroom apartment that they are going to make modifications for. Pt sons are in agreement that they would like SNF followed by [facility] for pt at discharge. 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 Pt sons work in maintenance and as a diesel truck mechanic. Pt [place] and would [place]F in that area. A list of SNF providers including quality and resource use data and consistent with the patient?s preferred geographic region, medical needs, and insurance network were provided from [facility]. Pt sons chose [facility] as [facility]. [facility] and [facility] as alternates. MARINO provided education on MCR benefits, SNF referral process, as well as C and community resources, answering multiple questions. BOLIVAR updated on referral requests when pt is medically ready. MARINO will remain available to follow. FAIZAN Stinson
--- NOTE | 2024-10-22 13:33 | CASEMGMT ---
Addendum entered by Vijaya Francois 10/24/24 13:56: Pts family has chosen another snf. [facility] asked to cancel referral. Vijaya Francois DC Planning Asst. Addendum entered by Vijaya Francois 10/22/24 15:03: [facility] has accepted. SW updated. Vijaya Francois DC Planning Asst. Original Note: Discharge Planning Referral sent to [facility]. Vijaya Francois DC Planning Asst.
--- NOTE | 2024-10-22 14:00 | NURSING ---
Dr Antony and Dr Roa notified that patient is now in A-Fib RVR on telemetry. Patient is diaphoretic and hypotensive, alert and responsive to name, patient denies pain/discomfort. Levophed gtt re-started per protocol. 12-Lead EKG obtained and shows A-Fib RVR with STEMI. Dr Roa notified with results and picture of EKG sent via Backline. Dr Roa consulted with Dr Bailey (Cardiology) on the phone. Decision made not to got to laborer concrete plant at this time given patient's condition. Dr Roa spoke with several of the Patient's Family that were present in the waiting room to update them with what happened and current plan of care.
[2024-10-22] MEDS: Amiodarone 150 MG in Dextrose 5%-Water (100mL Bag) 100 ML 600 MG IV BOLUS (14:40)
--- NOTE | 2024-10-22 14:43 | EKG12_ITS ---
Test Reason : stemi Blood Pressure : */* mmHG Vent. Rate : 103 BPM Atrial Rate : * BPM P-R Int : * ms QRS Dur : 102 ms QT Int : 354 ms P-R-T Axes : * 22 76 degrees QTcB Int : 463 ms Critical Test Result: STEMI Atrial fibrillation with rapid ventricular response Inferior infarct , possibly acute Confirmed by NIKOLE PARR, JEREMY ([id number]), material expeditor DEMIAN AMAYA ([id number]) on 10/23/2024 1:11:48 PM Referred By: Nicholas Roa Confirmed By: JEREMY AGUSTIN MD
[2024-10-22 14:44] LABS: Base Excess 3 mmol/L (-2 to +2); Bicarbonate 26.6 mmol/L (22-26); Blood Gas Specimen Type ART; Mode Not entered; O2 Delivery Device CPAP; PEEP 15; PO2 145 mmHG (75-100); SITE Art Line; SO2 99 % (95-99); Total Carbon Dioxide 28 mmol/L; pCO2 38.9 mmHg (35-45); pH 7.44 (7.35-7.45)
--- NOTE | 2024-10-22 14:48 | EKG12_ITS ---
Test Reason : A-Fib Blood Pressure : */* mmHG Vent. Rate : 143 BPM Atrial Rate : * BPM P-R Int : * ms QRS Dur : 102 ms QT Int : 330 ms P-R-T Axes : * 15 51 degrees QTcB Int : 509 ms Critical Test Result: High HR , STEMI Poor data quality, interpretation may be adversely affected Atrial fibrillation with rapid ventricular response No previous ECGs available Confirmed by NIKOLE PARR, JEREMY ([id number]), film and video editor DEMIAN AMAYA ([id number]) on 10/23/2024 1:12:16 PM Referred By: Nicholas Roa Confirmed By: JEREMY AGUSTIN MD
--- NOTE | 2024-10-22 15:00 | PCM.HOSP.N ---
Hospitalist Note Patient went into A-fib with RVR started on amiodarone drip. Patient was on was on prophylactic Lovenox for DVT prophylaxis discontinued started on heparin. Case discussed with cardiology as part of patient's management ordered serial cardiac enzymes TSH and a 2D echo. Patient has underlying history of obstructive sleep apnea and is currently on PAP therapy. ABG obtained results reviewed. STEMI alert inadvertently called however review of patient's EKG did not show any evidence of acute STEMI.
[2024-10-22] MEDS: Amiodarone 360 MG in Dextrose 5% Viaflo Bag 192.8 ML 16.7 MG CONT INF (15:27)
[2024-10-22] MEDS: HEPARIN/D5w 25,000 UNITS 25,000 UNITS/250 ML IV.SOLN. 19 UNITS CONT INF (15:40)
[2024-10-22 15:41] LABS: Troponin T High Sensitivity 73 ng/L (<=14)
[2024-10-22] MEDS: Vancomycin HCl 1,500 MG in 0.9% Normal Saline (500mL Bag) 500 ML 250 MG IV (15:43)
[2024-10-22 16:31] LABS: Bedside Glucose 185 mg/dL (74-106)
--- NOTE | 2024-10-22 20:09 | PCM.HOSP.N ---
Hospitalist Note Patient with persistent pain to the hip and buttock region with falls prior to presentation. Will administer trial low dose fentanyl given on pressor therapy.
[2024-10-22] MEDS: fentaNYL 100 MCG/2 ML Ampul 25 MCG IV ×2 (20:16→22:11)
[2024-10-22] MEDS: MELATONIN 3 MG TABLET PO (20:17)
[2024-10-22] MEDS: Atorvastatin Calcium 10 MG Tablet PO (20:17)
[2024-10-22 20:45] LABS: Bedside Glucose 167 mg/dL (74-106)
[2024-10-22] MEDS: Pramipexole Di-HCl 0.25 MG Tablet PO (22:13)
[2024-10-22 22:14] LABS: Partial Thromboplast Time 64.1 Seconds (24.1-36.2)
[2024-10-23] VITALS (37 sets, daily range): BP systolic 111–153; BP diastolic 43–83; PULSE 54–134; RESP 13–22; TEMP 36.8–37.6; O2SAT 90–99; BMI 62.5
[2024-10-23] MEDS: Amiodarone 360 MG in Dextrose 5% Viaflo Bag 192.8 ML 16.7 MG CONT INF ×2 (02:46→15:23)
[2024-10-23] MEDS: HEPARIN/D5w 25,000 UNITS 25,000 UNITS/250 ML IV.SOLN. 19 UNITS CONT INF ×2 (03:47→17:44)
[2024-10-23] MEDS: Vancomycin HCl 1,500 MG in 0.9% Normal Saline (500mL Bag) 500 ML 250 MG IV ×2 (03:47→16:54)
[2024-10-23 03:58] LABS: Absolute Lymphocyte Count 1.51 X10^3/uL (0.83-4.51); Basophil# 0.07 X10^3/uL; Basophil% 0.3 % (0-1); Hematocrit 30.5 % (37-47); Hemoglobin 10.1 g/dL (12.0-15.0); Lymphocyte # 1.51 X10^3/ul (0.83-4.51); Lymphocyte % 6.6 % (19-41); Mean Corp Hgb Conc 33.1 g/dL (32-36); Mean Corpuscular Hgb 29.7 pg (27.0-32.0); Mean Corpuscular Volume 89.7 fL (81-99); Mean Platelet Vol. 11.7 fl (6.2-12.0); Monocyte# 1.99 X10^3/uL; Monocyte% 8.7 % (0-10); NRBC Flagged by Analyzer 0 % (0-5); Neutrophil % 83.2 % (47-70); POSITIVE DIFFERENTIAL YES; POSITIVE MORPHOLOGY YES; Platelet Count 209 K/mm3 (150-450); RBC Distribution Width CV 15.2 % (11.6-14.6); White Blood Count 22.8 K/mm3 (4.4-11.0)
[2024-10-23 04:07] LABS: Differential Indicated SCAN CRITERIA MET
[2024-10-23 04:13] LABS: Partial Thromboplast Time 68.4 Seconds (24.1-36.2)
[2024-10-23 04:24] LABS: Anion Gap 16 (5-15); BUN 42 mg/dL (4-19); BUN/Creat Ratio 52.8 RATIO (10-20); Calcium,Total 7.9 mg/dL (7.6-11.0); Carbon Dioxide 20.9 mmol/L (21.0-32.0); Chloride 101 mmol/L (98-108); Creatinine, Serum 0.79 mg/dL (0.70-1.20); EST Glomerular Filtration Rate 80 (>60); Estimated Creatinine Clearance 93.77 ml/min (50-250); Glucose 171 mg/dL (70-99); Potassium 3.1 mmol/L (3.3-5.1); Sodium Level 138 mmol/L (133-145)
[2024-10-23] MEDS: Hydrocortisone Sod Succinate 100 MG/2 ML Vial 50 MG IV ×3 (05:19→23:04)
[2024-10-23] MEDS: Menthol/Lanolin/Calamine/Znox 113 GM Tube 1 APPLIC TOPICAL ×3 (05:19→22:11)
[2024-10-23] MEDS: CHLORHEXIDINE GLUC 2% CLOTH 1 EACH TOWELETTE TOPICAL (05:20)
[2024-10-23] MEDS: fentaNYL 100 MCG/2 ML Ampul 25 MCG IV (05:27)
--- NOTE | 2024-10-23 05:47 | PCM.PN.INT ---
Assessment & Plan Assessment/Plan (1) Septic shock: PLAN: Plan RECOMMENDATIONS: 1. Continue antimicrobials pending culture results. 2. Continue to wean supplemental oxygen to maintain saturations at or above 90%. 3. Encourage PAP therapy with naps and nightly. 4. Continue amiodarone. I would recommend consideration for cardiology consultation to assist with medical management. 5. Continue stress dose steroids. Will begin to wean tomorrow if the patient remains hemodynamically stable. 5. Encourage incentive spirometer use and mobilize patient as tolerated. IMPRESSIONS: 1. Septic shock Presumed secondary to urinary tract source of infection. The patient, as of this morning, has been weaned from vasopressor support. She will be continued on stress dose steroids for an additional 24 hours to ensure hemodynamic stability. Continue empiric antibiotics, pending culture results. 2. Metabolic encephalopathy Improved. Likely related to #1. Continue current supportive measures, while avoiding sedating medications. 3. Acute kidney injury Resolved. Most likely prerenal in etiology in the setting of #1. Continue to monitor urine output. No current indication for renal replacement therapy. 4. New onset atrial fibrillation with RVR Continue amiodarone as ordered. Surface echocardiogram revealed intact, normal systolic function. 5. History of super morbid obesity/diabetes mellitus/hypertension/hyperlipidemia Complicates care, management, recovery and prognosis. Continue to hold home antihypertensives. Physical therapy to continue work with the patient. This note was generated with [employer]ic[employer] dictation software. It may contain incorrect words, spelling, and punctuation that were not noted in checking the note before signing. Subjective Subjective The patient was seen and examined at the bedside this morning. Events from the last 24 hours have been reviewed. The patient is currently afebrile, hemodynamically stable and maintaining appropriate oxygen saturations on 2 L/min via nasal cannula. The patient has been weaned off of Levophed at the present time. She remains in atrial fibrillation. The patient is documented to be overall net +7.4 L for the hospitalization. White blood cell count has improved to 23,000. Hemoglobin was noted to be 10.1 g/dL with a platelet count of 209,000. Potassium was low at 3.1 with a normal creatinine. Objective Data Objective Data The patient's most recent lab work, culture data and imaging studies have all been personally reviewed. Surface echocardiogram revealed normal LV size with an ejection fraction of 65%. Blood and urine cultures are pending. Vital Signs: Vital Signs Temp Pulse Resp BP Pulse Ox O2 Del Method O2 Flow Rate 99.0 F 121 H 21 H 130/52 H 99 Bi-pap 2 10/23/24 05:00 10/23/24 05:00 10/23/24 05:00 10/23/24 05:00 10/23/24 05:00 10/23/24 05:00 10/22/24 22:00 FiO2 30 10/23/24 05:00 Oxygen Flow Rate (L/min) 2 Oxygen Delivery Method Bi-pap Weight: 339 lb 15.245 oz Body Mass Index (BMI) 62.5 Intake & Output: Intake and Output for Last 24 Hours 10/21/24 10/22/24 10/23/24 23:59 23:59 23:59 Intake Total 6335.69 / 6345.07 3812.03 / 3964.22 618.89 / 618.89 Output Total 200 / 700 3975 / 3975 700 / 700 Balance 6135.69 / 5645.07 -162.97 / -10.78 -81.11 / -81.11 Lab / Micro Data Attestation: I reviewed the patient's lab results. 10/23/24 03:45 10/23/24 03:45 Labs: Laboratory Results - last 24 hr 10/22/24 06:37: Lactic Acid 1.6 10/22/24 11:12: POC Glucose 204 H 10/22/24 14:40: Troponin T High Sens 73 H* D 10/22/24 15:43: POC Glucose 185 H 10/22/24 20:22: POC Glucose 167 H 10/22/24 21:45: APTT 64.1 H 10/23/24 03:45: WBC 22.8 H, RBC 3.40 L, Hgb 10.1 L, Hct 30.5 L, MCV 89.7, MCH 29.7, MCHC 33.1, RDW Std Deviation 50.0 H, RDW Coeff of Graciela 15.2 H, Plt Count 209, MPV 11.7, Immature Gran % (Auto) 1.200 H, Neut % (Auto) 83.2 H, Lymph % (Auto) 6.6 L, [place] % (Auto) 8.7, Eos % (Auto) 0.0, Baso % (Auto) 0.3, Absolute Neuts (auto) 19.0 H, Absolute Lymphs (auto) 1.51, Nucleated RBC % 0, APTT 68.4 H, Sodium 138, Potassium 3.1 L, Chloride 101, Carbon Dioxide 20.9 L, Anion Gap 16 H, BUN 42 H, Creatinine 0.79, Estim Creat Clear Calc 93.77, Est GFR (MDRD) Non-Af 80, BUN/Creatinine Ratio 52.8 H, Glucose 171 H, Calcium 7.9 ABG Data ABG results: ABG 10/22/24 14:42 Specimen Type ART Sample Site Art Line pH 7.44 Bicarbonate Actual 26.6 H Total CO2 28 Base Excess 3 H O2 Saturation 99 O2 % 40.0 ABG pCO2 38.9 ABG pO2 145 H O2 Delivery Device CPAP Vent Mode Not entered POC PEEP 15 Radiography Diagnostic Testing: Radiology Impression Echocardiogram 10/22/24 03:29 Interpretation Summary The estimated ejection fraction is 65 %. Unable to assess diastolic dysfunction. The left atrium is mildly enlarged. Moderate mitral valve stenosis. Ordering Physician: Nando Serrano Referring Physician: Nicholas Roa Performed By: Jesus Mcleod RCS Renal Ultrasound 10/22/24 08:10 IMPRESSION: 1. No hydronephrosis. 2. Additional description as above. Reading Location: [facility] Physical Exam Const alert and no apparent distress Constitutional Narrative: Super morbidly obese. General Appearance: cooperative and ill appearing HEENT normocephalic and head/scalp atraumatic Eyes PERRL, EOMs intact bilaterally and conjunctivae normal Neck supple General: trachea midline and CVC in place Chest inspection of chest normal Resp normal respiratory effort Auscultation: diminished lung sounds Cardio S1 normal heart sound and S2 normal heart sound Rate: tachycardic Rhythm: abnormal rhythm GI normal to inspection, nondistended, normoactive bowel sounds Extremity no clubbing, cyanosis or edema Skin no rashes or lesions noted Neuro CN's II-XII intact bilaterally, moves all extremities and no focal motor deficits Psych Mood & Affect: flat affect Charges/Coding Visit Charges Inpatient E&M: 95101 Subs Hosp L3
[2024-10-23] MEDS: 0.9% Normal Saline (1000mL) 1,000 ML 125 ML IV (06:10)
[2024-10-23] MEDS: Piperacil/Tazobactam 3.375 GM in 0.9% Normal Saline (50mL MB+) 50 ML IV ×3 (06:10→22:11)
[2024-10-23] MEDS: Insulin Lispro 100 UNIT/ML INSULN.PEN 10 UNIT SC ×3 (07:40→15:32)
[2024-10-23] MEDS: Insulin Lispro 100 UNIT/ML INSULN.PEN SC ×4 (07:41→22:11)
[2024-10-23] MEDS: Multivitamins,Therapeutic Tablet 1 TABLET PO (07:41)
[2024-10-23] MEDS: Lactobacillis Acidophilus 1 CAP PO (07:42)
[2024-10-23] MEDS: Cholecalciferol (Vit D3) 125 MCG CAPSULE (5,000 UNITS) PO (07:43)
[2024-10-23] MEDS: Aspirin E.C. 81 MG Tablet PO (07:43)
[2024-10-23] MEDS: FLUoxetine 20 MG Capsule PO (07:43)
[2024-10-23] MEDS: Insulin Glargine-YFGN 100 UNIT/ML Pen 10 UNIT SC ×2 (07:43→22:11)
[2024-10-23] MEDS: Nystatin Powder 15gm Bottle 1 APPLIC TOPICAL ×2 (07:44→22:11)
--- NOTE | 2024-10-23 09:13 | CASEMGMT ---
Social Work- SW spoke with Yanelis, pt [id number] ([phone]) who reports that they family has changed their FOC after speaking with pt sister. Yanelis is going to look at a facility this morning and will update MARINO on preferences this afternoon. MARINO met with pt and pt sons to discuss discharge planning. Pt sons indicate that they are changing facility preferences to facilities that focus more on rehabilitation than nursing. Physician entered room for rounds; upon completion of rounds, pt sons had to leave. SW will follow up with [id number] for additional information. DCA notified of changes. FAIZAN Stinson
[2024-10-23] MEDS: oxyCODONE 5 MG Tablet PO ×4 (09:17→23:06)
[2024-10-23] MEDS: Potassium Chloride Oral Tablet 20 MEQ 40 MEQ PO (09:17)
[2024-10-23] MEDS: Pantoprazole Sodium 40 MG in 0.9% Normal Saline (100mL MB+) 100 ML 330 MG IV (09:18)
[2024-10-23 10:14] LABS: Partial Thromboplast Time 68.5 Seconds (24.1-36.2)
--- NOTE | 2024-10-23 11:26 | PN.HOSP_ITS ---
Reason for Visit Reason for Visit: Diagnoses Sepsis, unspecified organism (10/21/24) Acute kidney failure, unspecified (10/21/24) Urinary tract infection, site not specified (10/21/24) Severe sepsis with septic shock (10/21/24) Other specified abnormal findings of blood chemistry (10/21/24) Subjective Subjective Saw patient bedside this morning, two of patient's sons present. Patient was fatigued appearing but otherwise laying back comfortably in bed, answering questions with short appropriate responses, in no acute distress. She did report ongoing low back pain this morning but stated it was improved from overnight. Denied any fevers or chills. Denied any palpitations. Her sons noted that she looked significantly better this morning compared to yesterday. No other new concerns today. Objective Data Objective Data Vital Signs: Vital Signs Temp Pulse Resp BP Pulse Ox O2 Del Method O2 Flow Rate 99.1 F 112 H 20 H 128/59 H 98 Nasal Cannula 2 10/23/24 10:00 10/23/24 10:00 10/23/24 10:00 10/23/24 10:00 10/23/24 10:00 10/23/24 10:00 10/23/24 10:00 FiO2 30 10/23/24 06:00 Oxygen Flow Rate (L/min) 2 Oxygen Delivery Method Nasal Cannula Weight: 154.2 kg Body Mass Index (BMI) 62.5 Intake & Output: Intake and Output for Last 24 Hours 10/21/24 10/22/24 10/23/24 23:59 23:59 23:59 Intake Total 6335.69 / 6345.07 3812.03 / 3964.22 2676.15 / 2676.15 Output Total 200 / 700 3975 / 3975 700 / 700 Balance 6135.69 / 5645.07 -162.97 / -10.78 1975.15 / 1975.15 Lab / Micro Data 10/23/24 03:45 10/23/24 03:45 Labs: Laboratory Results - last 24 hr 10/22/24 11:12: POC Glucose 204 H 10/22/24 14:40: Troponin T High Sens 73 H* D 10/22/24 15:43: POC Glucose 185 H 10/22/24 20:22: POC Glucose 167 H 10/22/24 21:45: APTT 64.1 H 10/23/24 03:45: WBC 22.8 H, RBC 3.40 L, Hgb 10.1 L, Hct 30.5 L, MCV 89.7, MCH 29.7, MCHC 33.1, RDW Std Deviation 50.0 H, RDW Coeff of Graciela 15.2 H, Plt Count 209, MPV 11.7, Immature Gran % (Auto) 1.200 H, Neut % (Auto) 83.2 H, Lymph % (Auto) 6.6 L, [place] % (Auto) 8.7, Eos % (Auto) 0.0, Baso % (Auto) 0.3, Absolute Neuts (auto) 19.0 H, Absolute Lymphs (auto) 1.51, Nucleated RBC % 0, APTT 68.4 H , Sodium 138, Potassium 3.1 L, Chloride 101, Carbon Dioxide 20.9 L, Anion Gap 16 H, BUN 42 H, Creatinine 0.79, Estim Creat Clear Calc 93.77, Est GFR (MDRD) Non- Af 80, BUN/Creatinine Ratio 52.8 H, Glucose 171 H, Calcium 7.9 10/23/24 09:55: APTT 68.5 H Micro: Microbiology 10/21/24 11:33 Urine, Random Urine Culture - Preliminary Culture exhibits no growth. ABG Data ABG results: ABG 10/22/24 14:42 Specimen Type ART Sample Site Art Line pH 7.44 Bicarbonate Actual 26.6 H Total CO2 28 Base Excess 3 H O2 Saturation 99 O2 % 40.0 ABG pCO2 38.9 ABG pO2 145 H O2 Delivery Device CPAP Vent Mode Not entered POC PEEP 15 Radiography Diagnostic Testing: Radiology Impression Echocardiogram 10/22/24 03:29 Interpretation Summary The estimated ejection fraction is 65 %. Unable to assess diastolic dysfunction. The left atrium is mildly enlarged. Moderate mitral valve stenosis. Ordering Physician: Nando Serrano Referring Physician: Nicholas Roa Performed By: Jesus Mcleod RCS Physical Exam Const alert, oriented x3 and no apparent distress Constitutional Narrative: Elderly female, class III obesity, fatigued appearing but otherwise laying back comfortably in bed, answering questions with short appropriate responses, in no acute distress. General Appearance: cooperative and comfortable HEENT normocephalic, head/scalp atraumatic, hearing grossly normal bilaterally, nasal mucous membranes and turbinates normal and moist oral mucous membranes Eyes PERRL, EOMs intact bilaterally and conjunctivae normal Neck full ROM Chest inspection of chest normal Resp normal respiratory effort and no use of accessory muscles Resp Narrative: Breathing comfortably on 2 L nasal cannula at rest. Decreased breath sounds in bilateral lung bases but otherwise good air movement in upper lung zones with no wheezing or crackles noted. Cardio no murmurs and peripheral pulses 2+ throughout Cardio Narrative: A-fib with RVR. GI normal to inspection, nondistended, normoactive bowel sounds, soft to palpation, non-tender and non-distended Extremity normal to inspection and no pedal edema Skin no rashes or lesions noted Psych mental status grossly normal Assessment & Plan Assessment/Plan (1) Septic shock: PLAN: Plan Patient is a 69-year-old female who presented to [facility] ED on 10/21/2024 with recent frequent falls. 1. Septic shock, improving ? Cleaning Specialist following. Most likely source appears to be urinary. Became septic on evening of admission and required transfer to the ICU. Met sepsis criteria with lactic acid greater than 2, change in mental status, leukocytosis severe hypotension and suspected urinary source. Given 30 cc/kg of IV fluids without blood pressure response. Required Levophed and vasopressin with stress dose steroids initially to maintain appropriate pressures. Blood pressure now much improved and weaned off pressors on morning of 10/23. UA mildly infectious appearing. Urine culture and blood cultures pending. Chest x-ray unremarkable. CT abdomen pelvis with no overt intra-abdominal source of infection. Will continue IV vancomycin and Zosyn for now, follow-up cultures and wean as able. If blood pressure remains stable off pressors tomorrow, will likely be okay for CVC and A-line removal and transfer out of ICU. Appreciate strapping machine operator recommendations. 2. Acute metabolic encephalopathy, improved ? Noted that patient became encephalopathic on evening of admission. CT head without contrast unremarkable. Suspected secondary to septic shock as noted above. Now alert and oriented x 3 as of 10/23, resolved. Continue to avoid sedating medications as able. 3. GEO, resolved ? Creatinine 1.53 on admit, baseline appears to be 0.6-0.8. Renal ultrasound negative. Presumed prerenal GEO in setting of septic shock as noted above. Resolved back to baseline by 10/23 and patient has had good urine output. Continue to monitor BMP daily for now. 4. New onset A-fib with RVR ? Cardiology consulted. Developed new onset A-fib with RVR with heart rate to the 140s on evening of admission, presumed related to septic shock. Started on amiodarone at that time with only some improvement in the rate. Echo on 10/22 showed EF 65%, normal LV size and function, mild LA enlargement, moderate mitral valve stenosis, no other abnormalities. With improved blood pressure on 10/23, reinitiated home Toprol. Also initiated on heparin drip on 10/22 and will continue this for now. Appreciate further cardiology recommendations. 5. Acute on chronic debility with frequent falls ? PT/OT/case management following. Patient reports falling on an almost daily basis over the past week or so but does live at home and reportedly has decent functional status at baseline. Suspected the patient will require SNF placement on discharge. 6. Mild acute normocytic anemia ? Hemoglobin 12.1 on admit, down trended to 10.1 by 10/23. No signs of bleeding noted. Suspect downtrend is primarily due to heavy IV fluid resuscitation and patient may have mild degree of anemia at baseline. Continue to monitor CBC daily. 7. Hypokalemia ? Potassium 3.1 on 10/23. Mag and Phos normal. Replete potassium as needed. 8. Mildly elevated LFTs ? T. bili 1.52, direct bili 0.7, AST 78, ALT 49, alk phos 86 on admit. Have remained stable. CT abdomen pelvis with nonspecific findings concerning for liver fibrosis versus early cirrhosis. No further inpatient needs, will need outpatient follow-up on discharge. 9. Elevated troponins ? Cardiology consulted as above. Troponin trend 57 > 59 > 73 on admit. No chest pain and no ischemic EKG changes noted. Echo as noted above. Presumed demand ischemia in setting of septic shock and A-fib with RVR. No further ischemic workup needed at this time. Chronic medical conditions: ? Class III obesity with [place]: BMI 62 on admit. Complicates hospital course, care and prognosis. Continue home CPAP at night and with naps. ? History of nonobstructive CAD, hypertension, hyperlipidemia, history of valvular disease s/p TAVR: Continue home aspirin and statin. Resumed home Toprol on 10/23. Holding home lisinopril and chlorthalidone for now, will resume as able. Notably echo on 10/22 showed no aortic valve issues post TAVR. ? Type 2 diabetes mellitus: Treating with Lantus 10 units twice daily and Humalog 10 units sliding scale insulin with meals with good blood sugar control, will adjust as needed. ? Anxiety/depression: Continue home fluoxetine. ? Seasonal allergies: Continue home cetirizine. ? History of right breast DCIS s/p lumpectomy DVT prophylaxis: Not indicated, on heparin drip CODE STATUS: Full code, verified Expected disposition: Likely SNF, TBD Total clinical time spent by myself addressing the patient's medical issues, reviewing all the data, and collaborating with patient's care team: 50 minutes. Charges/Coding Visit Charges Inpatient E&M: 16838 Subs Hosp L3
[2024-10-23 12:04] LABS: Bedside Glucose 167 mg/dL (74-106)
[2024-10-23] MEDS: Metoprolol(XL)Succ 50 MG Tablet PO (13:32)
[2024-10-23] MEDS: Digoxin 250 MCG/ML Ampul 500 MCG IV (14:20)
[2024-10-23 15:52] LABS: Bedside Glucose 215 mg/dL (74-106)
[2024-10-23 16:36] LABS: Partial Thromboplast Time 68.4 Seconds (24.1-36.2)
--- NOTE | 2024-10-23 16:43 | PCM.RX.CS ---
Consult Antibiotic Management Pharmacy has been consulted to manage selected antibiotic: Vancomycin Type of Intervention Type of Consult: Follow-up Labs Labs: Sodium 138 mmol/L (133-145) 10/23/24 03:45 Potassium 3.1 mmol/L (3.3-5.1) L 10/23/24 03:45 Chloride 101 mmol/L (98-108) 10/23/24 03:45 Carbon Dioxide 20.9 mmol/L (21.0-32.0) L 10/23/24 03:45 Anion Gap 16 (5-15) H 10/23/24 03:45 BUN 42 mg/dL (4-19) H 10/23/24 03:45 Creatinine 0.79 mg/dL (0.70-1.20) 10/23/24 03:45 Est GFR (MDRD) Non-Af 80 (>60) 10/23/24 03:45 BUN/Creatinine Ratio 52.8 RATIO (10-20) H 10/23/24 03:45 Glucose 171 mg/dL (70-99) H 10/23/24 03:45 Vancomycin Trough 15.5 ug/mL (5.0-15.0) H 10/23/24 15:35 Microbiology Microbiology: Microbiology 10/21/24 11:33 Urine, Random Urine Culture - Preliminary Culture exhibits no growth. Goal Trough Goal Trough: 15-20 mcg/mL Pharmacy Plan for Drug Dosing Pharmacy Plan for Drug Dosing: VANCOMYCIN LEVEL RECEIVED Current Vancomycin Dose: 1500mg IV Q12hr Number of Doses Received: 3 (initial + 2 scheduled doses) Vancomycin Level: 15.5 Hours Since Last Dose: ~12hr Renal Function: 0.79 Renal Function Trend: improvement from yesterday (SCr was 1.19) Lab/Micro: cultures showing no growth to date Vancomycin Plan/Comments: Patient had a trough drawn which resulted in a value of 15.5 (goal 15-20). The patient's trough is within therapeutic limits. Will continue current dose of vancomycin 1500mg IV Q12hr. Will recheck a trough in 2 days per protocol and assess dosing at that time. Pending Level: 10/25/24 @4945 Pharmacy Service will continue to monitor and adjust dosing as required.
[2024-10-23 17:16] LABS: Vancomycin, Trough Level 15.5 ug/mL (5.0-15.0)
[2024-10-23] MEDS: Atorvastatin Calcium 10 MG Tablet PO (22:10)
[2024-10-23] MEDS: Pramipexole Di-HCl 0.25 MG Tablet PO (22:10)
[2024-10-23 22:32] LABS: Bedside Glucose 181 mg/dL (74-106)
[2024-10-23] MEDS: MELATONIN 3 MG TABLET PO (23:06)
[2024-10-24] VITALS (16 sets, daily range): BP systolic 112–157; BP diastolic 50–64; PULSE 50–61; RESP 11–18; TEMP 36.4–36.9; O2SAT 88–100; BMI 63.8
[2024-10-24] MEDS: Vancomycin HCl 1,500 MG in 0.9% Normal Saline (500mL Bag) 500 ML 250 MG IV ×2 (03:07→17:08)
[2024-10-24] MEDS: Amiodarone 360 MG in Dextrose 5% Viaflo Bag 192.8 ML 16.7 MG CONT INF (03:07)
[2024-10-24] MEDS: 0.9% Saline Lock 10 ML Syringe IV ×3 (03:08→17:09)
[2024-10-24 03:22] LABS: Absolute Lymphocyte Count 1.66 X10^3/uL (0.83-4.51); Absolute Neutrophil Count 11.5 X10^3/uL (2.0-7.7); Basophil# 0.04 X10^3/uL; Basophil% 0.3 % (0-1); Hematocrit 29.7 % (37-47); Hemoglobin 9.7 g/dL (12.0-15.0); Lymphocyte # 1.66 X10^3/ul (0.83-4.51); Lymphocyte % 11.4 % (19-41); Mean Corp Hgb Conc 32.7 g/dL (32-36); Mean Corpuscular Hgb 29.7 pg (27.0-32.0); Mean Corpuscular Volume 90.8 fL (81-99); Mean Platelet Vol. 11.4 fl (6.2-12.0); Monocyte# 1.02 X10^3/uL; NRBC Flagged by Analyzer 0 % (0-5); Neutrophil # 11.53 X10^3/uL (2.7-7.7); Neutrophil % 78.9 % (47-70); Platelet Count 194 K/mm3 (150-450); RBC Distribution Width CV 15.4 % (11.6-14.6); RBC Distribution Width SD 51.2 fl (35.1-43.9); Red Blood Count 3.27 M/mm3 (4.2-5.4); White Blood Count 14.6 K/mm3 (4.4-11.0)
[2024-10-24 03:32] LABS: Partial Thromboplast Time 81.8 Seconds (24.1-36.2)
[2024-10-24 03:47] LABS: Anion Gap 7 (5-15); BUN 49 mg/dL (4-19); BUN/Creat Ratio 46.8 RATIO (10-20); Calcium,Total 7.8 mg/dL (7.6-11.0); Carbon Dioxide 25.9 mmol/L (21.0-32.0); Chloride 100 mmol/L (98-108); Creatinine, Serum 1.05 mg/dL (0.70-1.20); EST Glomerular Filtration Rate 57 (>60); Estimated Creatinine Clearance 73.21 ml/min (50-250); Glucose 229 mg/dL (70-99); Potassium 3.8 mmol/L (3.3-5.1); Sodium Level 133 mmol/L (133-145)
[2024-10-24] MEDS: Hydrocortisone Sod Succinate 100 MG/2 ML Vial 50 MG IV (05:31)
[2024-10-24] MEDS: Piperacil/Tazobactam 3.375 GM in 0.9% Normal Saline (50mL MB+) 50 ML IV (05:31)
[2024-10-24] MEDS: Menthol/Lanolin/Calamine/Znox 113 GM Tube 1 APPLIC TOPICAL ×3 (05:33→22:28)
[2024-10-24] MEDS: HEPARIN/D5w 25,000 UNITS 25,000 UNITS/250 ML IV.SOLN. 18 UNITS CONT INF (05:33)
[2024-10-24] MEDS: CHLORHEXIDINE GLUC 2% CLOTH 1 EACH TOWELETTE TOPICAL (05:34)
--- NOTE | 2024-10-24 06:32 | PCM.CONS.C ---
Assessment & Plan Assessment/Plan (1) History of transcatheter aortic valve replacement (TAVR): PLAN: She is status post TAVR. She appears to be doing well at this time her last echocardiogram demonstrated preserved ejection fraction and acceptable gradients and the plan is to continue the current therapy. (2) Paroxysmal atrial fibrillation: PLAN: She did have an episode of atrial fibrillation at the time of sepsis. I do not think this warrants long-term anticoagulation. She is in sinus rhythm now. She will be transition from intravenous amiodarone to oral amiodarone and metoprolol. (3) Essential hypertension: PLAN: She does have a history of hypertension. Her blood pressure is under better control now. This will be continued without us making any changes. (4) Hyperlipidemia: PLAN: She does have a history of hyperlipidemia and we will continue with risk factor modification. HPI Consult Data Date of Consult: 10/24/24 HPI Narrative HPI Narrative: JOANNA SARAH, is a 69 F who presents with septic shock hypotension was treated with vasopressor agents and developed atrial fibrillation for which she was started on intravenous amiodarone. Cardiology was called for assessment. Patient has not had any previous episodes of the above. An echocardiogram was performed which demonstrated an ejection fraction of 65%. Patient was continued on intravenous amiodarone electrolytes were optimized and patient was given an additional dose of digoxin and patient converted to sinus rhythm. At the time she was seen she appeared to be conscious and awake denied any chest pain or shortness of breath or paroxysmal nocturnal dyspnea. She does have a history of hypertension and diabetes mellitus on therapy. She also has a history of cardiac catheterization in May 2022 with nonobstructive coronary arteries and at that time moderate to severe aortic stenosis for which she underwent a TAVR. 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 Mass of right breast Right rotator cuff tear Closed fracture of right proximal humerus History of transcatheter aortic valve replacement (TAVR) (01/16/23) Hyperlipidemia [place] on CPAP Dyspnea Type 2 diabetes mellitus Essential hypertension Nonrheumatic aortic (valve) stenosis Former smoker CPAP (continuous positive airway pressure) dependence Asthma Ludwigs angina Morbid obesity Home Medications ?Medication ?Instructions ?Recorded ?Last Taken ?Type atorvastatin 10 mg tablet 10 mg PO QHS cholesterol 07/14/21 10/20/24 History chlorthalidone 25 mg tablet 25 mg PO DAILY diuretic 07/14/21 10/20/24 History fluoxetine 20 mg capsule 20 mg PO DAILY anxiety 07/14/21 10/20/24 History metoprolol succinate 50 mg 50 mg PO DAILY . 07/14/21 10/20/24 History tablet,extended release 24 hr albuterol sulfate 90 mcg/actuation 2 puff inhalation Q4H PRN Dyspnea 05/25/22 08/21/23 History aerosol inhaler albuterol sulfate 2.5 mg/3 mL 2.5 mg inhalation Q4H PRN sob 05/26/22 07/26/23 History (0.083 %) solution for nebulization cholecalciferol (vitamin D3) 125 125 mcg PO DAILY 05/26/22 10/20/24 History mcg (5,000 unit) tablet lisinopril 40 mg tablet 40 mg PO DAILY htn 08/26/22 10/20/24 History multivitamin 1 tab PO DAILY 08/26/22 10/20/24 History dulaglutide 4.5 mg/0.5 mL 4.5 mg subcut QWEEK 10/14/22 10/20/24 History subcutaneous pen injector (Trulicity) aspirin 81 mg tablet,delayed 81 mg PO DAILY 01/26/23 10/20/24 History release blood pressure monitor #1 ea 04/13/23 Unknown Rx lactobacillus combo no.11 15 1 cap PO DAILY 08/18/23 10/20/24 History billion cell sprinkle capsule (Probiotic) insulin lispro 100 unit/mL 10 unit subcut TID 01/24/24 10/20/24 History subcutaneous pen (Humalog KwikPen (U-100) Insulin) metformin 750 mg tablet,extended 750 mg PO QDAY 01/24/24 10/20/24 History release 24 hr handicap placard #1 ea 09/25/24 Unknown Rx cetirizine 10 mg tablet (24Hour 10 mg PO DAILY allergies 10/21/24 10/20/24 History Allergy) empagliflozin 25 mg tablet 25 mg PO DAILY 10/21/24 10/20/24 History (Jardiance) Allergy/AdvReac Type Severity Reaction Status Date / Time glimepiride Allergy Unknown pruritus Verified 10/21/24 06:51 rosiglitazone (From Avandia) Allergy Unknown Rash Verified 10/21/24 06:51 sitagliptin (From Januvia) Allergy Unknown Rash Verified 10/21/24 06:51 Sulfa (Sulfonamide Allergy NEEDS Verified 10/21/24 06:51 Antibiotics) FOLLOW-UP acetaminophen (From Tylenol) AdvReac Unknown Enlarged Verified 10/21/24 06:51 liver pravastatin AdvReac Unknown elevated Verified 10/21/24 06:51 liver enzymes Family History Mother Diabetes Heart disease Hypertension CVA (cerebral vascular accident) Father Diabetes Heart disease Hypertension Surgical History History of cardiac catheterization History of right breast biopsy History of left heart catheterization (05/30/22) History of rhinoplasty Hx of total knee replacement Hx of tubal ligation Hx of tonsillectomy History of hysterectomy Hx of cholecystectomy Social History Smoking Status: Former smoker how long ago did patient quit smokin years ago alcohol intake: current alcohol intake frequency: holidays/special occasions only substance use type: does not use caffeine: Yes Type: coffee Number of servings: 1 ROS Constitutional Constitutional: Denies fever(s) or weight loss Eyes Eyes: Reports systems reviewed and no addt'l complaints, except as documented ENT HEENT: Reports systems reviewed and no addt'l complaints, except as documented Cardiovascular Cardiovascular: Denies chest pain at rest, chest pain with activity, dyspnea at rest, dyspnea on exertion, edema, palpitations or paroxysmal nocturnal dyspnea Respiratory/Chest Respiratory/Chest: Denies dyspnea on exertion, productive cough, shortness of breath at rest or shortness of breath with exertion Gastrointestinal Gastrointestinal: Denies change in bowel habits, nausea, vomiting or weight changes Genitourinary Genitourinary: Denies difficulty urinating Musculoskeletal Musculoskeletal: Denies joint stiffness or muscle weakness Integumentary Integumentary: Denies lesions Neurologic Neurologic: Denies dizziness or syncope Psychiatric Psychiatric: Denies anxiety Endocrine Endocrinology: Denies excessive sweating or fatigue Hematologic/Lymphatic Hematologic/Lymphatic: Denies anemia Allergic/Immunologic Allergic/Immunologic: Denies seasonal rhinorrhea Physical Exam Const alert and no apparent distress General Appearance: cooperative HEENT hearing grossly normal bilaterally Head and Scalp: atraumatic Eyes EOMs intact bilaterally Neck General: normal visual inspection Chest inspection of chest normal and palpation of chest normal Resp normal respiratory effort Auscultation: clear to auscultation bilaterally Cardio regular rate, regular rhythm, S1 normal heart sound and S2 normal heart sound Jugular Venous Distention: JVD GI normal to inspection, nondistended, normoactive bowel sounds Extremity normal capillary refill and no pedal edema Peripheral Pulses: Yes pulses 2+ throughout and femoral pulses present Skin no rashes or lesions noted Neuro oriented x3 and CN's II-XII intact bilaterally Psych Appearance: grossly normal and appropriate Risk Stratification Risk Stratification Applicable: No Objective Data Vital Signs: Vital Signs Temp Pulse Resp BP Pulse Ox O2 Del Method O2 Flow Rate 97.5 F L 58 L 18 146/60 H 100 Nasal Cannula 2 10/24/24 06:00 10/24/24 06:00 10/24/24 06:00 10/24/24 06:00 10/24/24 06:00 10/24/24 06:00 10/24/24 06:00 FiO2 30 10/24/24 02:00 Oxygen Flow Rate (L/min) 2 Oxygen Delivery Method Nasal Cannula Weight: 347 lb 0.121 oz Body Mass Index (BMI) 63.8 Intake & Output: Intake and Output for Last 24 Hours 10/22/24 10/23/24 10/24/24 23:59 23:59 23:59 Intake Total 3812.03 / 3964.22 3582.96 / 3782.96 1198.67 / 1198.67 Output Total 3975 / 3975 1900 / 2150 525 / 525 Balance -162.97 / -10.78 1682.96 / 1632.96 673.67 / 673.67 Lab / Micro Data 10/24/24 03:15 10/24/24 03:15 Labs: Laboratory Results - last 24 hr 10/23/24 09:55: APTT 68.5 H 10/23/24 11:46: POC Glucose 167 H 10/23/24 15:31: POC Glucose 215 H 10/23/24 15:35: APTT 68.4 H, Vancomycin Trough 15.5 H 10/23/24 22:10: POC Glucose 181 H 10/24/24 03:15: WBC 14.6 H, RBC 3.27 L, Hgb 9.7 L, Hct 29.7 L, MCV 90.8, MCH 29.7, MCHC 32.7, RDW Std Deviation 51.2 H, RDW Coeff of Graciela 15.4 H, Plt Count 194, MPV 11.4, Immature Gran % (Auto) 2.400 H, Neut % (Auto) 78.9 H, Lymph % (Auto) 11.4 L, [place] % (Auto) 7.0, Eos % (Auto) 0.0, Baso % (Auto) 0.3, Absolute Neuts (auto) 11.5 H, Absolute Lymphs (auto) 1.66, Nucleated RBC % 0, APTT 81.8 H, Sodium 133, Potassium 3.8, Chloride 100, Carbon Dioxide 25.9, Anion Gap 7, BUN 49 H, Creatinine 1.05, Estim Creat Clear Calc 73.21, Est GFR (MDRD) Non-Af 57 L, BUN/Creatinine Ratio 46.8 H, Glucose 229 H, Calcium 7.8 Micro: Microbiology 10/21/24 11:33 Urine, Random Urine Culture - Preliminary Culture exhibits no growth. Cardiology Labs/Tests 10/23/24 09:55: APTT 68.5 H 10/23/24 15:35: APTT 68.4 H 10/24/24 03:15: WBC 14.6 H, RBC 3.27 L, Hgb 9.7 L, Hct 29.7 L, MCV 90.8, MCH 29.7, MCHC 32.7, Plt Count 194, MPV 11.4, Immature Gran % (Auto) 2.400 H, Neut % (Auto) 78.9 H, Lymph % (Auto) 11.4 L, [place] % (Auto) 7.0, Eos % (Auto) 0.0, Baso % (Auto) 0.3, Absolute Neuts (auto) 11.5 H, Nucleated RBC % 0, APTT 81.8 H, Sodium 133, Potassium 3.8, Chloride 100, Carbon Dioxide 25.9, Anion Gap 7, BUN 49 H, Creatinine 1.05, Est GFR (MDRD) Non-Af 57 L, BUN/Creatinine Ratio 46.8 H, Glucose 229 H, Calcium 7.8 Rhythm: EKG: ECHO: Stress Test: Cardiac Cath: PCI: CT Surgery: Holter monitor: EPS: PPM: CXR: Chest CT Scan:
[2024-10-24] MEDS: Insulin Lispro 100 UNIT/ML INSULN.PEN 10 UNIT SC ×2 (07:29→17:11)
[2024-10-24] MEDS: Insulin Lispro 100 UNIT/ML INSULN.PEN SC ×3 (07:29→22:29)
--- NOTE | 2024-10-24 07:44 | PN.CC_ITS ---
Assessment & Plan Assessment/Plan (1) Septic shock: PLAN: Plan RECOMMENDATIONS: 1. Continue antimicrobials pending culture results. 2. Encourage PAP therapy with naps and nightly. 3. Discontinue stress dose steroids. 4. Encourage incentive spirometer use and mobilize patient as tolerated. 5. Will sign off from a critical care perspective. Please call with any additional questions. IMPRESSIONS: 1. Septic shock Presumed secondary to urinary tract source of infection. The patient has been weaned from vasopressor support and remains hemodynamically stable. Her stress dose steroids will be discontinued this morning. Antimicrobials will be continued, pending finalized culture results. 2. Metabolic encephalopathy Improved. Likely related to #1. Continue current supportive measures, while avoiding sedating medications. 3. Acute kidney injury Resolved. Most likely prerenal in etiology in the setting of #1. Continue to monitor urine output. No current indication for renal replacement therapy. 4. New onset atrial fibrillation with RVR Resolved. Continue current medical management per cardiology recommendations. 5. History of super morbid obesity/diabetes mellitus/hypertension/hyperlipidemia Complicates care, management, recovery and prognosis. Physical therapy to continue work with the patient. This note was generated with [employer] dictation software. It may contain incorrect words, spelling, and punctuation that were not noted in checking the note before signing. Subjective Subjective The patient was seen and examined at the bedside this morning. Events from the last 24 hours have been reviewed. The patient is currently afebrile, hemodynamically stable and maintaining appropriate oxygen saturations on room air. The patient converted from atrial fibrillation to normal sinus rhythm overnight. Her amiodarone has been discontinued. White blood cell count was noted to be 14,000. Hemoglobin and platelet count are stable. Creatinine is within normal limits. Objective Data Objective Data The patient's most recent lab work, culture data and imaging studies have all been personally reviewed. Surface echocardiogram revealed normal LV size with an ejection fraction of 65%. Blood and urine cultures are pending. Vital Signs: Vital Signs Temp Pulse Resp BP Pulse Ox O2 Del Method O2 Flow Rate 97.6 F L 59 L 11 L 148/60 H 88 Room Air 2 10/24/24 07:00 10/24/24 07:00 10/24/24 07:00 10/24/24 07:00 10/24/24 07:00 10/24/24 07:00 10/24/24 06:00 FiO2 30 10/24/24 02:00 Oxygen Flow Rate (L/min) 2 Oxygen Delivery Method Room Air Weight: 347 lb 0.121 oz Body Mass Index (BMI) 63.8 Intake & Output: Intake and Output for Last 24 Hours 10/22/24 10/23/24 10/24/24 23:59 23:59 23:59 Intake Total 3812.03 / 3964.22 3582.96 / 3782.96 1310.44 / 1310.44 Output Total 3975 / 3975 1900 / 2150 525 / 525 Balance -162.97 / -10.78 1682.96 / 1632.96 785.44 / 785.44 Lab / Micro Data Attestation: I reviewed the patient's lab results. 10/24/24 03:15 10/24/24 03:15 Labs: Laboratory Results - last 24 hr 10/23/24 09:55: APTT 68.5 H 10/23/24 11:46: POC Glucose 167 H 10/23/24 15:31: POC Glucose 215 H 10/23/24 15:35: APTT 68.4 H, Vancomycin Trough 15.5 H 10/23/24 22:10: POC Glucose 181 H 10/24/24 03:15: WBC 14.6 H, RBC 3.27 L, Hgb 9.7 L, Hct 29.7 L, MCV 90.8, MCH 29.7, MCHC 32.7, RDW Std Deviation 51.2 H, RDW Coeff of Graciela 15.4 H, Plt Count 194, MPV 11.4, Immature Gran % (Auto) 2.400 H, Neut % (Auto) 78.9 H, Lymph % (Auto) 11.4 L, [place] % (Auto) 7.0, Eos % (Auto) 0.0, Baso % (Auto) 0.3, Absolute Neuts (auto) 11.5 H, Absolute Lymphs (auto) 1.66, Nucleated RBC % 0, APTT 81.8 H , Sodium 133, Potassium 3.8, Chloride 100, Carbon Dioxide 25.9, Anion Gap 7, BUN 49 H, Creatinine 1.05, Estim Creat Clear Calc 73.21, Est GFR (MDRD) Non-Af 57 L, BUN/Creatinine Ratio 46.8 H, Glucose 229 H, Calcium 7.8 Micro: Microbiology 10/21/24 16:47 Blood Culture (Wb) - Right Hand Blood Culture - Preliminary No growth in 48 hours. 10/21/24 11:33 Urine, Random Urine Culture - Preliminary Culture exhibits no growth. ABG Data ABG results: ABG 10/22/24 14:42 Specimen Type ART Sample Site Art Line pH 7.44 Bicarbonate Actual 26.6 H Total CO2 28 Base Excess 3 H O2 Saturation 99 O2 % 40.0 ABG pCO2 38.9 ABG pO2 145 H O2 Delivery Device CPAP Vent Mode Not entered POC PEEP 15 Radiography Diagnostic Testing: Radiology Impression Echocardiogram 10/22/24 03:29 Interpretation Summary The estimated ejection fraction is 65 %. Unable to assess diastolic dysfunction. The left atrium is mildly enlarged. Moderate mitral valve stenosis. Ordering Physician: Nando Serrnao Referring Physician: Nicholas Roa Performed By: Jesus Mcleod RCS Renal Ultrasound 10/22/24 08:10 IMPRESSION: 1. No hydronephrosis. 2. Additional description as above. Reading Location: [facility] Physical Exam Const alert and no apparent distress Constitutional Narrative: Super morbidly obese. General Appearance: cooperative HEENT normocephalic and head/scalp atraumatic Eyes PERRL, EOMs intact bilaterally and conjunctivae normal Neck supple General: trachea midline and CVC in place Chest inspection of chest normal Resp normal respiratory effort Auscultation: diminished lung sounds Cardio regular rhythm, S1 normal heart sound and S2 normal heart sound Rate: bradycardia GI normal to inspection, nondistended, normoactive bowel sounds Extremity no clubbing, cyanosis or edema Skin no rashes or lesions noted Neuro CN's II-XII intact bilaterally, moves all extremities and no focal motor deficits Psych Mood & Affect: flat affect Charges/Coding Visit Charges Inpatient E&M: 79182 Subs Hosp L2
[2024-10-24 07:48] LABS: Bedside Glucose 210 mg/dL (74-106)
[2024-10-24] MEDS: Amiodarone 200 MG Tablet PO (08:37)
[2024-10-24] MEDS: FLUoxetine 20 MG Capsule PO (08:38)
[2024-10-24] MEDS: Multivitamins,Therapeutic Tablet 1 TABLET PO (08:38)
[2024-10-24] MEDS: Cholecalciferol (Vit D3) 125 MCG CAPSULE (5,000 UNITS) PO (08:38)
[2024-10-24] MEDS: Lactobacillis Acidophilus 1 CAP PO (08:38)
[2024-10-24] MEDS: Aspirin E.C. 81 MG Tablet PO (08:38)
[2024-10-24] MEDS: APIXABAN 5 MG TABLET PO ×2 (09:15→22:29)
--- NOTE | 2024-10-24 09:30 | CASEMGMT ---
Social Work SW attended ICU rounds. Pt sons are in the room with pt. Pt and sons stating that they are agreeable to need for short term SNF placement, but have decided against [facility]. New preferred providers are 1. [facility] 2. [facility] 3. [place]. Referral sent to TCU. SW will await determination of acceptance. Plan: TCU, pending acceptance FAIZAN Alcantara
--- NOTE | 2024-10-24 10:23 | PCM.PN.HOSP ---
Reason for Visit Reason for Visit: Diagnoses Sepsis, unspecified organism (10/21/24) Acute kidney failure, unspecified (10/21/24) Urinary tract infection, site not specified (10/21/24) Severe sepsis with septic shock (10/21/24) Other specified abnormal findings of blood chemistry (10/21/24) Subjective Subjective Saw patient at bedside this morning. Patient remains fatigued but slightly improved energy porter from yesterday. Otherwise laying back comfortably in bed and answering questions appropriately, in no acute distress. She states that her low back pain is slightly improved today from yesterday. Denies any fevers or chills. Denies any palpitations. No other new concerns today. Objective Data Objective Data Vital Signs: Vital Signs Temp Pulse Resp BP Pulse Ox O2 Del Method O2 Flow Rate 97.6 F L 56 L 13 145/60 H 98 Nasal Cannula 2 10/24/24 09:00 10/24/24 09:00 10/24/24 09:00 10/24/24 09:00 10/24/24 09:00 10/24/24 09:00 10/24/24 09:00 FiO2 30 10/24/24 02:00 Oxygen Flow Rate (L/min) 2 Oxygen Delivery Method Nasal Cannula Weight: 157.4 kg Body Mass Index (BMI) 63.8 Intake & Output: Intake and Output for Last 24 Hours 10/22/24 10/23/24 10/24/24 23:59 23:59 23:59 Intake Total 3812.03 / 3964.22 3582.96 / 3782.96 1360.44 / 1360.44 Output Total 3975 / 3975 1900 / 2150 525 / 525 Balance -162.97 / -10.78 1682.96 / 1632.96 835.44 / 835.44 Lab / Micro Data 10/24/24 03:15 10/24/24 03:15 Labs: Laboratory Results - last 24 hr 10/23/24 11:46: POC Glucose 167 H 10/23/24 15:31: POC Glucose 215 H 10/23/24 15:35: APTT 68.4 H, Vancomycin Trough 15.5 H 10/23/24 22:10: POC Glucose 181 H 10/24/24 03:15: WBC 14.6 H, RBC 3.27 L, Hgb 9.7 L, Hct 29.7 L, MCV 90.8, MCH 29.7, MCHC 32.7, RDW Std Deviation 51.2 H, RDW Coeff of Graciela 15.4 H, Plt Count 194, MPV 11.4, Immature Gran % (Auto) 2.400 H, Neut % (Auto) 78.9 H, Lymph % (Auto) 11.4 L, Beaver % (Auto) 7.0, Eos % (Auto) 0.0, Baso % (Auto) 0.3, Absolute Neuts (auto) 11.5 H, Absolute Lymphs (auto) 1.66, Nucleated RBC % 0, APTT 81.8 H, Sodium 133, Potassium 3.8, Chloride 100, Carbon Dioxide 25.9, Anion Gap 7, BUN 49 H, Creatinine 1.05, Estim Creat Clear Calc 73.21, Est GFR (MDRD) Non-Af 57 L, BUN/Creatinine Ratio 46.8 H, Glucose 229 H, Calcium 7.8 10/24/24 07:28: POC Glucose 210 H Micro: Microbiology 10/21/24 11:33 Urine, Random Urine Culture - Final Culture exhibits no growth. 10/21/24 16:47 Blood Culture (Wb) - Right Hand Blood Culture - Preliminary No growth in 48 hours. Physical Exam Const alert, oriented x3 and no apparent distress Constitutional Narrative: Elderly female, class III obesity, fatigued appearing but energy is improving, otherwise laying back comfortably in bed, answering questions with short appropriate responses, in no acute distress. General Appearance: cooperative and comfortable HEENT normocephalic, head/scalp atraumatic, hearing grossly normal bilaterally, nasal mucous membranes and turbinates normal and moist oral mucous membranes Eyes PERRL, EOMs intact bilaterally and conjunctivae normal Neck full ROM Chest inspection of chest normal Resp normal respiratory effort and no use of accessory muscles Resp Narrative: Breathing comfortably on 2 L nasal cannula at rest. Decreased breath sounds in bilateral lung bases but otherwise good air movement in upper lung zones with no wheezing or crackles noted. Stable. Cardio regular rate, regular rhythm, no murmurs and peripheral pulses 2+ throughout GI normal to inspection, nondistended, normoactive bowel sounds, soft to palpation, non-tender and non-distended Extremity normal to inspection and no pedal edema Skin no rashes or lesions noted Psych mental status grossly normal Assessment & Plan Assessment/Plan (1) Septic shock: PLAN: Plan Patient is a 69-year-old female who presented to [facility] ED on 10/21/2024 with recent frequent falls. 1. Septic shock, improving ? Watch And Clock Repair Clerk following. Most likely source appears to be urinary. Became septic on evening of admission and required transfer to the ICU. Met sepsis criteria with lactic acid greater than 2, change in mental status, leukocytosis severe hypotension and suspected urinary source. Given 30 cc/kg of IV fluids without blood pressure response. Required Levophed and vasopressin with stress dose steroids initially to maintain appropriate pressures. Blood pressure now much improved and weaned off pressors on morning of 10/23. UA mildly infectious appearing. However, urine and blood cultures with no growth to this point.Chest x-ray unremarkable. CT abdomen pelvis with no overt intra-abdominal source of infection. Weaned off stress dose steroids on 10/24. Will continue IV vancomycin and Zosyn for now until final culture results are available. Stable for transfer out of ICU on 10/24. 2. Acute metabolic encephalopathy, improved ? Noted that patient became encephalopathic on evening of admission. CT head without contrast unremarkable. Suspected secondary to septic shock as noted above. Now alert and oriented x 3 as of 10/23, resolved. Continue to avoid sedating medications as able. 3. GEO, resolved ? Creatinine 1.53 on admit, baseline appears to be 0.6-0.8. Renal ultrasound negative. Presumed prerenal GEO in setting of septic shock as noted above. Resolved back to baseline by 10/23 and patient has had good urine output. Continue to monitor BMP daily for now. 4. New onset A-fib with RVR ? Cardiology following. Developed new onset A-fib with RVR with heart rate to the 140s on evening of admission, presumed related to septic shock. Started on amiodarone at that time with only some improvement in the rate. Echo on 10/22 showed EF 65%, normal LV size and function, mild LA enlargement, moderate mitral valve stenosis, no other abnormalities. Reinitiated home Toprol on 10/23 and per cardiology was given a dose of IV digoxin as well. Converted back to normal sinus rhythm on the evening of 10/23 and has remained in normal sinus rhythm to sinus bradycardia. Transitioned from heparin drip to p.o. Eliquis and from amiodarone drip to p.o. amiodarone on 10/24. Continue home Toprol, p.o. amiodarone and Eliquis. Continue cardiac monitoring. 5. Acute on chronic debility with frequent falls ? PT/OT/case management following. Patient reports falling on an almost daily basis over the past week or so but does live at home and reportedly has decent functional status at baseline. Suspected the patient will require SNF placement on discharge. 6. Mild acute normocytic anemia ? Hemoglobin 12.1 on admit, down trended to 10.1 on hospital day 2 and now remaining stable around 10. Suspect downtrend is primarily due to heavy IV fluid resuscitation and patient may have mild degree of anemia at baseline. Continue to monitor CBC daily. 7. Hypokalemia ? Potassium 3.1 on 10/23. Mag and Phos normal. Replete potassium as needed. 8. Mildly elevated LFTs ? T. bili 1.52, direct bili 0.7, AST 78, ALT 49, alk phos 86 on admit. Have remained stable. CT abdomen pelvis with nonspecific findings concerning for liver fibrosis versus early cirrhosis. No further inpatient needs, will need outpatient follow-up on discharge. 9. Elevated troponins ? Cardiology following as above. Troponin trend 57 > 59 > 73 on admit. No chest pain and no ischemic EKG changes noted. Echo as noted above. Presumed demand ischemia in setting of septic shock and A-fib with RVR. No further ischemic workup needed at this time. Chronic medical conditions: ? Class III obesity with LINWOOD: BMI 62 on admit. Complicates hospital course, care and prognosis. Continue home CPAP at night and with naps. ? History of nonobstructive CAD, hypertension, hyperlipidemia, history of valvular disease s/p TAVR: Continue home aspirin and statin. Resumed home Toprol on 10/23. Holding home lisinopril and chlorthalidone for now, will resume as able. Notably echo on 10/22 showed no aortic valve issues post TAVR. ? Type 2 diabetes mellitus: Treating with Lantus 10 units twice daily and Humalog 10 units sliding scale insulin with meals with good blood sugar control, will adjust as needed. ? Anxiety/depression: Continue home fluoxetine. ? Seasonal allergies: Continue home cetirizine. ? History of right breast DCIS s/p lumpectomy DVT prophylaxis: Not indicated, on Eliquis CODE STATUS: Full code, verified Expected disposition: Likely SNF, 1 to 2 days Total clinical time spent by myself addressing the patient's medical issues, reviewing all the data, and collaborating with patient's care team: 35 minutes. Charges/Coding Visit Charges Inpatient E&M: 29865 Subs Hosp L2
[2024-10-24] MEDS: Pantoprazole Sodium 40 MG in 0.9% Normal Saline (100mL MB+) 100 ML 330 MG IV (11:14)
[2024-10-24] MEDS: oxyCODONE 5 MG Tablet PO ×2 (11:17→16:12)
[2024-10-24] MEDS: Nystatin Powder 15gm Bottle 1 APPLIC TOPICAL ×2 (11:23→22:30)
[2024-10-24 11:33] LABS: Bedside Glucose 177 mg/dL (74-106)
--- NOTE | 2024-10-24 11:51 | CASEMGMT ---
Social Work TCU is able to accept pt. Trulicity will need to be held during TCU stay. SW met with pt who is agreeable to SNF placement at TCU. Phone call placed to pt son Junaid and updated on acceptance and he is agreeable and will notify the rest of the family. Plan: TCU, when medically ready FAIZAN Alcantara
[2024-10-24] MEDS: Piperacil/Tazobactam 3.375 GM/50 ML ML IV ×2 (15:00→22:30)
[2024-10-24 16:39] LABS: Bedside Glucose 179 mg/dL (74-106)
[2024-10-24] MEDS: Insulin Glargine-YFGN 100 UNIT/ML Pen 10 UNIT SC (22:29)
[2024-10-24] MEDS: Pramipexole Di-HCl 0.25 MG Tablet PO (22:29)
[2024-10-24] MEDS: Atorvastatin Calcium 10 MG Tablet PO (22:29)
[2024-10-24] MEDS: Senna Tablet 1 TABLET PO (22:30)
[2024-10-24] MEDS: MELATONIN 3 MG TABLET PO (22:30)
[2024-10-24 23:00] LABS: Bedside Glucose 164 mg/dL (74-106)
[2024-10-25] VITALS (9 sets, daily range): BP systolic 114–142; BP diastolic 50–59; PULSE 55–68; RESP 12–18; TEMP 36.2–36.6; O2SAT 94–98
[2024-10-25] MEDS: Vancomycin HCl 1,500 MG in 0.9% Normal Saline (500mL Bag) 500 ML 250 MG IV (03:31)
[2024-10-25] MEDS: Menthol/Lanolin/Calamine/Znox 113 GM Tube 1 APPLIC TOPICAL ×3 (06:26→23:01)
[2024-10-25] MEDS: Piperacil/Tazobactam 3.375 GM/50 ML ML IV ×3 (06:26→23:03)
[2024-10-25] MEDS: 0.9% Saline Lock 10 ML Syringe IV ×2 (06:26→10:53)
[2024-10-25 06:37] LABS: Hematocrit 29.8 % (37-47); Hemoglobin 9.7 g/dL (12.0-15.0); Mean Corp Hgb Conc 32.6 g/dL (32-36); Mean Corpuscular Hgb 29.8 pg (27.0-32.0); Mean Corpuscular Volume 91.4 fL (81-99); Mean Platelet Vol. 11.3 fl (6.2-12.0); POSITIVE COUNT YES; POSITIVE MORPHOLOGY YES; Platelet Count 235 K/mm3 (150-450); RBC Distribution Width CV 15.3 % (11.6-14.6); RBC Distribution Width SD 51.4 fl (35.1-43.9); Red Blood Count 3.26 M/mm3 (4.2-5.4); White Blood Count 12.5 K/mm3 (4.4-11.0)
[2024-10-25 06:48] LABS: Differential Indicated MANUAL DIFF
[2024-10-25 07:12] LABS: Anion Gap 8 (5-15); BUN 49 mg/dL (4-19); BUN/Creat Ratio 58.6 RATIO (10-20); Carbon Dioxide 25.2 mmol/L (21.0-32.0); Chloride 102 mmol/L (98-108); Creatinine, Serum 0.83 mg/dL (0.70-1.20); EST Glomerular Filtration Rate 75 (>60); Estimated Creatinine Clearance 92.62 ml/min (50-250); Glucose 139 mg/dL (70-99); Potassium 3.5 mmol/L (3.3-5.1); Sodium Level 136 mmol/L (133-145)
[2024-10-25 07:22] LABS: Eosinophil 1 % (0-5); Lymphocyte 21 % (19-41); Metamyelocyte 2 % (0-1); Monocyte 5 % (0-10); Myelocyte 1 % (0-0); Neutrophil-Band 3 % (0-5); Neutrophil-Segmented 67 % (47-70); Total Cells Counted 100 (MANUAL DIFF)
[2024-10-25 07:23] LABS: Platelet Estimate ADEQUATE (ADEQ); Red Cell Morphology NORM C+C NORMAL (NORM C&C)
[2024-10-25 07:24] LABS: Absolute Neutrophil Count 8.8 X10^3/uL (2.0-7.7)
[2024-10-25 07:25] LABS: Absolute Lymphocyte Count 2.62 X10^3/uL (0.83-4.51); Pathologist Review May foll
--- NOTE | 2024-10-25 10:11 | CASEMGMT ---
Social Work Per physician, pt may be ready for discharge to TCU on Monday. Larissa in TCU updated. Green Sheet placed on chart to facilitate a weekend discharge. Plan: TCU, when medically ready FAIZAN Alcantara
[2024-10-25] MEDS: Aspirin E.C. 81 MG Tablet PO (10:36)
--- NOTE | 2024-10-25 10:36 | PN.HOSP_ITS ---
Reason for Visit Reason for Visit: Diagnoses Sepsis, unspecified organism (10/21/24) Hyperlipidemia, unspecified (10/21/24) Essential (primary) hypertension (10/21/24) Paroxysmal atrial fibrillation (10/21/24) Acute kidney failure, unspecified (10/21/24) Urinary tract infection, site not specified (10/21/24) Severe sepsis with septic shock (10/21/24) Other specified abnormal findings of blood chemistry (10/21/24) Presence of prosthetic heart valve (10/21/24) Subjective Subjective Saw patient at bedside this morning, son present. Patient appeared to have slightly more energy today compared to yesterday. He does remained fatigued appearing overall but was laying back comfortably in bed and answering questions appropriately. She stated she was looking forward to working with therapy as much as able today. She denied any fevers or chills. Continues to report some back pain, stable from previous days. No other new concerns this morning. Objective Data Objective Data Vital Signs: Vital Signs Temp Pulse Resp BP Pulse Ox O2 Del Method O2 Flow Rate 97.5 F L 66 18 120/50 L 94 Room Air 2 10/25/24 10:08 10/25/24 10:08 10/25/24 10:08 10/25/24 10:08 10/25/24 10:08 10/25/24 10:08 10/25/24 07:49 FiO2 26 10/25/24 02:00 Oxygen Flow Rate (L/min) 2 Oxygen Delivery Method Room Air Weight: 157.4 kg Body Mass Index (BMI) 63.8 Intake & Output: Intake and Output for Last 24 Hours 10/23/24 10/24/24 10/25/24 23:59 23:59 23:59 Intake Total 3582.96 / 3782.96 2050.44 / 2050.44 630 / 630 Output Total 1900 / 2150 1225 / 1825 1100 / 1100 Balance 1682.96 / 1632.96 825.44 / 225.44 -470 / -470 Lab / Micro Data 10/25/24 05:59 10/25/24 05:59 Labs: Laboratory Results - last 24 hr 10/24/24 11:14: POC Glucose 177 H 10/24/24 16:02: POC Glucose 179 H 10/24/24 22:26: POC Glucose 164 H 10/25/24 05:59: WBC 12.5 H, RBC 3.26 L, Hgb 9.7 L, Hct 29.8 L, MCV 91.4, MCH 29.8, MCHC 32.6, RDW Std Deviation 51.4 H, RDW Coeff of Graciela 15.3 H, Plt Count 235, MPV 11.3, Neut % (Auto) Not Reportable, Absolute Neuts (auto) 8.8 H, Absolute Lymphs (auto) 2.62, Total Counted 100, Neutrophils % (Manual) 67, Band Neutrophils % 3, Lymphocytes % (Manual) 21, Monocytes % (Manual) 5, Eosinophils % (Manual) 1, Metamyelocytes % 2 H, Myelocytes % 1 H, Diff Path Review October, Platelet Estimate ADEQUATE, RBC Morphology NORM C+C, Sodium 136, Potassium 3.5, Chloride 102, Carbon Dioxide 25.2, Anion Gap 8, BUN 49 H, Creatinine 0.83, Estim Creat Clear Calc 92.62, Est GFR (MDRD) Non-Af 75, BUN/Creatinine Ratio 58.6 H, G lucose 139 H, Calcium 8.0 Micro: Microbiology 10/21/24 11:33 Urine, Random Urine Culture - Final Culture exhibits no growth. 10/21/24 16:47 Blood Culture (Wb) - Right Hand Blood Culture - Preliminary No growth in 48 hours. Physical Exam Const alert, oriented x3 and no apparent distress Constitutional Narrative: Elderly female, class III obesity, fatigued appearing but energy is improving, otherwise laying back comfortably in bed, answering questions with short appropriate responses, in no acute distress. General Appearance: cooperative and comfortable HEENT normocephalic, head/scalp atraumatic, hearing grossly normal bilaterally, nasal mucous membranes and turbinates normal and moist oral mucous membranes Eyes PERRL, EOMs intact bilaterally and conjunctivae normal Neck full ROM Chest inspection of chest normal Resp normal respiratory effort and no use of accessory muscles Resp Narrative: Breathing comfortably on 2 L nasal cannula at rest. Decreased breath sounds in bilateral lung bases but otherwise good air movement in upper lung zones with no wheezing or crackles noted. Stable. Cardio regular rate, regular rhythm, no murmurs and peripheral pulses 2+ throughout GI normal to inspection, nondistended, normoactive bowel sounds, soft to palpation, non-tender and non-distended Extremity normal to inspection and no pedal edema Skin no rashes or lesions noted Psych mental status grossly normal Assessment & Plan Assessment/Plan (1) Septic shock: PLAN: Plan Patient is a 69-year-old female who presented to [facility] ED on 10/21/2024 with recent frequent falls. 1. Septic shock, improving ? Circular Stuffer followed. Most likely source appears to be urinary. Became septic on evening of admission and required transfer to the ICU. Met sepsis criteria with lactic acid greater than 2, change in mental status, leukocytosis severe hypotension and suspected urinary source. Given 30 cc/kg of IV fluids without blood pressure response. Required Levophed and vasopressin with stress dose steroids initially to maintain appropriate pressures. Blood pressure now much improved and weaned off pressors on morning of 10/23. UA mildly infectious appearing. However, urine and blood cultures with no growth to this point. Chest x-ray unremarkable. CT abdomen pelvis with no overt intra-abdominal source of infection. Weaned off stress dose steroids on 10/24. Notably, staff mentioned on the evening when patient's blood pressure significantly worsened that they had difficulty getting accurate cuff pressures. Suspect that given the negative culture results and her quick improvement with IV fluids, an accurate pressures may have been contributing to her overall picture. Will discontinue IV vancomycin but continue Zosyn and plan for 7-day course of antibiotics total for possible UTI. Was stable for transfer out of the ICU on 10/24. If patient remains stable, will be medically ready for discharge to SNF tomorrow. 2. Acute metabolic encephalopathy, improved ? Noted that patient became encephalopathic on evening of admission. CT head without contrast unremarkable. Suspected secondary to septic shock as noted above. Now alert and oriented x 3 as of 10/23, resolved. Continue to avoid sedating medications as able. 3. GEO, resolved ? Creatinine 1.53 on admit, baseline appears to be 0.6-0.8. Renal ultrasound negative. Presumed prerenal GEO in setting of septic shock as noted above. Resolved back to baseline by 10/23 and patient has had good urine output. Continue to monitor BMP daily for now. 4. New onset A-fib with RVR ? Cardiology following. Developed new onset A-fib with RVR with heart rate to the 140s on evening of admission, presumed related to septic shock. Started on amiodarone at that time with only some improvement in the rate. Echo on 10/22 showed EF 65%, normal LV size and function, mild LA enlargement, moderate mitral valve stenosis, no other abnormalities. Reinitiated home Toprol on 10/23 and per cardiology was given a dose of IV digoxin as well. Converted back to normal sinus rhythm on the evening of 10/23 and has remained in normal sinus rhythm to sinus bradycardia. Transitioned from heparin drip to p.o. Eliquis and from amiodarone drip to p.o. amiodarone on 10/24. Continue home Toprol, p.o. amiodarone and Eliquis. Continue cardiac monitoring. 5. Acute on chronic debility with frequent falls ? PT/OT/case management following. Patient reports falling on an almost daily basis over the past week or so but does live at home and reportedly has decent functional status at baseline. Patient with poor therapy scores and plan is for SNF on discharge. Accepted to the TCU and if medically ready, will plan for discharge there tomorrow. 6. Mild acute normocytic anemia ? Hemoglobin 12.1 on admit, down trended to 10.1 on hospital day 2 and now remaining stable around 10. Suspect downtrend is primarily due to heavy IV fluid resuscitation and patient may have mild degree of anemia at baseline. Continue to monitor CBC daily. 7. Hypokalemia ? Potassium 3.1 on 10/23. Mag and Phos normal. Replete potassium as needed. 8. Mildly elevated LFTs ? T. bili 1.52, direct bili 0.7, AST 78, ALT 49, alk phos 86 on admit. Have remained stable. CT abdomen pelvis with nonspecific findings concerning for liver fibrosis versus early cirrhosis. No further inpatient needs, will need outpatient follow-up on discharge. 9. Elevated troponins ? Cardiology following as above. Troponin trend 57 > 59 > 73 on admit. No chest pain and no ischemic EKG changes noted. Echo as noted above. Presumed demand ischemia in setting of septic shock and A-fib with RVR. No further ischemic workup needed at this time. Chronic medical conditions: ? Class III obesity with LINWOOD: BMI 62 on admit. Complicates hospital course, care and prognosis. Continue home CPAP at night and with naps. ? History of nonobstructive CAD, hypertension, hyperlipidemia, history of valvular disease s/p TAVR: Continue home aspirin and statin. Resumed home Toprol on 10/23. Holding home lisinopril and chlorthalidone for now, will resume as able. Notably echo on 10/22 showed no aortic valve issues post TAVR. ? Type 2 diabetes mellitus: Treating with Lantus 10 units twice daily and Humalog 10 units sliding scale insulin with meals with good blood sugar control, will adjust as needed. ? Anxiety/depression: Continue home fluoxetine. ? Seasonal allergies: Continue home cetirizine. ? History of right breast DCIS s/p lumpectomy DVT prophylaxis: Not indicated, on Eliquis CODE STATUS: Full code, verified Expected disposition: SNF, 1 to 2 days Total clinical time spent by myself addressing the patient's medical issues, reviewing all the data, and collaborating with patient's care team: 35 minutes. Charges/Coding Visit Charges Inpatient E&M: 63004 Subs Hosp L2
[2024-10-25] MEDS: Senna Tablet 1 TABLET PO ×2 (10:37→23:02)
[2024-10-25] MEDS: Docusate Sodium 100 MG Capsule PO (10:37)
[2024-10-25] MEDS: oxyCODONE 5 MG Tablet PO ×2 (10:37→17:24)
[2024-10-25] MEDS: Lactobacillis Acidophilus 1 CAP PO (10:38)
[2024-10-25] MEDS: Amiodarone 200 MG Tablet PO (10:38)
[2024-10-25] MEDS: Insulin Glargine-YFGN 100 UNIT/ML Pen 10 UNIT SC ×2 (10:39→23:01)
[2024-10-25] MEDS: Nystatin Powder 15gm Bottle 1 APPLIC TOPICAL ×2 (10:39→23:02)
[2024-10-25] MEDS: APIXABAN 5 MG TABLET PO ×2 (10:39→23:01)
[2024-10-25] MEDS: Cholecalciferol (Vit D3) 125 MCG CAPSULE (5,000 UNITS) PO (10:40)
[2024-10-25] MEDS: FLUoxetine 20 MG Capsule PO (10:40)
[2024-10-25] MEDS: Pantoprazole Sodium 40 MG Tablet PO (10:40)
[2024-10-25] MEDS: Metoprolol(XL)Succ 25 MG Tablet PO (10:40)
[2024-10-25] MEDS: Insulin Lispro 100 UNIT/ML INSULN.PEN 10 UNIT SC ×2 (10:42→13:58)
[2024-10-25] MEDS: Multivitamins,Therapeutic Tablet 1 TABLET PO (13:58)
[2024-10-25] MEDS: guaiFENesin 1,200 MG Tablet 1200 MG PO ×2 (13:59→23:02)
[2024-10-25 20:09] LABS: Bedside Glucose 129 mg/dL (74-106)
[2024-10-25 20:09] LABS: Bedside Glucose 145 mg/dL (74-106)
[2024-10-25 20:09] LABS: Bedside Glucose 128 mg/dL (74-106)
[2024-10-25] MEDS: Atorvastatin Calcium 10 MG Tablet PO (23:02)
[2024-10-25] MEDS: Pramipexole Di-HCl 0.25 MG Tablet PO (23:02)
[2024-10-26] VITALS (10 sets, daily range): BP systolic 129–159; BP diastolic 54–56; PULSE 60–70; RESP 14–18; TEMP 36.6–36.7; O2SAT 95–99; BMI 64.3
[2024-10-26 00:13] LABS: Bedside Glucose 143 mg/dL (74-106)
[2024-10-26] MEDS: oxyCODONE 5 MG Tablet PO (04:04)
[2024-10-26] MEDS: Piperacil/Tazobactam 3.375 GM/50 ML ML IV (05:24)
[2024-10-26] MEDS: Menthol/Lanolin/Calamine/Znox 113 GM Tube 1 APPLIC TOPICAL ×2 (05:25→15:12)
[2024-10-26 05:42] LABS: Hematocrit 30.8 % (37-47); Hemoglobin 10.1 g/dL (12.0-15.0); Mean Corp Hgb Conc 32.8 g/dL (32-36); Mean Corpuscular Hgb 29.7 pg (27.0-32.0); Mean Corpuscular Volume 90.6 fL (81-99); POSITIVE COUNT YES; POSITIVE MORPHOLOGY YES; Platelet Count 275 K/mm3 (150-450); RBC Distribution Width CV 15.2 % (11.6-14.6); RBC Distribution Width SD 50.4 fl (35.1-43.9); White Blood Count 14.6 K/mm3 (4.4-11.0)
[2024-10-26 05:43] LABS: Differential Indicated MANUAL DIFF
[2024-10-26 06:03] LABS: Anion Gap 8 (5-15); BUN 34 mg/dL (4-19); BUN/Creat Ratio 58.8 RATIO (10-20); Calcium,Total 8.3 mg/dL (7.6-11.0); Carbon Dioxide 27.1 mmol/L (21.0-32.0); Chloride 103 mmol/L (98-108); Creatinine, Serum 0.58 mg/dL (0.70-1.20); EST Glomerular Filtration Rate 97 (>60); Estimated Creatinine Clearance 96.96 ml/min (50-250); Glucose 133 mg/dL (70-99); Potassium 3.5 mmol/L (3.3-5.1); Sodium Level 137 mmol/L (133-145)
[2024-10-26 06:22] LABS: Lymphocyte 17 % (19-41); Metamyelocyte 1 % (0-1); Monocyte 5 % (0-10); Neutrophil-Band 1 % (0-5); Neutrophil-Segmented 76 % (47-70); Total Cells Counted 100 (MANUAL DIFF)
[2024-10-26 06:23] LABS: Absolute Neutrophil Count 11.2 X10^3/uL (2.0-7.7); Platelet Estimate ADEQUATE (ADEQ); Polychromasia RARE; Red Cell Morphology N CYTIC NORMAL (NORM C&C)
[2024-10-26 06:24] LABS: Absolute Lymphocyte Count 2.48 X10^3/uL (0.83-4.51)
[2024-10-26] MEDS: Multivitamins,Therapeutic Tablet 1 TABLET PO (09:52)
[2024-10-26] MEDS: Aspirin E.C. 81 MG Tablet PO (09:52)
[2024-10-26] MEDS: APIXABAN 5 MG TABLET PO (09:53)
[2024-10-26] MEDS: Amiodarone 200 MG Tablet PO (09:53)
[2024-10-26] MEDS: Lactobacillis Acidophilus 1 CAP PO (09:53)
[2024-10-26] MEDS: Senna Tablet 1 TABLET PO (09:54)
[2024-10-26] MEDS: Metoprolol(XL)Succ 25 MG Tablet PO (09:54)
[2024-10-26] MEDS: guaiFENesin 1,200 MG Tablet 1200 MG PO (09:54)
[2024-10-26] MEDS: FLUoxetine 20 MG Capsule PO (09:54)
[2024-10-26] MEDS: Pantoprazole Sodium 40 MG Tablet PO (09:54)
[2024-10-26] MEDS: Cholecalciferol (Vit D3) 125 MCG CAPSULE (5,000 UNITS) PO (09:55)
[2024-10-26] MEDS: Nystatin Powder 15gm Bottle 1 APPLIC TOPICAL ×2 (09:55→15:11)
[2024-10-26] MEDS: Insulin Glargine-YFGN 100 UNIT/ML Pen 10 UNIT SC (09:56)
[2024-10-26] MEDS: oxyCODONE 5 MG Tablet 2.5 MG PO (10:22)
[2024-10-26] MEDS: Docusate Sodium 100 MG Capsule PO (10:22)
[2024-10-26 11:07] LABS: Bedside Glucose 142 mg/dL (74-106)
--- NOTE | 2024-10-26 12:09 | DS.PCM_ITS ---
Providers Date of Admission: 10/21/24 Date of Discharge: 10/26/24 Primary Care Physician: Dr. Rivas Benitez MD Consultations 10/22/24 02:37 Consult: [employer] / Pulmonary Medicine Routine Consulting Provider: Intensivists/Pulmonary Med Reason for Consult: sepsis EMERGENT Consult: Yes Notified: Yes Date Notified: 10/22/24 Time Notified: 02:00 Method of Notification: Text 10/23/24 13:34 Consult: Cardiology Routine Consulting Provider: Óscar Andre Reason for Consult: persistent afib w/ RVR EMERGENT Consult: No Notified: Yes Date Notified: 10/23/24 Time Notified: 13:34 Method of Notification: Verbal Method of Consult:: In-Person Comments:: Dr Meeks called Dr Andre for consult 10/25/24 17:40 Consult: Onc/Wound/associate sales Routine Comment: Reason for Consult:: skin tear on coccyx Reason For Visit: GEO Diagnosis Discharge Diagnosis (1) Septic shock: Status: Acute Code(s): A41.9 - Sepsis, unspecified organism; R65.21 - Severe sepsis with septic shock Medications at Discharge Home Medications atorvastatin 10 mg tablet 10 mg PO QHS cholesterol 07/14/21 chlorthalidone 25 mg tablet 25 mg PO DAILY diuretic 07/14/21 Held on 10/26/24. Instructions: Resume on 11/11/24. Hold until follow-up with PCP. Can consider restarting at that time if needed. fluoxetine 20 mg capsule 20 mg PO DAILY anxiety 07/14/21 albuterol sulfate 90 mcg/actuation aerosol inhaler 2 puff inhalation Q4H PRN Dyspnea 05/25/22 albuterol sulfate 2.5 mg/3 mL (0.083 %) solution for nebulization 2.5 mg inhalation Q4H PRN sob 05/26/22 cholecalciferol (vitamin D3) 125 mcg (5,000 unit) tablet 125 mcg PO DAILY 05/26/22 multivitamin 1 tab PO DAILY 08/26/22 dulaglutide 4.5 mg/0.5 mL subcutaneous pen injector (Trulicity) 4.5 mg subcut QWEEK 10/14/22 aspirin 81 mg tablet,delayed release 81 mg PO DAILY 01/26/23 blood pressure monitor #1 ea 04/13/23 lactobacillus combo no.11 15 billion cell sprinkle capsule (Probiotic) 1 cap PO DAILY 08/18/23 insulin lispro 100 unit/mL subcutaneous pen (Humalog KwikPen (U-100) Insulin) 10 unit subcut TID 01/24/24 metformin 750 mg tablet,extended release 24 hr 750 mg PO QDAY 01/24/24 handicap placard #1 ea 09/25/24 cetirizine 10 mg tablet (24Hour Allergy) 10 mg PO DAILY allergies 10/21/24 empagliflozin 25 mg tablet (Jardiance) 25 mg PO DAILY 10/21/24 Held on 10/26/24. Instructions: Resume on 11/11/24. Hold until follow-up with PCP. Can consider restarting at that time if needed. amiodarone 200 mg tablet 200 mg PO DAILY 30 days #30 tabs 10/26/24 apixaban 5 mg tablet (Eliquis) 5 mg PO BID 30 days #60 tabs 10/26/24 guaifenesin 1,200 mg tablet, extended release 12 hr (Mucus Relief ER) 1,200 mg PO BID #0 tabs 10/26/24 levofloxacin 750 mg tablet 750 mg PO DAILY 2 days #2 tabs 10/26/24 lisinopril 20 mg tablet 20 mg PO DAILY 30 days #30 tabs 10/26/24 menthol 0.44 %-zinc oxide 20.6 % topical ointment (Calmoseptine) 1 applic topical TID #0 grams 10/26/24 metoprolol succinate 25 mg tablet,extended release 24 hr 25 mg PO DAILY 30 days #30 tabs 10/26/24 nystatin 100,000 unit/mL oral suspension 500,000 unit (5 mL) PO 4X/DAY 7 days #0 mL 10/26/24 pramipexole 0.25 mg tablet 0.25 mg PO QHS 30 days #30 tabs 10/26/24 Hospital Course Operations None Procedures Aterial line placement, Central line placement, EKG, Transthoracic echo and - (CT brain, chest x-ray x 2, shoulder x-ray, hip/pelvis x-ray, CT abdomen pelvis, renal ultrasound) Summary of Care Provided Minutes Spent on Discharge: 35 Hospital Course: Patient is a 69-year-old female who presented to [facility] ED on 10/21/2024 with recent frequent falls. Hospital course as noted below. Patient discharged to SNF at the [facility] T[facility] in stable condition on 10/26. 1. Septic shock, improving ? [employer] followed. Most likely source appears to be urinary. Became septic on evening of admission and required transfer to the ICU. Met sepsis criteria with lactic acid greater than 2, change in mental status, leukocytosis severe hypotension and suspected urinary source. Given 30 cc/kg of IV fluids without blood pressure response. Required Levophed and vasopressin with stress dose steroids initially to maintain appropriate pressures. Blood pressure now much improved and weaned off pressors on morning of 10/23. UA mildly infectious appearing. However, urine and blood cultures with no growth. Chest x-ray unremarkable. CT abdomen pelvis with no overt intra-abdominal source of infection. Weaned off stress dose steroids on 10/24. Notably, staff mentioned on the evening of admit when patient's blood pressure significantly worsened that they had difficulty getting accurate cuff pressures. Suspect that given the negative culture results and her quick improvement with IV fluids, inaccurate pressures may have been contributing to her overall picture. Treated with IV vancomycin and Zosyn while inpatient, will discharge on Levaquin for 2 more days to complete 7-day course of antibiotics total. Was stable for transfer out of the ICU on 10/24. Discharged to SNF in stable condition on 10/26. 2. Acute metabolic encephalopathy, improved ? Noted that patient became encephalopathic on evening of admission. CT head without contrast unremarkable. Suspected secondary to septic shock as noted above. Now alert and oriented x 3 as of 10/23, resolved. 3. GEO, resolved ? Creatinine 1.53 on admit, baseline appears to be 0.6-0.8. Renal ultrasound negative. Presumed prerenal GEO in setting of septic shock as noted above. Resolved back to baseline by 10/23 and patient had good urine output. 4. New onset A-fib with RVR ? Cardiology followed. Developed new onset A-fib with RVR with heart rate to the 140s on evening of admission, presumed related to septic shock. Started on amiodarone at that time with only some improvement in the rate. Echo on 10/22 showed EF 65%, normal LV size and function, mild LA enlargement, moderate mitral valve stenosis, no other abnormalities. Reinitiated home Toprol on 10/23 and per cardiology was given a dose of IV digoxin as well. Converted back to normal sinus rhythm on the evening of 10/23 and has remained in normal sinus rhythm to sinus bradycardia. Transitioned from heparin drip to p.o. Eliquis and from amiodarone drip to p.o. amiodarone on 10/24. Continue home Toprol at reduced dose of 25 mg daily, p.o. amiodarone and Eliquis. 5. Acute on chronic debility with frequent falls ? PT/OT/case management followed. Patient reports falling on an almost daily basis over the past week or so but does live at home and reportedly has decent functional status at baseline. Patient with poor therapy scores during hospitalization. Discharged to TCU in stable condition on 10/26. 6. Mild acute normocytic anemia ? Hemoglobin 12.1 on admit, down trended to 10.1 on hospital day 2 and now remaining stable around 10. Suspect downtrend is primarily due to heavy IV fluid resuscitation and patient may have mild degree of anemia at baseline. Stable on discharge. 7. Hypokalemia ? Potassium 3.1 on 10/23. Mag and Phos normal. Repleted potassium as needed. 8. Mildly elevated LFTs ? T. bili 1.52, direct bili 0.7, AST 78, ALT 49, alk phos 86 on admit. Have remained stable. CT abdomen pelvis with nonspecific findings concerning for liver fibrosis versus early cirrhosis. No further inpatient needs, will need outpatient follow-up on discharge. 9. Elevated troponins ? Cardiology followed as above. Troponin trend 57 > 59 > 73 on admit. No chest pain and no ischemic EKG changes noted. Echo as noted above. Presumed demand ischemia in setting of septic shock and A-fib with RVR. No further ischemic workup needed at this time. 10. Oral thrush ? Noted on day of discharge. Presume secondary to stress dose steroids patient required during hospitalization. Patient denies any difficulty with swallowing. Will treat with nystatin swish and swallow and plan for 7-day course. Chronic medical conditions: ? Class III obesity with LINWOOD: BMI 62 on admit. Complicated hospital course, care and prognosis. Continue home CPAP at night and with naps. ? History of nonobstructive CAD, hypertension, hyperlipidemia, history of valvular disease s/p TAVR: Continue home aspirin and statin. Resumed home Toprol on 10/23. Held home lisinopril and chlorthalidone during hospitalization. Suspect that chlorthalidone may have been contributing to dehydration on admission. Will resume lisinopril at reduced dose of 20 mg daily on discharge and continue to hold chlorthalidone on discharge. Notably echo on 10/22 showed no aortic valve issues post TAVR. ? Type 2 diabetes mellitus: Treated with Lantus 10 units twice daily and Humalog 10 units sliding scale insulin with meals with good blood sugar control. Will hold home Jardiance on discharge as this was likely contributing to her dehydration on admission. Otherwise okay to resume home regimen. ? Anxiety/depression: Continue home fluoxetine. ? Seasonal allergies: Continue home cetirizine. ? History of right breast DCIS s/p lumpectomy Total clinical time spent by myself addressing the patient's medical issues, reviewing all the data, and collaborating with patient's care team: 35 minutes. Physical Exam Const alert, oriented x3 and no apparent distress Constitutional Narrative: Elderly female, class III obesity, fatigued appearing but energy is improving, otherwise laying back comfortably in bed, answering questions with short appropriate responses, in no acute distress. General Appearance: cooperative and comfortable HEENT normocephalic, head/scalp atraumatic, hearing grossly normal bilaterally, nasal mucous membranes and turbinates normal and moist oral mucous membranes Eyes PERRL, EOMs intact bilaterally and conjunctivae normal Neck full ROM Chest inspection of chest normal Resp normal respiratory effort and no use of accessory muscles Resp Narrative: Breathing comfortably on room air at rest. Mildly decreased breath sounds in bilateral lung bases but otherwise good air movement in upper lung zones with no wheezing or crackles noted. Improved from admission. Cardio regular rate, regular rhythm, no murmurs and peripheral pulses 2+ throughout GI normal to inspection, nondistended, normoactive bowel sounds, soft to palpation, non-tender and non-distended Extremity normal to inspection and no pedal edema Skin no rashes or lesions noted Psych mental status grossly normal Weight / BMI Weight Weight: 159.5 kg Body Mass Index (BMI) 64.3 ABG / Lab / Microbiology Data 10/26/24 05:29 10/26/24 05:29 Laboratory: Laboratory Results - last 24 hr 10/25/24 08:56: POC Glucose 129 H 10/25/24 13:09: POC Glucose 145 H 10/25/24 16:39: POC Glucose 128 H 10/25/24 22:35: POC Glucose 143 H 10/26/24 05:29: WBC 14.6 H, RBC 3.40 L, Hgb 10.1 L, Hct 30.8 L, MCV 90.6, MCH 29.7, MCHC 32.8, RDW Std Deviation 50.4 H, RDW Coeff of Graciela 15.2 H, Plt Count 275, MPV 11.0, Neut % (Auto) Not Reportable, Absolute Neuts (auto) 11.2 H, Absolute Lymphs (auto) 2.48, Total Counted 100, Neutrophils % (Manual) 76 H, Band Neutrophils % 1, Lymphocytes % (Manual) 17 L, Monocytes % (Manual) 5, Metamyelocytes % 1, Platelet Estimate ADEQUATE, RBC Morphology N CYTIC, Polychromasia RARE, Sodium 137, Potassium 3.5, Chloride 103, Carbon Dioxide 27.1, Anion Gap 8, BUN 34 H, Creatinine 0.58 L, Estim Creat Clear Calc 96.96, Est GFR (MDRD) Non-Af 97, BUN/Creatinine Ratio 58.8 H, Glucose 133 H, Calcium 8.3 10/26/24 09:42: POC Glucose 142 H 10/26/24 11:44: POC Glucose 161 H Microbiology: Microbiology 10/21/24 11:33 Urine, Random Urine Culture - Final Culture exhibits no growth. 10/21/24 16:47 Blood Culture (Wb) - Right Hand Blood Culture - Preliminary No growth in 48 hours. D/C Instructions DC O2, CPAP, BIPAP Needs Home O2 Discharge instructions: No Meaningful Use Info Meaningful Use Meaningful Use Diagnoses (Choose all that apply): None applicable Ischemic Stroke Statin Dosing Therapy Reference: STATIN DOSE THERAPY REFERENCE: * Patients > 75 years receive moderate or high dose statin therapy. * Patients 75 years or YOUNGER should receive HIGH intensity statin dose unless contraindicated. You will be required to document reason for non-treatment if statin daily dose does not meet guidelines. HIGH DOSE STATIN THERAPY DAILY Atorvastatin > than or = to 40 mg Rosuvastatin > than or = to 20 mg Amlodipine + Atorvastatin > than or = to 2.5/40 mg Ezetimibe + Simvastatin 10/80 mg Simvastatin 80mg Discharge Plan Admission Admit Date/Time: 10/21/24 12:11 Primary Reason for Your Visit: Falls with weakness and back pain Attending Provider: Rudi Meeks Primary Care Provider: Rivas Benitez Consulting Providers: Nicholas Roa; Óscar Andre Discharge Orders/Prescriptions Prescriptions: New nystatin 100,000 unit/mL Suspension 500,000 unit PO 4X/DAY 7 Days Qty: 0 0RF amiodarone 200 mg Tablet 200 mg PO DAILY 30 Days Qty: 30 0RF pramipexole 0.25 mg Tablet 0.25 mg PO QHS 30 Days Qty: 30 0RF metoprolol succinate 25 mg Tablet Extended Release 24 Hr 25 mg PO DAILY 30 Days Qty: 30 0RF guaifenesin [Mucus Relief ER] 1,200 mg Tablet Extended Release 12hr 1,200 mg PO BID Qty: 0 0RF menthol-zinc oxide [Calmoseptine] 0.44-20.6 % Ointment 1 applic topical TID Qty: 0 0RF Protocol: *Topical Application Instructions APPLICATION INSTRUCTIONS: APPLY TO COCCYX Eliquis 5 mg Tablet 5 mg PO BID 30 Days Qty: 60 0RF lisinopril 20 mg tablet 20 mg PO DAILY 30 Days Qty: 30 0RF levofloxacin 750 mg tablet 750 mg PO DAILY 2 Days Qty: 2 0RF Continued cholecalciferol (vitamin D3) 125 mcg (5,000 unit) tablet 125 mcg PO DAILY albuterol sulfate 2.5 mg /3 mL (0.083 %) solution for nebulization 2.5 mg inhalation Q4H PRN (Reason: sob) Trulicity 4.5 mg/0.5 mL pen injector 4.5 mg subcut QWEEK multivitamin Tablet 1 tab PO DAILY (DME) blood pressure monitor Kit See Rx Instructions .Route Qty: 1 0RF Rx Instructions: As directed aspirin 81 mg tablet,delayed release (DR/EC) 81 mg PO DAILY Patient Comments: hold 5 days prior to OR insulin lispro [Humalog KwikPen Insulin] 100 unit/mL insulin pen 10 unit subcut TID metformin 750 mg tablet extended release 24 hr 750 mg PO QDAY (DME) handicap placard See Rx Instructions .Route .MEDSUPPLY Qty: 1 0RF Rx Instructions: dx: Debility Expires: 09/25/2029 fluoxetine 20 mg capsule 20 mg PO DAILY atorvastatin 10 mg tablet 10 mg PO QHS albuterol sulfate 90 mcg/actuation HFA aerosol inhaler 2 puff INHALATION Q4H PRN (Reason: Dyspnea) Probiotic 15 billion cell capsule, sprinkle 1 cap PO DAILY Rx Instructions: do not crush/chew/cut; swallow whole OR may open and sprinkle in cold drink/food cetirizine [24Hour Allergy] 10 mg tablet 10 mg PO DAILY Held chlorthalidone 25 mg tablet 25 mg PO DAILY Hold Instructions: Resume on 11/11/24. Hold until follow-up with PCP. Can consider restarting at that time if needed. Jardiance 25 mg tablet 25 mg PO DAILY Hold Instructions: Resume on 11/11/24. Hold until follow-up with PCP. Can consider restarting at that time if needed. Discontinued metoprolol succinate 50 mg tablet extended release 24 hr 50 mg PO DAILY lisinopril 40 mg tablet 40 mg PO DAILY Referrals / Follow Up: Rivas Benitez MD [Primary Care Provider] - Disposition Disposition (needs filled in before D/C Order can be placed): Custodial Facility Charges/Coding Visit Charges Inpatient E&M: 85811 Disch Hosp >30min
[2024-10-26 12:17] LABS: Bedside Glucose 161 mg/dL (74-106)
[2024-10-26] MEDS: NYSTATIN 500,000 UNIT/5 ML UDC 500000 UNIT PO (12:36)
[2024-10-26] MEDS: Polyethylene Glycol 3350 17 GM PACKET PO (12:36)
[2024-10-26] MEDS: Insulin Lispro 100 UNIT/ML INSULN.PEN 10 UNIT SC (12:38)
[2024-10-26] MEDS: Insulin Lispro 100 UNIT/ML INSULN.PEN SC (12:39)
--- NOTE | 2024-10-26 16:47 | NURSING ---
report called to rose marie in TCU
== END 2024-10-26 16:14 | disposition skilled nursing facility (03) | DRG 871 ==
LOC: ED 12:14 → MS3 12:29 → ICU 22:00 → PCU 10-24 14:25
PROVIDERS: Emergency Medicine; Admitting Provider Internal Medicine; Emergency Provider Emergency Medicine; PCP Family Medicine; Referring Provider Internal Medicine; Visit Provider Hospitalist
DX: A41.9 Sepsis, unspecified organism (principal); R65.21 Severe sepsis with septic shock; G93.41 Metabolic encephalopathy; Z68.44 Body mass index [BMI] 60.0-69.9, adult; I24.89 Other forms of acute ischemic heart disease; N17.9 Acute kidney failure, unspecified; N39.0 Urinary tract infection, site not specified; B37.0 Candidal stomatitis; E11.65 Type 2 diabetes mellitus with hyperglycemia; I10 Essential (primary) hypertension; F32.A Depression, unspecified; D64.9 Anemia, unspecified; Z95.2 Presence of prosthetic heart valve; I48.91 Unspecified atrial fibrillation; Z79.4 Long term (current) use of insulin; G47.33 Obstructive sleep apnea (adult) (pediatric); F41.9 Anxiety disorder, unspecified; E87.6 Hypokalemia; J30.2 Other seasonal allergic rhinitis; E66.813 Obesity, class 3; Z79.51 Long term (current) use of inhaled steroids; Z79.82 Long term (current) use of aspirin; Z79.899 Other long term (current) drug therapy; Z79.84 Long term (current) use of oral hypoglycemic drugs; Z87.891 Personal history of nicotine dependence
CPT/HCPCS: 36415; 36600; 36620; 70450; 71045; 73030; 73502; 74177; 76770; 80048; 80053; 80076; 80202; 81001; 82803; 82962; 83605; 83735; 84100; 84484; 85025; 85610; 85730; 87040; 87086; 93005; 93306; 94002; 94003; 94660; 94668; 94762; 97110; 97162; 97166; 97530; 97535; 97803; 99285; P9612; Q9957; Q9967; A4216; C1751; C8929; J2405

== ENCOUNTER 2024-10-26 16:27 | Inpatient (IN) | payer MEDICARE, BC, SELFPAY ==
[2024-10-26 16:47] VITALS: BP 168/69; PULSE 68; RESP 22; TEMP 36.7; O2SAT 92; BMI 63.3; BMI 63.8
--- NOTE | 2024-10-26 16:48 | PCA ---
I called [facility] and ordered a Bariatric bed for patient, at approximately 1600. They put in for delivery [facility] and for chassis driver to call us with delivery time. Conf # [id number]
--- NOTE | 2024-10-26 16:50 | HP.PCM_ITS ---
HPI - General General Date of Admission: 10/26/24 Date of Service: 10/28/24 Chief Complaint: Here for rehabilitation. HPI Narrative JOANNA SARAH, is a 69 Female who presents with followin10/21/2024 [facility] ED Fall. Frequent falls daily, fell, unable to get up. Left hip pain, right shoulder pain, no head injury. WBC 20.3, Creatinine 1.53, BUN 44, Glucose 312. CT brain negative, Urinalysis c/w urinary tract infection, Ceftriaxone iv given. 10/21/2024 Admit [facility]. ABG for lethargy, rule out hypercapnea. IV fluids, renal ultrasound for acute kidney injury. Ceftriaxone iv for urinary tract infection, urine culture, blood culture. 10/22/2024 Transfer to ICU. Blood pressure 60/30 after 4 liters IV fluid bolus, Levophed thru central line. Vancomycin iv, Ceftriaxone iv for sepsis, urinary tract infection. BiPAP for acute respiratory failure, obstructive sleep apnea. 10/22/2024 Zosyn for sepsis, urinary tract infection. Acute kidney injury improved, Creatinine 1.19. 10/22/2024 Echo EF 65%. LA mildly enlarged. Moderate mitral valve stenosis. 10/22/2024 Atrial fibrillation with RVR treated with amiodarone drip, heparin drip. 10/22/2024 Fentanyl for hip/buttock pain. 10/23/2024 Tired, low back pain, looks better today. Levophed, Vasopressor weaned off. Vancomycin iv, Zosyn iv for sepsis, urinary tract infection. Encephalopathy resolved. Acute kidney injury resolved. Toprol, Amiodarone, heparin drip for atrial fibrillation with RVR. PT/OT for SNF. 10/24/2024 Tired, but energy improved, low back pain improved. Urine culture negative, blood culture negative. PT/OT for SNF. 10/25/2024 More energy today, back pain. Cultures negative, stop Vancomycin, continue Zosyn iv for 7 days for presumed urinary tract infection. Toprol, Amiodarone, Eliquis for new onset atrial fibrillation with RVR. PT/OT/CM. Elevated liver function tests, CT A/P concerning for liver fibrosis versus early cirrhosis. NSTEMI 2/2 demand ischemia. 10/26/2024 Admit to TCU with debility, here for rehabilitation, strengthening, prior to discharge home alone. 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 Mass of right breast Right rotator cuff tear Closed fracture of right proximal humerus History of transcatheter aortic valve replacement (TAVR) (07/11/22) Hyperlipidemia [place] on CPAP Dyspnea Type 2 diabetes mellitus Essential hypertension Nonrheumatic aortic (valve) stenosis Former smoker CPAP (continuous positive airway pressure) dependence Asthma Ludwigs angina Morbid obesity Home Medications ?Medication ?Instructions ?Recorded ?Last Taken ?Type atorvastatin 10 mg tablet 10 mg PO QHS cholesterol 10/25/24 23:05 History chlorthalidone 25 mg tablet 25 mg PO DAILY diuretic 10/20/24 History Held on 10/26/24. Instructions: Resume on 11/11/24. Hold until follow-up with PCP. Can consider restarting at that time if needed. fluoxetine 20 mg capsule 20 mg PO DAILY anxiety 07/1410/26/24 09:55 History albuterol sulfate 90 mcg/actuation 2 puff inhalation Q 4H PRN Dyspnea 05/25/22 08/21/23 History aerosol inhaler albuterol sulfate 2.5 mg/3 mL 2.5 mg inhalation Q4H IN N sob 05/26/22 07/26/23 History (0.083 %) solution for nebulization cholecalciferol (vitamin D3) 125 125 mcg PO DAILY Supp lement 05/26/22 10/26/24 09:55 History mcg (5,000 unit) tablet multivitamin 1 tab PO DAILY Supplement 10/26/24 09:55 History dulaglutide 4.5 mg/0.5 mL 4.5 mg subcut QWEEK Diabetes 10/14/22 10/20/24 History subcutaneous pen injector (Trulicity) aspirin 81 mg tablet,delayed 81 mg PO DAILY Heart 09/1510/26/24 09:55 History release blood pressure monitor #1 ea 04/13/23 Unknown Rx lactobacillus combo no.11 15 1 cap PO DAILY Probiotic 08/18/23 10/26/24 09:55 History billion cell sprinkle capsule (Probiotic) insulin lispro 100 unit/mL 10 unit subcut TID Diabetes 01/24/24 10/26/24 13:55 History subcutaneous pen (Humalog KwikPen (U-100) Insulin) metformin 750 mg tablet,extended 750 mg PO QDAY Diabet es 01/24/24 10/20/24 History release 24 hr handicap placard #1 ea 09/25/24 Unknown Rx cetirizine 10 mg tablet (24Hour 10 mg PO DAILY allergi es 10/21/24 10/20/24 History Allergy) empagliflozin 25 mg tablet 25 mg PO DAILY Diabetes 10/20/24 History (Jardiance) Held on 10/26/24. Instructions: Resume on 11/11/24. Hold until follow-up with PCP. Can consider restarting at that time if needed. amiodarone 200 mg tablet 200 mg PO DAILY Heart Rhythm 30 10/26/24 10/26/24 09:55 Rx days #30 tabs apixaban 5 mg tablet (Eliquis) 5 mg PO BID Blood Thinn er 30 days 10/26/24 10/26/24 09:55 Rx #60 tabs guaifenesin 1,200 mg tablet, 1,200 mg PO BID Mucus Rel ief #0 10/26/24 10/26/24 09:55 Rx extended release 12 hr (Mucus tabs Relief ER) levofloxacin 750 mg tablet 750 mg PO DAILY Antibiotic 2 days 10/26/24 Unknown Rx #2 tabs lisinopril 20 mg tablet 20 mg PO DAILY BP 30 days #3 0 tabs 10/26/24 Unknown Rx menthol 0.44 %-zinc oxide 20.6 % 1 applic topical TID Skin 10/26/24 10/26/24 05:25 Rx topical ointment (Calmoseptine) irritation #0 grams metoprolol succinate 25 mg 25 mg PO DAILY BP 30 days # 30 tabs 10/26/24 10/26/24 09:55 Rx tablet,extended release 24 hr nystatin 100,000 unit/mL oral 500,000 unit (5 mL) PO 4 X/DAY 05/03/25 Unknown Rx suspension Thrush 7 days #0 mL pramipexole 0.25 mg tablet 0.25 mg PO QHS Restless leg 30 10/26/24 10/25/24 23:00 Rx days #30 tabs Allergy/AdvReac Type Severity Reaction Status Date / Time glimepiride Allergy Unknown pruritus Verified 10/21/24 06:51 rosiglitazone (From Avandia) Allergy Unknown Rash Verified 10/21/24 06:51 sitagliptin (From Januvia) Allergy Unknown Rash Verified 10/21/24 06:51 Sulfa (Sulfonamide Allergy NEEDS Verified 10/21/24 06:51 Antibiotics) FOLLOW-UP acetaminophen (From Tylenol) AdvReac Unknown Enlarged Verified 10/21/24 06:51 liver pravastatin AdvReac Unknown elevated Verified 10/21/24 06:51 liver enzymes Family History Mother Diabetes Heart disease Hypertension CVA (cerebral vascular accident) Father Diabetes Heart disease Hypertension Surgical History History of cardiac catheterization History of right breast biopsy History of left heart catheterization (05/30/22) History of rhinoplasty Hx of total knee replacement Hx of tubal ligation Hx of tonsillectomy History of hysterectomy Hx of cholecystectomy Social History (Updated 10/26/24 @ 17:[address] Jose Francisco Colmenares MD) household members: none Smoking Status: Former smoker how long ago did patient quit smokin years ago alcohol intake: current alcohol intake frequency: holidays/special occasions only substance use type: does not use caffeine: Yes Type: coffee Number of servings: 1 ROS Constitutional Constitutional: Reports weakness; Denies chills, fever(s) or weight gain ENT HEENT: Denies headache(s), nasal congestion or nasal discharge Cardiovascular Cardiovascular: Denies chest pain or palpitations Respiratory/Chest Respiratory/Chest: Denies cough, excessive phlegm production or shortness of breath with exertion Gastrointestinal Gastrointestinal: Denies abdominal pain, nausea or vomiting Genitourinary Genitourinary: Denies dysuria Musculoskeletal Musculoskeletal: Denies joint pain or joint swelling Integumentary Integumentary: Denies rash or wounds Neurologic Neurologic: Denies focal weakness, numbness or tingling Psychiatric Psychiatric: Denies anxiety, auditory hallucinations, depression, homicidal ideation or suicidal ideation Vital Signs Vital Signs Vital Signs: Weight Weight: 157.2 kg Body Mass Index (BMI) 63.8 Physical Exam Const alert General Appearance: cooperative HEENT normocephalic Eyes PERRL and EOMs intact bilaterally Neck supple, no JVD and no carotid bruits Resp normal respiratory effort, normal air movement and clear to auscultation bilaterally Cardio regular rate and regular rhythm GI normal to inspection, nondistended, normoactive bowel sounds, non-tender and non-distended Extremity normal capillary refill General Extremity: Negative for edema Skin no rashes or lesions noted General Skin Exam: no breakdown Psych affect normal Appearance: appropriate Results Lab / Micro Data 10/27/24 03:45 10/27/24 03:45 Assessment & Plan Assessment/Plan (1) Debility: (2) Multiple falls: (3) Acute encephalopathy: (4) Septic shock: (5) UTI (urinary tract infection): (6) Atrial fibrillation with rapid ventricular response: (7) Type 2 diabetes mellitus with hyperglycemia: (8) Essential hypertension: (9) Hyperlipidemia: (10) Depression: (11) Obstructive sleep apnea: (12) COPD (chronic obstructive pulmonary disease): PLAN: Plan 69 year old female with below past medical history hospitalized for multiple falls, acute encephalopathy 2/2 septic shock 2/2 urinary tract infection, complicated by new onset atrial fibrillation with rapid ventricular response, admitted to TCU with debility, here for rehabilitation, strengthening, prior to discharge home alone. * Debility - PT/OT. * Pain - Tramadol 50mg q6 prn pain (1-10). * Bowel - Senna/colace 1 tablet bid, Magnesium citrate 300mL daily prn. * Adult immunization - Administer pneumonia vaccine, covid vaccine, flu vaccine as appropriate. * DVT prophylaxis - Eliquis. * Urinary tract infection - Levaquin 750mg daily thru 10/29/2024 * New atrial fibrillation with RVR - Metoprolol succinate 25mg daily, Amiodarone 200mg daily, Eliquis 5mg bid. * Thrush - Nystatin 500,000 4x/day thru 11/02/2024. * COPD - Albuterol 2.5mg neb q4 prn, Albuterol 2 puffs q4 prn. * Vitamin D deficiency - D3 125mcg daily. * Congestion - Mucinex 1200mg bid. * Diabetes Mellitus II - Metformin 750mg daily, Lispro 10 units sc tid. * GI prophylaxis - Lactobacillus 1 capsule daily. * Hypertension - Metoprolol succinate 25mg daily, Lisinopril 20mg daily. * Allergic rhinitis - Loratadine 10mg daily. * Skin irritation - Calmoseptine topical tid. * Nutrition - MVI 1 tablet daily. The following psychotropic medication was present on admission: Fluoxetine 20mg. Psychotropic medication therapy is indicated for a diagnosis of: Major Depression. Based on my clinical evaluation, continuation of the medication is necessary at this time. Gradual dose reduction plan (select one): ____ GDR will be attempted. Will monitor patient symptoms and behaviors in response to GDR. __x__ GRD contraindicated. Reason contraindicated: stable chronic mcfp use.
[2024-10-26 17:38] LABS: Bedside Glucose 150 mg/dL (74-106)
[2024-10-26] MEDS: Insulin Lispro 100 UNIT/ML INSULN.PEN 10 UNIT SC (17:52)
[2024-10-26] MEDS: Menthol/Lanolin/Calamine/Znox 113 GM Tube 1 APPLIC TOPICAL (20:20)
[2024-10-26] MEDS: Atorvastatin Calcium 10 MG Tablet PO (20:22)
[2024-10-26] MEDS: APIXABAN 5 MG TABLET PO (20:22)
[2024-10-26] MEDS: guaiFENesin 1,200 MG Tablet 1200 MG PO (20:22)
[2024-10-26] MEDS: Pramipexole Di-HCl 0.25 MG Tablet PO (20:29)
[2024-10-26] MEDS: Senna/Docusate Sodium 1 Tablet PO (20:29)
[2024-10-26] MEDS: NYSTATIN 500,000 UNIT/5 ML UDC 500000 UNIT PO (20:29)
[2024-10-26] MEDS: Magnesium Citrate 300 ML PO (20:30)
--- NOTE | 2024-10-26 20:37 | NURSING ---
Patient accepted mag citrate for bowel protocol.
[2024-10-26 21:00] VITALS: PULSE 73; RESP 16; O2SAT 93
[2024-10-26 22:10] LABS: Bedside Glucose 122 mg/dL (74-106)
[2024-10-27] VITALS (7 sets, daily range): BP systolic 158–171; BP diastolic 62–77; PULSE 58–76; RESP 15–20; TEMP 37; O2SAT 91–94
[2024-10-27 03:56] LABS: Hematocrit 31.3 % (37-47); Hemoglobin 10.3 g/dL (12.0-15.0); Mean Corp Hgb Conc 32.9 g/dL (32-36); Mean Corpuscular Hgb 29.9 pg (27.0-32.0); Mean Corpuscular Volume 90.7 fL (81-99); Mean Platelet Vol. 10.6 fl (6.2-12.0); POSITIVE COUNT YES; POSITIVE MORPHOLOGY YES; Platelet Count 322 K/mm3 (150-450); RBC Distribution Width CV 15.2 % (11.6-14.6); RBC Distribution Width SD 50.3 fl (35.1-43.9); Red Blood Count 3.45 M/mm3 (4.2-5.4); White Blood Count 16.9 K/mm3 (4.4-11.0)
[2024-10-27 04:07] LABS: Differential Indicated MANUAL DIFF
[2024-10-27 04:20] LABS: Anion Gap 8 (5-15); BUN 24 mg/dL (4-19); BUN/Creat Ratio 53.1 RATIO (10-20); Calcium,Total 8.4 mg/dL (7.6-11.0); Carbon Dioxide 29.6 mmol/L (21.0-32.0); Chloride 103 mmol/L (98-108); Creatinine, Serum 0.45 mg/dL (0.70-1.20); EST Glomerular Filtration Rate 103 (>60); Estimated Creatinine Clearance 96.01 ml/min (50-250); Glucose 120 mg/dL (70-99); Potassium 3.5 mmol/L (3.3-5.1); Sodium Level 140 mmol/L (133-145)
[2024-10-27 04:46] LABS: Eosinophil 1 % (0-5); Lymphocyte 12 % (19-41); Metamyelocyte 7 % (0-1); Monocyte 8 % (0-10); Myelocyte 4 % (0-0); Neutrophil-Band 3 % (0-5); Neutrophil-Segmented 65 % (47-70); Total Cells Counted 100 (MANUAL DIFF)
[2024-10-27 04:47] LABS: Absolute Lymphocyte Count 2.02 X10^3/uL (0.83-4.51); Lymphocyte # 2.02 X10^3/ul (0.83-4.51); Neutrophil # 10.96 X10^3/uL (2.7-7.7)
[2024-10-27 04:48] LABS: Platelet Estimate ADEQUATE (ADEQ)
[2024-10-27 04:50] LABS: Polychromasia 1+; Red Cell Morphology N CYTIC NORMAL (NORM C&C)
[2024-10-27] MEDS: Menthol/Lanolin/Calamine/Znox 113 GM Tube 1 APPLIC TOPICAL ×3 (05:22→20:21)
[2024-10-27] MEDS: NYSTATIN 500,000 UNIT/5 ML UDC 500000 UNIT PO ×4 (05:23→20:21)
[2024-10-27] MEDS: traMADol 50 MG Tablet PO ×3 (05:27→20:27)
[2024-10-27 06:20] LABS: Bedside Glucose 122 mg/dL (74-106)
[2024-10-27] MEDS: Metoprolol(XL)Succ 25 MG Tablet PO ×2 (07:59→11:08)
[2024-10-27] MEDS: Lactobacillis Acidophilus 1 CAP PO (07:59)
[2024-10-27] MEDS: Lisinopril 20 MG Tablet PO (07:59)
[2024-10-27] MEDS: Amiodarone 200 MG Tablet PO (07:59)
[2024-10-27] MEDS: APIXABAN 5 MG TABLET PO ×2 (07:59→20:22)
[2024-10-27] MEDS: FLUoxetine 20 MG Capsule PO (07:59)
[2024-10-27] MEDS: levoFLOXacin 750 MG Tablet PO (07:59)
[2024-10-27] MEDS: guaiFENesin 1,200 MG Tablet 1200 MG PO ×2 (07:59→20:23)
[2024-10-27] MEDS: Senna/Docusate Sodium 1 Tablet PO ×2 (07:59→20:25)
[2024-10-27] MEDS: Cholecalciferol (Vit D3) 125 MCG CAPSULE (5,000 UNITS) PO (07:59)
[2024-10-27] MEDS: Loratadine 10 MG Tablet PO (07:59)
[2024-10-27] MEDS: Insulin Lispro 100 UNIT/ML INSULN.PEN 10 UNIT SC ×3 (08:00→17:33)
[2024-10-27] MEDS: Ondansetron ODT 4 MG Tablet 8 MG PO (09:08)
[2024-10-27] MEDS: Tuberculin,Purif.prot.deriv. 50 TU/ML Vial 0.1 ML ID (09:09)
--- NOTE | 2024-10-27 09:22 | NURSING ---
Pt. reports feeling nauseous this AM. Bowel sounds active x4, no abdominal cramping or pain, an afebrile. Dr. Colmenares notified, N.O. for one time does of Zofran odt, and x-ray of the abdomen.
--- NOTE | 2024-10-27 09:26 | RAD_ITS ---
PROCEDURE: ABDOMEN SINGLE VIEW (PORTABLE) 10/27/2024 REASON FOR EXAM: NAUSEA TECHNIQUE: Single view abdomen. FINDINGS: Bowel gas: Bowel gas pattern is normal. No evidence of bowel obstruction. Calcifications: No suspicious calcifications. Bones: The bones are unremarkable. Other: Right upper quadrant surgical clips suggest prior cholecystectomy. RAD/Abdomen Single View (Portable) IMPRESSION: NO ACUTE FINDINGS Reading Location: [id number]
[2024-10-27] MEDS: Chlorthalidone 50 MG Tablet 25 MG PO (11:07)
[2024-10-27] MEDS: Cefdinir 300 MG Capsule PO ×2 (11:08→20:24)
[2024-10-27] MEDS: METFORMIN HCL 750 MG TAB.ER.24H PO (11:08)
[2024-10-27] MEDS: Losartan Potassium 100 MG Tablet PO (11:08)
[2024-10-27] MEDS: Multivitamins,Therapeutic Tablet 1 TABLET PO (11:08)
[2024-10-27 11:36] LABS: Bedside Glucose 116 mg/dL (74-106)
[2024-10-27 16:37] LABS: Bedside Glucose 150 mg/dL (74-106)
[2024-10-27] MEDS: Pramipexole Di-HCl 0.25 MG Tablet PO (20:23)
[2024-10-27] MEDS: Atorvastatin Calcium 10 MG Tablet PO (20:24)
[2024-10-27 21:42] LABS: Bedside Glucose 152 mg/dL (74-106)
--- NOTE | 2024-10-28 01:40 | CPS ---
Pt unable to tolerate CPAP, pt refusing to use.
[2024-10-28] MEDS: NYSTATIN 500,000 UNIT/5 ML UDC 500000 UNIT PO ×4 (05:05→20:37)
[2024-10-28] MEDS: Menthol/Lanolin/Calamine/Znox 113 GM Tube 1 APPLIC TOPICAL ×2 (05:05→20:39)
[2024-10-28] MEDS: traMADol 50 MG Tablet PO ×2 (05:08→15:23)
[2024-10-28 06:17] LABS: Bedside Glucose 128 mg/dL (74-106)
[2024-10-28] MEDS: Insulin Lispro 100 UNIT/ML INSULN.PEN 10 UNIT SC ×2 (08:57→17:44)
[2024-10-28] MEDS: Cholecalciferol (Vit D3) 125 MCG CAPSULE (5,000 UNITS) PO (08:58)
[2024-10-28] MEDS: guaiFENesin 1,200 MG Tablet 1200 MG PO ×2 (08:58→20:37)
[2024-10-28] MEDS: METFORMIN HCL 750 MG TAB.ER.24H PO (08:58)
[2024-10-28] MEDS: Loratadine 10 MG Tablet PO (08:58)
[2024-10-28 08:59] VITALS: PULSE 77
[2024-10-28] MEDS: Chlorthalidone 50 MG Tablet 25 MG PO (08:59)
[2024-10-28] MEDS: Losartan Potassium 100 MG Tablet PO (08:59)
[2024-10-28] MEDS: FLUoxetine 20 MG Capsule PO (08:59)
[2024-10-28] MEDS: APIXABAN 5 MG TABLET PO ×2 (08:59→20:36)
[2024-10-28] MEDS: Cefdinir 300 MG Capsule PO ×2 (08:59→20:37)
[2024-10-28] MEDS: Metoprolol(XL)Succ 50 MG Tablet PO (08:59)
[2024-10-28] MEDS: Lactobacillis Acidophilus 1 CAP PO (08:59)
[2024-10-28] MEDS: Senna/Docusate Sodium 1 Tablet PO ×2 (09:00→20:38)
[2024-10-28] MEDS: Amiodarone 200 MG Tablet PO (09:00)
[2024-10-28 09:30] LABS: Bedside Glucose 147 mg/dL (74-106)
[2024-10-28 10:00] VITALS: PULSE 60; RESP 16; O2SAT 92
[2024-10-28 11:20] LABS: Bedside Glucose 123 mg/dL (74-106)
--- NOTE | 2024-10-28 11:21 | NURSING ---
Offered covid vaccine, VIS provided. Resident declines.
--- NOTE | 2024-10-28 12:26 | CASEMGMT ---
Social Work SW met with patient to complete initial assessment. Introduced self and role. Verified/updated contacts. Patient confirmed code status as full code. Pt denied wanting to complete advance directives. SW provided education on the importance of completing. Educated currently all children would need to agree to the same decision. Pt expressed understanding and that all children get along. SW educated to Medicare benefit and copay coverage. Pt's goal is to return home at mod I level of function prior to the last month of decline. SW requested pt have family provide personal cpap unit for use during stay. Pt agreed. SW will continue to follow for DC planning. Atiya Becker STAVE SAW OPERATOR CONTINUING EDUCATION DIRECTOR
[2024-10-28] MEDS: oxyCODONE 5 MG Tablet PO (12:39)
[2024-10-28] MEDS: Multivitamins,Therapeutic Tablet 1 TABLET PO (12:40)
--- NOTE | 2024-10-28 13:56 | PCM.PN.DRR ---
Documented by User: Fernanda Raphael 10/28/24 14:49 TCU RX Drug Regimen Review Subjective/Objective Subjective/Objective Subjective: TCU Admission. 69 YOF presented to the ER with a fall. Hospitalized for multiple falls, acute encephalopathy 2/2 septic shock 2/2 urinary tract infection, complicated by new onset atrial fibrillation with rapid ventricular response. Admitted to TCU with debility for strengthening and rehabilitation. Objective: Allergies glimepiride Allergy (Unknown, Verified 10/21/24 06:51) pruritus rosiglitazone (From Avandia) Allergy (Unknown, Verified 10/21/24 06:51) Rash sitagliptin (From Januvia) Allergy (Unknown, Verified 10/21/24 06:51) Rash Sulfa (Sulfonamide Antibiotics) Allergy (Verified 10/21/24 06:51) NEEDS FOLLOW-UP acetaminophen (From Tylenol) Adverse Reaction (Unknown, Verified 10/21/24 06:51) Enlarged liver pravastatin Adverse Reaction (Unknown, Verified 10/21/24 06:51) elevated liver enzymes Current Medications Generic Name Dose Route Start Last Admin Trade Name Freq PRN Reason Stop Dose Admin Albuterol Sulfate 2.5 mg 10/26/24 17:01 Albuterol 2.5 Mg/3 Ml Vial.Neb. INHALATION Q4H PRN sob Amiodarone HCl 200 mg 10/27/24 10:00 10/28/24 09:00 Amiodarone 200 Mg Tablet PO 200 mg DAILY MARGARITA Administration Apixaban 5 mg 10/26/24 22:00 10/28/24 08:59 Apixaban 5 Mg Tablet PO 5 mg BID MARGARITA Administration Atorvastatin Calcium 10 mg 10/26/24 22:00 10/27/24 20:24 Atorvastatin Calcium 10 Mg Tablet PO 10 mg QHS MARGARITA Administration Calamine/Phenol 1 applic 10/26/24 22:00 10/28/24 05:05 Menthol/Lanolin/Calamine/Znox 113 Gm Tube TOPICAL 1 applic TID MARGARITA Administration Protocol Cefdinir 300 mg 10/27/24 10:15 10/28/24 08:59 Cefdinir 300 Mg Capsule PO 10/29/24 23:59 300 mg Q12 MARGARITA Administration Chlorthalidone 25 mg 10/27/24 10:00 10/28/24 08:59 Chlorthalidone 50 Mg Tablet PO 25 mg DAILY MARGARITA Administration Protocol Cholecalciferol 125 mcg 10/27/24 10:00 10/28/24 08:58 Cholecalciferol (Vit D3) 125 Mcg Capsule (5,000 Units) PO 125 mcg DAILY MARGARITA Administration Fluoxetine HCl 20 mg 10/27/24 10:00 10/28/24 08:59 Fluoxetine 20 Mg Capsule PO 20 mg DAILY MARGARITA Administration Guaifenesin 1,200 mg 10/26/24 22:00 10/28/24 08:58 Guaifenesin 1,200 Mg Tablet PO 1,200 mg BID MARGARITA Administration Insulin Human Lispro 10 unit 10/26/24 17:45 10/28/24 12:42 Insulin Lispro 100 Unit/Ml Insuln.Pen SC Not Given TIDCM [facility] Loratadine 10 mg 10/27/24 10:00 10/28/24 08:58 Loratadine 10 Mg Tablet PO 10 mg DAILY MARGARITA Administration Losartan Potassium 100 mg 10/27/24 10:00 10/28/24 08:59 Losartan Potassium 100 Mg Tablet PO 100 mg DAILY MARGARITA Administration Protocol Magnesium Citrate 300 ml 10/26/24 17:29 10/26/24 20:30 Magnesium Citrate 300 Ml PO 300 ml DAILY PRN Administration Constipation Metformin HCl 750 mg 10/27/24 08:00 10/28/24 08:58 Metformin Hcl 750 Mg Tab.Er.24h PO 750 mg BREAKFAST [facility] Administration Metoprolol Succinate 50 mg 10/28/24 10:00 10/28/24 08:59 Metoprolol(Xl)Succ 50 Mg Tablet PO 50 mg DAILY MARGARITA Administration Protocol Multivitamins 1 tablet 10/27/24 12:00 10/28/24 12:40 Multivitamins,Therapeutic Tablet PO 1 tablet LUNCH MARGARITA Administration Nystatin 500,000 unit 10/26/24 22:00 10/28/24 12:40 Nystatin 500,000 Unit/5 Ml Udc PO 11/02/24 22:01 500,000 unit 4X/DAY MARGARITA Administration Oxycodone HCl 5 mg 10/28/24 07:37 10/28/24 12:39 Oxycodone 5 Mg Tablet PO 5 mg Q4H PRN PRN Administration Pain Score 6-10 or Pre PT/OT Pramipexole Dihydrochloride 0.25 mg 10/26/24 22:00 10/27/24 20:23 Pramipexole Di-Hcl 0.25 Mg Tablet PO 0.25 mg QHS MARGARITA Administration Senna/Docusate Sodium 1 tablet 10/26/24 22:00 10/28/24 09:00 Senna/Docusate Sodium 1 Tablet PO 1 tablet BID MARGARITA Administration Sodium Chloride 10 - 40 ml 10/26/24 17:02 0.9% Saline Lock 10 Ml Syringe IV UD PRN SALINE FLUSH Tramadol HCl 50 mg 10/26/24 17:31 10/28/24 05:08 Tramadol 50 Mg Tablet PO 50 mg Q6H PRN PRN Administration Pain Score 1-5 or Pre PT/OT Tuberculin PPD 0.1 ml 11/03/24 10:00 Tuberculin,Purif.Prot.Deriv. 50 Tu/Ml Vial ID 11/03/24 10:01 X1 ONE Problem List COPD (chronic obstructive pulmonary disease) (Chronic) Obstructive sleep apnea (Acute) Depression (Acute) Type 2 diabetes mellitus with hyperglycemia (Acute) Atrial fibrillation with rapid ventricular response (Acute) Acute encephalopathy (Acute) Multiple falls (Acute) Debility (Acute) Septic shock (Acute) UTI (urinary tract infection) (Acute) Hyperlipidemia (Chronic) Essential hypertension (Acute) Vital Signs Temp Pulse Resp BP Pulse Ox O2 Del Method FiO2 98.6 F 77 15 158/62 H 91 Room Air 21 10/27/24 09:25 10/28/24 08:59 10/27/24 20:10 10/27/24 11:12 10/27/24 20:10 10/27/24 20:00 10/27/24 20:10 Oxygen Delivery Method Room Air Weight: 157.2 kg Body Mass Index (BMI) 63.3 Sodium 140 mmol/L (133-145) 10/27/24 03:45 Potassium 3.5 mmol/L (3.3-5.1) 10/27/24 03:45 Chloride 103 mmol/L (98-108) 10/27/24 03:45 Carbon Dioxide 29.6 mmol/L (21.0-32.0) 10/27/24 03:45 Anion Gap 8 (5-15) 10/27/24 03:45 BUN 24 mg/dL (4-19) H 10/27/24 03:45 Creatinine 0.45 mg/dL (0.70-1.20) L 10/27/24 03:45 Est GFR (MDRD) Non-Af 103 (>60) 10/27/24 03:45 BUN/Creatinine Ratio 53.1 RATIO (10-20) H 10/27/24 03:45 Glucose 120 mg/dL (70-99) H 10/27/24 03:45 Assessment/Plan: 1. Pain: tramadol 50mg PO Q6H PRN pain 1-5 and oxycodone 5mg PO Q4H PRN pain 6-10. Resident has had 4 doses of tramadol (pain 6-10 in the leg) and 1 dose of oxycodone (pain of 10 in the buttock). Please continue to monitor for increased pain, PRN usage, constipation, renal function, respiratory depression and falls (Judson). 2. Bowel: senna/docusate 1T PO BID and magnesium citrate 300mL PO daily PRN constipation. Resident had 1 dose of magnesium citrate. Last documented bowel movement was 10/27/24. Please continue to monitor for constipation, PRN usage. 3. UTI: cefdinir 300mg PO BID thru 10/29/24. Please continue to monitor for S/S of infection, stool discoloration, diarrhea and renal function. 4. New onset atrial fibrillation with RVR/hypertension: metoprolol succinate 50mg PO daily, amiodarone 200mg PO daily, chlorthalidone 25mg PO daily, losartan 100mg PO daily and apixaban 5mg PO BID. Please continue to monitor for fatigue, BP (114-171/50-77), HR (58-76), potassium (last 3.5mmol/L), sodium (last 140mmol/L), cough, renal function, S/S of bleeding/stroke and hemoglobin (last 10.3g/dL). 5. Diabetes mellitus II: metformin ER 750mg PO breakfast and insulin lispro 10units SC TIDCM. Please consider ordering a hemoglobin A1c as the last one is from 2021. Thanks. Please continue to monitor glucose (last 123mg/dL), renal function (eGFR = 103mL/min), diarrhea, S/S of hypoglycemia. 6. COPD: albuterol 2.5mg nebulized solution Q4H PRN SOB. No PRN doses given. Please continue to monitor for SOB and PRN usage. 7. Hyperlipidemia: atorvastatin 10mg PO QHS. Please consider ordering a lipid panel as the last is from 2022. Thanks. Please continue to monitor LFTs (last 10/22/24) and muscle pain. 8. Thrush: nystatin 500,000units PO 4x/day thru 11/02/24. Please continue to monitor for improvement in thrush. 9. Allergic rhinitis: loratadine 10mg PO daily. Please continue to monitor for S/S of allergies and renal function. 10. Congestion: guaifenesin 1200mg PO BID. Please continue to monitor for congestion. 11. Vitamin D deficiency/GI prophylaxis/nutrition: multivitamin 1T PO daily, lactobacillus 1C PO daily and cholecalciferol 125mcg PO daily. Please consider ordering a vitamin D level as the last level is from 2021. Thanks. 12. Skin irritation: Calmoseptine topical tid. Please continue to monitor. Assessment/Plan for indications treated with psychotropic medications: 1. Depression: fluoxetine 20mg PO daily. Please see physician note regarding GDR. Monitor for diarrhea, nausea, headache, anxiety or drowsiness, suicidal thoughts or behaviors (Boxed Warning), symptoms of bleeding, symptoms of serotonin syndrome (including agitation, confusion, hyperreflexia, rigidity/myoclonus, tremor, tachycardia, tachypnea), sodium levels (last Na = 140mmol/L). Monitor for efficacy including resident symptoms, behaviors and indications of distress. Monitor for tolerability including mental status, cognition, excessive sleepiness, withdrawal or decreased participation in activities and decline in physical functioning. Maximize use of nonpharmacologic/behavioral interventions to facilitate dose reduction or discontinuation as appropriate. Please evaluate the appropriateness of GDR unless contraindicated. If appropriate, GDR should be attempted in 2 separate quarters within the first year of use or admission to TCU. If GDR attempted, monitor resident symptoms/behaviors. Medical chart and medication regimen reviewed. The following medication irregularities or issues were identified: 1. Metformin ER 750mg PO breakfast and insulin lispro 10units SC TIDCM. Please consider ordering a hemoglobin A1c as the last one is from 2021. Thanks. 2. Cholecalciferol 125mcg PO daily. Please consider ordering a vitamin D level as the last level is from 2021. Thanks. 3. Atorvastatin 10mg PO QHS. Please consider ordering a lipid panel as the last is from 2022. Thanks. 4. Pramipexole 0.25mg PO QHS. I did not see a documented indication for this medication. Please consider adding the indication if medication is clinically indicated. Thanks. Date Date of Note: 10/28/24 Documented by User: Dr. Jose Francisco Colmenares MD 10/28/24 14:53 TCU RX Drug Regimen Review Provider Comments Provider responsibility Provider Comments to Recommendations by Pharmacy Agree
[2024-10-28 14:48] VITALS: BP 156/56; PULSE 68; RESP 14; TEMP 36.9; O2SAT 92
[2024-10-28 16:43] LABS: Bedside Glucose 179 mg/dL (74-106)
[2024-10-28] MEDS: Pramipexole Di-HCl 0.25 MG Tablet PO (20:37)
[2024-10-28] MEDS: Atorvastatin Calcium 10 MG Tablet PO (20:37)
[2024-10-28 22:22] LABS: Bedside Glucose 132 mg/dL (74-106)
[2024-10-28 23:15] VITALS: PULSE 74; RESP 16; O2SAT 93
[2024-10-29] MEDS: NYSTATIN 500,000 UNIT/5 ML UDC 500000 UNIT PO ×4 (05:33→20:40)
[2024-10-29] MEDS: Menthol/Lanolin/Calamine/Znox 113 GM Tube 1 APPLIC TOPICAL ×3 (05:33→20:45)
[2024-10-29 06:05] LABS: Hemoglobin A1c 7.4 % (<=5.6)
[2024-10-29 06:21] LABS: Cholesterol 106 mg/dL (<=200); High Density Lipoprotein 30 mg/dL; Low Density Lipoprotein Calc. 53 mg/dL; Triglycerides 112 mg/dL; Very Low Density Lipoprotein 22 mg/dL (5-40); Vitamin D,25 Hydroxy 49.1 ng/mL (30-100)
[2024-10-29 06:33] LABS: Bedside Glucose 146 mg/dL (74-106)
[2024-10-29] MEDS: Insulin Lispro 100 UNIT/ML INSULN.PEN 10 UNIT SC ×3 (09:06→17:31)
[2024-10-29] MEDS: METFORMIN HCL 750 MG TAB.ER.24H PO (09:09)
[2024-10-29] MEDS: Lactobacillis Acidophilus 1 CAP PO (09:10)
[2024-10-29] MEDS: Loratadine 10 MG Tablet PO (09:10)
[2024-10-29] MEDS: Losartan Potassium 100 MG Tablet PO (09:10)
[2024-10-29] MEDS: Amiodarone 200 MG Tablet PO (09:10)
[2024-10-29] MEDS: APIXABAN 5 MG TABLET PO ×2 (09:11→20:41)
[2024-10-29] MEDS: Chlorthalidone 50 MG Tablet 25 MG PO (09:11)
[2024-10-29] MEDS: guaiFENesin 1,200 MG Tablet 1200 MG PO ×2 (09:12→20:40)
[2024-10-29] MEDS: FLUoxetine 20 MG Capsule PO (09:12)
[2024-10-29] MEDS: Cefdinir 300 MG Capsule PO ×2 (09:12→20:41)
[2024-10-29 09:13] VITALS: BP 171/64; PULSE 71
[2024-10-29] MEDS: Metoprolol(XL)Succ 50 MG Tablet PO (09:13)
[2024-10-29] MEDS: Cholecalciferol (Vit D3) 125 MCG CAPSULE (5,000 UNITS) PO (09:13)
[2024-10-29] MEDS: Senna/Docusate Sodium 1 Tablet PO ×2 (09:13→20:42)
[2024-10-29] MEDS: oxyCODONE 5 MG Tablet PO ×2 (10:52→16:43)
[2024-10-29 11:24] LABS: Bedside Glucose 170 mg/dL (74-106)
--- NOTE | 2024-10-29 13:04 | NURSING ---
THERAPY BROUGHT PATIENT BACK, DUE TO O2 DROPPING TO 82. APPLIED 2L OF O2 WITH IMPROVEMENT OF O2 STATUS AT 98%. MOVED O2 DOWN TO 1L WITH IMPROVEMENT OF O2 AT 95% . REMOVED O2 WITH PATIENT SITTING AT 93% AND RESTING COMFORTABLY
[2024-10-29] MEDS: Multivitamins,Therapeutic Tablet 1 TABLET PO ×2 (13:11→20:42)
--- NOTE | 2024-10-29 13:21 | NURSING ---
APPLIED 1L OF O2 WITH PATIENT FLUCTUATING BETWEEN 88% TO 93% WILL CONTINUE TO MONITOR.
[2024-10-29 14:04] VITALS: BMI 63.3
[2024-10-29 15:39] VITALS: BP 171/64; PULSE 71; RESP 18; TEMP 36.6; O2SAT 91
--- NOTE | 2024-10-29 16:01 | CHAPLAIN ---
Type of Pastoral Visit _x__ Initial Visit ___ Follow-up Visit ___ On-call Visit ___ General Patient Visit ___ Spiritual Assessment ___ Family Conference ___ Bereavement ___ Rapid Response ___ Code Blue ___ Other (describe below) Pastoral Care Referral From _x__ Patient ___ Family ___ Nurse ___ Physician ___ Senior [facility] Manager ___ Die Maker Trim ___ Other (describe below) Sacrament/Intervention _x__ Active listening ___ Anointing ___ Anabaptist ___ Bereavement ___ Communion ___ [place] exploration ___ ___ Life review _x__ Prayer ___ Reconciliation ___ Sacrament of Sick _x__ Supportive presence ___ Wedding ___ Other (describe below) Pastoral Comments patient is welcoming and pleasant; pt speaks of falling and how she still hurts and has difficulty being comfortable; pt is a confused about where she is in the hospital but knows that she is in the hospital; pt reports on having a large family of siblings and five children; pt is of the Anabaptism marianna and wants prayer for her support; [facility];
[2024-10-29 16:55] LABS: Bedside Glucose 156 mg/dL (74-106)
[2024-10-29] MEDS: traMADol 50 MG Tablet PO (20:39)
[2024-10-29] MEDS: Atorvastatin Calcium 10 MG Tablet PO (20:40)
[2024-10-29] MEDS: Pramipexole Di-HCl 0.25 MG Tablet PO (20:41)
[2024-10-29 21:31] LABS: Bedside Glucose 125 mg/dL (74-106)
[2024-10-30] MEDS: NYSTATIN 500,000 UNIT/5 ML UDC 500000 UNIT PO ×4 (06:09→21:14)
[2024-10-30] MEDS: Menthol/Lanolin/Calamine/Znox 113 GM Tube 1 APPLIC TOPICAL ×3 (06:10→21:15)
[2024-10-30 06:31] LABS: Bedside Glucose 127 mg/dL (74-106)
[2024-10-30] MEDS: Cholecalciferol (Vit D3) 125 MCG CAPSULE (5,000 UNITS) PO (08:21)
[2024-10-30 08:22] VITALS: BP 143/76; PULSE 74
[2024-10-30] MEDS: Metoprolol(XL)Succ 50 MG Tablet PO (08:22)
[2024-10-30] MEDS: guaiFENesin 1,200 MG Tablet 1200 MG PO ×2 (08:23→21:14)
[2024-10-30] MEDS: APIXABAN 5 MG TABLET PO ×2 (08:23→21:13)
[2024-10-30] MEDS: Loratadine 10 MG Tablet PO (08:23)
[2024-10-30] MEDS: Amiodarone 200 MG Tablet PO (08:23)
[2024-10-30] MEDS: Losartan Potassium 100 MG Tablet PO (08:23)
[2024-10-30] MEDS: Chlorthalidone 50 MG Tablet 25 MG PO (08:23)
[2024-10-30] MEDS: Insulin Lispro 100 UNIT/ML INSULN.PEN 10 UNIT SC ×3 (08:23→18:39)
[2024-10-30] MEDS: Lactobacillis Acidophilus 1 CAP PO (08:23)
[2024-10-30] MEDS: METFORMIN HCL 750 MG TAB.ER.24H PO (08:23)
[2024-10-30] MEDS: Senna/Docusate Sodium 1 Tablet PO ×2 (08:24→21:14)
[2024-10-30] MEDS: FLUoxetine 20 MG Capsule PO (08:24)
[2024-10-30 08:32] VITALS: BP 143/76; PULSE 74; RESP 20; TEMP 36.3; O2SAT 97
--- NOTE | 2024-10-30 09:53 | CASEMGMT ---
Social Work IDT met with patient, sister, son and DIL for care plan meeting. Discussed patient's progress in PT/OT/ST/SN. Educated to Medicare benefit. Provided pt/family with written communication of insurance process and copay coverage during stay. Pt currently is a sage lift x2-3 assist. Several arnaldo recliners have been trialed to assist pt in spending time out of bed. Pt is new on O2. Broached topic that average LOS of 20 days and pt has made limited progress, pt will likely need to DC to a SNF prior to home. Explained the goal is to return home and keep working with pt for progress, but cautioned pt must continue meeting guidelines to remain. Explained if pt needs SNF at DC, it is an OOP cost or this worker can determine [facility] eligibility for coverage. All family members expressed understanding. SW will continue to follow to assist with DC planning. Atiya Becker WOOD CARVING MACHINE OPERATOR FISCAL MANAGER
[2024-10-30 11:38] LABS: Bedside Glucose 171 mg/dL (74-106)
[2024-10-30] MEDS: oxyCODONE 5 MG Tablet PO ×2 (14:11→18:44)
--- NOTE | 2024-10-30 14:11 | NURSING ---
Fiscal Assistant Note; Activity Asset: Silva Landa is independent in her choice of daily activities. At this time due to her medical condition she prefers to rest when not in therapy. She did ask for a radio w/country music. She see's her office receptionist and our heel shaver is welcome as well. Her family and friends visits daily, staff will visits and offer in room activities and respect her right to say no.
[2024-10-30 14:21] VITALS: O2SAT 95
[2024-10-30] MEDS: Albuterol 2.5 MG/3 ML VIAL.NEB. INHALATION (15:43)
[2024-10-30 15:44] VITALS: PULSE 77; RESP 18
[2024-10-30 16:53] LABS: Bedside Glucose 158 mg/dL (74-106)
[2024-10-30] MEDS: Atorvastatin Calcium 10 MG Tablet PO (21:14)
[2024-10-30] MEDS: Pramipexole Di-HCl 0.25 MG Tablet PO (21:14)
[2024-10-30] MEDS: Nystatin Powder 15gm Bottle 1 APPLIC TOPICAL (21:15)
[2024-10-30 22:18] LABS: Bedside Glucose 158 mg/dL (74-106)
[2024-10-31] MEDS: NYSTATIN 500,000 UNIT/5 ML UDC 500000 UNIT PO ×4 (05:17→20:28)
[2024-10-31] MEDS: Menthol/Lanolin/Calamine/Znox 113 GM Tube 1 APPLIC TOPICAL (05:17)
[2024-10-31] MEDS: oxyCODONE 5 MG Tablet PO ×4 (05:23→20:46)
[2024-10-31 05:24] VITALS: PULSE 66; RESP 19
[2024-10-31 06:33] LABS: Bedside Glucose 154 mg/dL (74-106)
[2024-10-31 08:20] VITALS: PULSE 110; RESP 22; O2SAT 96
[2024-10-31] MEDS: Albuterol 2.5 MG/3 ML VIAL.NEB. INHALATION ×2 (08:20→14:43)
[2024-10-31] MEDS: Senna/Docusate Sodium 1 Tablet PO ×2 (08:21→20:29)
[2024-10-31 08:22] VITALS: BP 131/71; PULSE 111
[2024-10-31] MEDS: APIXABAN 5 MG TABLET PO ×2 (08:22→20:28)
[2024-10-31] MEDS: guaiFENesin 1,200 MG Tablet 1200 MG PO ×2 (08:22→20:28)
[2024-10-31] MEDS: Lactobacillis Acidophilus 1 CAP PO (08:22)
[2024-10-31] MEDS: METFORMIN HCL 750 MG TAB.ER.24H PO (08:22)
[2024-10-31] MEDS: Losartan Potassium 100 MG Tablet PO (08:22)
[2024-10-31] MEDS: Metoprolol(XL)Succ 50 MG Tablet PO (08:22)
[2024-10-31] MEDS: Chlorthalidone 50 MG Tablet 25 MG PO (08:22)
[2024-10-31] MEDS: Amiodarone 200 MG Tablet PO (08:22)
[2024-10-31] MEDS: Loratadine 10 MG Tablet PO (08:22)
[2024-10-31] MEDS: Insulin Lispro 100 UNIT/ML INSULN.PEN 10 UNIT SC ×3 (08:23→17:48)
[2024-10-31] MEDS: FLUoxetine 20 MG Capsule PO (08:23)
[2024-10-31] MEDS: Nystatin Powder 15gm Bottle 1 APPLIC TOPICAL ×2 (08:23→20:31)
[2024-10-31] MEDS: Cholecalciferol (Vit D3) 125 MCG CAPSULE (5,000 UNITS) PO (08:24)
[2024-10-31] MEDS: Magnesium Citrate 300 ML PO (08:29)
[2024-10-31 10:44] VITALS: O2SAT 98
--- NOTE | 2024-10-31 11:00 | RAD_ITS ---
EXAM: XR Chest, 2 Views CLINICAL INDICATION: SOB TECHNIQUE: Frontal and lateral views of the chest. COMPARISON: No relevant prior studies available. FINDINGS: LUNGS AND PLEURAL SPACES: See below. HEART: Cardiomegaly with pulmonary congestion and edema. Superimposed pneumonia cannot be excluded. MEDIASTINUM: Unremarkable. Normal mediastinal contour. BONES/JOINTS: Unremarkable. No acute fracture. RAD/Chest PA and Lateral IMPRESSION: Cardiomegaly with pulmonary congestion and edema. Superimposed pneumonia cannot be excluded. Reading Location: [facility]
[2024-10-31 11:35] LABS: Bedside Glucose 206 mg/dL (74-106)
[2024-10-31] MEDS: Doxycycline 100 MG CAPSULE PO ×2 (13:21→20:28)
[2024-10-31] MEDS: Furosemide 40 MG Tablet PO (13:21)
[2024-10-31] MEDS: Cefdinir 300 MG Capsule PO ×2 (13:21→20:28)
[2024-10-31] MEDS: Multivitamins,Therapeutic Tablet 1 TABLET PO (13:21)
[2024-10-31 13:27] VITALS: BP 126/75; PULSE 92; RESP 22; TEMP 36.6; O2SAT 98
[2024-10-31 14:43] VITALS: PULSE 69; RESP 20
--- NOTE | 2024-10-31 14:48 | NUR.TO.PHY ---
wound photo: brittney cleft/js anal area
--- NOTE | 2024-10-31 14:59 | WOUNDNOTE ---
wound photo: brittney cleft/js anal
[2024-10-31] MEDS: traMADol 50 MG Tablet PO (15:28)
[2024-10-31 16:38] LABS: Bedside Glucose 207 mg/dL (74-106)
--- NOTE | 2024-10-31 18:02 | NURSING ---
Nurse in room when pt started choking on a piece of broccoli unable to clear or cough up. Able to pull pt forward enough to give a couple of back blows and was able to cough up broccoli. Pt in bariatric bed and only goes to 45 degrees. Will update speech and see if they recommend a different texture.
[2024-10-31] MEDS: Pramipexole Di-HCl 0.25 MG Tablet PO (20:28)
[2024-10-31] MEDS: Atorvastatin Calcium 10 MG Tablet PO (20:28)
[2024-10-31 21:47] LABS: Bedside Glucose 186 mg/dL (74-106)
--- NOTE | 2024-11-01 02:42 | NURSING ---
Spoke with patient's five sons at the beginning of this shift. They shared concerns about patient's progress in therapy and her potential ability to go home. One son believes patient would be more motivated if therapy gives patient one goal for the day to focus on and complete rather than several different tasks. This nurse assured him that it would be passed on to therapy. Sons also had questions regarding next steps if insurance decides to cut the patient's stay/care here on TCU. This nurse directed them towards MARINO Rajput. They asked if Atiya could contact their Aunt, the patient's sister. This nurse left voicemail with MARINO Rajput.
[2024-11-01] MEDS: NYSTATIN 500,000 UNIT/5 ML UDC 500000 UNIT PO ×3 (05:18→16:59)
[2024-11-01 06:00] VITALS: BMI 62.9
[2024-11-01 06:05] LABS: Absolute Lymphocyte Count 2.21 X10^3/uL (0.83-4.51); Absolute Neutrophil Count 11.5 X10^3/uL (2.0-7.7); Basophil# 0.07 X10^3/uL; Basophil% 0.5 % (0-1); Eosinophil# 0.12 X10^3/uL; Eosinophils% 0.8 % (0-5); Hematocrit 32.5 % (37-47); Hemoglobin 10.5 g/dL (12.0-15.0); Lymphocyte # 2.21 X10^3/ul (0.83-4.51); Lymphocyte % 14.3 % (19-41); Mean Corp Hgb Conc 32.3 g/dL (32-36); Mean Corpuscular Hgb 29.9 pg (27.0-32.0); Mean Corpuscular Volume 92.6 fL (81-99); Mean Platelet Vol. 10.6 fl (6.2-12.0); Monocyte# 1.24 X10^3/uL; NRBC Flagged by Analyzer 0 % (0-5); Neutrophil # 11.48 X10^3/uL (2.7-7.7); Platelet Count 330 K/mm3 (150-450); RBC Distribution Width CV 15.2 % (11.6-14.6); RBC Distribution Width SD 51.4 fl (35.1-43.9); Red Blood Count 3.51 M/mm3 (4.2-5.4); White Blood Count 15.5 K/mm3 (4.4-11.0)
[2024-11-01 06:28] LABS: Bedside Glucose 150 mg/dL (74-106)
[2024-11-01 06:55] LABS: Anion Gap 7 (5-15); BUN 16 mg/dL (4-19); BUN/Creat Ratio 35.4 RATIO (10-20); Calcium,Total 9.2 mg/dL (7.6-11.0); Carbon Dioxide 33.4 mmol/L (21.0-32.0); Chloride 94 mmol/L (98-108); Creatinine, Serum 0.46 mg/dL (0.70-1.20); EST Glomerular Filtration Rate 103 (>60); Glucose 155 mg/dL (70-99); Potassium 3.8 mmol/L (3.3-5.1); Sodium Level 134 mmol/L (133-145)
[2024-11-01 07:59] VITALS: BP 142/85; PULSE 97; RESP 18; TEMP 36.4; O2SAT 100
[2024-11-01] MEDS: METFORMIN HCL 750 MG TAB.ER.24H PO (08:04)
[2024-11-01] MEDS: Insulin Lispro 100 UNIT/ML INSULN.PEN 10 UNIT SC ×3 (08:04→17:39)
[2024-11-01] MEDS: Lactobacillis Acidophilus 1 CAP PO (08:04)
[2024-11-01] MEDS: Amiodarone 200 MG Tablet PO (08:05)
[2024-11-01] MEDS: Losartan Potassium 100 MG Tablet PO (08:05)
[2024-11-01] MEDS: Doxycycline 100 MG CAPSULE PO (08:05)
[2024-11-01] MEDS: Loratadine 10 MG Tablet PO (08:05)
[2024-11-01] MEDS: Chlorthalidone 50 MG Tablet 25 MG PO (08:06)
[2024-11-01] MEDS: APIXABAN 5 MG TABLET PO (08:06)
[2024-11-01] MEDS: FLUoxetine 20 MG Capsule PO (08:07)
[2024-11-01] MEDS: Nystatin Powder 15gm Bottle 1 APPLIC TOPICAL (08:07)
[2024-11-01] MEDS: Cefdinir 300 MG Capsule PO (08:07)
[2024-11-01] MEDS: Furosemide 40 MG Tablet PO (08:07)
[2024-11-01] MEDS: guaiFENesin 1,200 MG Tablet 1200 MG PO (08:07)
[2024-11-01 08:08] VITALS: PULSE 102
[2024-11-01] MEDS: Cholecalciferol (Vit D3) 125 MCG CAPSULE (5,000 UNITS) PO (08:08)
[2024-11-01] MEDS: Metoprolol(XL)Succ 50 MG Tablet PO (08:08)
[2024-11-01] MEDS: Senna/Docusate Sodium 1 Tablet PO (08:08)
[2024-11-01] MEDS: Gabapentin 100 MG Capsule PO ×3 (08:10→17:39)
--- NOTE | 2024-11-01 09:37 | MDS.RN ---
Pain assessment for MDS complete.
--- NOTE | 2024-11-01 10:58 | CASEMGMT ---
Social Work SW received call VM from lieutenant shift supervisor nurse about questions from sons and to follow up with pt's sister. - SW phoned sister to answer questions. Explained goals, POC and DC recommendations have not changed since discussion at POC meeting. Sister explained the sons are very worried about pt not continuing to meet skilled MC criteria and unsure what the next steps would be for DC. 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 SW appreciative of insight and discussed criteria. Extensively explained MC criteria in reference to skilled needs from nursing and therapy. Sister explained therapy is completing passive ROM to help muscle movement to allow pt to participate in higher levels of therapy. SW explained that passive ROM is not skilled therapy that is needed 5 days/wk - that can be provided at a lower level of care with outpatient therapy services. However, since pt is medically compromised with PNA and needing ATB, along with wound care, and additional support for comorbidities, that is requiring senior living care at the present time. SW assured sister that ample notice, typically 5-7 days, will be given prior to a DC date. IDT collaborates with pt and family to set a DC date. This worker is starting DC planning prior to having a DC date to allow for a safe and smooth DC. SW explained IDT is recommending SNF care after skilled care in TCU, prior to DC home. Encouraged family to begin searching for SNFs, touring, and planning financially, as these steps take time. SW to assist with referrals and if pt cannot pay OOP, SW credit administrator discuss Medicaid eligibility. Sister expressed understanding agreed. Sister stated the children already chosen 4 SNFs from ICU prior to knowing TCU was an option. Sister stated the children will need to ensure the SNFs can provide bariatric care, wound care, and therapy care the pt needs. SW agreed, though, reiterated SW role is to make the referrals to SNFs to determine if they can meet pts' needs - it is not the families responsibility to do so. Sister appreciative. Sister stated all 5 sons work and it is not ideal for them to take off work, but they would like to schedule a time to meet with this worker. SW offered to schedule a time outside of work hours to accommodate meeting with sons. Sister appreciative and will relay to sons. Sister stressed this is a major change in condition for the pt as she was truly mod I prior. 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 Thus, why the family is concerned for pt. SW explained IDT is advocating for the pt, but this worker's role is also to be the messenger and enforce guidelines. Sister expressed understanding and noted it is apparent IDT is advocating for the pt. Sister very appreciative of conversation and information; she will update all sons. SW will continue to follow. Time spent: 40 minutes Atiya Becker STUDENT TEACHING COORDINATOR MORALE OFFICER
[2024-11-01 11:57] LABS: Bedside Glucose 166 mg/dL (74-106)
[2024-11-01] MEDS: Multivitamins,Therapeutic Tablet 1 TABLET PO (12:00)
[2024-11-01] MEDS: Magnesium Citrate 300 ML PO (12:19)
--- NOTE | 2024-11-01 12:53 | CASEMGMT ---
Addendum entered by Atiya Becker 11/01/24 13:57: SW phoned Dick, son, to discuss [employer] application. Dick lives in [place] and stated brother, Oziel, would be able to assist as his has access to pt's bank accounts. Dick provided SW with Oziel's number. - SW phoned Oziel and discussed SNF cost, potential [employer] eligibility to cover SNF stay. Oziel confirmed pt has limited income and assets and he can assist. Son asked additional questions from conversation with Karlee SW provided explanations. Son appreciative. SW will continue to follow. Original Note: Social Work SW completed BIMS (01/07) and PHQ-9 (04/21) for MDS assessment. Pt expressed decline in mood is d/t medical complexities, loss of independence and pain. Pt denied any interventions such as medications or counseling. Pt is forward thinking. SW offered support throughout stay. SW explained, in short, the conversation held with sister on DC plans and MC coverage. Pt expressed understanding to SNF stay. SW inquired about finances. Pt is over income limit, but has no assets, and still likely to qualify for SNF YURIDIA. Pt agreed to [facility] referral to [facility] and stated any of her sons could provide financial information. - MARINO sent referral via email to [facility]. Atiya Becker SCHOLASTIC APTITUDE TEST GRADER CLOTH DOFFER
--- NOTE | 2024-11-01 13:17 | RAD_ITS ---
EXAM: XR Left Hip With Pelvis When Performed, 2 or 3 Views CLINICAL INDICATION: PAIN. TECHNIQUE: Two or three views of the left hip with pelvis when performed. COMPARISON: No relevant prior studies available. FINDINGS: BONES/JOINTS: Mild degenerative change of the hip joint. No acute fracture. No dislocation. SOFT TISSUES: Unremarkable. RAD/HIP, UNI W/ Pelvis 2-3 Views IMPRESSION: Degenerative changes as above. Reading Location: [id number]
[2024-11-01 13:49] VITALS: O2SAT 98
--- NOTE | 2024-11-01 14:05 | RAD_ITS ---
PROCEDURE: ABDOMEN SINGLE VIEW 11/01/2024 REASON FOR EXAM: CONSTIPATION. TECHNIQUE: Single view abdomen. COMPARISON: SUPINE ABDOMEN DATED 10/27/2024 FINDINGS: Bowel gas: Normal. No evidence of obstruction. Calcifications: Phleboliths in the pelvis. Bones: Unremarkable. Other: Suspicion of previous cholecystectomy with right upper quadrant surgical clips. RAD/Abdomen Single View IMPRESSION: NO ACUTE FINDINGS. Reading Location: [facility]
[2024-11-01 16:44] LABS: Bedside Glucose 219 mg/dL (74-106)
[2024-11-01] MEDS: oxyCODONE 5 MG Tablet PO (17:39)
--- NOTE | 2024-11-01 18:03 | NURSING ---
Addendum entered by Marina Wheeler 11/01/24 18:31: Patient exited the unit at 1815. Original Note: Nurse called to patient's room. Patient coughing after dinner. Patient appears SOB on observation with an increase in work of breathing. Patient using accessary muscles and wheezing. Patient able to cough up clear thick mucus. Vitals obtained, 198/99 then 223/98 on recheck, HR 124 96% on 3L NC, 98.5, RR20. Patient appears uncomfortable. Recently medicated with PRN Oxy. Patient previously started on Omnicef, Doxy and Lasix for abnormal chest xray. Call placed to Dr. Colmenares with update. Per Dr. Colmenares send to ER for further evaluation. Report called to ER.
--- NOTE | 2024-11-02 03:01 | NURSING ---
Addendum entered by Angle Munoz 11/02/24 04:18: Per ED pt transferred to [facility] at this time via ambulance. Original Note: Called for update from ER, pt is awaiting transport to [facility].
--- NOTE | 2024-11-02 08:03 | DS.PCM_ITS ---
Providers Date of Admission: 10/26/24 Primary Care Physician: Dr. 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 Routine Comment: Reason For Visit: GEO Diagnosis Discharge Diagnosis (1) Debility: Status: Acute Code(s): R53.81 - Other malaise (2) Multiple falls: Status: Acute Code(s): R29.6 - Repeated falls (3) Acute encephalopathy: Status: Acute Code(s): G93.40 - Encephalopathy, unspecified (4) Septic shock: Status: Acute Code(s): A41.9 - Sepsis, unspecified organism; R65.21 - Severe sepsis with septic shock (5) UTI (urinary tract infection): Status: Acute Code(s): N39.0 - Urinary tract infection, site not specified (6) Atrial fibrillation with rapid ventricular response: Status: Acute Code(s): I48.91 - Unspecified atrial fibrillation (7) Type 2 diabetes mellitus with hyperglycemia: Status: Acute Code(s): E11.65 - Type 2 diabetes mellitus with hyperglycemia (8) Essential hypertension: Status: Acute Code(s): I10 - Essential (primary) hypertension (9) Hyperlipidemia: Status: Chronic Code(s): E78.5 - Hyperlipidemia, unspecified (10) Depression: Status: Acute Code(s): F32.A - Depression, unspecified (11) Obstructive sleep apnea: Status: Acute Code(s): G47.33 - Obstructive sleep apnea (adult) (pediatric) (12) COPD (chronic obstructive pulmonary disease): Status: Chronic Code(s): J44.9 - Chronic obstructive pulmonary disease, unspecified Plan 69 year old female with below past medical history hospitalized for multiple falls, acute encephalopathy 2/2 septic shock 2/2 urinary tract infection, complicated by new onset atrial fibrillation with rapid ventricular response, admitted to TCU with debility, here for rehabilitation, strengthening, prior to discharge home alone. * Debility - PT/OT. * Pain - Tramadol 50mg q6 prn pain (1-10). * Bowel - Senna/colace 1 tablet bid, Magnesium citrate 300mL daily prn. * Adult immunization - Administer pneumonia vaccine, covid vaccine, flu vaccine as appropriate. * DVT prophylaxis - Eliquis. * Urinary tract infection - Levaquin 750mg daily thru 10/29/2024 * New atrial fibrillation with RVR - Metoprolol succinate 25mg daily, Amiodarone 200mg daily, Eliquis 5mg bid. * Thrush - Nystatin 500,000 4x/day thru 11/02/2024. * COPD - Albuterol 2.5mg neb q4 prn, Albuterol 2 puffs q4 prn. * Vitamin D deficiency - D3 125mcg daily. * Congestion - Mucinex 1200mg bid. * Diabetes Mellitus II - Metformin 750mg daily, Lispro 10 units sc tid. * GI prophylaxis - Lactobacillus 1 capsule daily. * Hypertension - Metoprolol succinate 25mg daily, Lisinopril 20mg daily. * Allergic rhinitis - Loratadine 10mg daily. * Skin irritation - Calmoseptine topical tid. * Nutrition - MVI 1 tablet daily. The following psychotropic medication was present on admission: Fluoxetine 20mg. Psychotropic medication therapy is indicated for a diagnosis of: Major Depression. Based on my clinical evaluation, continuation of the medication is necessary at this time. Gradual dose reduction plan (select one): ____ GDR will be attempted. Will monitor patient symptoms and behaviors in response to GDR. __x__ GRD contraindicated. Reason contraindicated: stable chronic detention use. Medications at Discharge Home Medications atorvastatin 10 mg tablet 10 mg PO QHS cholesterol 07/14/21 chlorthalidone 25 mg tablet 25 mg PO DAILY diuretic 07/14/21 fluoxetine 20 mg capsule 20 mg PO DAILY anxiety 07/14/21 albuterol sulfate 90 mcg/actuation aerosol inhaler 2 puff inhalation Q4H PRN Dyspnea 05/25/22 albuterol sulfate 2.5 mg/3 mL (0.083 %) solution for nebulization 2.5 mg inhalation Q4H PRN sob 05/26/22 cholecalciferol (vitamin D3) 125 mcg (5,000 unit) tablet 125 mcg PO DAILY Supplement 05/26/22 multivitamin 1 tab PO DAILY Supplement 08/26/22 dulaglutide 4.5 mg/0.5 mL subcutaneous pen injector (Trulicity) 4.5 mg subcut QWEEK Diabetes 10/14/22 aspirin 81 mg tablet,delayed release 81 mg PO DAILY Heart 01/26/23 blood pressure monitor #1 ea 10/19/23 lactobacillus combo no.11 15 billion cell sprinkle capsule (Probiotic) 1 cap PO DAILY Probiotic 08/18/23 insulin lispro 100 unit/mL subcutaneous pen (Humalog KwikPen (U-100) Insulin) 10 unit subcut TID Diabetes 01/24/24 metformin 750 mg tablet,extended release 24 hr 750 mg PO QDAY Diabetes 01/24/24 handicap placard #1 ea 09/25/24 cetirizine 10 mg tablet (24Hour Allergy) 10 mg PO DAILY allergies 10/21/24 empagliflozin 25 mg tablet (Jardiance) 25 mg PO DAILY Diabetes 10/21/24 Held on 10/26/24. Instructions: Resume on 11/11/24. Hold until follow-up with PCP. Can consider restarting at that time if needed. amiodarone 200 mg tablet 200 mg PO DAILY Heart Rhythm 30 days #30 tabs 10/26/24 apixaban 5 mg tablet (Eliquis) 5 mg PO BID Blood Thinner 30 days #60 tabs 10/26/24 guaifenesin 1,200 mg tablet, extended release 12 hr (Mucus Relief ER) 1,200 mg PO BID Mucus Relief #0 tabs 10/26/24 levofloxacin 750 mg tablet 750 mg PO DAILY Antibiotic 2 days #2 tabs 10/26/24 lisinopril 20 mg tablet 20 mg PO DAILY BP 30 days #30 tabs 10/26/24 menthol 0.44 %-zinc oxide 20.6 % topical ointment (Calmoseptine) 1 applic topical TID Skin irritation #0 grams 10/26/24 nystatin 100,000 unit/mL oral suspension 500,000 unit (5 mL) PO 4X/DAY Thrush 7 days #0 mL 10/26/24 pramipexole 0.25 mg tablet 0.25 mg PO QHS Restless leg 30 days #30 tabs 10/26/24 cefdinir 300 mg capsule 300 mg PO Q12H 11/01/24 doxycycline hyclate 100 mg capsule 100 mg PO BID 11/01/24 furosemide 40 mg tablet 40 mg PO DAILY 11/01/24 gabapentin 100 mg capsule 100 mg PO TID 11/01/24 loratadine 10 mg tablet (Allergy Relief (loratadine)) 10 mg PO DAILY 11/01/24 losartan 100 mg tablet (Cozaar) 100 mg PO DAILY 11/01/24 magnesium citrate (Citrate of Magnesia oral) 300 ml PO DAILY PRN constipation 11/01/24 metoprolol succinate 25 mg tablet,extended release 24 hr 50 mg PO DAILY BP 11/01/24 morphine 20 mg/5 mL (4 mg/mL) oral solution 10 mg PO Q4H PRN pain 11/01/24 nystatin 100,000 unit/gram topical powder (Nyamyc) 1 applic topical BID 11/01/24 oxycodone 5 mg capsule 5 mg PO Q4H PRN pain 11/01/24 polyethylene glycol 3350 17 gram/dose oral powder 17 g PO DAILY 11/01/24 sennosides 8.6 mg tablet (senna) 8.6 mg PO DAILY 11/01/24 tramadol 50 mg tablet 50 mg PO Q6H PRN pain 11/01/24 Hospital Course Operations None Procedures None Summary of Care Provided Minutes Spent on Discharge: 15 Hospital Course: 69 year old female with below past medical history hospitalized for multiple falls, acute encephalopathy 2/2 septic shock 2/2 urinary tract infection, complicated by new onset atrial fibrillation with rapid ventricular response, admitted to TCU with debility, here for rehabilitation, strengthening, prior to discharge home alone. 10/31/2024 Resident short of breath, Chest X-ray showed pneumonia/CHF, Cefdinir/Zithromax started, Levaquin unable 2/2 drug interaction/prolonged QT, Furosemide 40mg daily added. 11/01/2024 Resident's respiratory status worsened, along with tachycardia from afib with rvr, and hypertensive urgency with sbp > 200. Discharge to [facility] ED 11/01/2024 for evaluation, possible admission to [facility]. Weight / BMI Weight Weight: 156.217 kg Body Mass Index (BMI) 62.9 ABG / Lab / Microbiology Data 11/01/24 05:45 11/01/24 05:45 Laboratory: Laboratory Results - last 24 hr 11/01/24 11:22: POC Glucose 166 H 11/01/24 16:22: POC Glucose 219 H Radiography Diagnostic Testing: Radiology Impression KUB X-Ray 11/01/24 14:05 IMPRESSION: NO ACUTE FINDINGS. Reading Location: [facility] Instructions Discharge Diet: No restrictions Discharge Activity: Return to Normal Activity, May Shower and Use Walker Weight Bearing Status: Weight bearing as tolerated Call your doctor if you observe: Fever of 101 or Higher, Inability to urinate, Inability to have a bowel movement, Shortness of breath, Dizziness, Fainting spells, Swelling in the ankles, Chest pain and Uncontrolled pain DC O2, CPAP, BIPAP Needs Home O2 Discharge instructions: No Additional Instructions: Discharge to [facility] ED 11/01/2024 for evaluation, possible admission to [facility]. Meaningful Use Info Meaningful Use Meaningful Use Diagnoses (Choose all that apply): None applicable Ischemic Stroke Statin Dosing Therapy Reference: STATIN DOSE THERAPY REFERENCE: * Patients > 75 years receive moderate or high dose statin therapy. * Patients 75 years or YOUNGER should receive HIGH intensity statin dose unless contraindicated. You will be required to document reason for non-treatment if statin daily dose does not meet guidelines. HIGH DOSE STATIN THERAPY DAILY Atorvastatin > than or = to 40 mg Rosuvastatin > than or = to 20 mg Amlodipine + Atorvastatin > than or = to 2.5/40 mg Ezetimibe + Simvastatin 10/80 mg Simvastatin 80mg Discharge Plan Admission Admit Date/Time: 10/26/24 16:27 Primary Reason for Your Visit: Debility. Attending Provider: Jose Francisco Colmenares Chi Primary Care Provider: Rivas Benitez Instructions Additional Instructions / Restrictions: Discharge to [facility] ED 11/01/2024 for evaluation, possible admission to [facility]. Discharge Orders/Prescriptions Prescriptions: No Action cholecalciferol (vitamin D3) 125 mcg (5,000 unit) tablet 125 mcg PO DAILY albuterol sulfate 2.5 mg /3 mL (0.083 %) solution for nebulization 2.5 mg inhalation Q4H PRN (Reason: sob) Trulicity 4.5 mg/0.5 mL pen injector 4.5 mg subcut QWEEK multivitamin Tablet 1 tab PO DAILY (DME) blood pressure monitor Kit See Rx Instructions .Route Qty: 1 0RF Rx Instructions: As directed aspirin 81 mg tablet,delayed release (DR/EC) 81 mg PO DAILY Patient Comments: hold 5 days prior to OR insulin lispro [Humalog KwikPen Insulin] 100 unit/mL insulin pen 10 unit subcut TID metformin 750 mg tablet extended release 24 hr 750 mg PO QDAY (DME) handicap placard See Rx Instructions .Route .MEDSUPPLY Qty: 1 0RF Rx Instructions: dx: Debility Expires: 09/25/2029 chlorthalidone 25 mg tablet 25 mg PO DAILY fluoxetine 20 mg capsule 20 mg PO DAILY atorvastatin 10 mg tablet 10 mg PO QHS albuterol sulfate 90 mcg/actuation HFA aerosol inhaler 2 puff INHALATION Q4H PRN (Reason: Dyspnea) Probiotic 15 billion cell capsule, sprinkle 1 cap PO DAILY Rx Instructions: do not crush/chew/cut; swallow whole OR may open and sprinkle in cold drink/food Jardiance 25 mg tablet 25 mg PO DAILY cetirizine [24Hour Allergy] 10 mg tablet 10 mg PO DAILY nystatin 100,000 unit/mL Suspension 500,000 unit PO 4X/DAY 7 Days Qty: 0 0RF amiodarone 200 mg Tablet 200 mg PO DAILY 30 Days Qty: 30 0RF pramipexole 0.25 mg Tablet 0.25 mg PO QHS 30 Days Qty: 30 0RF guaifenesin [Mucus Relief ER] 1,200 mg Tablet Extended Release 12hr 1,200 mg PO BID Qty: 0 0RF menthol-zinc oxide [Calmoseptine] 0.44-20.6 % Ointment 1 applic topical TID Qty: 0 0RF Protocol: *Topical Application Instructions APPLICATION INSTRUCTIONS: APPLY TO [facility] Eliquis 5 mg Tablet 5 mg PO BID 30 Days Qty: 60 0RF lisinopril 20 mg tablet 20 mg PO DAILY 30 Days Qty: 30 0RF levofloxacin 750 mg tablet 750 mg PO DAILY 2 Days Qty: 2 0RF losartan [Cozaar] 100 mg tablet 100 mg PO DAILY loratadine [Allergy Relief (loratadine)] 10 mg tablet 10 mg PO DAILY doxycycline hyclate 100 mg capsule 100 mg PO BID furosemide 40 mg tablet 40 mg PO DAILY polyethylene glycol 3350 17 gram/dose powder 17 g PO DAILY nystatin [Nyamyc] 100,000 unit/gram powder 1 applic topical BID gabapentin 100 mg capsule 100 mg PO TID cefdinir 300 mg capsule 300 mg PO Q12H sennosides [senna] 8.6 mg tablet 8.6 mg PO DAILY magnesium citrate [Citrate of Magnesia] Solution 300 ml PO DAILY PRN (Reason: constipation) oxycodone 5 mg capsule 5 mg PO Q4H PRN (Reason: pain) morphine 20 mg/5 mL (4 mg/mL) solution 10 mg PO Q4H PRN (Reason: pain) tramadol 50 mg tablet 50 mg PO Q6H PRN (Reason: pain) metoprolol succinate 25 mg Tablet Extended Release 24 Hr 50 mg PO DAILY Referrals / Follow Up: Rivas Benitez MD [Primary Care Provider] - Disposition Disposition (needs filled in before D/C Order can be placed): Acute Care Hospital [facility]
--- NOTE | 2024-11-07 10:15 | MDS.RN ---
Information for the MDS was obtained from review of the clinical record, interview of resident, staff, and direct observation of resident?s care.
== END 2024-11-01 18:15 | disposition short-term general hospital (02) | DRG 689 ==
PROVIDERS: Admitting Provider Family Medicine Geriatric Medicine; PCP Family Medicine; Visit Provider Family Medicine Geriatric Medicine
DX: N39.0 Urinary tract infection, site not specified (principal); J18.9 Pneumonia, unspecified organism; I50.31 Acute diastolic (congestive) heart failure; J44.0 Chronic obstructive pulmonary disease with (acute) lower respiratory infection; Z68.44 Body mass index [BMI] 60.0-69.9, adult; I16.0 Hypertensive urgency; I11.0 Hypertensive heart disease with heart failure; I48.91 Unspecified atrial fibrillation; E11.40 Type 2 diabetes mellitus with diabetic neuropathy, unspecified; F32.9 Major depressive disorder, single episode, unspecified; G25.81 Restless legs syndrome; E66.01 Morbid (severe) obesity due to excess calories; E11.65 Type 2 diabetes mellitus with hyperglycemia; E55.9 Vitamin D deficiency, unspecified; E78.00 Pure hypercholesterolemia, unspecified; I10 Essential (primary) hypertension; G47.33 Obstructive sleep apnea (adult) (pediatric); Z79.4 Long term (current) use of insulin; K21.9 Gastro-esophageal reflux disease without esophagitis; J30.9 Allergic rhinitis, unspecified; B37.9 Candidiasis, unspecified; J44.89 Other specified chronic obstructive pulmonary disease; Z87.891 Personal history of nicotine dependence; Z79.84 Long term (current) use of oral hypoglycemic drugs; Z79.899 Other long term (current) drug therapy; Z79.82 Long term (current) use of aspirin; Z79.01 Long term (current) use of anticoagulants; R94.31 Abnormal electrocardiogram [ECG] [EKG]
CPT/HCPCS: 36415; 71046; 73502; 74018; 80048; 80061; 82306; 82962; 83036; 85025; 92507; 92523; 92526; 92610; 94002; 94640; 94660; 97110; 97163; 97166; 97530; 97535; 97802

== ENCOUNTER 2024-11-01 18:29 | Emergency (ER) | payer MEDICARE, BC, SELFPAY ==
[2024-11-01] VITALS (10 sets, daily range): BP systolic 99–139; BP diastolic 55–119; PULSE 78–116; RESP 12–20; TEMP 36.4–36.6; O2SAT 95–98; BMI 64.6
--- NOTE | 2024-11-01 18:39 | ED.VIS.DYS ---
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 Mass of right breast Right rotator cuff tear Closed fracture of right proximal humerus History of transcatheter aortic valve replacement (TAVR) (07/11/22) Hyperlipidemia [place] on CPAP Dyspnea Type 2 diabetes mellitus Essential hypertension Nonrheumatic aortic (valve) stenosis Former smoker CPAP (continuous positive airway pressure) dependence Asthma Ludwigs angina Morbid obesity Home Medications ?Medication ?Instructions ?Recorded ?Last Taken ?Type atorvastatin 10 mg tablet 10 mg PO QHS cholesterol 07/14/21 10/25/24 23:05 History chlorthalidone 25 mg tablet 25 mg PO DAILY diuretic 07/14/21 10/20/24 History fluoxetine 20 mg capsule 20 mg PO DAILY anxiety 07/14/21 10/26/24 09:55 History albuterol sulfate 90 mcg/actuation 2 puff inhalation Q4H PRN Dyspnea 05/25/22 08/21/23 History aerosol inhaler albuterol sulfate 2.5 mg/3 mL 2.5 mg inhalation Q4H PRN sob 05/26/22 07/26/23 History (0.083 %) solution for nebulization cholecalciferol (vitamin D3) 125 125 mcg PO DAILY Supplement 05/26/22 10/26/24 09:55 History mcg (5,000 unit) tablet multivitamin 1 tab PO DAILY Supplement 08/26/22 10/26/24 09:55 History dulaglutide 4.5 mg/0.5 mL 4.5 mg subcut QWEEK Diabetes 10/14/22 10/20/24 History subcutaneous pen injector (Trulicity) aspirin 81 mg tablet,delayed 81 mg PO DAILY Heart 01/26/23 10/26/24 09:55 History release blood pressure monitor #1 ea 04/13/23 Unknown Rx lactobacillus combo no.11 15 1 cap PO DAILY Probiotic 08/18/23 10/26/24 09:55 History billion cell sprinkle capsule (Probiotic) insulin lispro 100 unit/mL 10 unit subcut TID Diabetes 01/24/24 10/26/24 13:55 History subcutaneous pen (Humalog KwikPen (U-100) Insulin) metformin 750 mg tablet,extended 750 mg PO QDAY Diabetes 01/24/24 10/20/24 History release 24 hr handicap placard #1 ea 09/25/24 Unknown Rx cetirizine 10 mg tablet (24Hour 10 mg PO DAILY allergies 10/21/24 10/20/24 History Allergy) empagliflozin 25 mg tablet 25 mg PO DAILY Diabetes 10/21/24 10/20/24 History (Jardiance) Held on 10/26/24. Instructions: Resume on 11/11/24. Hold until follow-up with PCP. Can consider restarting at that time if needed. amiodarone 200 mg tablet 200 mg PO DAILY Heart Rhythm 30 10/26/24 10/26/24 09:55 Rx days #30 tabs apixaban 5 mg tablet (Eliquis) 5 mg PO BID Blood Thinner 30 days 10/26/24 10/26/24 09:55 Rx #60 tabs guaifenesin 1,200 mg tablet, 1,200 mg PO BID Mucus Relief #0 10/26/24 10/26/24 09:55 Rx extended release 12 hr (Mucus tabs Relief ER) levofloxacin 750 mg tablet 750 mg PO DAILY Antibiotic 2 days 10/26/24 Unknown Rx #2 tabs lisinopril 20 mg tablet 20 mg PO DAILY BP 30 days #30 tabs 10/26/24 Unknown Rx menthol 0.44 %-zinc oxide 20.6 % 1 applic topical TID Skin 10/26/24 10/26/24 05:25 Rx topical ointment (Calmoseptine) irritation #0 grams nystatin 100,000 unit/mL oral 500,000 unit (5 mL) PO 4X/DAY 10/26/24 Unknown Rx suspension Thrush 7 days #0 mL pramipexole 0.25 mg tablet 0.25 mg PO QHS Restless leg 30 10/26/24 10/25/24 23:00 Rx days #30 tabs cefdinir 300 mg capsule 300 mg PO Q12H 11/01/24 Unknown History doxycycline hyclate 100 mg capsule 100 mg PO BID 11/01/24 Unknown History furosemide 40 mg tablet 40 mg PO DAILY 11/01/24 Unknown History gabapentin 100 mg capsule 100 mg PO TID 11/01/24 Unknown History loratadine 10 mg tablet (Allergy 10 mg PO DAILY 11/01/24 Unknown History Relief (loratadine)) losartan 100 mg tablet (Cozaar) 100 mg PO DAILY 11/01/24 Unknown History magnesium citrate (Citrate of 300 ml PO DAILY PRN constipation 11/01/24 Unknown History Magnesia oral) metoprolol succinate 25 mg 50 mg PO DAILY BP 11/01/24 Unknown History tablet,extended release 24 hr morphine 20 mg/5 mL (4 mg/mL) oral 10 mg PO Q4H PRN pain 11/01/24 Unknown History solution nystatin 100,000 unit/gram topical 1 applic topical BID 11/01/24 Unknown History powder (Nyamyc) oxycodone 5 mg capsule 5 mg PO Q4H PRN pain 11/01/24 Unknown History polyethylene glycol 3350 17 17 g PO DAILY 11/01/24 Unknown History gram/dose oral powder sennosides 8.6 mg tablet (senna) 8.6 mg PO DAILY 11/01/24 Unknown History tramadol 50 mg tablet 50 mg PO Q6H PRN pain 11/01/24 Unknown History Allergy/AdvReac Type Severity Reaction Status Date / Time glimepiride Allergy Unknown pruritus Verified 10/21/24 06:51 rosiglitazone (From Avandia) Allergy Unknown Rash Verified 10/21/24 06:51 sitagliptin (From Januvia) Allergy Unknown Rash Verified 10/21/24 06:51 Sulfa (Sulfonamide Allergy NEEDS Verified 10/21/24 06:51 Antibiotics) FOLLOW-UP acetaminophen (From Tylenol) AdvReac Unknown Enlarged Verified 10/21/24 06:51 liver pravastatin AdvReac Unknown elevated Verified 10/21/24 06:51 liver enzymes Family History Mother Diabetes Heart disease Hypertension CVA (cerebral vascular accident) Father Diabetes Heart disease Hypertension Surgical History History of cardiac catheterization History of right breast biopsy History of left heart catheterization (05/30/22) History of rhinoplasty Hx of total knee replacement Hx of tubal ligation Hx of tonsillectomy History of hysterectomy Hx of cholecystectomy Social History household members: none Smoking Status: Former smoker how long ago did patient quit smokin years ago alcohol intake: current alcohol intake frequency: holidays/special occasions only substance use type: does not use caffeine: Yes Type: coffee Number of servings: 1 EXAM Physical Exam Const Vital Signs: 11/01/24 18:30 11/01/24 18:30 11/01/24 18:34 Temperature 97.6 F L 97.6 F L 97.6 F L Temperature Source Oral Oral Oral Pulse Rate 107 H 116 H Respiratory Rate 18 18 Respiratory Effort Respiratory Pattern Blood Pressure 139/117 H 139/119 H Blood Pressure Mean 124 125 Pulse Ox 96 98 Oxygen Delivery Method Nasal Cannula Oxygen Flow Rate (L/min) 3 Fraction of Inspired Oxygen (FIO2) 11/01/24 18:37 11/01/24 18:50 11/01/24 18:54 Temperature Temperature Source Pulse Rate 116 H Respiratory Rate 17 Respiratory Effort Short of Breath Respiratory Pattern Normal Blood Pressure Blood Pressure Mean Pulse Ox 97 Oxygen Delivery Method Nasal Cannula Oxygen Flow Rate (L/min) 3 Fraction of Inspired Oxygen (FIO2) 28 11/01/24 19:34 11/01/24 19:34 11/01/24 20:00 Temperature 97.8 F 97.8 F 97.8 F Temperature Source Temporal Temporal Temporal Pulse Rate 91 91 102 H Respiratory Rate 13 13 15 Respiratory Effort Respiratory Pattern Blood Pressure 99/64 99/64 108/69 Blood Pressure Mean 75 75 82 Pulse Ox 96 97 96 Oxygen Delivery Method Bi-pap Bi-pap Bi-pap Oxygen Flow Rate (L/min) Fraction of Inspired Oxygen (FIO2) 28 28 28 11/01/24 21:00 11/01/24 21:27 Temperature 97.9 F 98 F Temperature Source Temporal Temporal Pulse Rate 97 78 Respiratory Rate 17 18 Respiratory Effort Respiratory Pattern Blood Pressure 102/55 L 106/77 Blood Pressure Mean 70 86 Pulse Ox 96 95 Oxygen Delivery Method Bi-pap Bi-pap Oxygen Flow Rate (L/min) Fraction of Inspired Oxygen (FIO2) 28 28 MDM MDM MDM Narrative Medical decision making narrative: HISTORY OF PRESENT ILLNESS: Chief complaint: Shortness of breath 69-year-old female history of atrial fibrillation (on Eliquis, amiodarone), COPD (not on home O2), type 2 diabetes, hyperlipidemia, obesity, hypertension presents with concern for continued shortness of breath. States she was diagnosed pneumonia yesterday. States she started antibiotic and a diuretic. Notes increasing shortness of breath since yesterday. Denies fever. Notes a cough. Denies chest pain. Patient reports compliance with Eliquis. The patient denies recent surgery in the last 4 weeks or immobilization in the last 3 days, denies previous diagnosis of DVT or PE, hemoptysis, unilateral leg swelling or malignancy with treatment the last 6 months or palliative. No estrogen use noted. REVIEW OF SYSTEMS: Pertinent positives: Shortness of breath Pertinent negatives: Chest pain PHYSICAL EXAM: Nursing triage notes reviewed, Vital signs reviewed Constitutional: please see mdm HENT: MMM Eyes: Pupils equal round and reactive to light, Extraocular muscles intact Neck: No stridor, no JVD, full neck ROM Lungs: severely limited by body habitus, prolonged expiratory phase, noted severe increased work of breathing. Noted conversational dyspnea, accessory muscle use, noted severe respiratory distress. Heart: Regular rate and rhythm, No murmurs, No rubs and No gallops, 2+ distal pulses (radial, femoral, posterior tibial) in all extremities Abdomen: Soft, there is no tenderness, rigidity, rebound or guarding, no obvious peritoneal signs, no palpable pulsatile abdominal masses, no auscultated abdominal bruit : No CVAT Extremities: No obvious pitting edema Neuro: No new focal neurological deficits, cranial nerves II through XII intact, 5/5 strength in all present extremities. Intact sensation to light touch in all present extremities, 2+ reflexes bilateral patella tendons. Skin: No rash or lesions noted MEDICAL DECISION MAKING: Chief Complaint: please see HPI External records reviewed: Reviewed imaging studies from yesterday. Reviewed x-ray from 10/31/2024 which showed cardiomegaly, pulmonary congestion possibly pneumonia Factors affecting care: As per HPI Social determinants of health: none History obtained from others: EMS Consults: internal medicine (Dr. Sadler), cardiology (Dr. Smith) [facility] Narrative: The patient was initially tachycardic, saturating 98% on new 3 L oxygen requirement. Patient with severe increased work of breathing, conversational dyspnea and belly breathing. Exam severely limited by body habitus Given concerns for increased work of breathing patient was started on rescue BiPAP. I considered the following differential diagnosis: CHF exacerbation, pneumonia, atrial fibrillation, COPD exacerbation, PE, anemia ALL IMAGES (IF OBTAINED) HAVE BEEN PERSONALLY REVIEWED AND INTERPRETED BY MYSELF. VBG showed some CO2 retention however her pH was normal suggesting chronic CO2 retention EKG with A-fib with RVR, normal axis, no obvious STEMI Initial troponin elevated consistent with myocardial ischemia likely demand ischemia from hypoxia given lack of chest pain or EKG changes suggestive of STEMI BNP elevated consistent with volume overload. Consistent with CHF exacerbation I have personally reviewed the patient's chest x-ray. Chest x-ray is unremarkable for pulmonary edema, pneumothorax, pneumonia or focal cardiopulmonary abnormality. CBC with leukocytosis suggestive of systemic inflammation (suspect related to previous diagnosed pneumonia), mild anemia, no thrombocytopenia noted The synthesis of the patient's history, physical exam, labs images suggest likely multifactorial etiology of the patient's shortness of breath including possible pneumonia, COPD exacerbation given increased work of breathing, CHF exacerbation given elevated BNP and troponin. Given respiratory failure and need for BiPAP patient will require ICU admission. I discussed the case with cardiology given elevated troponin and cardiology recommended no anticoagulation at this time other than Eliquis. Then discussed the case with internal medicine who agreed to accept the patient. The patient and/or family, caregivers express understanding. The patient and/or family, caregivers agrees with the plan. Shared decision making: I will have a discussion with the patient and or visitors regarding risk/benefits of further testing or admission. They will be made aware of of the risk/benefits inherent in this decision they will be given the opportunity to voice understanding. Total critical care time today provided was at least 60 minutes. This excludes separately billable procedures. Critical care time (if documented) is secondary to the patient having high probability of clinically significant/life threatening deterioration in the patient's condition which required my urgent intervention. Impression: 1. Acute hypoxic respiratory failure 2. History of atrial fibrillation 3. COPD exacerbation 4. CHF exacerbation 5. Elevated troponin Dispo: Admit to ICU This note was generated with [employer] dictation software. It may contain incorrect words, spelling, and punctuation that were not noted in review of the chart prior to signing. Lab Data Labs: Laboratory Results - last 24 hr 11/01/24 18:25 WBC 18.6 H RBC 3.66 L Hgb 10.8 L Hct 34.0 L MCV 92.9 MCH 29.5 MCHC 31.8 L RDW Std Deviation 51.4 H RDW Coeff of Graciela 15.1 H Plt Count 366 MPV 10.6 Immature Gran % (Auto) 1.800 H Neut % (Auto) 81.8 H Lymph % (Auto) 8.7 L Wood % (Auto) 6.8 Eos % (Auto) 0.5 Baso % (Auto) 0.4 Absolute Neuts (auto) 15.2 H Absolute Lymphs (auto) 1.61 Nucleated RBC % 0 Sodium 136 Potassium 3.8 Chloride 94 L Carbon Dioxide 35.2 H Anion Gap 6 BUN 17 Creatinine 0.53 L Estim Creat Clear Calc 97.33 Est GFR (MDRD) Non-Af 99 BUN/Creatinine Ratio 31.8 H Glucose 221 H Calcium 9.5 Troponin T High Sens 195 H* D NT pro BNP II 3344 H ABG Data ABG results: ABG 11/01/24 19:13 Specimen Type HARI Sample Site Not entered O2 % 28.0 VBG pH 7.35 VBG pO2 48 H VBG HCO3 34 H VBG Total CO2 35 H VBG O2 Sat (Calc) 80 H VBG Base Excess 8 H POC Mix VBG pCO2 Pt Tmp 61.0 H O2 Delivery Device BiPAP Clinical Comments 05/31 12 28% Radiography Diagnostic Testing: Clinical Impression(s) from Imaging Studies Chest X-Ray 11/01/24 19:10 IMPRESSION: No Acute Findings. Reading Location: [facility] Discharge Plan Triage Chief Complaint: Shortness of Breath ED Provider: Ajit Jimenez Dx/Rx/DC Orders Prescriptions: No Action cholecalciferol (vitamin D3) 125 mcg (5,000 unit) tablet 125 mcg PO DAILY albuterol sulfate 2.5 mg /3 mL (0.083 %) solution for nebulization 2.5 mg inhalation Q4H PRN (Reason: sob) Trulicity 4.5 mg/0.5 mL pen injector 4.5 mg subcut QWEEK multivitamin Tablet 1 tab PO DAILY (DME) blood pressure monitor Kit See Rx Instructions .Route Qty: 1 0RF Rx Instructions: As directed aspirin 81 mg tablet,delayed release (DR/EC) 81 mg PO DAILY Patient Comments: hold 5 days prior to OR insulin lispro [Humalog KwikPen Insulin] 100 unit/mL insulin pen 10 unit subcut TID metformin 750 mg tablet extended release 24 hr 750 mg PO QDAY (DME) handicap placard See Rx Instructions .Route .MEDSUPPLY Qty: 1 0RF Rx Instructions: dx: Debility Expires: 09/25/2029 chlorthalidone 25 mg tablet 25 mg PO DAILY fluoxetine 20 mg capsule 20 mg PO DAILY atorvastatin 10 mg tablet 10 mg PO QHS albuterol sulfate 90 mcg/actuation HFA aerosol inhaler 2 puff INHALATION Q4H PRN (Reason: Dyspnea) Probiotic 15 billion cell capsule, sprinkle 1 cap PO DAILY Rx Instructions: do not crush/chew/cut; swallow whole OR may open and sprinkle in cold drink/food Jardiance 25 mg tablet 25 mg PO DAILY cetirizine [24Hour Allergy] 10 mg tablet 10 mg PO DAILY nystatin 100,000 unit/mL Suspension 500,000 unit PO 4X/DAY 7 Days Qty: 0 0RF amiodarone 200 mg Tablet 200 mg PO DAILY 30 Days Qty: 30 0RF pramipexole 0.25 mg Tablet 0.25 mg PO QHS 30 Days Qty: 30 0RF guaifenesin [Mucus Relief ER] 1,200 mg Tablet Extended Release 12hr 1,200 mg PO BID Qty: 0 0RF menthol-zinc oxide [Calmoseptine] 0.44-20.6 % Ointment 1 applic topical TID Qty: 0 0RF Protocol: *Topical Application Instructions APPLICATION INSTRUCTIONS: APPLY TO COCCYX Eliquis 5 mg Tablet 5 mg PO BID 30 Days Qty: 60 0RF lisinopril 20 mg tablet 20 mg PO DAILY 30 Days Qty: 30 0RF levofloxacin 750 mg tablet 750 mg PO DAILY 2 Days Qty: 2 0RF losartan [Cozaar] 100 mg tablet 100 mg PO DAILY loratadine [Allergy Relief (loratadine)] 10 mg tablet 10 mg PO DAILY doxycycline hyclate 100 mg capsule 100 mg PO BID furosemide 40 mg tablet 40 mg PO DAILY polyethylene glycol 3350 17 gram/dose powder 17 g PO DAILY nystatin [Nyamyc] 100,000 unit/gram powder 1 applic topical BID gabapentin 100 mg capsule 100 mg PO TID cefdinir 300 mg capsule 300 mg PO Q12H sennosides [senna] 8.6 mg tablet 8.6 mg PO DAILY magnesium citrate [Citrate of Magnesia] Solution 300 ml PO DAILY PRN (Reason: constipation) oxycodone 5 mg capsule 5 mg PO Q4H PRN (Reason: pain) morphine 20 mg/5 mL (4 mg/mL) solution 10 mg PO Q4H PRN (Reason: pain) tramadol 50 mg tablet 50 mg PO Q6H PRN (Reason: pain) metoprolol succinate 25 mg Tablet Extended Release 24 Hr 50 mg PO DAILY Primary Care Provider: Rivas Benitez Referrals: Rivas Benitez MD [Primary Care Provider] - Print Language: Ecuadorean
[2024-11-01 18:57] LABS: Absolute Lymphocyte Count 1.61 X10^3/uL (0.83-4.51); Absolute Neutrophil Count 15.2 X10^3/uL (2.0-7.7); Basophil# 0.08 X10^3/uL; Basophil% 0.4 % (0-1); Eosinophils% 0.5 % (0-5); Hemoglobin 10.8 g/dL (12.0-15.0); Lymphocyte # 1.61 X10^3/ul (0.83-4.51); Lymphocyte % 8.7 % (19-41); Mean Corp Hgb Conc 31.8 g/dL (32-36); Mean Corpuscular Hgb 29.5 pg (27.0-32.0); Mean Corpuscular Volume 92.9 fL (81-99); Mean Platelet Vol. 10.6 fl (6.2-12.0); Monocyte# 1.27 X10^3/uL; Monocyte% 6.8 % (0-10); NRBC Flagged by Analyzer 0 % (0-5); Neutrophil # 15.21 X10^3/uL (2.7-7.7); Neutrophil % 81.8 % (47-70); Platelet Count 366 K/mm3 (150-450); RBC Distribution Width CV 15.1 % (11.6-14.6); RBC Distribution Width SD 51.4 fl (35.1-43.9); Red Blood Count 3.66 M/mm3 (4.2-5.4); White Blood Count 18.6 K/mm3 (4.4-11.0)
[2024-11-01] MEDS: MethylPREDNISolone 125 MG/2 ML Vial IV (18:59)
--- NOTE | 2024-11-01 19:10 | RAD_ITS ---
PROCEDURE: CHEST 1 VIEW (PORTABLE) 11/01/2024 REASON FOR EXAM: SHORTNESS OF BREATH TECHNIQUE: Frontal view of the chest. COMPARISON: 10/13/2024 FINDINGS: Hardware: None Heart: Heart size is moderately enlarged. Lungs: No focal consolidation. No pneumothorax. No pleural effusion. Bones: Degenerative changes are identified within the thoracic spine. Other: RAD/Chest 1 View (Portable) IMPRESSION: No Acute Findings. Reading Location: [facility]
[2024-11-01 19:14] LABS: Anion Gap 6 (5-15); BUN 17 mg/dL (4-19); BUN/Creat Ratio 31.8 RATIO (10-20); Calcium,Total 9.5 mg/dL (7.6-11.0); Carbon Dioxide 35.2 mmol/L (21.0-32.0); Chloride 94 mmol/L (98-108); Creatinine, Serum 0.53 mg/dL (0.70-1.20); EST Glomerular Filtration Rate 99 (>60); Estimated Creatinine Clearance 97.33 ml/min (50-250); Glucose 221 mg/dL (70-99); Potassium 3.8 mmol/L (3.3-5.1); Sodium Level 136 mmol/L (133-145)
[2024-11-01 19:16] LABS: Blood Gas Specimen Type VEN; Comment 12/6 12 28%; O2 Delivery Device BiPAP; SITE Not entered; VBG BASE EXCESS 8 mmol/L (-1.0-3.5); VBG Bicarbonate 34 mmol/L (22-26); VBG PO2 48 mmHg (25-40); VBG SO2 80 % (50-70); VBG TCO2 35 mmol/L (23-33); VBG pH 7.35 (7.32-7.42)
[2024-11-01 19:29] LABS: Pro- Brain NATRIURETIC PEPTIDE 3344 pg/mL (<=900); Troponin T High Sensitivity 195 ng/L (<=14)
[2024-11-01] MEDS: Ceftriaxone 1 GM/50 ML BAG IV (20:08)
[2024-11-01] MEDS: Furosemide 100 MG/10 ML Vial 60 MG IV (20:09)
--- NOTE | 2024-11-01 20:28 | ED.RN ---
original blair returned to pharmacy for remix.
--- NOTE | 2024-11-01 20:35 | CT_ITS ---
PROCEDURE: CTA CHEST W/WO CONTRAST 11/01/2024 REASON FOR EXAM: SOB R/O PE TECHNIQUE: CTA axial imaging of the chest with intravenous contrast. Multiplanar and multisequence images were obtained. PATIENT PREPARATION: Per protocol CONTRAST: Omnipaque 350 VOLUME: 100 mL Not Provided Gauge IV One or more dose reduction techniques were used (e.g., Automated exposure control, adjustment of the mA and/or kV according to patient size, use of iterative reconstruction technique). RADIATION DOSE SUMMARY: . COMPARISON: Chest radiograph chest radiograph 11/02/2019 FINDINGS: Hardware: None Lymph nodes: A few prominent but nonenlarged by size criteria hilar and mediastinal lymph nodes, which are likely reactive. Heart: Mild cardiomegaly with moderate pericardial effusion, measuring up to 24 mm. Status post aortic valve replacement. Thoracic Aorta: No thoracic aortic aneurysm or dissection. Pulmonary Vessels: No large central pulmonary emboli are identified. Contrast timing is suboptimal for evaluation of more distal branches. Most Proximal Level of Embolus (if embolus present): Lungs and Airways: Central airways are patent without endobronchial lesions. Moderate bilateral pleural effusion with atelectasis. No suspicious pulmonary nodule. No pneumothorax. No focal consolidation otherwise. Upper Abdomen: Visualized portions of the upper abdominal viscera are unremarkable. Bones: Degenerative changes of the thoracic spine. Chest wall: Chest wall is unremarkable. Thyroid gland is within normal limits. Esophagus is nondilated. CT/CTA Chest W/WO Contrast IMPRESSION: Mild cardiomegaly and moderate pericardial effusion, measuring up to 2.4 cm in maximum thickness. Moderate bilateral pleural effusion and atelectasis. [facility]
[2024-11-01] MEDS: Azithromycin 500 MG in 0.9% Normal Saline (250mL Bag) 250 ML 250 MG IV (21:00)
[2024-11-01 21:49] LABS: Lactic Acid 1.1 mmol/L (0.0-2.0)
[2024-11-01 21:57] LABS: Troponin T High Sens 2 HR 179 ng/L (<=14)
[2024-11-01 23:48] LABS: Troponin T High Sens 4 HR 169 ng/L (<=14)
[2024-11-02] VITALS: BP 91/72; PULSE 92; RESP 12; TEMP 36.5; TEMP 36.6; O2SAT 96
[2024-11-02 01:00] VITALS: BP 87/72; PULSE 104; RESP 13; TEMP 36.5; O2SAT 95
[2024-11-02 02:00] VITALS: BP 101/75; PULSE 98; RESP 11; TEMP 36.5; O2SAT 95
[2024-11-02 03:00] VITALS: BP 99/74; PULSE 95; RESP 15; TEMP 36.6; O2SAT 100
[2024-11-02 04:00] VITALS: BP 104/86; PULSE 112; RESP 17; TEMP 36.6; O2SAT 97
--- NOTE | 2024-11-02 04:05 | ED.RN ---
left message for maxim ring made contact with matilda and advised him of pt's xfer to [facility].
== END 2024-11-02 04:11 | disposition short-term general hospital (02) ==
PROVIDERS: Emergency Provider Emergency Medicine; PCP Family Medicine; Referring Provider Emergency Medicine; Visit Provider Emergency Medicine
DX: J96.01 Acute respiratory failure with hypoxia (principal); I11.0 Hypertensive heart disease with heart failure; I50.9 Heart failure, unspecified; J44.1 Chronic obstructive pulmonary disease with (acute) exacerbation; E11.9 Type 2 diabetes mellitus without complications; Z79.4 Long term (current) use of insulin; R79.89 Other specified abnormal findings of blood chemistry; E78.00 Pure hypercholesterolemia, unspecified; G47.33 Obstructive sleep apnea (adult) (pediatric); Z79.51 Long term (current) use of inhaled steroids; Z79.01 Long term (current) use of anticoagulants; Z79.84 Long term (current) use of oral hypoglycemic drugs; Z87.891 Personal history of nicotine dependence
CPT/HCPCS: 71045; 71275; 80048; 82803; 83605; 83880; 84484; 85025; 87040; 87631; 93005; 94002; 96365; 96366; 96367; 96375; 99285; Q9967; A4216; J1940